=== PATIENT | female | born 1975 | race Caucasian/White ===

== ENCOUNTER 2020-11-16 10:45 | Emergency (ER) | payer OTHER ==
--- OUTSIDE RECORDS SUMMARY | 2020-11-16 10:47 | XMS REPORT | Summary of Care ---
:1975 Author Organization [facility] Address [address] [place] [address] Care Team Providers Name Role Phone Cale Rashad Primary Care Provider Reason for Visit Reason Comments LAB Encounter Details Date Type Department Care Team Description 11/12/2020 Director Credit Risk Visit [facility] Lou Eubanks MD [address] [place] [address] [address] [place] [address] Well woman exam with routine gynecologic al exam; Professional Office 2, [facility] Lab Screening examination for venereal disea se; [facility] Phlebotomy Screenin g for human immunodeficiency virus Lab Professional Office [address] , [address] [place] [address] Allergies No Known Allergiesdocumented as of this encounter (statuses as of 11/12/2020) Medications Medication Sig Dispensed Refills Start Date End Date Status hydroCHLOROthiazide 12.5 TK 1 T PO QD 0 09/11/2020 Active mg tablet IN THE MORNING meloxicam 7.5 mg tablet 0 10/18/2020 Active SERTraline 50 mg tablet TAKE 1 0 11/04/2020 Active TABLET(50 MG) BY MOUTH 1 TIME EACH DAY documented as of this encounter (statuses as of 11/12/2020) Active Problems Problem Noted Date Obesity (BMI 30-39.9) 11/12/2020 documented as of this encounter (statuses as of 11/12/2020) Social History Tobacco Use Types Packs/Day Years Used Date Never Smoker Smokeless Tobacco: Never Used Alcohol Use Drinks/Week oz/Week Comments Never Alcohol Habits Answer Date Recorded How often do you have a drink containing alcohol? Never 11/12/2020 How many drinks containing alcohol do you have on a typical Not asked 11/12/2020 day when you are drinking? How often do you have six or more drinks on one occasion? 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 documented as of this encounter Last Filed Vital Signs Not on filedocumented in this encounter Nursing Notes Teresa Mclaughlin - 11/12/2020 1:15 PM CST Venipuncture collection performed by clean technique on the right anticubitus. Total of 1 attempts were made. Slight pressure and a bandage/dressing were applied to the site(s). The patient experiencedno complications. The following specimens were processed according to instructions and sent to [facility] laboratories per lab order on 11/12/20: LT BLUE SST 3 RED 1 LAV PPT DK GREEN (LiHep) DK GREEN (SodH) MORENO DK BLUE (K2) DK BLUE (S) ACD Blood Culture NIPT/NTD documented in this encounter Plan of Treatment Date Type Specialty Care Team Description 11/19/2020 Appointment Radiology Lou Eubanks MD [address] [place] [address] Dr. Gaspar [address] [place] [address] 11/26/2020 Office Visit Obstetrics & Gynecology Priscila Eubanks MD [address] [place] [address] Dr. [place] [address] [phone] 11/13/2021 Office Visit Obstetrics & Gynecology Priscila Eubanks MD [address] [place] [address] Dr. [place] [phone] [phone] Health Maintenance Due Date Last Done Comments Depression Screening 1988 DTaP,Tdap,and Td Vaccines (1 - 1995 Tdap) PAP SMEAR 08/09/2015 08/09/2012 Breast Cancer Screening 2016 (MAMMOGRAM) INFLUENZA VACCINE (#1) 2021 Postponed from 07/22/2020 (Refused) PNEUMOCOCCAL 0-64 YEARS COMBINED Aged Out No longer eligible based on SERIES patient's age to complete this topic documented as of this encounter Results Not on filedocumented in this encounter Visit Diagnoses Diagnosis Well woman exam with routine gynecologic al exam Routine gynecological examination Screening examination for venereal disea se Screening for human immunodeficiency vir us Special screening examination for other specified viral diseases documented in this encounter Insurance Payer Benefit Plan / Subscriber ID Effective Phone Address T ype Group Dates CIGNA CIGNA GENERIC [id number] 2020-Pre HM O/PPO/POS sent [employer] [id number] 2020-Pre [address] [place] sent [id number] [place] [address] [address] ([address]) [phone] (Work) [place] [phone] documented as of this encounter
--- OUTSIDE RECORDS SUMMARY | 2020-11-16 10:47 | XMS REPORT | Summary of Care ---
:1975 Author Organization [facility] Address [address] [place] [address] Care Team Providers Name Role Phone Rashad Madsen Primary Care Provider Reason for Referral Radiology Services (Routine) Status Reason Specialty Diagnoses / Referred By Referred To Procedures Contact Contact New Request Diagnostic Diagnoses Menorrhagia with regular cycle Lou Eubanks, Radiology Procedures US PELVIS COMPLETE WITH TRANSVAGINAL [address] [place] [address] DrJg Hubert [address] [place] [address] (Routine) Status Reason Specialty Diagnoses / Referred By Referred To Procedures Contact Contact Closed Physical Therapy Diagnoses Stress incontinence Lou Eubanks, Procedures CONSULT/REFERRAL PHYSICAL THERAPY [address] [place] [address] DrJg Hubert [address] [place] [address] Reason for Visit Reason Comments Well Woman Exam Encounter Details Date Type Department Care Team Description 11/12/2020 Office Visit [facility] Women's Lou Eubanks, Well woman exam with routine gynecological exam (Primary Dx); Healthcare- MD Encounter for screening mammogram for ma lignant neoplasm of breast; [address] Screening examination for ve nereal disease; [address] [place] [address] Screening for human immunodeficiency vir us; [address], [address] Menorrhagia with regular cycle; [place], [place] Stress incontin ence; [id number] Cystocele with rectocele [phone] Allergies No Known Allergiesdocumented as of this [...] Problem Noted Date Obesity (BMI 30-39.9) 11/12/2020 Cystocele with rectocele 11/12/2020 Menorrhagia with regular cycle 11/12/2020 Stress incontinence 11/12/2020 documented as of this encounter (statuses [...] with No / Unsure 11/12/2020 9:25 AM DISTRICT CUSTOMS DIRECTOR someone who was confirmed or suspected to have Coronavirus / COVID-19? documented as of this encounter Last Filed Vital Signs Vital Sign Reading Time Taken Comments Blood Pressure 129/87 11/12/2020 10:13 AM DISTRICT CUSTOMS DIRECTOR Pulse 69 11/12/2020 10:13 AM DISTRICT CUSTOMS DIRECTOR Temperature 36.7 C (98.1 F) 11/12/2020 10:13 AM DISTRICT CUSTOMS DIRECTOR Respiratory Rate 18 11/12/2020 10:13 AM DISTRICT CUSTOMS DIRECTOR Oxygen Saturation - - Inhaled Oxygen Concentration - - Weight 81.2 kg (179 lb) 11/12/2020 10:13 AM DISTRICT CUSTOMS DIRECTOR Height 162.6 cm (5' 4") 11/12/2020 10:13 AM DISTRICT CUSTOMS DIRECTOR Body Mass Index 30.73 11/12/2020 10:13 AM DISTRICT CUSTOMS DIRECTOR documented in this encounter Patient Instructions Patient InstructionsDaly Morrow RN - 11/12/2020 9:00 AM CST Patient Education Prevention Guidelines,Women Ages 40 to 49 Screening tests and vaccines are an important part of managing your health. A screening test is doneto find diseases in people who don't have any symptoms. The goal is to find a disease early so lifestyle changes and checkups can reduce the risk of disease. Or the goal may be to detect it early to treat it most effectively. Screening tests are not used to diagnose a disease. But they are used to seeif more testing is needed.Health counseling is important, too. Below are guidelines for these, forwomen ages 40 to 49. Talk with your healthcare provider to make sure youre up-to-date on what youneed. Screening Who needs it How often Type 2 diabetes or prediabetes All women beginning at age 45 and women without symptoms at any age who are overweight or obese and have 1 or more additional risk factors for diabetes At least every 3 years1 Type 2 diabetes or prediabetes All women diagnosed with gestational diabetes Lifelong testing every 3 years Type 2 diabetes All women with prediabetes Every year Alcohol misuse All women in this age group At routine exams Blood pressure All women in this age group Yearly checkup if your blood pressure is normal Normal blood pressure is less than 120/80 mm Hg If your blood pressure reading is higher than normal, follow the advice of your healthcare provider Breast cancer All women at average risk in this age group Screening with a mammogram can start at age 40.2 Talk with your healthcare provider to help you decide when to start screening. At age 45 startyearly mammograms.3 Cervical cancer All women in this age group, except women who have had a complete hysterectomy Pap test every 3 yearsor Pap test plushuman papilloma virus (HPV)test every 5 years Colorectal cancer Women age 45 years and older at average risk Multiple tests are available and are used at different times. Possible tests include: Flexible sigmoidoscopy every 5 years, or Colonoscopy every 10 [address], [address] colonography (virtual colonoscopy) every 5 years, or Yearly fecal occult blood test, or Yearly fecal immunochemical test every year, or Stool DNA test, every 3 years If you choose a test other than a colonoscopy and have an abnormal test result, you will need to follow-up with a colonoscopy. Screening advice varies among expert groups. Talk with your healthcare provider about which tests are best for you. Some people should be screened using a different schedule because of their personal or family healthhistory. Talk with your healthcare provider about your health history. Chlamydia Women at increased risk for infection At routine exams if you're at risk or have symptoms Depression All women in this age group At routine exams Gonorrhea Sexually active women at increased risk for infection At routine exams Hepatitis C Anyone at increased risk; 1 time for those born between 1945 and 1964 At routine exams High cholesterol or triglycerides All women ages 45 and older who are at risk for coronary artery disease; younger women, talk with your healthcare provider At least every 5 years HIV All women At routine exams. Those with risk factors for HIV should be tested at least annually. Obesity All women in this age group At routine exams Syphilis Women at increased risk for infectiontalk with your healthcare provider At routine exams Tuberculosis Women at increased risk for infectiontalk with your healthcare provider Ask your healthcare provider Vision All women in this age group Complete exam at age 40 and eye exams every 2 to 4 years. If you have a chronic disease, ask your healthcare provider how often you should have your eyes examined.4 Vaccine Who needs it How often Chickenpox (varicella) All women in this age group who have no record of this infection or vaccine 2doses; the second dose should be given at least 4 weeks after the first dose Hepatitis A Women at increased risk for infectiontalk with your healthcare provider 2 doses given6 months apart Hepatitis B Women at increased risk for infectiontalk with your healthcare provider 3 doses over 6 months; second dose should be given 1 month after the first dose; the third dose should be given atleast 2 months after the second dose and at least 4 months after the first dose Haemophilus influenzaeType B (HIB) Women at increased risk 1 to 3 doses Influenza (flu) All women in this age group Once a year Measles, mumps, rubella (MMR) All women in this age group who have no record of these infections or vaccines 1 or 2 doses Meningococcal Women at increased risk for infectiontalk with your healthcare provider 1 or more doses Pneumococcal conjugate vaccine (PCV13)and pneumococcal polysaccharidevaccine(PPSV23) Women at increased risk for infectiontalk with your healthcare provider 1 or 2 doses Tetanus/diphtheria/pertussis (Td/Tdap) booster All women in this age group A 1- time dose of Tdap instead of a Td booster after age 18, then Td every 10 years Counseling Who needs it How often BRCA gene mutation testing for breast and ovarian cancer susceptibility Women with increased risk for having gene mutation When your risk is known Breast cancer and chemoprevention Women at high risk for breast cancer When your risk is known Diet and exercise Women who are overweight or obese When diagnosed, and then at routine exams Domestic violence Women at the age in which they are able to have children At routine exams Sexually transmitted infection prevention Women at increased risk for infectiontalk with your healthcare provider At routine exams Use of tobacco and the health effects it can cause All women in this age group Every exam 1 [place] [employer] 2 [place] [employer] 3 [place] [employer] 4 [place] [email or web address] last reviewed this educational content on 09/21/201719996808-1853 [employer]. All rights reserved. This information is not intended as a substitute for professional medical care. Always follow your healthcare professional's instructions. Patient Education Breast Health: Breast Self-Awareness What is breast self-awareness? Breast self-awareness is knowing how your breasts normally look and feel. Your breasts change as yougo through different stages of your life. So its important to learn what is normal for your breasts. Knowing about your breasts helps you spot any changes in them right away. Tell your healthcare provider about any changes. Why is breast self-awareness important? Many experts now say that women should focus on breast self-awareness instead of doing a breast self-examination (BSE). These experts include the [place] [employer] and the [place] [employer]. Some experts even advise not teaching women to do a BSE. Thats because research hasnt shown a clear benefit to doing BSEs. Breast self-awareness is different than a BSE. It isnt about following a certain method and schedule. Its about knowing what's normal for your breasts. That way you can spot even small changes right away. If you see any changes, tell your healthcare provider. Changes to look for Call your healthcare provider if you find any changes in your breasts that worry you. These changes may be: A lump Nipple discharge other than breast milk, especially if it's bloody Swelling A change in size or shape Skin changes, such as redness, thickening, or dimpling of the skin Swollen lymph nodes in the armpit Nipple problems, such as pain or redness If you find a lump Call your provider if you find lumpiness in one breast. Also call if you feel something different inthe tissue or feel a definite lump. Sometimes lumpiness may be due to menstrual changes. But there may be reason for concern. Your provider may want to see you right away if you have: Nipple discharge that is bloody Skin changes on your breast, such as dimpling or puckering Its okay to be upset if you find a lump. Be sure to call your provider right away. Remember that most breast lumps are benign. This means they are not cancer. [email or web address] last reviewed this educational content on 03/21/202019992770-2074 [employer]. All rights reserved. This information is not intended as a substitute for professional medical care. Always follow your healthcare professional's instructions. Patient Education The Range of Pap Test Results When your Pap test is sent to the lab, the lab studies your cell samples and reports any abnormal cell changes. Your healthcare provider can discuss these changes with you. In some cases, an abnormal Pap test is due to an infection. More serious cell changes range from dysplasia to cancer. Talk to your healthcare provider about your Pap test. Normal results Cervical cells, even normal ones, are always changing. As they mature, normal squamous cells move from deeper layers within the cervix. Over time, these cells flatten and cover the surface of the cervix. Within the cervical canal, the cells are different. These glandular cells are taller and not as flat as the cells on the surface of the cervix. When a Pap test sample shows healthy cells of both types, the results are negative. Keep having Pap tests as often as directed. Abnormal results A positive Pap test result means some cells in the sample showed abnormal changes. These results aregrouped by the type of cell change and the location, or extent, of the changes. Depending on the results, you may need further testing. Inflammation. Noncancerous changes are present. They may be due to normal cell repair. Or they may be caused by an infection, such as HPV or yeast. Further testing may be needed. (Also called reactive cellular changes.) Atypical squamous cells. Test results are unclear. Cells on the surface of the cervix show changes, but their significance is not yet known. Testing for HPV and other sexually transmitted infections(STIs) may be needed. Treatment may be required. (Reported as ASC-US or ASC-H.) Atypical glandular cells. Cells lining the cervical canal show abnormal changes. Further testing is likely. You may also have treatment to destroy or remove problem cells. (Reported as AGC.) Mild dysplasia. Cells show distinct changes. More testing or HPV typing may be done. You may alsohave treatment to destroy or remove problem cells. (Reported as low-grade CHRISTOPHER or CIRILO 1.) Moderate to severe dysplasia. Cells show precancerous changes. Or noninvasive cancer (carcinoma in situ) may be present. Treatment to destroy or remove problem cells is likely. (Reported as high-grade CHRISTOPHER or CIRILO 2 or CIRILO 3.) Cancer. Different types of cancer may be detected by your Pap test. More tests to assess the cancer's extent are likely. The type of treatment will depend on the test results and other factors, suchas age and health history. (Reported as squamous cell carcinoma, endocervical adenocarcinoma in situ, or adenocarcinoma.) [email or web address] last reviewed this educational content on 04/21/202019993576-5486 [employer]. All rights reserved. This information is not intended as a substitute for professional medical care. Always follow your healthcare professional's instructions. Patient Education Why Have a Pap Test? Early on, cervical changes don't cause symptoms. Often the only way to know you have cervical changes is to do a Pap test. A Pap test can find these problems early, when they are easier to treat. Pap tests can also find some infections of the cervix and vagina. What is a Pap test? A Pap test is a procedure that helps find changes in the cervix that may lead to cancer. The cervix is the part of the uterus that opens into the vagina. For this test, a small sample of cells is takenfrom the cervix. This is done in your healthcare providers office. The cells are then analyzed martha lab. A Pap test is a safe procedure. It takes just a few minutes and causes little or no discomfort. The HPV connection Human papillomavirus (HPV) is a family of viruses that spread through skin contact. Certain types are almost always spread through sexual contact. Some HPV types cause genital warts (condyloma). But not all types of HPV cause symptoms you can see. Certain types cause cell changes (dysplasia) in the cervix that can lead to cancer.In fact, HPV infection is the most important risk factor for cervical cancer. Healthcare providers can now test for HPV. Testing for HPV is often done with the Pap test.Thats why its important to have Pap tests as advised by your healthcare provider. This helps ensure that any abnormal cells will be found and treated before they become cancer. Who should have a Pap test and HPV test? Ask your healthcare provider when to start having Pap tests, if you should have an HPV test done at the same time, and how often to have them. Follow these guidelines from the [place] [employer] for cervical cancer screening: A first Pap testat age 21, and then every 3 years until age 29. HPV testing is not advised during this time. But it may be done to follow up on an abnormal Pap test. Starting at age 30, the preferred testing is a Pap test done with an HPV test every 5 years. Thisshould be done until age 65. Another option for women in this 30 to 65 age group is to have just thePap test done every 3 years. You may need a different screening schedule if you are at high risk for cervical cancer.Risk factors include having HIV, a weak immune system, or exposure to the medicine MAINOR while your mother was with you. Talk with your provider about the best schedule for you. If youre over65 and have had regular screenings for the last 10 years with no abnormal results in the last 20 years,you may stop cervical cancer screening. If you had a hysterectomy that included removing your cervix, you can stop screening unless the hysterectomy was done to treat cervical cancer or precancer. If you still have your cervix after the hysterectomy, you should keep screening according to the above guidelines. Routine testing doesn't need to be done each year. But if your test is abnormal, your provider will let you know how often to be tested. Women who have been vaccinated for HPV should still follow these guidelines. If you have had cervical cancer, talk with your provider about the screening plan that's best foryou. [email or web address] last reviewed this educational content on 04/21/202019993282-8005 [employer]. All rights reserved. This information is not intended as a substitute for professional medical care. Always follow your healthcare professional's instructions. Patient Education What Is Stress Urinary Incontinence? Stress urinary incontinence is a common type of bladder control problem in women. But it may also occur in men. It occurs when urine leaks out when there is sudden pressure on the belly (abdomen). Thismay happen from sneezing, coughing, physical exercise, lifting, bending, and even changing positions. This condition may occur when the structures that help hold urine in your bladder are weak. What are the symptoms of stress incontinence? If you have stress incontinence, you may leak urine when you: Cough, sneeze, or laugh Lift something heavy Exercise Strong pelvic floor muscles and connective tissue, and a strong urethral sphincter, help keep urine in the bladder. Weak or torn pelvic floor muscles and connective tissue, or a weak urethral sphincter, can let urineleak out of the bladder. Normal urine control The bladder holds urine until you are ready to let it flow out. These structures help: The pelvic floor muscles and connective tissue. These help hold the pelvic organs in place. When the muscles and connective tissue are strong, the urethra and bladder are well supported. This helps keep the urethra closed. Then urine doesnt leak. The urethral sphincter. This is a band of muscles around the urethra. When these muscles are strong, they keep urine in the bladder. These muscles relax when you want urine to flow out. If urine leaks out The pelvic floor muscles and connective tissue may stretch, weaken, or tear. Weak or torn structurescant support the urethra and bladder. The urethral sphincter may also weaken. These changes can cause urine to leak. The changes may be caused by: and vaginal or delivery Constant coughing (such as with bronchitis or smoking) Being overweight or obese Hysterectomy or other pelvic surgery Nerve damage Treatment Many treatments are available, including: Lifestyle changes (reducing weight, quitting smoking, reducing drinks with caffeine or alcohol, and doing bladder-strengthening exercises) Surgery Medical devices such as pessaries [email or web address] last reviewed this educational content on 11/21/201919999112-5246 [employer]. All rights reserved. This information is not intended as a substitute for professional medical care. Always follow your healthcare professional's instructions. Patient Education Kegel Exercises Kegel exercises are done to help strengthen the muscles in your pelvic floor. You dont need special clothing or equipment. Theyre easy to learn and simple to do. And if you do them right, no one can tell youre doing them, so they can be done almost anywhere. Your healthcare provider, nurse, or physical therapist can answer any questions you have and help you get started. A weak pelvic floor The pelvic floor muscles may weaken due to aging, and vaginal childbirth, injury, surgery,chronic cough, or lack of exercise. If the pelvic floor is weak, your bladder and other pelvic organs may sag out of place. The urethra may also open too easily and allow urine to leak out. Kegel exercises can help you strengthen your pelvic floor muscles. Then they can better support the pelvic organs and control urine flow. How Kegel exercises are done Try each of the Kegel exercises described below. When youre doing them, try not to move your leg,buttock, or stomach muscles: Contract as if you were stopping your urine stream. But do it when youre not urinating. Tighten your rectum as if trying not to pass gas. Contract your anus, but dont move your buttocks. You may place a finger or 2 in the vagina and squeeze your finger with your vagina to learn whichmuscles to tighten. Try to hold each Kegel for a slow count to 5. You probably wont be able to hold them for that long at first. But keep practicing. It will get easier as your pelvic floor gets stronger. Eventually, special weights that you place in your vagina may be recommended to help make your Kegels even more effective. Talk to your healthcare provider if you have trouble doing Kegel exercises. Helpful tips Here are some tips to follow: Do your Kegels as often as you can. The more you do them, the faster youll feel the results. Pick an activity you do often as a reminder. For instance, do your Kegels every time you sit down. Tighten your pelvic floor before you sneeze, get up from a chair, cough, laugh, or lift. This canhelp prevent urine, gas, or stool leakage. [email or web address] last reviewed this educational content on 06/21/202019998285-0868 [employer]. All rights reserved. This information is not intended as a substitute for professional medical care. Always follow your healthcare professional's instructions. [employer] C[employer]OM[employer] DIRECTOR documented in this encounter Progress Notes Lou Eubanks MD - 11/12/2020 9:00 AM CST Chief complaint: Chief Complaint Patient presents with Well Woman Exam Thuy Garcia is a 45 year-old lady, , who presents for a WWE today. She has some concerns today: - Urinary incontience which has been ongoing for 5 years now and getting worst. Leaks urine with activity, laughing or sneezing, worst with a full bladder and has to wear incontience pads. She denies dysuria, urgency or urge incontience.Reports that a few years ago, she was given a medication for it wh ich was not effective and only made her sit on the toilet "forever' before she could pee. She deniesany vaginal bulge or lump. - Over the last 1 year or so, her periods have gotten painful and heavier with blood clots, cycles are still regular. Denies postcoital or intermenstrual bleeding. She would like to start BC- possibly the pill.She has taken ortho tricyclen in the past and liked it - She has also noticed abdominal distension/bloating, admits that this has been on going for over 7 years and unrelated to her cycles and she also gets nausea with difficulty swallowing. She has been investigated for these symptoms but her PCP wanted to rule out gynecological etiology before referral to a GI specialist Her last pap smear is over 8 years ago, denies hx of abnormal pap smears Most recent MMG followed by a [facility]G was in 07/2020 at [facility], due follow up in 6 months She is currently undergoing divorce and would like STI screening. She denies domestic violence and her mood is stable on antidepressants Denies family hx of breast, ovarian or endometrial cancer. Paternal grandfather had colon Declined Flu shot Histories OB History Para Term AB Living 5 5 5 5 SAB TAB Ectopic Multiple Live Births 5 # Outcome Date GA Lbr Dashawn/2nd Weight Sex Delivery Anes PTL Lv 5 Term 2008 [facility] 4 Term 2004 [facility] 3 Term 1999 [facility] 2 Term 1996 [facility] 1 Term 1995 [facility] Past Medical History: Diagnosis Date Anxiety Depression Family History Problem Relation Age of Onset Heart Mother Psychiatry Mother Hypertension Mother Cataracts Mother Thyroid Mother Emphysema Father Hypertension Father Cancer Maternal Grandmother Heart Maternal Grandmother Colon Cancer Paternal Grandfather Family Status Relation Name Status Mo Alive Fa MGMo PGFa Past Surgical History: Procedure Laterality Date CHOLECYSTECTOMY Social History Socioeconomic History Marital status: Spouse name: Not on file Number of children: Not on file Years of education: Not on file Highest education level: Not on file Occupational History Not on file Social Needs Financial resource strain: Not on file Food insecurity Worry: Not on file Inability: Not on file Transportation needs Medical: Not on file Non-medical: Not on file Tobacco Use Smoking status: Never Smoker Smokeless tobacco: Never Used Substance and Sexual Activity Alcohol use: Never Frequency: Never Binge frequency: Never Drug use: Never Sexual activity: Yes Partners: Male Lifestyle Physical activity Days per week: Not on file Minutes per session: Not on file Stress: Not on file Relationships Social connections Talks on phone: Not on file Gets together: Not on file Attends lutheran service: Not on file Active member of club or organization: Not on file Attends meetings of clubs or organizations: Not on file Relationship status: Not on file Intimate partner violence Fear of current or ex partner: Not on file Emotionally abused: Not on file Physically abused: Not on file Forced sexual activity: Not on file Other Topics Concern Not on file Social History Narrative Denies physical and sexual abuse. Social History Substance and Sexual Activity Sexual Activity Yes Partners: Male Labs No new labs Radiology No new radiology. Allergies Thuy has No Known Allergies. Medications hTuy has a current medication list which includes the following prescription(s): hydrochlorothiazide, meloxicam, and sertraline. Review of Systems Constitutional: Negative. HENT: Negative. Eyes: Negative. Respiratory: Negative. Breasts: Negative. Cardiovascular: Negative. Gastrointestinal: Negative. Genitourinary: Positive for bladder incontinence (stress) and menstrual problem (menorrhagia). Negative for dysuria, urgency, frequency and flank pain. Musculoskeletal: Negative. Skin: Negative. Neurological: Negative. Psychiatric/Behavioral: Negative. Endocrine: Endocrine negative BP 129/87 (BP Location: Left arm, Patient Position: Sitting, BP CUFF SIZE: Adult Large) | Pulse 69| Temp 36.7 C (98.1 F) (Oral) | Resp 18 | Ht 5' 4" (1.626 m) | Wt 179 lb (81.2 kg) | LMP 11/08/2020 (Exact Date) | BMI 30.73 kg/m Pregravid BMI: Could not be calculated Physical Exam Vitals reviewed. Constitutional: She is oriented to person, place, and time. She appears well- developed and well-groomed. Neck: No tenderness and no mass. No thyroid nodules palpated. No neck adenopathy. Cardiovascular: Regular rate and rhythm. No friction rub and no murmur auscultated. Pulmonary/Chest: Breath sounds clear to auscultation. Normal inspiratory effort. Abdominal: Abdomen is soft. No mass palpated. No tenderness present. There is no rigidity and no guarding. No hernia palpated or inspected. Neuro/Psychiatric: She has a normal mood and affect. She is oriented to person, place, and time. Skin: Skin normal. Lymphadenopathy: No neck adenopathy present. No axillary adenopathy present. No inguinal adenopathy present. Breast: Right breast exhibits no mass, no nipple discharge and no tenderness. Left breast exhibits no mass, no nipple discharge and no tenderness. Breasts are symmetrical. External genitalia: Normal external genitalia appropriate for age. Vagina:No lesion inspected. Abnormal support (Ist degree cystocele and 2nd rectocele). No abnormal vaginal discharge found. No lesions in the vagina. Cervix: No lesion. No tenderness and no discharge present. Uterus: Uterus is normal size, normal contour, normal position and non-tender. Adnexa: Right adnexa without tenderness, ovary enlargement or mass. Left adnexa without tenderness, ovary enlargement or mass. Assessment/Plan Well woman exam with routine gynecological exam (primary encounter diagnosis) Comment: Reviewed and encouraged good nutrition, regular exercise, use of sunscreen, awareness of her breasts, routine annuals and mammograms. Also age appropriate vaccinations and screening labs were discussed. Colonoscopy after age of 51 and DEXA scan 66 years of age. Bone health-adequate Vit D and calcium with weight bearing exercise. Expectation and changes during perimenopausal stage were discussed and she was encouraged to call with any concerns. Plan: PAP Smear-Liquid Based, HIGH RISK HPV-THIN PREP, GC & CHLAMYDIA AMPLIFIED ASSAY, TRICHOMONAS AMPLIFIED ASSAY, ADC OR MINDI ONLY - RPR, HCV ANTIBODY, HEPATITIS B SURFACE ANTIGEN, HIV 1/2 AG-AB WITH REFLEX, HSV 1 AND 2 GLYCOPROTEIN G IGG, PAP Smear-Liquid Based, HIGH RISK HPV-THIN PREP, GC & CHLAMYDIA AMPLIFIED ASSAY, TRICHOMONAS AMPLIFIED ASSAY Encounter for screening mammogram for malignant neoplasm of breast Comment: Up to date mammogram Plan: Follow up as indicated/ recommended at study Screening examination for venereal disease Plan: HIGH RISK HPV-THIN PREP, GC & CHLAMYDIA AMPLIFIED ASSAY, TRICHOMONAS AMPLIFIED ASSAY, ADC OR MINDI ONLY - RPR, HCV ANTIBODY, HEPATITIS B SURFACE ANTIGEN, HIV 1/2 AG-AB WITH REFLEX, HSV 1 AND 2 GLYCOPROTEIN G IGG, HIGH RISK HPV-THIN PREP, GC & CHLAMYDIA AMPLIFIED ASSAY, TRICHOMONAS AMPLIFIED ASSAY Screening for human immunodeficiency virus Plan: HIV 1/2 AG-AB WITH REFLEX Menorrhagia with regular cycle Comment: Discussed the various etiologies of menorrhagia, including polyps, fibroids, hyperplasia oratypia, anovulation, adenomyosis etc. Reviewed that typical evaluation usually include pelvic US, sonohysterogram and endometrial biopsy. Biopsy procedure reviewed in detail. Recommended premedication with NSAIDs. Briefly discussed the options available for treatment (depending on the results of evaluation) such as hormonal treatment (OCPs, progestins), Mirena, endometrial ablation, and surgery (polypectomy/myomectomy or expectant management in case of negative results She would prefer the pill rather than surgery or an IUD if negative work up Patient agrees with plan. Plan: US PELVIS COMPLETE WITH TRANSVAGINAL Stress incontinence Comment: Symptoms consistent with stress incontinence. Reviewed the pathophysiology for stress incontience. Management options discussed included: Lifestyle modification (avoidance of bladder irritants); conservative management with PT for pelvic floor or pessary placement and surgical procedures which includes placement of sling. She opted for PT for now and would only consider surgery as a last resort. We also discussed using the OTC poise inserts- she will look into these option Referral to PT generated Plan: CONSULT/REFERRAL PHYSICAL THERAPY Cystocele and rectocele: Will need repair if she decides to proceed with surgery. RTC in 1-2 weeks for an EMBx and in 12 months for a WWE This visit did not involve counseling and coordination that comprised more than 50% of the visit time. Lou Eubanks MD documented in this encounter Plan of Treatment Date Type Specialty Care Team Description 11/19/2020 Appointment Radiology Lou Eubanks MD [address] [place] [address] Dr. [place] [address] 11/26/2020 Office Visit Obstetrics & Gynecology Priscila Eubanks MD [address] [place] [address] Dr. Wisdom [place], [place] [address] 11/13/2021 Office Visit Obstetrics & Gynecology Priscila Eubanks MD [address] [place] [address] Dr. 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 exam Screening examination for venereal disease HCV ANTIBODY LAB Routine Well woman exam with 020 11:52 AM routine gynecological DISTRICT CUSTOMS DIRECTOR exam Screening examination for venereal disease HEPATITIS B SURFACE LAB Routine Well woman exam with 11/12/2020 11:52 AM ANTIGEN routine gynecological DISTRICT CUSTOMS DIRECTOR exam Screening examination for venereal disease HSV 1 AND 2 GLYCOPROTEIN LAB Routine Well woman exam with 11/12/2020 11:52 AM G IGG routine gynecological DISTRICT CUSTOMS DIRECTOR exam Screening examination for venereal disease Name Type Priority Associated Diagnoses Order S chedule PAP Smear-Liquid Based LAB Routine Well woman exam wi th Expected: routine gynecological 2019, exam Expires: 2020 HIGH RISK HPV-THIN PREP LAB Routine Well woman exam w ith Expected: routine gynecological 2019, exam Expires: 11/12/2021 Screening examination for venereal disease GC & CHLAMYDIA AMPLIFIED LAB Routine Well woman exam with Expected: ASSAY routine gynecological 2019, exam Expires: 11/12/2021 Screening examination for venereal disease TRICHOMONAS AMPLIFIED LAB Routine Well woman exam wit h Expected: ASSAY routine gynecological 2019, exam Expires: 11/12/2021 Screening examination for venereal disease ADC OR MINDI ONLY - LAB Routine Well woman exam wit h Expected: RPR routine gynecological 2019, exam Expires: 02/10/2021 Screening examination for venereal disease HCV ANTIBODY LAB Routine Well woman exam with Expecte d: routine gynecological 2019, exam Expires: 02/10/2021 Screening examination for venereal disease HEPATITIS B SURFACE LAB Routine Well woman exam with Expected: ANTIGEN routine gynecological 2019, exam Expires: 02/10/2021 Screening examination for venereal disease HSV 1 AND 2 GLYCOPROTEIN LAB Routine Well woman exam with Expected: G IGG routine gynecological 2019, exam Expires: 11/12/2021 Screening examination for venereal disease US PELVIS COMPLETE WITH IMAGING Routine Menorrhagia with regular Expected: TRANSVAGINAL cycle 11/12/2020, Expires: 2020 Health Maintenance Due Date Last Done Comments Depression Screening 1988 DTaP,Tdap,and Td Vaccines (1 - 1995 Tdap) PAP SMEAR 08/09/2015 08/09/2012 Breast Cancer Screening 2016 (MAMMOGRAM) INFLUENZA VACCINE (#1) 2021 Postponed from 07/22/2020 (Refused) PNEUMOCOCCAL 0-64 YEARS COMBINED Aged Out No longer eligible based on SERIES patient's age to complete this topic documented as of this encounter Results HIV 1/2 AG-AB WITH REFLEX (11/12/2020 11:52 AM DISTRICT CUSTOMS DIRECTOR) Pathologist Sig nature HIV 1/2 Ag-Ab with Negative Negative [facility] HIV Semi-quantitative 0.08 [facility] Specimen Blood Narrative Performed At Non-reactive for HIV-1 antigen and HIV-1/HIV-2 [facility] antibodies. No laboratory evidence of HIV infection. Repeat in 2-4 weeks if acute HIV infection is suspected. Performing Organization Address City/State/Zipcode Phone Number [facility] CLIA: [id number] [place] [address] documented in this encounter Visit Diagnoses Diagnosis Well woman exam with routine gynecologic al exam - Primary Routine gynecological examination Encounter for screening mammogram for ma lignant neoplasm of breast Other screening mammogram Screening examination for venereal disea se Screening for human immunodeficiency vir us Special screening examination for other specified viral diseases Menorrhagia with regular cycle Excessive or frequent menstruation Stress incontinence Female stress incontinence Cystocele with rectocele Reserved for inherently not codable conc epts WITHOUT codable children documented in this encounter Insurance Payer Benefit Plan / Subscriber ID Effective Phone Address T ype Group Dates CIGNA CIGNA GENERIC [id number] 2020-Pre HM O/PPO/POS sent [employer] [id number] 2020-Pre [address] [place] [id number] [place] [phone] documented as of this encounter
--- OUTSIDE RECORDS SUMMARY | 2020-11-16 10:47 | XMS REPORT | Continuity of Care Document ---
:1975 Author Organization [facility] t Address [address] [place] [address] Dr. Pappas [address] [place] [address] Care Team Providers Name Role Phone Rashad Eubanks MD Attending Clinician Problems This patient has no known problems. Allergies, Adverse Reactions, Alerts This patient has no known allergies or adverse reactions. Medications This patient has no known medications. Procedures This patient has no known procedures. Encounters Start End Encounter Admission Attending Care Care Encounter Source Date/Time Date/Time Type Type Clinicians Facility Department ID 2020-11-12 2020-11-12 Office BUBBA Eubanks [id number] 29 09:33:12 11:25:11 Visit Lou Hinds [id number] [place] [id number] [place] [id number] [facility] [address] Results This patient has no known results.
--- OUTSIDE RECORDS SUMMARY | 2020-11-16 10:47 | XMS REPORT | Summary of Care ---
:1975 Author Organization [facility] Address [address] [place] [address] Care Team Providers Name Role Phone Rashad Madsen Primary Care Provider Reason for Referral Radiology Services (Routine) Status Reason Specialty Diagnoses / Referred By Referred To Procedures Contact Contact New Request Diagnostic Diagnoses Menorrhagia with regular cycle Lou Eubanks, Radiology Procedures US PELVIS COMPLETE WITH TRANSVAGINAL [address] [place] [address] DrJg Hubert [address] [place] [address] (Routine) Status Reason Specialty Diagnoses / Referred By Referred To Procedures Contact Contact Closed Physical Therapy Diagnoses Stress incontinence Lou Eubanks, Procedures CONSULT/REFERRAL PHYSICAL THERAPY [address] [place] [address] DrJg Hubert [address] [place] [address] Reason for Visit Reason Comments Well Woman Exam Encounter Details Date Type Department Care Team Description 11/12/2020 Office Visit [facility] Women's Lou Eubanks, Well woman exam with routine gynecological exam (Primary Dx); Healthcare- MD Encounter for screening mammogram for ma lignant neoplasm of breast; [address] Screening examination for ve nereal disease; [address] [place] [address] Screening for human immunodeficiency vir us; Drive, [address] Menorrhagia with regular cycle; [place], [place] Stress incontin ence; [phone] Cystocele with rectocele [phone] Allergies No Known Allergiesdocumented as of this [...] with No / Unsure 11/12/2020 9:25 AM 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 documented as of this encounter Last Filed Vital Signs Vital Sign Reading Time Taken Comments Blood Pressure 129/87 11/12/2020 10:13 AM HARD METALS HAND ENGRAVER Pulse 69 11/12/2020 10:13 AM HARD METALS HAND ENGRAVER Temperature 36.7 C (98.1 F) 11/12/2020 10:13 AM HARD METALS HAND ENGRAVER Respiratory Rate 18 11/12/2020 10:13 AM HARD METALS HAND ENGRAVER Oxygen Saturation - - Inhaled Oxygen Concentration - - Weight 81.2 kg (179 lb) 11/12/2020 10:13 AM HARD METALS HAND ENGRAVER Height 162.6 cm (5' 4") 11/12/2020 10:13 AM HARD METALS HAND ENGRAVER Body Mass Index 30.73 11/12/2020 10:13 AM HARD METALS HAND ENGRAVER documented in this encounter Patient Instructions Patient [...] in this age group Every exam 1 [place] [employer] 2 [place] [employer]nec[employer] 3 [place] [employer] 4 [place] [employer] last reviewed this educational content on 09/21/201719996106-9643 The [employer]. All rights reserved. This information is not [...] breast self-examination (BSE). These experts include the [place] [employer] and the [place] [employer] of Obstetricians [employer] Gynecologists. Some experts [...] benign. This means they are not cancer. [employer] last reviewed this educational content on 03/21/202019991158-4756 The [employer]. All rights reserved. This information is not [...] carcinoma, endocervical adenocarcinoma in situ, or adenocarcinoma.) [employer] last reviewed this educational content on 04/21/202019998173-8352 The [employer]. All rights reserved. This information is not [...] have them. Follow these guidelines from the [place] [employer] for cervical cancer screening: A [...] about the screening plan that's best foryou. [employer] last reviewed this educational content on 04/21/202019996496-0614 The [employer]. All rights reserved. This information is not [...] exercises) Surgery Medical devices such as pessaries [employer] last reviewed this educational content on 11/21/201919998911-6390 The [employer]. All rights reserved. This information is not [...] canhelp prevent urine, gas, or stool leakage. [employer] last reviewed this educational content on 06/21/202019993054-8360 The [employer]. All rights reserved. This information is not intended as a substitute for professional medical care. Always follow your healthcare professional's instructions. METALS HAND ENGRAVER documented in this encounter Progress Notes Lou [...] by a USG was in 07/2020 at [facility], due follow up in 6 months She [...] file Gets together: Not on file Attends protestant service: Not on file Active member of [...] Allergies Thuy has No Known Allergies. Medications Thuy has a current medication list which includes [...] Description 11/19/2020 Appointment Radiology Lou Eubanks MD [address] [place] [address] Dr. [place] [address] 11/26/2020 Office Visit Obstetrics & Gynecology Priscila Eubanks MD [address] [place] [address] Dr. Wisdom [place], [place] [address] 11/13/2021 Office Visit Obstetrics & Gynecology Priscila Eubanks MD [address] [place] [address] Dr. Gaspar [address] [place], [place] [address] Name Type Priority Associated Diagnoses Date/Ti me ADC OR MINDI ONLY - RPR LAB Routine Well woman exam with 11/12/2020 11:52 AM routine gynecological HARD METALS HAND ENGRAVER exam Screening examination for venereal disease HCV ANTIBODY LAB Routine Well woman exam with 020 11:52 AM routine gynecological HARD METALS HAND ENGRAVER exam Screening examination for venereal disease HEPATITIS B SURFACE LAB Routine Well woman exam with 11/12/2020 11:52 AM ANTIGEN routine gynecological HARD METALS HAND ENGRAVER exam Screening examination for venereal disease HSV 1 AND 2 GLYCOPROTEIN LAB Routine Well woman exam with 11/12/2020 11:52 AM G IGG routine gynecological HARD METALS HAND ENGRAVER exam Screening examination for venereal disease Name [...] 1/2 AG-AB WITH REFLEX (11/12/2020 11:52 AM HARD METALS HAND ENGRAVER) Pathologist Sig nature HIV 1/2 Ag-Ab with Negative Negative [facility] HIV Semi-quantitative 0.08 [facility] Specimen Blood Narrative Performed At Non-reactive for HIV-1 antigen and HIV-1/HIV-2 [facility] antibodies. No laboratory evidence of HIV infection. Repeat in 2-4 weeks if acute HIV infection is suspected. Performing Organization Address City/State/Zipcode Phone Number [facility] CLIA: [id number] [place] [address] documented in this [...] T ype Group Dates CIGNA CIGNA GENERIC [id number] 2020-Pre HM O/PPO/POS sent [employer] [id number] 2020-Pre [address] [place] [id number] [place] [phone] 80 documented as of this encounter
[2020-11-16] MEDS ORDERED: ONDANSETRON 4 MG (ODT) TAB ONE (14:21)
--- NOTE | 2020-11-16 15:17 | ER ---
Nurse's Notes [facility] Name: Thuy Garcia Age: 45 yrs Sex: Female : 1975 Arrival Date: 11/16/2020 Time: 10:48 Bed 25 Private MD: Diagnosis: Nausea and vomiting;Diarrhea, unspecified;Influenza due to other identified influenza virus-influenza B Presentation: 11/16 12:12 Chief complaint: Patient states: vomiting ten times since last night diarrhea X 3 iw cannot tolerate fluids, no fever, +chills, body aches, has been exposed to a family member that was positive. Coronavirus screen: Client presents with at least one sign or symptom that may indicate coronavirus-19. Standard/surgical mask placed on the client. Provider contacted for isolation considerations. Ebola Screen: Patient negative for fever greater than or equal to 101.5 degrees Fahrenheit, and additional compatible Ebola Virus Disease symptoms Patient denies exposure to infectious person. Patient denies travel to an Ebola-affected area in the 21 days before illness onset. No symptoms or risks identified at this time. Initial Sepsis Screen: Does the patient meet any 2 criteria? No. Patient's initial sepsis screen is negative. Does the patient have a suspected source of infection? No. Patient's initial sepsis screen is negative. Risk Assessment: Do you want to hurt yourself or someone else? Patient reports no desire to harm self or others. Onset of symptoms was November 16, 2020. 12:12 Method Of Arrival: Ambulatory iw 12:12 Acuity: RL 3 iw Triage Assessment: 13:09 GI: Reports vomiting. iw 15:27 General: Appears in no apparent distress. Behavior is calm. iw GARMENT FITTER: 12:12 LMP N/A - iw Historical: - Allergies: 12:14 No Known Allergies; iw - PMHx: 12:14 Hypertension; Depression; iw - PSHx: 12:14 Cholecystectomy; iw - Immunization history:: Adult Immunizations not up to date. - Social history:: Smoking status: Patient denies any tobacco usage or history of. Screenin:58 Abuse screen: Denies threats or abuse. Denies injuries from another. Nutritional iw screening: No deficits noted. Tuberculosis screening: No symptoms or risk factors identified. Fall Risk None identified. Assessment: 13:09 General: Appears in no apparent distress. Behavior is calm, cooperative. Pain: Denies iw pain. Neuro: Level of Consciousness is awake, alert, obeys commands, Oriented to person, place, time, situation. Cardiovascular: Patient's skin is warm and dry. Respiratory: Respiratory effort is even, unlabored, Respiratory pattern is regular, symmetrical. GI: Reports nausea, vomiting. Derm: Skin is intact, is healthy with good turgor. Musculoskeletal: Range of motion: intact in all extremities. 14:58 Reassessment: Patient appears in no apparent distress at this time. Patient and/or iw family updated on plan of care and expected duration. Pain level reassessed. Patient is alert, oriented x 3, equal unlabored respirations, skin warm/dry/pink. Vital Signs: 12:12 BP 135 / 97; Pulse 104; Resp 16 S; Temp 98.2; Pulse Ox 100% on R/A; Weight 81.65 kg; iw Height 5 ft. 4 in. (162.56 cm); 12:12 Body Mass Index 30.90 (81.65 kg, 162.56 cm) iw ED Course: 10:48 Patient arrived in ED. ag5 12:14 Triage completed. iw 12:15 Arm band placed on. iw 13:09 Patient has correct armband on for positive identification. iw 13:10 Ender Hartman PA is PHCP. cp 13:10 Enoc Sharma MD is Attending Physician. cp 13:11 Effie Mulligan, ELIGIO is Primary Nurse. iw 14:59 No provider procedures requiring assistance completed. Patient did not have IV access iw during this emergency room visit. Administered Medications: 14:12 Drug: Zofran (Ondansetron) 4 mg Route: PO; iw Outcome: 15:16 Discharge ordered by . cp 15:26 Discharged to home ambulatory. iw 15:26 Condition: good 15:26 Discharge instructions given to patient, Instructed on discharge instructions, follow up and referral plans. medication usage, Demonstrated understanding of instructions, follow-up care, medications, Prescriptions given X 1. 15:27 Patient left the ED. iw Addendum: 11/19/2020 08:54 Addendum: COVID-19 Result: Negative result given to RN to notify pt. Notified pt of d m5 negative COVID 19 swab results. Pt advised that even with a negative test result they should remain in isolation until symptom free for 3 days without medication. Pt also advised to return to the ED for worsening symptoms. 11/20/2020 10:46 Addendum: COVID-19 Result: Negative result given to RN to notify pt. Notified pt of i w negative COVID 19 swab results. Pt advised that even with a negative test result they should remain in isolation until symptom free for 3 days without medication. Pt also advised to return to the ED for worsening symptoms. Signatures: Luli Hodge RN RN dm5 Effie Mulligan RN RN iw Ender Hartman PA PA cp Gaskin, Ajare ag5 Corrections: (The following items were deleted from the chart) 11/16 12:15 12:12 Resp 16bpm; Spontaneous; Pulse Ox 100% RA; Temp 98.2F; iw iw
--- NOTE | 2020-11-16 15:17 | EDPHYS ---
Physician Documentation [facility] Name: Thuy Garcia Age: 45 yrs Sex: Female : 1975 Arrival Date: 11/16/2020 Time: 10:48 Bed 25 Private MD: ED Physician Enoc Sharma HPI: 11/16 13:30 This 45 yrs old Female presents to ER via Ambulatory with complaints of cp Vomiting/Diarrhea. 13:30 The patient presents to the emergency department with nausea, that is moderate, cp vomiting, that is intermittent, 10 times today, diarrhea, that is intermittent, 3 times today. Onset: The symptoms/episode began/occurred last night. Possible causes: sick contacts, by family, extended family member recently tested positive for COVID-19. Associated signs and symptoms: Pertinent positives: body aches, Pertinent negatives: abdominal pain, constipation, fever, chest pain. 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 - Social history:: Smoking status: Patient denies any tobacco usage or history of. ROS: 13:35 Constitutional: Positive for body aches, Negative for chills, fever. cp 13:35 Eyes: Negative for injury, pain, redness, and discharge. cp 13:35 ENT: Negative for ear pain, sore throat, difficulty swallowing, difficulty handling secretions. 13:35 Cardiovascular: Negative for chest pain, palpitations. 13:35 Respiratory: Negative for cough, wheezing. 13:35 Abdomen/GI: Positive for nausea, vomiting, and diarrhea, Negative for abdominal pain, hematemesis, black/tarry stool, rectal bleeding. 13:35 : Negative for urinary symptoms. 13:35 Neuro: Negative for altered mental status, headache, weakness. 13:35 All other systems are negative. Exam: 13:40 Constitutional: The patient appears in no acute distress, alert, awake, non-toxic, well cp developed, well nourished. 13:40 Head/Face: Normocephalic, atraumatic. cp 13:40 Eyes: Periorbital structures: appear normal, Conjunctiva: normal, no exudate, no cp injection, Sclera: no appreciated abnormality, Lids and lashes: appear normal, bilaterally. 13:40 ENT: External ear(s): are unremarkable, Nose: is normal, Posterior pharynx: Airway: no evidence of obstruction, patent. 13:40 Neck: Lymph nodes: no appreciated lymphadenopathy. 13:40 Chest/axilla: Inspection: normal. 13:40 Cardiovascular: Rate: tachycardic, Rhythm: regular. 13:40 Respiratory: the patient does not display signs of respiratory distress, Respirations: normal, no use of accessory muscles, no retractions, labored breathing, is not present, Breath sounds: are clear throughout, no decreased breath sounds. 13:40 Abdomen/GI: Inspection: abdomen appears normal, Bowel sounds: active, all quadrants, Palpation: abdomen is soft and non-tender, in all quadrants, rebound tenderness, is not appreciated, involuntary guarding, is not appreciated. 13:40 Back: pain, is absent, ROM is normal. 13:40 Neuro: Orientation: to person, place \T\ time. Mentation: is normal. Vital Signs: 12:12 BP 135 / 97; Pulse 104; Resp 16 S; Temp 98.2; Pulse Ox 100% on R/A; Weight 81.65 kg; iw Height 5 ft. 4 in. (162.56 cm); 12:12 Body Mass Index 30.90 (81.65 kg, 162.56 cm) iw MDM: 13:20 Patient medically screened. cp 15:00 Differential diagnosis: gastritis, viral gastroenteritis, gastroenteritis, dehydration, cp COVID-19. 15:15 Data reviewed: vital signs, nurses notes, lab test result(s), and as a result, I will cp discharge patient. 15:15 Counseling: I had a detailed discussion with the patient and/or guardian regarding: the cp historical points, exam findings, and any diagnostic results supporting the discharge/admit diagnosis, lab results, to return to the emergency department if symptoms worsen or persist or if there are any questions or concerns that arise at home. 15:15 Response to treatment: the patient's symptoms have markedly improved after treatment. ED course: VSS. Nausea improved. No vomiting observed by patient while in ED. Patient observed tolerating po fluids. Will discharge to home for continued monitoring. 11/16 13:20 Order name: Influenza Screen (a \T\ B); Complete Time: 15:13 cp 11/16 15:13 Interpretation: Normal except: FLUB FLU B ----- \T\nbsp; \T\nbsp; \T\nbsp; \T\nbsp; \T\nbsp; cp \T\nbsp; \T\nbsp; \T\nbsp; \T\nbsp; POSITIVE for FLU B protein antigen. 11/16 13:20 Order name: COVID-19 11/16 13:20 Order name: Urine Dipstick-Ancillary (obtain specimen) cp 11/16 13:20 Order name: Urine Test (obtain specimen) 11/16 13:20 Order name: PO challenge; Complete Time: 14:59 cp Administered Medications: 14:12 Drug: Zofran (Ondansetron) 4 mg Route: PO; iw Disposition: 15:57 Co-signature as Attending Physician, Enoc Sharma MD I agree with the assessment and rn plan of care. Disposition: 11/16/20 15:16 Discharged to Home. Impression: Nausea and vomiting, Diarrhea, unspecified, Influenza due to other identified influenza virus - influenza B. - Condition is Stable. - Discharge Instructions: Food Choices to Help Relieve Diarrhea, Adult, Dehydration, Adult, Diarrhea, Adult, Influenza, Adult, Nausea and Vomiting, Adult, COVID-19. - Prescriptions for Zofran 4 mg Oral Tablet - take 1 tablet by ORAL route every 12 hours As needed; 20 tablet. Tamiflu 75 mg Oral Capsule - take 1 tablet by ORAL route every 12 hours for 5 days; 10 tablet. - Work release form, Medication Reconciliation Form, Thank You Letter, Antibiotic Education, Prescription Opioid Use form. - Follow up: Private Physician; When: 2 - 3 days; Reason: Worsening of condition. - Problem is new. - Symptoms have improved. Signatures: Dispatcher [employer] Effie Conner RN RN iw Nieto, Roman, MD MD rn Page, Corey, PA PA cp Corrections: (The following items were deleted from the chart) 15:16 11/16/2020 15:16 Discharged to Home. Impression: Nausea and vomiting; Diarrhea, iw unspecified; Influenza due to other identified influenza virus - influenza B. Condition is Stable. Forms are Medication Reconciliation Form, Thank You Letter, Antibiotic Education, Prescription Opioid Use. Follow up: Private Physician; When: 2 - 3 days; Reason: Worsening of condition. Problem is new. Symptoms have improved. cp
[2020-11-16 15:32] VITALS: BP 135/97; TEMP 98.2; O2SAT 100
== END 2020-11-16 15:27 | disposition home or self-care (01) ==
LOC: ER 10:45
DX: J10.1 Influenza due to other identified influenza virus with other respiratory manifestations (principal); R19.7 Diarrhea, unspecified; Z20.828 Contact with and (suspected) exposure to other viral communicable diseases; I10 Essential (primary) hypertension
CPT/HCPCS: 87804 ×2; 99283; U0002

== ENCOUNTER 2021-09-16 11:38 | Emergency (ER) | payer OTHER ==
[2021-09-16 12:38] LABS: Absolute Lymphocytes (CBC) 1.2 K/uL (0.7-4.9); Basophils % 0.6 % (0-1.3); Hematocrit 41.9 % (36.0-45.0); Lymphocytes % 10.8 % (15.3-44.8); MPV 8.8 fL (7.6-11.3); RBC Red Blood Cell Count 4.66 M/uL (3.86-4.86)
[2021-09-16 12:41] LABS: Protime INR 1.07
[2021-09-16 12:59] LABS: ALT/SGPT 44 U/L (12-78); AST/SGOT 25 U/L (15-37); Albumin 3.9 g/dL (3.4-5.0); Alkaline Phosphatase 44 U/L (45-117); BUN Blood Urea Nitrogen 10 mg/dL (7-18); Bicarbonate 26 mmol/L (21-32); Bilirubin Direct 0.1 mg/dL (0-0.2); Bilirubin Total 0.5 mg/dL (0.2-1.0); Glucose Level 107 mg/dL (74-106); Magnesium 2.1 mg/dL (1.8-2.4); NT PRO-BNP 24 pg/mL (<125); Potassium 3.2 mmol/L (3.5-5.1); Protein, Total 8.4 g/dL (6.4-8.2); Sodium Level 139 mmol/L (136-145); Troponin (Emerg Dept Use Only) < 0.02 ng/mL (0.0-0.045)
[2021-09-16] MEDS ORDERED: POTASSIUM CL SA 10 MEQ TAB PO ONE (13:55)
[2021-09-16] MEDS ORDERED: NA CHLORIDE 0.9% 1,000 ML ONE (13:55)
--- NOTE | 2021-09-16 16:05 | EDPHYS ---
Physician Documentation [facility] Name: Thuy Garcia Age: 46 yrs Sex: Female : 1975 Arrival Date: 09/16/2021 Time: 11:43 Bed 5 Private MD: ED Physician Enoc Sharma HPI: 09/16 12:24 This 46 yrs old Female presents to ER via Ambulatory with complaints of High kb Blood Pressure, Shortness Of Breath. 12:24 The patient or guardian reports chest pain that is located primarily in the substernal kb area. Onset: 1 week(s) ago. The pain does not radiate. Associated signs and symptoms: Pertinent positives: shortness of breath. The chest pain is described as tightness/tingling. Duration: The patient or guardian reports multiple episodes, that are intermittent, with no pattern. Modifying factors: The symptoms are alleviated by nothing. the symptoms are aggravated by emotionally stressful situations. Severity of pain: At its worst the pain was moderate in the emergency department the pain has improved. The patient has experienced similar episodes in the past, multiple times, and the symptoms today are exactly the same. The patient has not recently seen a physician. Pt states she has noticed intermittent chest pain over the last week. States she had this about 10 years ago, had an EKG and stress test done, but didn't complete the workup after that. States her mother was diagnosed with angina when she was in her 40s. Reports shortness of breath when working out, but thought that was normal because she doesn't work out often. States the chest pain is aggravated when she is stressed. Yesterday was told she had to be in court today and noticed the CP start after that. Today she was in the courtroom and felt stressed then noticed the pain. Reports she has been under a lot of extra stress lately. Pt is going through a divorce.. Historical: - Allergies: 11:49 No Known Allergies; tw2 - Home Meds: 11:49 hydrochlorothiazide 12.5 mg Oral tab 1 tab once daily [Active]; tw2 - PMHx: 11:49 Depression; Hypertension; tw2 - PSHx: 11:49 Cholecystectomy; tw2 - Immunization history:: Client reports having NOT received the Covid vaccine. - Social history:: Smoking status: Patient denies any tobacco usage or history of. ROS: 12:18 Constitutional: Negative for fever, chills, and weight loss. kb 12:18 Cardiovascular: Positive for chest pain, Negative for edema, orthopnea, palpitations, paroxysmal nocturnal dyspnea. 12:18 Respiratory: Positive for shortness of breath, Negative for cough, dyspnea on exertion, hemoptysis, orthopnea, pleurisy, sputum production, wheezing. 12:18 All other systems are negative. Exam: 12:00 ECG was reviewed by the Attending Physician. rn 12:18 Constitutional: This is a well developed, well nourished patient who is awake, alert, kb and in no acute distress. Head/Face: Normocephalic, atraumatic. ENT: Moist Mucous membranes Cardiovascular: Regular rate and rhythm with a normal S1 and S2. No gallops, murmurs, or rubs. No pulse deficits. Respiratory: Respirations even and unlabored. No increased work of breathing, no retractions or nasal flaring. Skin: Warm, dry with normal turgor. Normal color. MS/ Extremity: Pulses equal, no cyanosis. Neurovascular intact. Full, normal range of motion. Neuro: Awake and alert, GCS 15, oriented to person, place, time, and situation. Moves all extremities. Normal gait. Psych: Awake, alert, with orientation to person, place and time. Behavior, mood, and affect are within normal limits. Vital Signs: 11:46 BP 132 / 102; Pulse 122; Resp 18; Temp 97.8(TE); Pulse Ox 98% on R/A; Weight 81.65 kg; tw2 Height 5 ft. 4 in. (162.56 cm); 16:26 BP 128 / 83; Pulse 74; Resp 16; Pulse Ox 100% on R/A; jt3 11:46 Body Mass Index 30.90 (81.65 kg, 162.56 cm) tw2 MDM: 11:58 Patient medically screened. kb 12:17 Data reviewed: vital signs, nurses notes. Data interpreted: Pulse oximetry: on room air kb is 98 %. Interpretation: normal. 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 16:05 Data reviewed: I have discussed the patient's presentation/case with the attending Emergency Department Physician; and as a result, I will admit patient. 09/16 11:59 Order name: PT-INR 09/16 12:38 Order name: CBC with Automated Diff; Complete Time: 12:44 EDMS 09/16 12:54 Order name: Protime (+INR); Complete Time: 12:54 EDMS 09/16 13:00 Order name: Basic Metabolic Panel; Complete Time: 13:03 EDMS 09/16 13:00 Order name: Liver (Hepatic) Function; Complete Time: 13:03 EDMS 09/16 13:00 Order name: Troponin (Emerg Dept Use Only); Complete Time: 13:03 EDMS 09/16 13:00 Order name: NT PRO-BNP; Complete Time: 13:03 EDMS 09/16 13:00 Order name: Magnesium; Complete Time: 13:03 EDMS 09/16 11:59 Order name: XRAY Chest (1 view) 09/16 11:59 Order name: EKG; Complete Time: 16:39 09/16 11:59 Order name: Cardiac monitoring; Complete Time: 12: 09/16 11:59 Order name: EKG - Nurse/Tech; Complete Time: 12:08 09/16 11:59 Order name: IV Saline Lock; Complete Time: 12:26 09/16 11:59 Order name: Labs collected and sent; Complete Time: 12: 09/16 11:59 Order name: O2 Per Protocol; Complete Time: 12:08 09/16 11:59 Order name: O2 Sat Monitoring; Complete Time: 12:08 09/16 13:14 Order name: EKG; Complete Time: 16:42 09/16 13:14 Order name: EKG - Nurse/Tech; Complete Time: 14:08 09/16 16:04 Order name: Troponin I; Complete Time: 16:05 EDMS EC:00 Rate is 111 beats/min. Rhythm is regular. QRS [place] is Normal. MA interval is normal. rn QRS interval is normal. QT interval is prolonged at 660 msec. No Q waves. T waves are Normal. No ST changes noted. Clinical impression: Sinus tachycardia and Prolonged QT. Interpreted by me. Reviewed by me. Administered Medications: 13:33 Drug: Potassium Chloride 40 mEq Route: PO; ch5 13:33 Drug: NS 0.9% 1000 ml Route: IV; Rate: 1000 ml; Site: left antecubital; ch5 Disposition: 09/17 08:28 Co-signature as Attending Physician, Enoc Sharma MD I agree with the assessment and rn plan of care. Attestation: The patient's history, exam findings, diagnostics, and a summary of any interventions or procedures was reviewed in detail with Wilma HERNANDEZ. Disposition Summary: 09/16/21 16:05 Discharge Ordered Location: Home kb Condition: Stable kb Diagnosis - Chest pain, unspecified kb Followup: kb - With: Emergency Department - When: As needed - Reason: Worsening of condition Followup: kb - With: Private Physician - When: 2 - 3 days - Reason: Recheck today's complaints, Continuance of care, Re-evaluation by your physician Discharge Instructions: - Discharge Summary Sheet kb - Nonspecific Chest Pain, Adult, [id number] kb - Panic Attack, [id number] kb Forms: - Medication Reconciliation Form kb - Thank You Letter kb - Antibiotic Education kb - Prescription Opioid Use kb Signatures: Dispatcher [employer] EDMS Wilma Kaba, DAVID MUSA-Enoc Martinez MD MD rn Wise, Tara RN RN 2 Chong Silva RN RN ch5 Corrections: (The following items were deleted from the chart) 09/16 12:48 12:24 Pt states she has noticed intermittent chest pain over the last week. States she kb had this about 10 years ago, had an EKG and stress test done, but didn't complete the workup after that.. kb
--- NOTE | 2021-09-16 16:05 | ER ---
Nurse's Notes [facility] Name: Thuy Garcia Age: 46 yrs Sex: Female : 1975 Arrival Date: 09/16/2021 Time: 11:43 Bed 5 Private MD: Diagnosis: Chest pain, unspecified Presentation: 09/16 11:46 Chief complaint: Patient states: i have been having high blood pressure readings on my tw2 machine. like the top numbers is in the 140's now its 150's. 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 i take blood pressure medicine. i do have a lot of stress. also i noticed chest pain last week. then yesterday having chest pain off and on. then this morning it started again like a prickly sharp pain from the middle of my chest and down to my right breast. and i also feel like i am trying to catch my breath. Coronavirus screen: At this time, the client does not indicate any symptoms associated with coronavirus-19. Ebola Screen: Patient denies travel to an Ebola-affected area in the 21 days before illness onset. Initial Sepsis Screen: Does the patient meet any 2 criteria? No. Patient's initial sepsis screen is negative. Does the patient have a suspected source of infection? No. Patient's initial sepsis screen is negative. Risk Assessment: Do you want to hurt yourself or someone else? Patient reports no desire to harm self or others. Onset of symptoms was September 16, 2021. 11:46 Method Of Arrival: Ambulatory tw2 11:46 Acuity: RL 3 tw2 Triage Assessment: 11:50 General: Appears in no apparent distress. Behavior is cooperative, anxious. Pain: tw2 Complains of pain in chest. Respiratory: Reports shortness of breath Onset: The symptoms/episode began/occurred about last week sometime and then Tuesday I really noticed the chest pain, the patient has mild shortness of breath. Historical: - Allergies: 11:49 No Known Allergies; tw2 - Home Meds: 11:49 hydrochlorothiazide 12.5 mg Oral tab 1 tab once daily [Active]; tw2 - PMHx: 11:49 Depression; Hypertension; tw2 - PSHx: 11:49 Cholecystectomy; tw2 - Immunization history:: Client reports having NOT received the Covid vaccine. - Social history:: Smoking status: Patient denies any tobacco usage or history of. Assessment: 16:26 Reassessment: Patient denies pain at this time. Cardiovascular:. jt3 Vital Signs: 11:46 BP 132 / 102; Pulse 122; Resp 18; Temp 97.8(TE); Pulse Ox 98% on R/A; Weight 81.65 kg; tw2 Height 5 ft. 4 in. (162.56 cm); 16:26 BP 128 / 83; Pulse 74; Resp 16; Pulse Ox 100% on R/A; jt3 11:46 Body Mass Index 30.90 (81.65 kg, 162.56 cm) tw2 ED Course: 11:43 Patient arrived in ED. mr 11:49 Triage completed. tw2 11:51 Arm band placed on. tw2 11:55 Chong Silva, RN is Primary Nurse. 5 11:58 Wilma Kaba FNP-C is [facility]. kb 11:58 Enoc Sharma MD is Attending Physician. kb 11:59 Inserted saline lock: 20 gauge in left antecubital area, using aseptic technique. jt3 15:00 Patient has correct armband on for positive identification. Placed in gown. Bed in low 5 position. Call light in reach. Side rails up X 1. Warm blanket given. child monitor on. Pulse ox on. NIBP on. 15:00 Initial lab(s) drawn, Repeat lab(s) drawn. by ED staff, sent to lab. EKG done, by ED [facility] staff, reviewed by Wilma HERNANDEZ. 16:26 IV discontinued, intact. jt3 Administered Medications: 13:33 Drug: Potassium Chloride 40 mEq Route: PO; ch5 13:33 Drug: NS 0.9% 1000 ml Route: IV; Rate: 1000 ml; Site: left antecubital; 5 Outcome: 16:05 Discharge ordered by . kb 16:26 Discharged to home ambulatory. jt3 16:26 Condition: improved 16:26 Discharge instructions given to patient. 16:28 Patient left the ED. jt3 Signatures: Wilma Kaba FNP-C FNP-Ckb Mindy Stewart Isamar Givens RN RN 2 Corine Cristina [facility] Chong Silva RN RN 5 Arron Fernandez RN RN jt3 Corrections: (The following items were deleted from the chart) 11:51 11:46 Chief complaint: Patient states: i have been having high blood pressure readings tw2 on my machine. like the top numbers is in the 140's now its 150's. 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 i take blood pressure medicine. i do have a lot of stress. also i noticed chest pain last week. then yesterday having chest pain off and on. then this morning it started again like a prickly sharp pain from the middle of my chest and down to my right breast tw2
[2021-09-16 16:34] VITALS: TEMP 97.8
[2021-09-16 16:35] VITALS: BP 128/83; O2SAT 100
== END 2021-09-16 16:28 | disposition home or self-care (01) ==
LOC: ER 11:38
DX: R07.9 Chest pain, unspecified (principal); I10 Essential (primary) hypertension; F32.A Depression, unspecified
CPT/HCPCS: 93005 ×2; 85025; 80048; 36415; 83735; 85610; 80076; 84484 ×2; 83880; 99284; J7030

== ENCOUNTER 2023-06-06 13:22 | Emergency (ER) | payer BC, OTHER ==
--- OUTSIDE RECORDS SUMMARY | 2023-06-06 13:32 | XMS REPORT | Continuity of Care Document ---
:1975 Author Organization [facility] t Address [address] [place] [address] Care Team Providers Name Role Phone Willow Ivey MD Primary Care Physician MIKE GOMEZ Attending Clinician Unavailable Willow Ivey MD Attending Clinician Casey Martin MD Attending Clinician Anisha Myers MD Attending Clinician Freda Bee Attending Clinician LAB90 Attending Clinician Unavailable ALDEN VANESSA Attending Clinician Unavailable Kiya Guardado MA Attending Clinician Unavailable PROVIDER, [employer] Attending Clinician Unavailable Madisyn Ch MA Attending Clinician Unavailable Laverne Yang MA Attending Clinician Unavailable ETHAN HANKS Attending Clinician Unavailable ETHAN HANKS Attending Clinician Unavailable Mike Gomez DO Attending Clinician La Brady Attending Clinician AMBREEN_FARCHRISTIANA Attending Clinician Unavailable Doctor Unassigned, [place] Attending Clinician Unavailable LOU EUBANKS Attending Clinician Unavailable Lou Eubanks MD Attending Clinician Yoli Maurer MA Attending Clinician Unavailable Cathy JONES, Fordgzhong Attending Clinician Leias Santos MA Attending Clinician Unavailable Brii Morgan MA Attending Clinician Unavailable MD WILLOW IVEY Attending Clinician Unavailable Asked, No Pcp Attending Clinician Unavailable Trevon Ascencio DO Attending Clinician Aracelis Macario MD Attending Clinician 2, [facility] Attending Clinician Unavailable CASEY MARTIN Admitting Clinician Unavailable AMBKIRAN_KIMANILandon Admitting Clinician Unavailable MD WILLOW IVEY Admitting Clinician Unavailable Payers Payer Name Policy Type Policy Number Effective Date [facility] Date [id number] 2023 00:00:00 Problems Condition Condition Condition Status Onset Resolution Last Treating Co mments Source Name Details Category Date Date Treatment Clinician Date Mass of Mass of Disease Active Methodi left left 4-[address] submandibu submandibu 00:00: Ho spita lar region lar region 00 l Lipoma of Lipoma of Disease Active Met hodi neck neck 4-24 st 00:00: Hospita 00 l Seasonal Seasonal Disease Active 2021-11 Kelse y allergic allergic 2-05 Seybol d rhinitis rhinitis 00:00: - due to due to 00 Externa pollen pollen l Stress and Stress and Disease Active K gricel adjustment adjustment 9-12 Se ybold reaction reaction 00:00: - 00 Externa l Primary Primary Disease Active Melania hypertensi hypertensi 8-18 Se ybold on on 00:00: - 00 Externa l Syncope Syncope Disease Active Melania and and 8-18 Seybold collapse collapse 00:00: - 00 Externa l Dizziness Dizziness Disease Active Farzad sey 8-18 Seybold 00:00: - 00 Externa l Lipoma of Lipoma of Disease Active Farzad sey neck neck 8-18 Seybold 00:00: - 00 Externa l Gastroesop Gastroesop Disease Active Fabricio monsalve hageal hageal 8-18 Seybold reflux reflux 00:00: - disease disease 00 Externa without without l esophagiti esophagiti s s Elevated Elevated Disease Active Kelse y liver liver 8-18 Seybold function function 00:00: - tests tests 00 Externa l Genital Genital Disease Active Univers herpes herpes 6-08 ity of 00:00: [place] [facility] Obesity Obesity Disease Active 2019-11 Univers (BMI (BMI 2-23 ity of 30-39.9) 30-39.9) 00:00: [place] [facility] Cystocele Cystocele Disease Active 2019-11 Uni vers with with 2-23 it[facility] of rectocele rect[place] Stress Stress Disease Active 2019-11 Univers incontinen incontinen 2-23 it y of ce ce 00:00: [place] [facility] Abnormal Abnormal Disease Active 2019- Unive rs mammogram, mammogram, 9-24 it y of unspecifie unspecifie [place] [facility] Elevated Elevated Disease Active Unive rs erythrocyt erythrocyt 9-18 it y of e e 00:00: [place] sedimentat sedimentat 00 Me dical ion rate ion rate Branch Mixed Mixed Disease Active Univers anxiety anxiety 9-18 ity of and and 00:00: [place] depressive depressive 00 Me dical disorder disorder Branch Skin tag Skin tag Disease Active 2019- Unive rs 9-18 ity of 00:00: [place] [facility] Vitamin D Vitamin D Disease Active 2019- Uni vers deficiency deficiency 9-18 it y of 00:00: [place] 00 [facility] Menorrhagi Menorrhagi Disease Active 2020-0 U nivers a a 9-11 ity of 00:00: [place] [facility] Allergic Allergic Disease Active 2020- Unive rs rhinitis rhinitis 9-11 ity of 00:00: [place] [facility] Difficulty Difficulty Disease Active 2020-0 U nivers swallowing swallowing 9-11 it y of 00:00: [place] 00 [facility] Encounter Encounter Disease Active 2020- Uni vers for other for other 9-11 ity of screening screening 00:[place] 00 Medical malignant malignant Bran ch neoplasm neoplasm of breast of breast Fatigue Fatigue Disease Active 2020- Univers 9-11 ity of 00:00: [place] [facility] Gastroesop Gastroesop Disease Active 2020-0 U nivers hageal hageal 9-11 ity of reflux reflux 00:00: [place] disease disease 00 Medical Branch Shortness Shortness Disease Active Uni vers of breath of breath - ity of 00:00: [place] [facility] Pain in Pain in Disease Active Univers joints of joints of 08-01 ity of unspecifie unspecifie 00:[place] hand [facility] Swelling Swelling Disease Active Unive rs of left of left 08-01 ity of parotid parotid 00:00: [place] gland gland Medical Branch Thyroid Thyroid Disease Active Univers lump lump 08-01 ity of 00:00: [place] 00 [facility] Branch Ultrasound Ultrasound Disease Active U nivers scan scan 5-21 ity of abnormal abnormal 00:00: [place] [facility] Hyperchole Hyperchole Disease Active 2018-11 U nivers sterolemia sterolemia 0-18 it y of 00:00: [place] [facility] Obstructiv Obstructiv Disease Active 2018- U nivers e sleep e sleep 6-12 ity of apnea of apnea of 00:00: [place] adult adult Medical Branch Electrocar Electrocar Disease Active U nivers diogram diogram 7-19 ity of abnormal abnormal 00:00: [place] 00 [facility] Hypertensi Problem Active 2022-07-10 M emoria ve Hypertensi 22:14:03 l disorder, ve [place] systemic disorder, arterial systemic (disorder) arterial (disorder) Active Problem 07/10/2022 [facility] No known No known Disease Metho di active active st problems problems Hospit a l History of Past Illness Condition Condition Condition Status Onset Resolution Last Treating Co mments Source Name Details Category Date Date Treatment Clinician Date Essential Essential Problem 2022-07-09 2022-07-09 Memoria (primary) (primary) 07-06 03:23:27 03:23:27 l hypertensi hypertensi 21:40: He rmann on on 07/06/2022 07/09/2022 Medical Group Dizziness Dizziness Problem 2022-07-09 2022-07-09 Memoria and and 07-06 03:23:27 03:23:27 l giddiness giddiness 19:34: Herm rachel 07/06/2022 00 07/09/2022 Medical Group Allergies, Adverse Reactions, Alerts Allergy Allergy Status Severity Reaction(s) Onset Inactive Treating Comm ents Source Name Type Date Date Clinician Molds & Propensi Active Runny Nose Farzad sey Smuts ty to 06-21 Seybold adverse 00:00: - reaction 00 Externa s l MOLD DRUG Active ITCHING 2019- Univers INGREDI 06-21 ity of 00:00: [place] 00 [facility] Branch Mold Propensi Active Itching Methodi ty to 06-21 st adverse 00:00: Hospita reaction 00 l s to drug Cat Hair Propensi Active Swelling 1994-11 Abbie ey Extract ty to 01-09 Seybold adverse 00:00: - reaction 00 Externa s l Cat Hair Propensi Active Swelling 1994-11 Univ ers Standard ty to 01-09 ity of ized adverse 00:00: [place] Allergen reaction 00 Medica l ic s Branch Extract CAT HAIR DRUG Active ITCHING 1994-11 Univers STANDARD INGREDI 01-09 ity of IZED 00:00: [place] ALLERGEN 00 Medical IC Branch EXTRACT Cat Hair Propensi Active Swelling 1994-11 Meth mae Standard ty to 01-09 st ized adverse 00:00: Hospita Allergen reaction 00 l ic s to Extract drug Bee Propensi Active Swelling Melania Venom ty to 05-14 Seybold adverse 00:00: - reaction 00 Externa s l Venom-Ho Propensi Active Swelling Univ ers harper Bee ty to 05-14 ity of adverse 00:00: [place] reaction 00 Medical s Branch VENOM-HO DRUG Active Swelling Univer s HARPER BEE INGREDI 05-14 ity of 00:00: [place] 00 Medical Branch Bee Propensi Active Swelling Method i Venom ty to 05-14 st Protein adverse 00:00: Hospita (Honey reaction 00 l Bee) s to drug Family History Family Member Diagnosis Comments Start Date Stop Date Source Natural father Asthma [facility] Natural father Drug abuse [facility] Natural father Early [facility] Natural mother Alcohol abuse Methodi [facility] Natural mother Depression [facility] Natural mother Heart disease Methodi [facility] Natural mother Hypertension [facility] Social History Social Habit Start Date Stop Date Quantity Comments Source Gender identity 2023-04-04 Identifies as Melania Cabrera - 06:40:39 female gender External (finding) Sexual orientation 2023-04-04 Heterosexual Abbie ey Seybold - 06:40:39 (finding) External History [facility] o f Alcohol Comment [place] [facility] Alcohol intake 2023-05-18 2023-05-18 Ex-drinker [facility] 00:[facility]:00 (finding) Hospital History of Social 2023-05-18 2023-05-[address] function 00:00:00 00:00:00 Hospital Tobacco use and 2023-05-02 2023-05-02 Smokeless tobacco [facility] exposure 00:00:00 00:00:00 non-user Hospital Social History 2022-01-31 2022-01-31 [facility] ermann 04:58:28 04:58:28 History [facility] 2020-11-12 2020-11-12 1 University o f Alcohol Frequency 00:00:00 00:00:00 [place] [facility] History [facility] 2020-11-12 2020-11-12 99 [place] o f Alcohol Std Drinks 00:00:00 00:00:00 [place] [facility] History [facility] 2020-11-12 2020-11-12 1 [place] o f Alcohol Binge 00:00:00 00:00:00 [place] [facility] Sex [birth year] F Melania Se ybold - 00:00:00 00:00:00 External Smoking Status Start Date Stop Date Source Never smoked tobacco [facility] Medications Ordered Filled Start Stop Current Ordering Indication Dosage Frequency Signature Comments Components Source Medication Medication Date Date Medication? Clinician (SIG) Name Name cefadroxil 2022- No 500mg Q.5D Take 1 Met hodi (DURICEF) 05-[address] 500 MG 00:00: 04:59 (500 mg Hospita capsule 00 :00 total) by l mouth 2 (two) times a day for 7 days. acetaminoph 2022- [place] [id number] 1{tbl} Q4H Take 1 Methodi en-codeine 05-[address] (TYLENOL 00:00: 04:59 mouth Hospita WITH 00 :00 every 4 l CODEINE #3) (four) 300-30 mg hours as per tablet needed for moderate pain for up to 7 days .acute pain. fluticasone Yes [id number] SPRAY 1 Methodi propionate 6-[address] (FLONASE) 00:00: EACH Hospita 50 00 NOSTRIL l mcg/actuati EVERY DAY on nasal spray scopolamine 0 Yes 1{patch 1 patch. Methodi (TRANSDERM- 5-25 } st SCOP) 1 mg 00:00: Hospita over 3 days 00 l omeprazole 2022-0 Yes 40mg QD Take 1 Metho di (PriLOSEC) 5-[address] 40 MG 00:00: (40 mg Hospita capsule 00 total) by l mouth daily. Loratadine 0 Yes 10mg Take 1 Kelse y (CLARITIN) 5-17 tablet (10 Sey bold 10 MG oral 13:57: mg total) - tablet 40 by mouth Externa daily l Scopolamine 0 Yes 1{patch Place 1 Melania (TRANSDERM- 5-17 } patch onto Se ybold SCOP) 1 13:43: the skin - MG/3DAYS 47 every 72 Externa transdermal hours as l PATCH 72 HR needed hydroCHLORO 0 Yes 25mg QD Take 1 Meth mae thiazide 5-07 tablet (25 st (HYDRODIURI 00:00: mg total) H ospita L) 25 MG 00 by mouth l tablet daily. Ondansetron 0 Yes [id number] TAKE 1 Melania (ZOFRAN) 4 4-13 TABLET BY Seyb old MG oral 00:00: MOUTH - TABLET 00 EVERY 8 Externa DISPERSIBLE HOURS l NEEDED Omeprazole 2022-0 Yes [id number] 40mg Take 1 Melania 40 MG oral 1-25 capsule Seybol d Delayed 00:00: (40 mg - Release 00 total) by Externa Capsule mouth l daily hydroCHLORO 2022-0 Yes [id number] 25mg Take 1 Melania thiazide 25 1-19 tablet (25 Se ybold MG oral 00:00: mg total) - Tablet 00 by mouth Externa daily l Scopolamine 0 Yes 1{patch Place 1 Melania (TRANSDERM- 1-05 } patch onto Se ybold SCOP) 1 14:00: the skin - MG/3DAYS 29 every 72 Externa transdermal hours as l PATCH 72 HR needed Fexofenadin 2021-11- No Take by Jarrett carter e HCl 2-05 12-05 mouth Seybold (WOOD 14:12: 00:00 - ALLERGY OR) 48 :00 Externa l Multiple 2021-11- No Take by Jina prince Vitamins-Mi 2-05 12-05 mouth Seybol d nerals 14:11: 00:00 - (MULTIVITAL 46 :00 Externa OR) l FLUTICASONE 2021-11 Yes [id number] 50ug Use 1 K elsey PROPIONATE, 2-05 spray (50 Sey bold NASAL, 50 00:00: mcg total) - MCG/ACT 00 in each Externa nasal nostril l Suspension daily FLUTICASONE 2021-11 Yes [id number] 50ug Use 1 K elsey PROPIONATE, 2-05 spray (50 Sey bold NASAL, 50 00:00: mcg total) - MCG/ACT 00 in each Externa nasal nostril l Suspension daily FLUTICASONE 2021-11 Yes 50ug Use 1 K elsey PROPIONATE, 2-05 spray (50 Sey bold NASAL, 50 00:00: mcg total) - MCG/ACT 00 in each Externa nasal nostril l Suspension daily fluticasone 2021-11- No [id number] SPRAY 1 Methodi propionate -04-[address] (FLONASE) 00:00: 00:00 EACH Hospita 50 00 :00 NOSTRIL l mcg/actuati EVERY DAY on nasal spray Losartan 2021-11 Yes 50mg Take 50 mg Farzad sey Potassium 1-04 by mouth Seybol d 50 MG oral 11:18: daily - Tablet 14 Externa l Multiple 2021-11 Yes Take by Melania Majano-Mi 1-04 mouth Seybold nerals 11:18: - (MULTIVITAL 14 Externa OR) l Fexofenadin 2021-11 Yes Take by Farzad dobbsy e HCl 1-04 mouth Seybold (WOOD 11:18: - ALLERGY OR) 14 Externa l Losartan 2021-11 Yes 50mg Take 50 mg Farzad sey Potassium 1-04 by mouth Seybol d 50 MG oral 11:18: daily - Tablet 14 Externa l Losartan 2021-11 Yes 50mg Take 50 mg Farzad sey Potassium 1-04 by mouth Seybol d 50 MG oral 11:18: daily - Tablet 14 Externa l TRIMETHOPRI 2021-11- No [id number] 1{tbl} Take 1 Melania M-SULFAMETH 1-04 11-10 tablet by Se ybold OXAZOLE 00:00: 05:59 mouth 2 - (Bactrim 00 :00 times Externa DS) 800-160 daily for l MG oral 5 days Tablet fluticasone 2021-11- No [id number] SPRAY 1 Methodi propionate 0-20 11-[address] (FLONASE) 00:00: 00:00 EACH Hospita 50 00 :00 NOSTRIL l mcg/actuati EVERY DAY on nasal spray magnesium 2021-11- No 1{capsu QD Take 1-2 Methodi oxide 400 0-04 01-03 le} capsules st mg 00:00: 05:59 by mouth Hospita magnesium 00 :00 nightly l capsule for 90 days. If no effect after two weeks of 1 PO QHS, increase to 2 PO QHS magnesium 2021-11- No 1{capsu QD Take 1-2 Methodi oxide 400 0-03 10-04 le} capsules st mg 00:00: 00:00 by mouth Hospita magnesium 00 :00 nightly l capsule for 30 days. If no effect after two weeks of 1 PO QHS, increase to 2 PO QHS Alprazolam Yes [id number] .25mg Q.5D Take 1 Melania 0.25 MG 9-23 tablet Seybold oral Tablet 00:00: (0.25 mg - 00 total) by Externa mouth 2 l times daily as needed (dizzines) Alprazolam 2021- No [id number] .25mg Q.5D Take 1 Melania 0.25 MG 9-23 12-05 tablet Seybold oral Tablet 00:00: 00:00 (0.25 mg - 00 :00 total) by Externa mouth 2 l times daily as needed (dizzines) Meclizine Yes [id number] 25mg Q.[id number] Take 1 Melania HCl 25 MG 9-21 [id number] tablet (25 Seybold oral Tablet 00:00: 3D mg total) - 00 by mouth 3 Externa times l daily as needed Meclizine Yes [id number] 25mg Q.[id number] Take 1 Melania HCl 25 MG 08-11 [id number] tablet (25 Seybold oral Tablet 00:00: 3D mg total) - 00 by mouth 3 Externa times l daily as needed Meclizine 2022- No [id number] 25mg Q.[id number] Take 1 Melania HCl 25 MG 9-11 12- [id number] tablet (25 Seybold oral Tablet 00:00: 00:00 3D mg total) - 00 :00 by mouth 3 Externa times l daily as needed Ondansetron Yes 4mg Q.[id number] Take 4 mg Melania (ZOFRAN) 4 -17 [id number] by mouth Seybold MG oral 00:00: 3D every 8 - TABLET 00 hours as Externa DISPERSIBLE needed l FLUTICASONE Yes Melania PROPIONATE, 07-07 Seybold NASAL, 50 00:00: - MCG/ACT 00 Externa nasal l Suspension Ondansetron Yes 4mg Q.[id number] Take 4 mg Melania (ZOFRAN) 4 - [id number] by mouth Seybold MG oral 00:00: 3D every 8 - TABLET 00 hours as Externa DISPERSIBLE needed l Ondansetron 0 Yes 4mg Q.[id number] Take 4 mg Melania (ZOFRAN) 4 -17 [id number] by mouth Seybold MG oral 00:00: 3D every 8 - TABLET 00 hours as Externa DISPERSIBLE needed l ondansetron Yes [id number] 4mg Q8H Take 1 Methodi ODT -17 tablet (4 st (ZOFRAN-ODT 00:00: mg total) H ospita ) 4 MG 00 by mouth l disintegrat every 8 ing tablet (eight) hours as needed for nausea or vomiting. FLUTICASONE 2021- No Kelse y PROPIONATE, 07-07 12 Seybold NASAL, 50 00:00: 00:00 - MCG/ACT 00 :00 Externa nasal l Suspension fluticasone 2021- No [id number] 50ug QD 1 spray Methodi propionate 07-07 10-20 ([address] (FLONASE) 00:00: 00:00 total) by alvaro 50 00 :00 Each Nare l mcg/actuati route on nasal daily. spray meclizine 2022-0 Yes 25 mg = 1 Mem oria 25 mg oral 8-16 tab, PO, l tablet 19:56: TID, PRN Somel 00 dizziness, X 10 day, # 30 tab, 0 Refill(s), Pharmacy: [facility] #[id number], 162.56, cm, 07/06/22 14:23:00 CDT, Height, 77.33, kg, 07/06/22 14:23:00 CDT, Weight meclizine 2022-0 Yes 25 mg = 1 Mem oria 25 mg oral 8-16 tab, PO, l tablet 19:56: TID, PRN Osmel 00 dizziness, X 10 day, # 30 tab, 0 Refill(s), Pharmacy: [facility] #[id number], 162.56, cm, 07/06/22 14:23:00 CDT, Height, 77.33, kg, 07/06/22 14:23:00 CDT, Weight meclizine 2022-0 Yes 25 mg = 1 Mem oria 25 mg oral 8-16 tab, PO, l tablet 19:56: TID, PRN [place] 00 dizziness, X 10 day, # 30 tab, 0 Refill(s), Pharmacy: [facility] #[id number], 162.56, cm, 07/06/22 14:23:00 CDT, Height, 77.33, kg, 07/06/22 14:23:00 CDT, Weight meclizine 2022-0 Yes 25 mg = 1 Mem oria 25 mg oral 8-16 tab, PO, l tablet 19:56: TID, PRN Osmel 00 dizziness, X 10 day, # 30 tab, 0 Refill(s), Pharmacy: [facility] #[id number], 162.56, cm, 07/06/22 14:23:00 CDT, Height, 77.33, kg, 07/06/22 14:23:00 CDT, Weight meclizine 2022-0 Yes 25 mg = 1 Mem oria 25 mg oral 8-16 tab, PO, l tablet 19:56: TID, PRN [place] 00 dizziness, X 10 day, # 30 tab, 0 Refill(s), Pharmacy: [facility] #[id number], 162.56, cm, 07/06/22 14:23:00 CDT, Height, 77.33, kg, 07/06/22 14:23:00 CDT, Weight meclizine 2021-0 Yes 25 mg = 1 Mem oria 25 mg oral 8-16 tab, PO, l tablet 19:56: TID, PRN Osmel 00 dizziness, X 10 day, # 30 tab, 0 Refill(s), Pharmacy: [facility] #[id number], 162.56, cm, 07/06/22 14:23:00 CDT, Height, 77.33, kg, 07/06/22 14:23:00 CDT, Weight meclizine 2-0 Yes 25 mg = 1 Mem oria 25 mg oral 8-16 tab, PO, l tablet 19:56: TID, PRN [place] 00 dizziness, X 10 day, # 30 tab, 0 Refill(s), Pharmacy: [facility] #[id number], 162.56, cm, 07/06/22 14:23:00 CDT, Height, 77.33, kg, 07/06/22 14:23:00 CDT, Weight meclizine 2-0 No 25 mg = 1 Mem oria 25 mg oral 8-16 tab, PO, l tablet 19:48: TID, PRN [place] 00 dizziness, X 10 day, # 30 tab, 0 Refill(s) meclizine 2-0 No 25 mg = 1 Mem oria 25 mg oral 8-16 tab, PO, l tablet 19:48: TID, PRN Osmel 00 dizziness, X 10 day, # 30 tab, 0 Refill(s) meclizine 2-0 No 25 mg = 1 Mem oria 25 mg oral 8-16 tab, PO, l tablet 19:48: TID, PRN [place] 00 dizziness, X 10 day, # 30 tab, 0 Refill(s) meclizine 2022-0 No 25 mg = 1 Mem oria 25 mg oral 8-16 tab, PO, l tablet 19:48: TID, PRN Osmel 00 dizziness, X 10 day, # 30 tab, 0 Refill(s) meclizine 0 No 25 mg = 1 Mem oria 25 mg oral 8-16 tab, PO, l tablet 19:48: TID, PRN [place] 00 dizziness, X 10 day, # 30 tab, 0 Refill(s) meclizine 0 No 25 mg = 1 Mem oria 25 mg oral 8-16 tab, PO, l tablet 19:48: TID, PRN [place] 00 dizziness, X 10 day, # 30 tab, 0 Refill(s) meclizine 0 No 25 mg = 1 Mem oria 25 mg oral 8-16 tab, PO, l tablet 19:48: TID, PRN Osmel 00 dizziness, X 10 day, # 30 tab, 0 Refill(s) losartan 50 0 Yes 50 mg = 1 M emoria mg oral 8-16 tab, PO, l tablet 19:26: Daily, # Osmel 00 90 tab, 0 Refill(s) losartan 50 0 Yes 50 mg = 1 M emoria mg oral 8-16 tab, PO, l tablet 19:26: Daily, # [place] 00 90 tab, 0 Refill(s) losartan 50 0 Yes 50 mg = 1 M emoria mg oral 8-16 tab, PO, l tablet 19:26: Daily, # Osmel 00 90 tab, 0 Refill(s) losartan 50 2021-0 Yes 50 mg = 1 M emoria mg oral 8-16 tab, PO, l tablet 19:26: Daily, # [place] 00 90 tab, 0 Refill(s) losartan 50 2021-0 Yes 50 mg = 1 M emoria mg oral 8-16 tab, PO, l tablet 19:26: Daily, # [place] 00 90 tab, 0 Refill(s) losartan 50 2021-0 Yes 50 mg = 1 M emoria mg oral 8-16 tab, PO, l tablet 19:26: Daily, # Osmel 00 90 tab, 0 Refill(s) losartan 50 2021-0 Yes 50 mg = 1 M emoria mg oral 8-16 tab, PO, l tablet 19:26: Daily, # [place] 00 90 tab, 0 Refill(s) Monie 0.35 2022-0 Yes 0.35 mg = Me moria mg oral 8-16 1 tab, PO, l tablet 19:25: Daily, # Osmel 00 30 tab, 0 Refill(s) Monie 0.35 2021-0 Yes 0.35 mg = Me moria mg oral 8-16 1 tab, PO, l tablet 19:25: Daily, # Osmel 00 30 tab, 0 Refill(s) Monie 0.35 2021-0 Yes 0.35 mg = Me moria mg oral 8-16 1 tab, PO, l tablet 19:25: Daily, # Osmel 00 30 tab, 0 Refill(s) Monie 0.35 2021-0 Yes 0.35 mg = Me moria mg oral 8-16 1 tab, PO, l tablet 19:25: Daily, # Osmel 00 30 tab, 0 Refill(s) Monie 0.35 0 Yes 0.35 mg = Me moria mg oral 8-16 1 tab, PO, l tablet 19:25: Daily, # [place] 00 30 tab, 0 Refill(s) Monie 0.35 0 Yes 0.35 mg = Me moria mg oral 8-16 1 tab, PO, l tablet 19:25: Daily, # [place] 00 30 tab, 0 Refill(s) Monie 0.35 0 Yes 0.35 mg = Me moria mg oral 8-16 1 tab, PO, l tablet 19:25: Daily, # [place] 00 30 tab, 0 Refill(s) Meclizine 2021- No 25 mg = 1 Ke lsey HCl 25 MG - 12-05 tab, PO, Seybo ld oral Tablet 00:00: 00:00 TID, PRN - 00 :00 dizziness, Externa X 10 day, l # 30 tab, 0 Refill(s), Pharmacy: [facility] #[id number], 162.56, cm, 07/06/22 14:23:00 CDT, Height, 77.33, kg, 07/06/22 14:23:00 CDT, Weight Omeprazole Yes 40mg Take 40 mg K elsey 40 MG oral 06-27 by mouth Seybo ld Delayed 00:00: daily - Release 00 Externa Capsule l Omeprazole Yes 40mg Take 40 mg K elsey 40 MG oral 07 by mouth Seybo ld Delayed 00:00: daily - Release 00 Externa Capsule l Omeprazole Yes 40mg Take 40 mg K elsey 40 MG oral 807 by mouth Seybo ld Delayed 00:00: daily - Release 00 Externa Capsule l amLODIPine Yes amlodipine U nivers 5 mg tablet 7-11 5 mg ity of 14:12: tablet Deng 30 TAKE 1 Medical TABLET BY Branch MOUTH EVERY DAY IN THE MORNING amLODIPine Yes amlodipine U nivers 5 mg tablet 7-11 5 mg ity of 14:12: tablet Deng 30 TAKE 1 Medical TABLET BY Branch MOUTH EVERY DAY IN THE MORNING amLODIPine Yes amlodipine U nivers 5 mg tablet 7-11 5 mg ity of 14:12: tablet Deng 30 TAKE 1 Medical TABLET BY Branch MOUTH EVERY DAY IN THE MORNING amLODIPine Yes amlodipine U nivers 5 mg tablet 7-11 5 mg ity of 14:12: tablet Deng 30 TAKE 1 Medical TABLET BY Branch MOUTH EVERY DAY IN THE MORNING amLODIPine Yes amlodipine U nivers 5 mg tablet 7-11 5 mg ity of 14:12: tablet Deng 30 TAKE 1 Medical TABLET BY Branch MOUTH EVERY DAY IN THE MORNING oxybutynin Yes oxybutynin U nivers XL 5 mg 24 7-11 chloride ity o f hr tablet 13:58: ER 5 mg 11 tablet,ext Medical ended Branch release 24 hr olopatadine Yes [place] 0.7 U nivers (PAZEO) 0.7 7-11 % eye ity of % Drop 13:58: drops [place] 11 Medical Branch hyoscyamine Yes hyoscyamin Univers sulfate 11 e 0.125 mg ity of 0.125 mg 13:58: sublingual Jermaine as sublingual 11 tablet Medical tablet Branch amoxicillin Yes amoxicilli Univers -clavulanat 11 n 875 ity of e 875-125 13:58: [place] mg per 11 um Medical tablet clavulanat Branch e 125 mg tablet ferrous Yes iron Univers sulfate 11 ity of (IRON ORAL) 13:58: [place] 11 Medical Branch mecobalamin Yes B12 Univer s (B12 ACTIVE 7-11 ity of ORAL) 13:58: [address] oxybutynin Yes oxybutynin U nivers XL 5 mg 24 7-11 chloride ity o f hr tablet 13:58: ER 5 mg [place] [id number] tablet,ext Medical ended Branch release 24 hr olopatadine Yes [place] 0.7 U nivers (PAZEO) 0.7 7-11 % eye ity of % Drop 13:58: drops [address] hyoscyamine Yes hyoscyamin Univers sulfate 7-11 e 0.125 mg ity of 0.125 mg 13:58: sublingual Jermaine as sublingual 11 tablet Medical tablet Branch amoxicillin Yes amoxicilli Univers -clavulanat 7-11 n 875 ity of e 875-125 13:58: mg-[place]assi [place] mg per 11 um Medical tablet clavulanat Branch e 125 mg tablet ferrous Yes iron Univers sulfate 711 ity of (IRON ORAL) 13:58: [address] mecobalamin Yes B12 Univer s (B12 ACTIVE 11 ity of ORAL) 13:58: [address] oxybutynin Yes oxybutynin U nivers XL 5 mg 24 7-11 chloride ity o f hr tablet 13:58: ER 5 mg [place] [id number] tablet,ext Medical ended Branch release 24 hr olopatadine Yes [place] 0.7 U nivers (PAZEO) 0.7 7-11 % eye ity of % Drop 13:58: drops [address] hyoscyamine Yes hyoscyamin Univers sulfate 7-11 e 0.125 mg ity of 0.125 mg 13:58: sublingual Jermaine as sublingual 11 tablet Medical tablet Branch amoxicillin Yes amoxicilli Univers -clavulanat 7-11 n 875 ity of e 875-125 13:58: [place] mg per 11 um Medical tablet clavulanat Branch e 125 mg tablet ferrous Yes iron Univers sulfate 7-11 ity of (IRON ORAL) 13:58: [address] mecobalamin Yes B12 Univer s (B12 ACTIVE -11 ity of ORAL) 13:58: [address] oxybutynin Yes oxybutynin U nivers XL 5 mg 24 7-11 chloride ity o f hr tablet 13:58: ER 5 mg [place] [id number] tablet,ext Medical ended Branch release 24 hr olopatadine Yes [place] 0.7 U nivers (PAZEO) 0.7 7-11 % eye ity of % Drop 13:58: drops [address] hyoscyamine Yes hyoscyamin Univers sulfate 7-11 e 0.125 mg ity of 0.125 mg 13:58: sublingual [place] as sublingual 11 tablet Medical tablet Branch amoxicillin Yes amoxicilli Univers -clavulanat -11 n 875 ity of e 875-125 13:58: [place] mg per 11 um Medical tablet clavulanat Branch e 125 mg tablet ferrous Yes iron Univers sulfate 11 ity of (IRON ORAL) 13:58: [address] mecobalamin Yes B12 Univer s (B12 ACTIVE 11 ity of ORAL) 13:58: [address] oxybutynin Yes oxybutynin U nivers XL 5 mg 24 7-11 chloride ity o f hr tablet 13:58: ER 5 mg [place] [id number] tablet,ext Medical ended Branch release 24 hr olopatadine Yes [place] 0.7 U nivers (PAZEO) 0.7 7-11 % eye ity of % Drop 13:58: drops [address] hyoscyamine Yes hyoscyamin Univers sulfate 7-11 e 0.125 mg ity of 0.125 mg 13:58: sublingual [place] as sublingual 11 tablet Medical tablet Branch amoxicillin Yes amoxicilli Univers -clavulanat 7-11 n 875 ity of e 875-125 13:58: [place] mg per 11 um Medical tablet clavulanat Branch e 125 mg tablet ferrous Yes iron Univers sulfate 7-11 ity of (IRON ORAL) 13:58: [address] mecobalamin Yes B12 Univer s (B12 ACTIVE -11 ity of ORAL) 13:58: [address] [place] 0.35 0 Yes 1{tbl} Take 1 Farzad sey MG oral 7-11 tablet by Seybold Tablet 00:00: mouth - 00 every Externa morning l [place] 0.35 0 Yes 1{tbl} Take 1 Farzad sey MG oral 7-11 tablet by Seybold Tablet 00:00: mouth - 00 every Externa morning l [place] 0.35 2021-0 Yes 1{tbl} Take 1 Farzad sey MG oral 7-11 tablet by Seybold Tablet 00:00: mouth - 00 every Externa morning l norethindro 0 Yes [id number] .35mg Take 1 Univers ne (ORTHO 7-11 tablet by ity o f MICRONOR) 00:00[place] 0[place] mg 00 the Medical tablet morning. Branch norethindro 0 Yes [id number] .35mg Take 1 Univers ne (ORTHO 7-11 tablet by ity o f MICRONOR) 00:00: [place] 0.[place] mg 00 the Medical tablet morning. Branch norethindro 0 Yes [id number] .35mg Take 1 Univers ne (ORTHO 7-11 tablet by ity o f MICRONOR) 00:00: [place] 0.[place] mg 00 the Medical tablet morning. Branch norethindro 0 Yes [id number] .35mg Take 1 Univers ne (ORTHO 7-11 tablet by ity o f MICRONOR) 00:00: [place] 0.[place] mg 00 the Medical tablet morning. Branch norethindro 0 Yes [id number] .35mg Take 1 Univers ne (ORTHO 7-11 tablet by ity o f MICRONOR) 00:00: [place] 0.[place] mg 00 the Medical tablet morning. Branch [place] 0.35 0 3- No 1{tbl} Take 1 [place] MG oral 7-11 05-17 tablet by Seybol d Tablet 00:00: 00:00 mouth - 00 :00 every Externa morning l ondansetron 2021- No [id number] TAKE 1 Methodi ODT 7-11 08-[address] (ZOFRAN-ODT 00:00: 00:00 MOUTH Hosp taran ) 4 MG 00 :00 EVERY 8 l disintegrat HOURS ing tablet NEEDED FOR NAUSEA OR VOMITING FOR UP TO 10 DAYS. ESTARYLLA No TAKE 1 Univer s 0.25-35 6-15 TABLET BY ity of mg-mcg per 00:00: MOUTH [place] tablet 00 EVERY DAY Medical Branch ESTARYLLA No TAKE 1 Univer s 0.25-35 6-15 TABLET BY ity of mg-mcg per 00:00: MOUTH [place] tablet 00 EVERY DAY Medical Branch ondansetron Yes TAKE 1 Univ ers 4 mg 4-28 TABLET BY ity of disintegrat 00:00: MOUTH [place] ing tablet 00 EVERY 8 Medica l HOURS Branch NEEDED FOR NAUSEA OR VOMITING FOR UP TO 10 DAYS. ondansetron Yes TAKE 1 Univ ers 4 mg 4-28 TABLET BY ity of disintegrat 00:00: MOUTH [place] ing tablet 00 EVERY 8 Medica l HOURS Branch NEEDED FOR NAUSEA OR VOMITING FOR UP TO 10 DAYS. ondansetron Yes TAKE 1 Univ ers 4 mg 4-28 TABLET BY ity of disintegrat 00:00: MOUTH [place] ing tablet 00 EVERY 8 Medica l HOURS Branch NEEDED FOR NAUSEA OR VOMITING FOR UP TO 10 DAYS. ondansetron Yes TAKE 1 Univ ers 4 mg 4-28 TABLET BY ity of disintegrat 00:00: MOUTH [place] ing tablet 00 EVERY 8 Medica l HOURS Branch NEEDED FOR NAUSEA OR VOMITING FOR UP TO 10 DAYS. ondansetron Yes TAKE 1 Univ ers 4 mg 4-28 TABLET BY ity of disintegrat 00:00: MOUTH [place] ing tablet 00 EVERY 8 Medica l HOURS Branch NEEDED FOR NAUSEA OR VOMITING FOR UP TO 10 DAYS. ondansetron 2021- No [id number] 4mg Q8H Take 1 Methodi ODT 4-28 05-09 tablet (4 st (ZOFRAN-ODT 00:00: 04:59 mg total) Hospita ) 4 MG 00 :00 by mouth l disintegrat every 8 ing tablet (eight) hours as needed for nausea or vomiting for up to 10 days. losartan Yes 50mg QD Take 50 mg Met hodi (COZAAR) 50 4-[address] MG tablet 00:00: daily. Hospit a 00 l losartan 50 0 Yes 50mg Take 50 mg Univers mg tablet 4-13 by mouth. ity o f 00:00: [facility] losartan 50 0 Yes 50mg Take 50 mg Univers mg tablet 4-13 by mouth. ity o f 00:00: [facility] losartan 50 2021-0 Yes 50mg Take 50 mg Univers mg tablet 4-13 by mouth. ity o f 00:00: [facility] losartan 50 Yes 50mg Take 50 mg Univers mg tablet 4-13 by mouth. ity o f 00:00: [facility] losartan 50 Yes 50mg Take 50 mg Univers mg tablet 4-13 by mouth. ity o f 00:00: [facility] losartan 2021- No 50mg QD Take 50 mg Me thodi (COZAAR) 50 4-13 10-[address] MG tablet 00:00: 00:00 daily. Hospi ta 00 :00 l losartan-hy 2021- No [id number] TAKE 1 Methodi drochloroth 4-11 04-[address] iazide 00:00: 00:00 MOUTH Hospita (HYZAAR) 00 :00 EVERY DAY l 50-12.5 mg per tablet losartan-hy 2021- No [id number] 1{tbl} QD Take 1 [facility]i drochloroth 3-14 04-[address] iazide 00:00: 00:00 mouth Hospita (HYZAAR) 00 :00 daily for l 50-12.5 mg 60 days. per tablet omeprazole 2021- No 40mg QD Take 1 Meth ame (PriLOSEC) 01-18-[address] 40 MG 00:00: 04:59 (40 mg Hospita capsule 00 :00 total) by l mouth daily before breakfast for 90 days. esomeprazol 2021- No 40mg QD Take 1 Met hodi e (NexIUM) 01-12-[address] 40 MG 00:00: 00:00 (40 mg Hospita capsule 00 :00 total) by l mouth daily before breakfast. 30 min to 1 hr prior to AM meal losartan-hy 2021-0 Yes 1{tbl} Take 1 Un brit drochloroth 2-08 tablet by ity of iazide 00:00: mouth [place] 50-12.5 mg 00 daily. Medical per tablet Branch losartan-hy 2021-0 Yes 1{tbl} Take 1 Un brit drochloroth 2-08 tablet by ity of iazide 00:00: mouth [place] 50-12.5 mg 00 daily. Medical per tablet Branch losartan-hy 2021-0 Yes 1{tbl} Take 1 Un brit drochloroth 2-08 tablet by ity of iazide 00:00: mouth [place] 50-12.5 mg 00 daily. Medical per tablet Branch losartan-hy 2021-0 Yes 1{tbl} Take 1 Un brit drochloroth 2-08 tablet by ity of iazide 00:00: mouth [place] 50-12.5 mg 00 daily. Medical per tablet Branch losartan-hy 2021-0 Yes 1{tbl} Take 1 Un brit drochloroth 2-08 tablet by ity of iazide 00:00: mouth [place] 50-12.5 mg 00 daily. Medical per tablet Branch losartan-hy 2021-0 Yes 1{tbl} Take 1 Un brit drochloroth 2-08 tablet by ity of iazide 00:00: mouth [place] 50-12.5 mg 00 daily. Medical per tablet Branch fluticasone 2021-0 Yes INSTILL Uni vers propionate 1-08 ONE (1) ity of 50 00:00: SPRAY(S) [place] mcg/actuati 00 INTO EACH Med ical on nasal NOSTRIL Branch spray DAILY. fluticasone 2021-0 Yes INSTILL Uni vers propionate 1-08 ONE (1) ity of 50 00:00: SPRAY(S) [place] mcg/actuati 00 INTO EACH Med ical on nasal NOSTRIL Branch spray DAILY. fluticasone 2021-0 Yes INSTILL Uni vers propionate 1-08 ONE (1) ity of 50 00:00: SPRAY(S) [place] mcg/actuati 00 INTO EACH Med ical on nasal NOSTRIL Branch spray DAILY. fluticasone 0 Yes INSTILL Uni vers propionate 1-08 ONE (1) ity of 50 00:00: SPRAY(S) [place] mcg/actuati 00 INTO EACH Med ical on nasal NOSTRIL Branch spray DAILY. fluticasone 2021-0 Yes INSTILL Uni vers propionate -08 ONE (1) ity of 50 00:00: SPRAY(S) [place] mcg/actuati 00 INTO EACH Med ical on nasal NOSTRIL Branch spray DAILY. fluticasone 2021-0 Yes INSTILL Uni vers propionate -08 ONE (1) ity of 50 00:00: SPRAY(S) [place] mcg/actuati 00 INTO EACH Med ical on nasal NOSTRIL Branch spray DAILY. fluticasone Yes [id number] SPRAY 1 [facility]i propionate -[address] (FLONASE) 00:00: EACH Hospita 50 00 NOSTRIL l mcg/actuati EVERY DAY on nasal spray fluticasone 2021- No [id number] SPRAY 1 [facility]i propionate -01 26-[address] (FLONASE) 00:00: 00:00 EACH Hospita 50 00 :00 NOSTRIL l mcg/actuati EVERY DAY on nasal spray losartan-hy 2021- No [id number] TAKE 1 [facility]i drochloroth 11-[address] iazide 00:00: 00:00 MOUTH Hospita (HYZAAR) 00 :00 EVERY DAY l 50-12.5 mg per tablet cyclobenzap 2020-11- No [id number] 5mg Q.[id number] Take 1 Methodi rine 12-31 [id number] tablet (5 st (FLEXERIL) 00:00: 05:59 3D mg total) H ospita 5 mg tablet 00 :00 by mouth 3 l (three) times a day as needed for muscle spasms for up to 14 days. methylPREDN 2020-11- No Take 6 Met hodi ISolone -09 01-[address] (MEDROL 00:00: 05:59 (24 mg Hospita DOSEPAK) 4 00 :00 total) by l mg tablet mouth daily for 1 day, THEN 5 tablets (20 mg total) daily for 1 day, THEN 4 tablets (16 mg total) daily for 1 day, THEN 3 tablets (12 mg total) daily for 1 day, THEN 2 tablets (8 mg total) daily for 1 day, THEN 1 tablet (4 mg total) daily for 1 day. follow package directions . azithromyci 2020-11- No Take 2 Met hodi n 2-10 12-[address] (ZITHROMAX) 00:00: 05:59 (500 mg Ho spita 250 MG 00 :00 total) by l tablet mouth daily for 1 day, THEN 1 tablet (250 mg total) daily for 4 days. fluticasone 2020-11- No [id number] SPRAY 1 [facility] propionate 12-[address] (FLONASE) 00:00: 00:00 EACH Hospita 50 00 :00 NOSTRIL l mcg/actuati EVERY DAY on nasal spray losartan-hy 2020-11- No [id number] TAKE 1 [facility]i drochloroth 12-[address] iazide 00:00: 00:00 MOUTH Hospita (HYZAAR) 00 :00 EVERY DAY l 50-12.5 mg per tablet Estarylla 2020-11 Yes Methodi 0.25-35 1-30 st mg-mcg per 00:00: Hospita tablet 00 l Estarylla 2020-11- No Methodi 0.25-35 1-30 10-03 st mg-mcg per 00:00: 00:00 Hospit a tablet 00 :00 l dextrometho 2020-11 Yes 1{tbl} Take 1 Un brit rphan-guaif 1-12 tablet by ity of enesin 00:00: mouth 2 [place] 30-600 mg 00 (two) Medical per tablet times Branch daily. dextrometho 2020-11 Yes 1{tbl} Take 1 Un brit rphan-guaif 1-12 tablet by ity of enesin 00:00: mouth 2 [place] 30-600 mg 00 (two) Medical per tablet times Branch daily. dextrometho 2020-11 Yes 1{tbl} Take 1 Un brit rphan-guaif 1-12 tablet by ity of enesin 00:00: mouth 2 [place] 30-600 mg 00 (two) Medical per tablet times Branch daily. dextrometho 2020-11 Yes 1{tbl} Take 1 Un brit rphan-guaif 1-12 tablet by ity of enesin 00:00: mouth 2 [place] 30-600 mg 00 (two) Medical per tablet times Branch daily. dextrometho 2020-11 Yes 1{tbl} Take 1 Un brit rphan-guaif 1-12 tablet by ity of enesin 00:00: mouth 2 [place] 30-600 mg 00 (two) Medical per tablet times Branch daily. dextrometho 2020-11 Yes 1{tbl} Take 1 Un brit rphan-guaif 1-12 tablet by ity of enesin 00:00: mouth 2 [place] 30-600 mg 00 (two) Medical per tablet times Branch daily. dextrometho 2020-11- No [id number] 1{tbl} Q.5D Take 1 Methodi rphan-guaif 12-[address] enesin 00:00: 00:00 mouth 2 Hospita (Mucinex 00 :00 (two) l DM) 30-600 times a mg tablet day. extended release 12 hr benzonatate 2020-11- No [id number] 200mg Q.[id number] Take 1 Methodi (TESSALON) 12-[id number] 200 MG 00:00: 05:59 3D (200 mg Hospita capsule 00 :00 total) by l mouth 3 (three) times a day as needed for cough for up to 30 days. losartan-hy 2020-11- No [id number] 1{tbl} QD Take 1 Methodi drochloroth 12-[address] iazide 00:00: 00:00 mouth Hospita (Hyzaar) 00 :00 daily. l 50-12.5 mg per tablet fluticasone 2020-11- No [id number] 50ug QD 1 spray Methodi propionate 12-02 ([address] (FLONASE) 00:00: 00:00 total) by Ho spita 50 00 :00 Each Nare l mcg/actuati route on nasal daily. spray sulfamethox Yes [id number] 1{tbl} Take 1 Univers azole-trime 6-04 tablet by ity of thoprim 00:00: mouth 2 [place] (BACTRIM) 00 (two) Medical 400-80 mg times Branch per tablet daily. valACYclovi Yes [id number] 1g Take 1 Univers r (VALTREX) 6-04 tablet by ity of 1 gram 00:00: mouth [place] tablet 00 daily. Medical Branch sulfamethox Yes [id number] 1{tbl} Take 1 Univers azole-trime 6-04 tablet by ity of thoprim 00:00: mouth 2 [place] (BACTRIM) 00 (two) Medical 400-80 mg times Branch per tablet daily. valACYclovi Yes [id number] 1g Take 1 Univers r (VALTREX) 6-04 tablet by ity of 1 gram 00:00: mouth [place] tablet 00 daily. Medical Branch sulfamethox Yes [id number] 1{tbl} Take 1 Univers azole-trime 6-04 tablet by ity of thoprim 00:00: mouth 2 [place] (BACTRIM) 00 (two) Medical 400-80 mg times Branch per tablet daily. valACYclovi Yes [id number] 1g Take 1 Univers r (VALTREX) 6-04 tablet by ity of 1 gram 00:00: mouth [place] tablet 00 daily. Medical Branch sulfamethox Yes [id number] 1{tbl} Take 1 Univers azole-trime 6-04 tablet by ity of thoprim 00:00: mouth 2 [place] (BACTRIM) 00 (two) Medical 400-80 mg times Branch per tablet daily. valACYclovi Yes [id number] 1g Take 1 Univers r (VALTREX) 6-04 tablet by ity of 1 gram 00:00: mouth [place] tablet 00 daily. Medical Branch sulfamethox Yes [id number] 1{tbl} Take 1 Univers azole-trime 6-04 tablet by ity of thoprim 00:00: mouth 2 [place] (BACTRIM) 00 (two) Medical 400-80 mg times Branch per tablet daily. valACYclovi Yes [id number] 1g Take 1 Univers r (VALTREX) 6-04 tablet by ity of 1 gram 00:00: mouth [place] tablet 00 daily. Medical Branch sulfamethox Yes [id number] 1{tbl} Take 1 Univers azole-trime 6-04 tablet by ity of thoprim 00:00: mouth 2 [place] (BACTRIM) 00 (two) Medical 400-80 mg times Branch per tablet daily. valACYclovi Yes [id number] 1g Take 1 Univers r (VALTREX) 6-04 tablet by ity of 1 gram 00:00: mouth [place] tablet 00 daily. Medical Branch SERTraline 2019-11 Yes TAKE 1 Unive rs 50 mg 2-15 TABLET(50 ity of tablet 00:00: MG) BY [place] MOUTH 1 Medical TIME EACH Branch DAY SERTraline 2019-11 Yes TAKE 1 Unive rs 50 mg 2-15 TABLET(50 ity of tablet 00:00: MG) BY [place] MOUTH 1 Medical TIME EACH Branch DAY SERTraline 2019-11 Yes TAKE 1 Unive rs 50 mg 2-15 TABLET(50 ity of tablet 00:00: MG) BY [place] MOUTH 1 Medical TIME EACH Branch DAY SERTraline 2019-11 Yes TAKE 1 Unive rs 50 mg 2-15 TABLET(50 ity of tablet 00:00: MG) BY [place] MOUTH 1 Medical TIME EACH Branch DAY SERTraline 2019-11 Yes TAKE 1 Unive rs 50 mg 2-15 TABLET(50 ity of tablet 00:00: MG) BY [place] MOUTH 1 Medical TIME EACH Branch DAY SERTraline 2019-11 Yes TAKE 1 Unive rs 50 mg 2-15 TABLET(50 ity of tablet 00:00: MG) BY [place] MOUTH 1 Medical TIME EACH Branch DAY meloxicam 2019-11 Yes Univers 7.5 mg 1-28 ity of tablet 00:00: [place] Medical Branch meloxicam 2019-11 Yes Univers 7.5 mg 1-28 ity of tablet 00:00: [place] Medical Branch meloxicam 2019-11 Yes Univers 7.5 mg 1-28 ity of tablet 00:00: [place] Medical Branch meloxicam 2019-11 Yes Univers 7.5 mg 1-28 ity of tablet 00:00: [facility] Branch meloxicam 2019-11 Yes Univers 7.5 mg 1-28 ity of tablet 00:00: Medical Branch meloxicam 2019-11 Yes Univers 7.5 mg 1-28 ity of tablet 00:00: [place] Medical Branch hydroCHLORO 2019-11 Yes TK 1 T PO U nivers thiazide 0-22 QD IN THE ity of 12.5 mg 00:00: MORNING [place] tablet 00 [facility] hydroCHLORO 2020 Yes TK 1 T PO U nivers thiazide 0-22 QD IN THE ity of 12.5 mg 00:00: MORNING [place] tablet 00 [facility] hydroCHLORO 2019-11 Yes TK 1 T PO U nivers thiazide 0-22 QD IN THE ity of 12.5 mg 00:00: MORNING [place] tablet 00 [facility] hydroCHLORO 2019-11 Yes TK 1 T PO U nivers thiazide 0-22 QD IN THE ity of 12.5 mg 00:00: MORNING [place] tablet 00 [facility] hydroCHLORO 2019-11 Yes TK 1 T PO U nivers thiazide 0-22 QD IN THE ity of 12.5 mg 00:00: MORNING [place] tablet 00 [facility] hydroCHLORO 2019-11 Yes TK 1 T PO U nivers thiazide 0-22 QD IN THE ity of 12.5 mg 00:00: MORNING [place] tablet [facility] hydroCHLORO 2019-11- No 12.5mg QD Take 12.5 Methodi thiazide 0-22 11-[address] (HYDRODIURI 00:00: 00:00 mouth Hosp taran L) 12.5 MG 00 :00 daily. l tablet Vital Signs Vital Name Observation Time Observation Value Comments Source Systolic blood 2023-04-06 18:42:00 115 mm[Hg] Melania Cabrera - pressure External Diastolic blood 2023-04-06 18:42:00 85 mm[Hg] Jina Cabrera - pressure External Heart rate 2023-04-06 18:42:00 88 /min Melania jensen - External Body temperature 2023-04-06 18:42:00 36.56 Clarice Abbie Cabrera - External Respiratory rate 2023-04-06 18:42:00 12 /min Abbie Cabrera - External Body height 2023-04-06 18:42:00 162.6 cm Melania jensen - External Body weight 2023-04-06 18:42:00 81.466 kg Melania jensen - External BMI 2023-04-06 18:42:00 30.83 kg/m2 Melania S eybold - External Oxygen saturation in 2023-04-06 18:42:00 97 /min Melania Seybold - Arterial blood by External Pulse oximetry Systolic blood 2022-10-25 19:57:00 123 mm[Hg] Melania Seybold - pressure External Diastolic blood 2022-10-25 19:57:00 76 mm[Hg] Kelse y Seybold - pressure External Heart rate 2022-10-25 19:57:00 78 /min Melania S eybold - External Body temperature 2022-10-25 19:57:00 37.28 Clarice Abbie ey Seybold - External Respiratory rate 2022-10-25 19:57:00 14 /min Abbie ey Seybold - External Body height 2022-10-25 19:57:00 162.6 cm Melania S eybold - External Body weight 2022-10-25 19:57:00 85.73 kg Melania S eybold - External BMI 2022-10-25 19:57:00 32.44 kg/m2 Melania Nelson eybold - External Oxygen saturation in 2022-10-25 19:57:00 99 /min Melania Seybold - Arterial blood by External Pulse oximetry Systolic blood 2022-09-24 16:17:00 119 mm[Hg] Melania Seybold - pressure External Diastolic blood 2022-09-24 16:17:00 78 mm[Hg] Farzadse y Seybold - pressure External Heart rate 2022-09-24 16:17:00 99 /min Melania S eybold - External Body temperature 2022-09-24 16:17:00 36.89 Clarice Abbie ey Seybold - External Respiratory rate 2022-09-24 16:17:00 13 /min Abbie ey Seybold - External Body height 2022-09-24 16:17:00 162.6 cm Melania S eybold - External Body weight 2022-09-24 16:17:00 83.008 kg Melania S eybold - External BMI 2022-09-24 16:17:00 31.41 kg/m2 Melania S eybold - External Oxygen saturation in 2022-09-24 16:17:00 99 /min Melania Seybold - Arterial blood by External Pulse oximetry Systolic blood 2022-05-31 19:11:00 146 mm[Hg] Univer sity of pressure [facility] Diastolic blood 2022-05-31 19:11:00 99 mm[Hg] Unive rsity of pressure [facility] Heart rate 2022-05-31 19:11:00 111 /min Universi ty [facility] Body temperature 2022-05-31 19:11:00 36.89 [facility] 2022-05-31 19:11:00 18 /min [facility] Body height 2022-05-31 19:11:00 162[facility] Body weight 2022-05-31 19:11:00 76.975 kg [facility] BMI 2022-05-31 19:11:00 29.13 kg/m2 [facility] Systolic blood 2023-05-09 15:15:00 116 mm[Hg] [facility] pressure Diastolic blood 2023-05-09 15:15:00 68 mm[Hg] [facility] pressure Heart rate 2023-05-09 15:15:00 85 /min [facility] Respiratory rate 2023-05-09 15:15:00 18 /min [facility] Oxygen saturation in 2023-05-09 15:15:00 98 /min [facility] Arterial blood by Pulse oximetry Body temperature 2023-05-09 14:52:00 36.67 Clarice [facility] Body height 2023-05-02 15:38:00 162.6 cm [facility] Body weight 2023-05-02 15:38:00 79.833 kg [facility] BMI 2023-05-02 15:38:00 30.21 kg/m2 [facility] Heart Rate 2022-07-06 19:23:00 Dolly Osmel Systolic (mm Hg) 2022-07-06 19:23:00 Clif Bolivar Diastolic (mm Hg) 2022-07-06 19:23:00 Mem orial [place] Height 2022-07-06 19:23:00 162.56 cm [facility] Weight 2022-07-06 19:23:00 [facility] BMI Calculated 2022-07-06 19:23:00 Memori al [place] Systolic blood 2022-04-02 16:17:00 120 mm[Hg] [facility] pressure Diastolic blood 2022-04-02 16:17:00 84 mm[Hg] [facility] pressure Heart rate 2022-04-02 16:17:00 100 /min [facility] Body temperature 2022-04-02 16:17:00 36.89 Clarice [facility] Body height 2022-04-02 16:17:00 162.6 cm [facility] Body weight 2022-04-02 16:17:00 77.565 kg [facility] BMI 2022-04-02 16:17:00 29.35 kg/m2 [facility] Oxygen saturation in 2022-04-02 16:17:00 98 /min [facility] Arterial blood by Pulse oximetry Procedures Procedure Date / Time Performing Clinician Source Performed SURGICAL PATHOLOGY 2023-05-09 15:34:00 [facility] REQUEST [place] AN ELECTIVE 2023-05-09 12:58:00 Kori Grey [facility] ENDOTRACHEAL AIRWAY Agatha EXCISION, MASS, NECK 2023-05-09 12:45:00 [facility] 2023-05-09 11:41[facility] 2023-05-09 11:40:43 Freda Pete [facility] REFERRAL- 2022-03-16 05:01:00 Doctor Unassigned, No [facility] REQUEST/RESPONSE Name Medical Branch CBC WITH PLATELET AND 2022-02-18 19:47:00 [facility] DIFFERENTIAL COMPREHENSIVE METABOLIC 2022-02-18 19:47:00 [facility] PANEL TSH REFLEX TO T4F 2022-02-18 19:47:00 [facility] HEMOGLOBIN A1C 2022-02-18 19:47:00 [facility] spital CT SOFT TISSUE NECK W 2022-01-20 [facility] CONTRAST US BREAST COMPLETE 2022-01-07 20:05:00 [facility] BILATERAL MAMMO BREAST DIAGNOSTIC 2022-01-07 19:46:30 Medi, [facility] TOMOSYNTHESIS BILATERAL COVID-19 QUALITATIVE 2021-11-03 00:00:00 [facility] RT-PCR GROUP A STREP, RAPID 2021-11-03 00:00:00 [facility] ANTIGEN XR CHEST 2 VW 2021-10-30 20:42:54 [facility], [facility] spital COVID-19 QUALITATIVE 2021-10-30 19:28:00 [facility] RT-PCR CBC WITH PLATELET AND 2021-10-30 16:50:00 [facility], [facility] [place] DIFFERENTIAL TSH REFLEX TO T4F 2021-10-30 16:50:00 [facility], [facility] BASIC METABOLIC PANEL 2021-10-30 16:49:00 [facility] [place] GROUP A STREP, RAPID 2021-10-30 15:00:00 [facility] ANTIGEN STREP SCREEN CULTURE 2021-10-30 15:00:00 [facility] COMPREHENSIVE METABOLIC 2021-10-12 21:32:00 [facility], [facility] PANEL Plan of Care Planned Activity Planned Date Details Comments Source Future Scheduled 2023-05-[address] [facility] Test 17:50:50 malignant neoplasm of colon (procedure) [code = 465345572] Future Scheduled 2023-05-[address] [facility] Test 17:50:50 malignant neoplasm of colon (procedure) [code = [id number]] Future Scheduled 2023-05-[address] [facility] Test 17:50:50 SCREENING [code = BREAST CANCER SCREENING] Future Scheduled 2023-05-30 INFLUENZA VACCINE Method [facility] Test 17:50:50 [code = INFLUENZA VACCINE] Future Scheduled 2023-05-[address] [facility] Test 17:50:50 malignant neoplasm of cervix (procedure) [code = 946315367] Future Scheduled 2023-05-[address] [facility] [facility] Test 17:50:50 malignant neoplasm of colon (procedure) [code = 968854991] Future Scheduled 2023-05-[address] [facility] Test 17:50:50 malignant neoplasm of colon (procedure) [code = 739885333] Future Scheduled 2023-05-30 Screening for [facility] Test 17:50:50 malignant neoplasm of colon (procedure) [code = 887804826] Future Scheduled 2023-05-30 COVID-[address] [facility] Test 17:50:50 (#1) [code = COVID-19 VACCINE (#1)] Future Scheduled 2023-05-30 [facility] 17:50:50 screening (procedure) [code = 205410288] Future Scheduled 2022-04-22 COVID-[address] [facility] [facility] Test 10:50:51 (1) [code = COVID-19 VACCINE (1)] Future Scheduled 2022-04-22 [facility] Test 10:50:51 screening (procedure) [code = 159319090] Future Scheduled 2022-04-22 [facility]ZA [facility]ACCINE [facility] 10:50:51 [code = INFLUENZA VACCINE] Future Scheduled 2022-04-22 Screening for [facility] Test 10:50:51 malignant neoplasm of cervix (procedure) [code = 533595396] Encounters Start End Encounter Admission Attending Care Care Encounter Source Date/Time Date/Time Type Type Clinicians Facility Department ID 2023-10-05 2023-10-05 Outpatient MELANIA GOMEZ [id number] [place] 13:30:00 13:30:00 MIKE garcia 2023-06-06 2023-06-06 Outpatient MELANIA GOMEZ [id number] [place] 00:00:00 00:00:00 MIKE garcia 2023-05-27 2023-05-27 Refill Magdi 1.2.840.1 [id number] Methodjohn 00:00:00 00:00:[address] 3.430.2.7 Hospit a .3.683108 l .8 2023-05-25 2023-05-25 Outpatient MELANIA GOMEZ [id number] [place] 00:00:00 00:00:00 MIKE garcia 2023-05-18 2023-05-18 Office Casey Martin 1.2.840.1 [id number] Methodi 13:00:00 13:20:[address] 3.430.2.7 Hospit a .3.591787 l .8 2023-05-18 2023-05-18 Outpatient HEIDY CASEY [facility] [id number] [place] 00:00:00 00:00:[address] 2023-05-16 2023-05-16 Outpatient MELANIA GOMEZ [id number] [place] 00:00:00 00:00:00 MIKE Seybol d 2023-05-09 2023-05-09 [facility] Casey Martin 1.2.840.1 [id number] 2 [id number] Methodi 05:51:00 10:34:[address] 3.430.2.7 Hospit a .3.670564 l .8 2023-05-09 2023-05-09 Surgery Casey Martin 1.2.840.1 [id number] 21 [id number] Methodi 07:45:00 09:45:[address] 3.430.2.7 Hospit a .3.131052 l .8 2023-05-09 2023-05-09 Anesthesia LuciaAnisha A. 12.840.1 10 [id number] Methodi 07:45:00 09:17:00 Event Juan R Freda 00793.1.[address] 3.430.2.7 Hospit a .3.179203 l .8 2023-05-09 2023-05-09 Outpatient CASEY [place] [id number] [place] 00:00:00 00:00:[address] 2023-05-05 2023-05-05 Outpatient MELANIA GOMEZ [id number] [place] 00:00:00 00:00:00 MIKE Seybol d 2023-05-04 2023-05-04 Outpatient LAB90 MELANIA PENA [id number] [place] 10:05:00 10:05:00 Seybol d 2023-05-04 2023-05-04 Outpatient ALDEN VANESSA [id number] Mel[place] 09:00:00 09:00:00 Seybol d 2023-05-04 2023-05-04 Outpatient PREZAS MELANIA PENA [id number] [place] 00:00:00 00:00:00 MIKE Seybol d 2023-05-03 2023-05-03 Outpatient PREZAS MELANIA PENA [id number] [place] 00:00:00 00:00:00 MIKE Seybol d 2023-05-02 2023-05-02 Telemedici Casey Martin 1.2.840.1 [id number] Methodi 13:00:00 13:26:[address] 3.430.2.7 Hospit a .3.017362 l .8 2023-05-02 2023-05-02 Outpatient PREZAS MELANIA PENA [id number] [place] 00:00:00 00:00:00 MIKE Seybol d 2023-05-02 2023-05-02 Outpatient PREZAS MELANIA PENA [id number] [place] 00:00:00 00:00:00 MIKE Seybol d 2023-05-02 2023-05-02 Outpatient CASEY MARTIN [facility] [id number] [place] 00:00:00 00:00:[address] 2023-05-02 2023-05-02 Telephone Debby, 1.2.840.1 [id number] 2100 084102 Methodi 00:00:00 00:00:[address] 3.430.2.7 Hospit a .3.708691 l .8 2023-05-01 2023-05-01 Outpatient PREZAS MELANIA PENA [id number] [place] 00:00:00 00:00:00 MIKE Seybol d 2023-04-29 2023-04-29 Travel 1.2.840.1 1.2.100.075 [id number] [id number] Methodi 00:00:00 00:00:[address] 3.430.2.7 0.2.7.3.698 spita .3.549105 084.8 l .8 2023-04-21 2023-04-21 Outpatient PREZASMELANIA [id number] Melania 00:00:00 00:00:00 MIKE Seybol d 2023-04-20 2023-04-20 Outpatient PROVIDER, MELANIA PENA [id number] Melania 08:15:00 08:15:00 VIDEOVISITN Se diogenes SADLER 2023-04-20 2023-04-20 Refrobert Ivey, 1.2.840.1 [id number] Methodi 00:00:00 00:00:[address] 3.430.2.7 Hospit a .3.402911 l .8 2023-04-06 2023-04-06 Outpatient PREZAS, MELANIA PENA [id number] [place] 13:45:00 13:45:00 MIKE Seybol d 2023-04-06 2023-04-06 Outpatient PREZAS, MELANIA PENA [id number] [place] 00:00:00 00:00:00 MIKE Seybol d 2023-04-05 2023-04-05 Outpatient PREZAS, MELANIA PENA [id number] [place] 00:00:00 00:00:00 MIKE Seybol d 2023-03-28 2023-03-28 Outpatient PREZAS, MELANIA PENA [id number] [place] 00:00:00 00:00:00 MIKE Seybol d 2023-03-22 2023-03-22 Outpatient PREZAS, MELANIA PENA [id number] [place] 00:00:00 00:00:00 MIKE Seybol d 2023-03-14 2023-03-14 Outpatient PREZAS, MELANIA PENA [id number] [place] 00:00:00 00:00:00 MIKE Seybol d 2023-03-14 2023-03-14 Telephone Dima, 1.2.840.1 [id number] 2100 [id number] Methodi 00:00:00 00:00:[address] 3.430.2.7 Hospit a .3.174015 l .8 2023-03-14 2023-03-14 Prep for Debby, 1.2.840.1 [id number] 05623 73349 Methodi 00:00:00 00:00:00 Surgery Kiya 55229.1.[address] 3.430.2.7 Hospit a .3.524017 l .8 2023-03-03 2023-03-03 Outpatient MELANIA GOMEZ [id number] [place] 00:00:00 00:00:00 MIKE Seybol d 2023-03-02 2023-03-02 Outpatient MELANIA GOMEZ [id number] eMlania 00:00:00 00:00:00 MIKE Seybol d 2023-01-05 2023-01-05 Telephone LYNSEY Yang 1.2.944.893 [id number] [id number] Univers 00:00:00 00:00:00 Laverne FRYE 350.1.13.10 it y [facility] 4.[place].2.[id number] [address] 2022-12-22 2022-12-22 Outpatient LAB90 MELANIA PENA [id number] [place] 10:30:00 10:30:00 Seybol d 2022-12-14 2022-12-14 Outpatient MELANIA GOMEZ [id number] [place] 00:00:00 00:00:00 MIKE Seybol d 2022-12-07 2022-12-07 Outpatient ETHAN HERNANDEZ [facility] [id number] [facility] 09:00:00 09:00:00 ETHAN HANKS [facility] 2022-12-07 2022-12-07 Outpatient PREZAMELANIA Nelson [id number] [place] 00:00:00 00:00:00 MIKE Seybol d 2022-12-07 2022-12-07 Outpatient MELANIA GOMEZ [id number] [place] 00:00:00 00:00:00 MIKE Seybol d 2022-11-29 2022-11-29 Outpatient ETHAN HERNANDEZ [facility] B [id number] Univers 14:00:00 14:00:00 BRIANETHAN RENO [facility] 2022-11-29 2022-11-29 Outpatient R ETHAN HANKS [facility] B [id number] Univers 14:00:00 14:00:00 KARMAETHAN HUANGsuresh [facility] 2022-11-26 2022-11-26 Outpatient PREZASMELANIA [id number] [place] 00:00:00 00:00:00 MIKE Seybol d 2022-11-25 2022-11-25 Outpatient PREZASMELANIA [id number] [place] 14:00:00 14:00:00 MIKE Seybol d 2022-11-25 2022-11-25 Outpatient PREZAMELANIA Nelson [id number] [place] 00:00:00 00:00:00 MIKE Seybol d 2022-11-19 2022-11-19 Telephone [facility] 1.2.840.11 4 [id number] [facility] 00:00:00 00:00:00 Ethan KABA 350.1.13.10 it y of PEDIATRIC 4.2.7.2.686 [facility] [id number] [address] 2022-11-13 2022-11-13 Refill [facility] 1.2.840.114 [id number] Univers 00:00:00 00:00:00 Bernicevinh TK 350.1.13.10 it y of WOMEN'S 4.2.7.2.686 [facility] [id number] [address] 2022-11-10 2022-11-10 Outpatient PREZASMELANIA [id number] [place] 00:00:00 00:00:00 MIKE Seybol d 2022-11-05 2022-11-05 Outpatient PREZAMELANIA Nelson [id number] [place] 00:00:00 00:00:00 MIKE Seybol d 2022-11-05 2022-11-05 Outpatient MELANIA GOMEZ [id number] [place] 00:00:00 00:00:00 MIKE Seybol d 2022-11-04 2022-11-04 Outpatient PREZAS MELANIA PENA [id number] [place] 00:00:00 00:00:00 MIKE Seybol d 2022-11-03 2022-11-03 Outpatient PREZALeslie MELANIA PENA [id number] [place] 00:00:00 00:00:00 MIKE Seybol d 2022-10-28 2022-10-28 Outpatient PREZAS MELANIA PENA [id number] [place] 00:00:00 00:00:00 MIKE Seybol d 2022-10-25 2022-10-25 Outpatient LAB90 MELANIA PENA [id number] [place] 14:45:00 14:45:00 Seybol d 2022-10-25 2022-10-25 Outpatient HERLINDA MELANIA PENA [id number] [place] 14:00:00 14:00:00 MIKE Seybol d 2022-10-21 2022-10-21 Outpatient PREZAS MELANIA PENA [id number] [place] 00:00:00 00:00:00 MIKE Seybol d 2022-10-09 2022-10-09 Refill [facility], 1.2.840.1 [id number] 6756 Methodi 00:00:00 00:00:[address] 3.430.2.7 Hospit a .3.122690 l .8 2022-10-08 2022-10-08 Outpatient HERLINDA MELANIA PENA [id number] [place] 00:00:00 00:00:00 MIKE Seybol d 2022-09-24 2022-09-24 Outpatient LAB90 MELANIA PENA [id number] [place] 12:20:00 12:20:00 Seybol d 2022-09-24 2022-09-24 Outpatient MELANIA GOMEZ [id number] [place] 11:15:00 11:15:00 MIKE Seybol d 2022-09-24 2022-09-24 Outpatient MELANIA GOMEZ [id number] [place] 00:00:00 00:00:00 MIKE Seybol d 2022-09-16 2022-09-16 Outpatient PREZAS MELANIA PENA [id number] [place] 00:00:00 00:00:00 MIKE Seybol d 2022-09-13 2022-09-13 Outpatient PREZALeslie MELANIA PENA [id number] [place] 00:00:00 00:00:00 MIKE Seybol d 2022-09-09 2022-09-09 Refill [facility], 1.2.840.1 [id number] Methodi 00:00:00 00:00:[address] 3.430.2.7 Hospit a .3.289001 l .8 2022-09-06 2022-09-06 Outpatient PREZAMELANIA Nelson [id number] [place] 00:00:00 00:00:00 MIKE Seybol d 2022-08-30 2022-08-30 Outpatient PREZAMELANIA Nelson [id number] [place] 13:45:00 13:45:00 MIKE Seybol d 2022-08-26 2022-08-26 Outpatient PREZALeslie MELANIA PENA [id number] [place] 00:00:00 00:00:00 MIKE Seybol d 2022-08-23 2022-08-23 Telemedici Casey Martin 1.2.840.1 [id number] Methodi 15:15:00 15:39:[address] 3.430.2.7 Hospit a .3.916319 l .8 2022-08-23 2022-08-23 Outpatient CASEY MARTIN [facility] [id number] [place] 00:00:00 00:00:[address] 2022-08-13 2022-08-13 Outpatient MELANIA GOMEZ [id number] [place] 00:00:00 00:00:00 MIKE Seybol d 2022-08-11 2022-08-11 Outpatient PREMELANIA BOUDREAUX [id number] [place] 00:00:00 00:00:00 MIKE Seybol d 2022-08-11 2022-08-11 Outpatient PREZAS, MELANIA PENA [id number] [place] 00:00:00 00:00:00 MIKE Seybol d 2022-08-02 2022-08-02 Office PrezasAlden 1.2.840.114 [id number] Mel[place] 13:45:00 14:00:00 Visit Mike Kaba 350.1.13.13 Se diogenes 1.2.7.2.686 [id number] 0 2022-08-02 2022-08-02 Outpatient PREZAS, MELANIA PENA [id number] [place] 08:15:00 08:15:00 MIKE Seybol d 2022-07-20 2022-07-20 Outpatient PREZAS, MELANIA PENA [id number] [place] 00:00:00 00:00:00 MIKE Seybol d 2022-07-20 2022-07-20 Outpatient PREZAS, MELANIA PENA [id number] [place] 00:00:00 00:00:00 MIKE Seybol d 2022-07-19 2022-07-19 Outpatient PREZAS, MELANIA PENA [id number] [place] 00:00:00 00:00:00 MIKE Seybol d 2022-07-14 2022-07-14 Outpatient PREZAS, MELANIA PENA [id number] [place] 00:00:00 00:00:00 MIKE Seybol d 2022-07-14 2022-07-14 Outpatient PREZAS, MELANIA PENA [id number] [place] 00:00:00 00:00:00 MIKE Seybol d 2022-07-14 2022-07-14 Outpatient PREZAS, MELANIA PENA [id number] [place] 00:00:00 00:00:00 MIKE Seybol d 2022-07-13 2022-07-13 Outpatient PREZAS, MELANIA PENA [id number] [place] 00:00:00 00:00:00 MIKE Seybol d 2022-07-13 2022-07-13 Outpatient PREZAS, MELANIA PENA [id number] [place] 00:00:00 00:00:00 MIKE Seybol d 2022-07-07 2022-07-08 Between nullFlavo [facility] [id number] Memoria 17:13:09 17:13:09 Visit r Primary 00 l [facility] 2022-07-07 2022-07-08 Between nullFlavo MG [id number] Memoria 17:13:09 17:13:09 Visit r Primary 00 l [facility] 2022-07-07 2022-07-08 Outpatient [facility] [id number] 12:13:09 12:13:09 00 2022-07-08 2022-07-08 Outpatient LAB90 MELANIA PENA [id number] [place] 10:55:00 10:55:00 Seybol d 2022-07-08 2022-07-08 Office Alden Gomez 1.2.840.114 [id number] Melania 09:30:00 10:15:00 Visit Mike Kaba 350.1.13.13 Se diogenes 1.2.7.2.686 [id number] 0 2022-07-06 2022-07-07 [place] [id number] Memoria 19:00:00 04:59:59 r Primary 00 l [facility] 2022-07-06 2022-07-07 [place] [id number] Memoria 19:00:00 04:59:59 r Primary 00 [facility] 2022-07-07 2022-07-07 Outpatient MELANIA GOMEZ [id number] [place] 00:00:00 00:00:00 MIKE Mantillaol jose 2022-07-07 2022-07-07 Refill Magdi 1.2.840.1 [id number] Methodi 00:00:00 00:00:[address] 3.430.2.7 Hospit a .3.241066 l .8 2022-07-06 2022-07-06 Outpatient Caitlyn MG MG [id number] 14:00:00 23:59:59 La G 00 2022-07-06 2022-07-06 [facility] [id number] Memoria 14:00:00 14:00:00 00 [facility] 2022-06-17 2022-06-17 Outpatient AMBREEN_FAR [facility] 894 [place] 00:00:00 00:00:00 MALIKA 0728 [facility] 2022-05-31 2022-05-31 Outpatient R BRIANETHAN RENO [facility] B [id number] Univers 13:45:00 14:36:10 LATONYAETHAN [facility] 2022-05-31 2022-05-31 [facility] 1.2.840.114 [id number] Univers 13:45:00 14:36:10 Visit Ethan KABA 350.1.13.10 it y of WOMEN'S 4.2.7.2.686 [place] [facility] [id number] [facility] [address] 2022-05-31 2022-05-31 Outpatient R [facility]ICE [facility] [id number] Univers 13:45:00 14:36:10 LATONYA BERNICEVINH pichardo [facility] 2022-05-31 2022-05-31 Outpatient R BRIANHSADIA [facility] B [id number] Univers 13:45:00 13:45:00 [facility] 2022-05-31 2022-05-31 Orders Doctor GONZÁLEZ 1.2.840.114 [id number] Univers 00:00:00 00:00:00 Only Unassigned, MARCUS 350.1.13.10 ity of [place] [facility] 4.2.7.2.[id number] [facility] [address] 2022-05-26 2022-05-26 Outpatient R RAIMUNDO [facility] [id number] Univers 09:00:00 09:00:00 LOU pichardo [facility] 2022-05-04 2022-05-04 Ref[facility] 1.2.840.114 [id number] Univers 00:00:00 00:00:00 Lou HERRMANN 350.1.13.10 ity of [place].2.[place] [id number] Me dical NAL [address] BUILDING 2022-04-30 2022-04-30 Outpatient R ADUM, [facility] [id number] Univers 13:30:00 13:30:[address] [facility] 2022-04-30 2022-04-30 Refill Adum, [facility] 1.2.840.114 [id number] Univers 00:00:00 00:00:00 Lou GONZALEZ 350.1.13.10 i ty of [place] 4.2.7.2.686 Jermaine as ISABELLA?BLEA [id number] Me dical KNEY [address] [place] MEDICAL [facility]ILDING 2022-04-07 2022-04-07 Telephone Erasto, 1.2.840.1 [id number] 2 [id number] Methodi 00:00:00 00:00:00 Yoli Tan 08590.1.[address] 3.430.2.7 Hospit a .3.641494 l .8 2022-04-02 2022-04-02 Office Medi, 1.2.840.1 [id number] [id number] 4590 Methodi 11:00:00 11:38:27 Visit Willow 01592.1.[address] 3.430.2.7 Hospit a .3.616213 l .8 2022-04-02 2022-04-02 Travel 1.2.840.1 1.2.199.265 5827 824185 Methodi 00:00:00 00:00:[address] 3.430.2.7 0.2.7.3.698 Ho spita .3.102720 084.8 l .8 2022-03-18 2022-03-18 Telemedici Medi, 1.2.840.1 [id number] 703 [id number] Methodi 09:15:00 09:27:36 ne [place] 86953.1.[address] 3.430.2.7 Hospit a .3.393602 l .8 2022-03-16 2022-03-16 Consult Cathy 1.2.840.1 [id number] 669644 0631 Methodi 12:30:00 13:14:[address] 3.430.2.7 Hospit a .3.911894 l .8 2022-03-16 2022-03-16 Travel 1.2.840.1 1.2.198.207 0348 690342 Methodi 00:00:00 00:00:[address] 3.430.2.7 0.2.7.3.698 Ho spita .3.138421 084.8 l .8 2022-03-16 2022-03-16 Orders Doctor GONZÁLEZ 1.2.840.114 [id number] Univers 00:00:00 00:00:00 Only Unassigned, MARCUS 350.1.13.10 ity of [place] [facility] 4.2.7.2.686 Jermaine as [id number] Medi [facility] [address] 2022-03-10 2022-03-10 Travel 1.2.840.1 1.2.983.783 7086 274988 Methodi 00:00:00 00:00:[address] 3.430.2.7 0.2.7.3.698 Ho spita .3.303947 084.8 l .8 2022-03-10 2022-03-10 Telephone Medi, 1.2.840.1 [id number] Methodi 00:00:00 00:00:[address] 3.430.2.7 Hospit a .3.467096 l .8 2022-02-25 2022-02-25 Refill Medi, 1.2.840.1 [id number] 920688 0362 Methodi 00:00:00 00:00:[address] 3.430.2.7 Hospit a .3.807025 l .8 2022-02-16 2022-02-16 Office Medi, 1.2.840.1 [id number] Methodi 15:00:00 15:46:30 Visit Willow 44644.1.[address] 3.430.2.7 Hospit a .3.291468 l .8 2022-02-15 2022-02-15 Travel 1.2.840.1 1.2.380.511 4122 099726 Methodi 00:00:00 00:00:[address] 3.430.2.7 0.2.7.3.698 Ho spita .3.359314 084.8 l .8 2022-02-09 2022-02-09 Outpatient R AD, [facility] [id number] Univers 08:00:00 08:00:00 [facility] 2022-02-09 2022-02-09 Outpatient R [facility] [id number] Univers 08:00:00 08:00:00 [facility] 2022-02-06 2022-02-06 Refill Magdi, 1.2.840.1 [id number] 8520 Methodi 00:00:00 00:00:[address] 3.430.2.7 Hospit a .3.352162 l .8 2022-02-05 2022-02-05 Patient Doctor [facility] 1.2.840.114 [id number] 87 Univers 00:00:00 00:00:00 Secure Msg Unassigned, [place] 350.1.13.10 ity of [place].2.[place] [id number] [facility] 2022-02-02 2022-02-02 Pre Visit LYNSEY Santos 1.2.263.504 8744 2450 Univers 00:00:00 00:00:00 Outreach Leisa FRYE 350.1.13.10 ity of [place].7.2.[place] 356.7316087 Medi [facility]6 [place] 2022-02-01 2022-02-01 Refill Eddie, 1.2.840.1 [id number] 1933 Methodi 00:00:00 00:00:[address] 3.430.2.7 Hospit a .3.603783 l .8 2022-01-31 2022-01-31 Refill Magdi 1.2.840.1 [id number] [id number] 1242 Methodi 00:00:00 00:00:[address] 3.430.2.7 Hospit a .3.011676 l .8 2022-01-20 2022-01-20 Outpatient CASEY MARTIN [facility] [id number] [place] 00:00:00 00:00:[address] 2022-01-15 2022-01-15 Transcribe Casey Martin 1.2.840.1 [id number] Methodi 00:00:00 00:00:[address] 72900.1.[address] 3.430.2.7 Hospit a .3.238011 l .8 2022-01-14 2022-01-14 Patient [facility] 1.2.840.114 [id number] Univers 00:00:00 00:00:00 Secure Msg Lou Solorzano [place] [facility] [place] 057.3712012 [place] dic[address] 2022-01-12 2022-01-12 Office Willow Ivey 1.2.840.1 [id number] 2 [id number] Methodi 10:45:00 11:45:03 Visit Casey Martin [place]Jg 39231.1.[address] 3.430.2.7 Hospit a .3.208112 l .8 2022-01-12 2022-01-12 Refill Casey Martin 1.2.840.1 [id number] 21 [id number] Methodi 00:00:00 00:00:[address] 3.430.2.7 Hospit a .3.506953 l .8 2022-01-12 2022-01-12 Travel 1.2.840.1 1.2.922.918 5973 243518 Methodi 00:00:00 00:00:[address] 3.430.2.7 0.2.7.3.698 Ho spita .3.846568 084.8 l .8 2022-01-12 2022-01-12 Refill [facility] 1.2.840.114 [id number] 43 Univers 00:00:00 00:00:00 Lou HERRMANN 350.1.13.10 [facility] 4.2.7.2.686 Courtney [phone] [facility] [address] [facility] 2022-01-07 2022-01-07 [facility], 1.2.840.1 [id number] Methodi 12:51:54 23:59:00 Encounter [place] 07814.1.[address] 3.430.2.7 Hospit a .3.120855 l .8 2022-01-07 2022-01-07 [facility], 1.2.840.1 [id number] Methodi 12:51:36 23:59:00 Encounter [place] 45890.1.[address] 3.430.2.7 Hospit a .3.051453 l .8 2022-01-01 2022-01-01 Travel 1.2.840.1 1.2.975.574 9041 446521 Methodi 00:00:00 00:00:[address] 3.430.2.7 0.2.7.3.698 Ho spita .3.105790 084.8 l .8 2021-12-24 2021-12-24 Travel 1.2.840.1 1.2.783.586 8508 294254 Methodi 00:00:00 00:00:[address] 3.430.2.7 0.2.7.3.698 Ho spita .3.897654 084.8 l .8 2021-11-23 2021-11-23 Refill [facility], 1.2.840.1 [id number] 3919 Methodi 00:00:00 00:00:[address] 3.430.2.7 Hospit a .3.381220 l .8 2021-11-17 2021-11-17 Orders Medi, 1.2.840.1 [id number] 478701 6927 Methodi 00:00:00 00:00:00 Only [place] 99030.1.[address] 3.430.2.7 Hospit a .3.387007 l .8 2021-11-03 2021-11-03 Orders Medi, 1.2.840.1 [id number] 697662 4526 Methodi 00:00:00 00:00:00 Only [place] 85859.1.[address] 3.430.2.7 Hospit a .3.608411 l .8 2021-10-30 2021-10-30 [facility] Medi, 1.2.840.1 [id number] 41649 80517 Methodi 14:35:32 23:59:00 Encounter [place] 14315.1.[address] 3.430.2.7 Hospit a .3.849603 l .8 2021-10-30 2021-10-30 [facility], 1.2.840.1 [id number] 668 [id number] Methodi 08:30:00 08:34:51 ne [place] 57089.1.[address] 3.430.2.7 Hospit a .3.573614 l .8 2021-10-30 2021-10-30 Outpatient [facility], [facility] [id number] 00:00:00 00:00:[address] [place] [address] 2021-10-30 2021-10-30 Travel 1.2.840.1 1.2.271.449 4413 850388 Methodi 00:00:00 00:00:[address] 3.430.2.7 0.2.7.3.698 Ho spita .3.430338 084.8 l .8 2021-10-27 2021-10-27 Travel 1.2.840.1 1.2.578.778 4671 880440 Methodi 00:00:00 00:00:[address] 3.430.2.7 0.2.7.3.698 Ho spita .3.384894 084.8 l .8 2021-10-26 2021-10-26 Orders Medi, 1.2.840.1 [id number] 455857 1138 Methodi 00:00:00 00:00:00 Only [place] 64355.1.[address] 3.430.2.7 Hospit a .3.824760 l .8 2021-10-25 2021-10-25 Refill Medi, 1.2.840.1 [id number] [id number] 5699 Methodi 00:00:00 00:00:[address] 3.430.2.7 Hospit a .3.363755 l .8 2021-10-07 2021-10-07 [facility], 1.2.840.1 [id number] 41031 Methodi 13:11:48 23:59:00 Encounter [place] 30258.1.[address] 3.430.2.7 Hospit a .3.414426 l .8 2021-10-07 2021-10-07 [facility], 1.2.840.1 [id number] 60958 Methodi 13:07:48 13:10:00 Encounter [place] [address]246.1.[address] 3.430.2.7 Hospit a .3.959245 l .8 2021-10-07 2021-10-07 [facility], 1.2.840.1 [id number] 77677 90230 Methodi 13:04:17 13:06:00 Encounter [place] 70833.1.[address] 3.430.2.7 Hospit a .3.307204 l .8 2021-10-07 2021-10-07 [facility], 1.2.840.1 [id number] 23930 Methodi 13:03:19 13:03:19 Encounter [place] 29865.1.[address] 3.430.2.7 Hospit a .3.759075 l .8 2021-10-07 2021-10-07 Hospital Medi, 1.2.840.1 [id number] 08746 18974 Methodi 13:03:18 13:03:18 Encounter [place] 15741.1.[address] 3.430.2.7 Hospit a .3.166053 l .8 2021-10-07 2021-10-07 Orders Asked, No 1.2.840.1 [id number] 2099 [id number] Methodi 00:00:00 00:00:00 Only Pcp 60967.1.[address] 3.430.2.7 Hospit a .3.116006 l .8 2021-10-07 2021-10-07 Orders Medi, 1.2.840.1 [id number] 657622 1910 Methodi 00:00:00 00:00:00 Only [place] 79584.1.[address] 3.430.2.7 Hospit a .3.655246 l .8 2021-10-02 2021-10-02 [facility]i, 1.2.840.1 [id number] 982 3340256 Methodi 09:00:00 09:53:05 ne [place] 67460.1.[address] 3.430.2.7 Hospit a .3.040256 l .8 2021-10-02 2021-10-02 Travel 1.2.840.1 1.2.768.230 5525 591835 Methodi 00:00:00 00:00:[address] 3.430.2.7 0.2.7.3.698 spita .3.099175 084.8 l .8 2021-09-30 2021-09-30 Telephone Medi, 1.2.840.1 [id number] 2099 462247 Methodi 00:00:00 00:00:[address] 3.430.2.7 Hospit a .3.269001 l .8 2021-08-24 2021-08-24 Telephone [facility], [facility] 1.2.716.266 4431 1198 [facility] 00:00:00 00:00:00 Lou Herrmann 350.1.13.10 [place] [id number] [place]ical nal [address] [facility] 2021-04-24 2021-04-24 [facility] 1.2.840.114 [id number] 14 Univers 10:15:11 11:28:25 Visit Lou Herrmann 350.1.13.10 [place] 157.3711803 Va dical nal 134 [facility] 2021-04-24 2021-04-24 Outpatient R [facility], [facility] [id number] Univers 10:00:00 10:00:00 LOU pichardo [facility] 2021-04-24 2021-04-24 Telephone [facility] [id number] Univers 00:00:00 00:00:00 Lou Herrmann [id number] [id number] [phone] [facility] 2021-04-24 2021-04-24 Orders Doctor GONZÁLEZ [id number] Univers 00:00:00 00:00:00 Only Unassigned, MARCUS [id number] ity of [place] [facility] [id number] Jermaine as [phone] [address] 2021-02-05 2021-02-05 [facility] [id number] Univers 00:00:00 00:00:00 Outreach Trevon PRIMARY [id number] i ty of [facility] [place] [phone] [address] 2020-12-24 2020-12-24 [facility] [id number] Univers 13:00:00 13:00:00 LOU pcihardo [facility] 2020-12-18 2020-12-18 Case [facility] [id number] Univers 00:00:00 00:00:00 Management Lou Herrmann [id number] [id number] [phone] [facility] 134 [facility] 2020-12-17 2020-12-17 Hospital [facility] 1.2.840.114 [id number] Univers 15:16:09 23:59:00 Encounter Lou Solorzano Lizet [id number] [place] [phone] [facility] [address] [place] 2020-12-17 2020-12-17 Outpatient R [facility] [id number] Univers 00:00:00 00:00:[address] of [facility] 2020-12-17 2020-12-17 Orders Doctor GONZÁLEZ 1.2.840.114 [id number] Univers 00:00:00 00:00:00 Only Unassigned, MARCUS [id number] ity of [place] [facility] 4.2.7.2.[phone] [facility] [address] [place] 2020-12-02 2020-12-02 Telephone [facility] [id number] Univers 00:00:00 00:00:00 Lou Herrmann [id number] [place] [phone] [place] [address] 2020-11-27 2020-11-27 Telephone Aracelis Macario [facility] 1.2.840.114 [id number] Univers 00:00:00 00:00:00 Justin Herrmann [id number] i [id number] [phone] [facility] 2020-11-26 2020-11-26 Office [facility] 1.2.840.114 [id number] Univers 15:45:56 16:48:02 Visit Lou Herramnn [id number] [id number] [phone] [place] dical [facility] 134 [facility] 2020-11-26 2020-11-26 Outpatient R ADUM, [facility] [id number] Univers 16:00:00 16:00:00 LOU pichardo [facility] 2020-11-19 2020-11-19 Hospital Adum, [facility] 1.2.840.114 [id number] Univers 17:14:08 23:59:00 Encounter Lou Solorzano [place] [id number] [id number] [phone] Medi [facility] [address] [place] [address] 2020-11-19 2020-11-19 Outpatient R ADUM, [facility] [id number] Univers 00:00:00 23:59:00 LOU pichardo [facility] 2020-11-19 2020-11-19 Outpatient R ADUM, [facility] [id number] Univers 00:00:00 00:00:00 LOU pichardo [facility] 2020-11-12 2020-11-12 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, 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 [facility] 1.2.840.114 [id number] Univers 11:46:27 12:01:27 Visit Adum, Lou Solorzano [place] [id number] [id number] [phone] [facility] 2020-11-12 2020-11-12 Office [facility] 1.2.840.114 [id number] 09:33:12 11:25:11 Visit Lou Solorzano [place] [id number] [place] [id number] Professio [phone] [address] 2020-11-12 2020-11-12 Office Ad, [facility] 1.2.840.114 [id number] Univers 09:33:12 11:25:11 Visit Lou Solorzano [place] [id number] [place] [phone] [facility] 2020-11-12 2020-11-12 Outpatient R ADUM, [facility] [id number] Univers 09:00:00 09:00:[address] [facility] Results Test Description Test Time Test Comments Results Result Comments Source Surgical pathology request 2023-05-11 14:07:47 Test Item Value Reference Range Interpretation Comme nts Case number (test code = [id number]) [id number] Surgical pathology report (test code = See link below for PDF Lab R eport 8732) Result status (test code = 7687025) This is Final Report for [id number] 8846-3 [facility] [id number] 11:42:00 Test Item Value Reference Range Interpretation Comments POC glucose (test 95 mg/dL 65-99 [employer] N ace: Carlos Dai code = 08230-8) Kylah tomlinson ID: [id number] [facility] , [id number] 11:40:43 Test Item Value Reference Range Interpretation Comments test urine, POC (test Negative code = 4764944) Internal QC (test code = 257) QC acceptable [facility] [id number] 20:09:00 Test Item Value Reference Range Interpretation Comments B/C Ratio (test code = B/C NOT APPLICABLE 6-22 Ratio) [facility] [id number] 20:09:00 Test Item Value Reference Range Interpretation Comments CO2 (test code = CO2) 27 20-32 [facility] CampusRexmvtyRYKBPFKJWL9713-84-84 20:09:00 Test Item Value Reference Range Interpretation Comments Eosinophils # (test code = Eosinophils 80 15-500 #) [facility] CampusDdjqozwPKNFIHKASQ0755-16-05 20:09:00 Test Item Value Reference Range Interpretation Comments Basophils # (test code 64 See_Comment [Aut omated message] The = Basophils #) system which generated this result tra nsmitted reference range : <=200. The reference r salvador was not used to int erpret this result as normal/abnormal . [facility] CampusMjigmtrSHXJTDZUUX3827-28-34 20:09:00 Test Item Value Reference Range Interpretation Comments Segs (test code = Segs) 68.2 [facility] CampusPyvfbihMWYGURCNJI1491-04-68 20:09:00 Test Item Value Reference Range Interpretation Comments Lymphocytes (test code = Lymphocytes) 23.[address] [facility]WhwiyqyWZDUTLQSII3939-97-19 20:09:00 Test Item Value Reference Range Interpretation Comments Monocytes (test code = Monocytes) 6.9 [facility] CampusMmkhxrwVIWOUTFXEH6562-01-07 20:09:00 Test Item Value Reference Range Interpretation Comments Eosinophils (test code = Eosinophils) 1.0 [facility] CampusBemzmmdKOFDAKIPOZ8974-81-14 20:09:00 Test Item Value Reference Range Interpretation Comments Basophils (test code = Basophils) 0.8 [facility] XSTFWTBCX6703-54-70 20:09:00 Test Item Value Reference Range Interpretation Comments Hgb A1C (test code = Hgb A1C) 5.0 [facility] [id number] 20:09:00 Test Item Value Reference Range Interpretation Comments Calcium Lvl (test code = Calcium Lvl) 9.6 8.6-10.2 [facility] [id number] 20:09:00 Test Item Value Reference Range Interpretation Comments CO2 (test code = CO2) 27 20-32 [facility]2022-08-16 20:09:00 Test Item Value Reference Range Interpretation Comments Total Protein (test code = Total 7.4 6.1-8.1 Protein) [facility] [id number] 20:09:00 Test Item Value Reference Range Interpretation Comments Albumin Lvl (test code = Albumin Lvl) 4.6 3.6-5.1 [facility] [id number] 20:09:00 Test Item Value Reference Range Interpretation Comments Globulin (test code = Globulin) 2.8 1.9-3.7 [facility] [id number] 20:09:00 Test Item Value Reference Range Interpretation Comments A/G Ratio (test code = A/G Ratio) 1.6 1.0-2.5 [facility] [id number] 20:09:00 Test Item Value Reference Range Interpretation Comments Bili Total (test code = Bili Total) 0.6 0.2-1.2 [facility] [id number] 20:09:00 Test Item Value Reference Range Interpretation Comments Alk Phos (test code = Alk Phos) 53 31-125 [facility] WIUGI5498-35-29 20:09:00 Test Item Value Reference Range Interpretation Comments ASPARTATE TRANSAMINASE (test code = 21 10-35 ASPARTATE TRANSAMINASE) [facility] [id number] 20:09:00 Test Item Value Reference Range Interpretation Comments Sodium Lvl (test code = Sodium Lvl) 139 135-146 [facility]2022-08-16 20:09:00 Test Item Value Reference Range Interpretation Comments ALANINE AMINOTRANSFERASE (test code = 34 6-29 ALANINE AMINOTRANSFERASE) [facility] CenterEhxqtidCBPXYBKYII4164-39-45 20:09:00 Test Item Value Reference Range Interpretation Comments WBC X 10x3 (test code = WBC X 10x3) 8.0 3.8-10.8 [facility] CenterDiebjomRZNHCOAVMS8558-97-41 20:09:00 Test Item Value Reference Range Interpretation Comments RBC X 10x6 (test code = RBC X 10x6) 4.66 3.80-5.10 [facility]2022-08-16 20:09:00 Test Item Value Reference Range Interpretation Comments Calcium Lvl (test code = Calcium Lvl) 9.6 8.6-10.2 [place] 180442-08-16 20:09:00 Test Item Value Reference Range Interpretation Comments Hgb (test code = Hgb) 14.2 11.7-15.5 [facility] CenterXlzwsttVQZSPPVAFH2898-08-33 20:09:00 Test Item Value Reference Range Interpretation Comments Hct (test code = Hct) 42.6 35.0-45.0 [facility] CenterTebbnxiFPWKTQMWVN8107-77-75 20:09:00 Test Item Value Reference Range Interpretation Comments MCV (test code = MCV) 91.4 80.0-100.0 [place] 180442-08-16 20:09:00 Test Item Value Reference Range Interpretation Comments MCH (test code = MCH) 30.5 pg 27.0-33.0 [facility]2022-08-16 20:09:00 Test Item Value Reference Range Interpretation Comments Potassium Lvl (test code = Potassium 4.3 3.5-5.3 Lvl) [facility] CenterKsqmegqLODUDQKAPH6188-95-97 20:09:00 Test Item Value Reference Range Interpretation Comments MCHC (test code = MCHC) 33.3 32.0-36.0 [place] 180442-08-16 20:09:00 Test Item Value Reference Range Interpretation Comments RDW (test code = RDW) 13.3 11.0-15.0 [facility] CenterCmcksrrMBEMGHOGJH0383-64-25 20:09:00 Test Item Value Reference Range Interpretation Comments Platelet (test code = Platelet) 345 140-400 [facility] CenterCpfjurvOBPBHWBIOG0386-21-67 20:09:00 Test Item Value Reference Range Interpretation Comments MPV (test code = MPV) 10.3 7.5-12.5 [facility] CenterIyxgjsvMVBNFJGLCD0590-70-33 20:09:00 Test Item Value Reference Range Interpretation Comments Neutrophils # (test code = Neutrophils 5456 3500-8324 #) [facility] CenterDqzcofuIXHOFPOLOW9787-19-31 20:09:00 Test Item Value Reference Range Interpretation Comments Lymphocytes # (test code = Lymphocytes 1995 009-1448 #) [facility] [id number] 20:09:00 Test Item Value Reference Range Interpretation Comments Total Protein (test code = Total 7.4 6.1-8.1 Protein) [facility] CenterQzvavjwUHHVKGUTEJ2550-32-17 20:09:00 Test Item Value Reference Range Interpretation Comments Monocytes # (test code = Monocytes #) 552 200-950 [facility] CenterPqxqlwxBYCTKCJOUN0468-34-99 20:09:00 Test Item Value Reference Range Interpretation Comments Eosinophils # (test code = Eosinophils 80 15-500 #) [facility] CenterBinvyxyZAINJFXXAE8948-96-13 20:09:00 Test Item Value Reference Range Interpretation Comments Basophils # (test code 64 See_Comment [Aut omated message] The = Basophils #) system which generated this result tra nsmitted reference range : <=200. The reference r salvador was not used to int erpret this result as normal/abnormal . [facility] [id number] 20:09:00 Test Item Value Reference Range Interpretation Comments Chloride Lvl (test code = Chloride Lvl) 104 98-110 [facility] CenterNpmpshkFISMSMUTSY8924-02-15 20:09:00 Test Item Value Reference Range Interpretation Comments Segs (test code = Segs) 68.2 [facility] CenterOzlshblDRKBUHCCIM9437-84-83 20:09:00 Test Item Value Reference Range Interpretation Comments Lymphocytes (test code = Lymphocytes) 23.1 [facility] CenterYqstlpfMCIMFKIYVY2425-34-44 20:09:00 Test Item Value Reference Range Interpretation Comments Monocytes (test code = Monocytes) 6.9 [facility] CenterYjaokrlQTBSPKSDGR7403-57-46 20:09:00 Test Item Value Reference Range Interpretation Comments Eosinophils (test code = Eosinophils) 1.0 [place] 180442-08-16 20:09:00 Test Item Value Reference Range Interpretation Comments Basophils (test code = Basophils) 0.8 [facility] ALYGOJSAI9599-04-25 20:09:00 Test Item Value Reference Range Interpretation Comments Hgb A1C (test code = Hgb A1C) 5.0 [facility] [id number] 20:09:00 Test Item Value Reference Range Interpretation Comments Albumin Lvl (test code = Albumin Lvl) 4.6 3.6-5.1 [facility]2022-08-16 20:09:00 Test Item Value Reference Range Interpretation Comments Glucose Lvl (test code = Glucose Lvl) 82 65-99 [facility]2022-08-16 20:09:00 Test Item Value Reference Range Interpretation Comments BUN (test code = BUN) 9 7-25 [facility]2022-08-16 20:09:00 Test Item Value Reference Range Interpretation Comments Creatinine Lvl (test code = Creatinine 0.62 0.50-0.99 Lvl) [facility]2022-08-16 20:09:00 Test Item Value Reference Range Interpretation Comments CO2 (test code = CO2) 27 20-32 [facility]2022-08-16 20:09:00 Test Item Value Reference Range Interpretation Comments eGFR (test code = eGFR) 111 [facility]2022-08-16 20:09:00 Test Item Value Reference Range Interpretation Comments B/C Ratio (test code = B/C NOT APPLICABLE 6-22 Ratio) [facility]2022-08-16 20:09:00 Test Item Value Reference Range Interpretation Comments Sodium Lvl (test code = Sodium Lvl) 139 135-146 [facility]2022-08-16 20:09:00 Test Item Value Reference Range Interpretation Comments Potassium Lvl (test code = Potassium 4.3 3.5-5.3 Lvl) [facility]2022-08-16 20:09:00 Test Item Value Reference Range Interpretation Comments Globulin (test code = Globulin) 2.8 1.9-3.7 [facility]2022-08-16 20:09:00 Test Item Value Reference Range Interpretation Comments Chloride Lvl (test code = Chloride Lvl) 104 98-110 [facility]2022-08-16 20:09:00 Test Item Value Reference Range Interpretation Comments CO2 (test code = CO2) 27 20-32 [place] 690842-08-16 20:09:00 Test Item Value Reference Range Interpretation Comments Calcium Lvl (test code = Calcium Lvl) 9.6 8.6-10.2 [facility]2022-08-16 20:09:00 Test Item Value Reference Range Interpretation Comments Total Protein (test code = Total 7.4 6.1-8.1 Protein) [facility]2022-08-16 20:09:00 Test Item Value Reference Range Interpretation Comments Albumin Lvl (test code = Albumin Lvl) 4.6 3.6-5.1 [place] 690842-08-16 20:09:00 Test Item Value Reference Range Interpretation Comments Calcium Lvl (test code = Calcium Lvl) 9.6 8.6-10.2 [facility]2022-08-16 20:09:00 Test Item Value Reference Range Interpretation Comments Globulin (test code = Globulin) 2.8 1.9-3.7 [place] 690842-08-16 20:09:00 Test Item Value Reference Range Interpretation Comments A/G Ratio (test code = A/G Ratio) 1.6 1.0-2.5 [facility]2022-08-16 20:09:00 Test Item Value Reference Range Interpretation Comments Bili Total (test code = Bili Total) 0.6 0.2-1.2 [facility]2022-08-16 20:09:00 Test Item Value Reference Range Interpretation Comments Alk Phos (test code = Alk Phos) 53 31-125 [facility]2022-08-16 20:09:00 Test Item Value Reference Range Interpretation Comments ASPARTATE TRANSAMINASE (test code = 21 10-35 ASPARTATE TRANSAMINASE) [place] 690842-08-16 20:09:00 Test Item Value Reference Range Interpretation Comments A/G Ratio (test code = A/G Ratio) 1.6 1.0-2.5 [place] 690842-08-16 20:09:00 Test Item Value Reference Range Interpretation Comments ALANINE AMINOTRANSFERASE (test code = 34 6-29 ALANINE AMINOTRANSFERASE) [facility] CenterXkaknpyIPYXIZRRWQ2866-83-21 20:09:00 Test Item Value Reference Range Interpretation Comments WBC X 10x3 (test code = WBC X 10x3) 8.0 3.8-10.8 [facility] CenterYarwvcgEUXSVGIZYL8202-80-92 20:09:00 Test Item Value Reference Range Interpretation Comments RBC X 10x6 (test code = RBC X 10x6) 4.66 3.80-5.10 [facility] CenterAtrinxbGBEPOGXONO3110-11-77 20:09:00 Test Item Value Reference Range Interpretation Comments Hgb (test code = Hgb) 14.2 11.7-15.5 [facility]2022-08-16 20:09:00 Test Item Value Reference Range Interpretation Comments Total Protein (test code = Total 7.4 6.1-8.1 Protein) [facility] CenterMxnixwrICCJYPNAKH3910-87-98 20:09:00 Test Item Value Reference Range Interpretation Comments Hct (test code = Hct) 42.6 35.0-45.0 [facility] CenterMqjpuxiEQDTHQLTLI2000-98-20 20:09:00 Test Item Value Reference Range Interpretation Comments MCV (test code = MCV) 91.4 80.0-100.0 [facility] CenterSljlvmbJRKBEMHIKZ8318-13-70 20:09:00 Test Item Value Reference Range Interpretation Comments MCH (test code = MCH) 30.5 pg 27.0-33.0 [facility] CenterLuopqsiAWSDCBREBZ3780-55-57 20:09:00 Test Item Value Reference Range Interpretation Comments MCHC (test code = MCHC) 33.3 32.0-36.0 [facility] CenterQccodkuKTXUYPJTNP0275-57-56 20:09:00 Test Item Value Reference Range Interpretation Comments RDW (test code = RDW) 13.3 11.0-15.0 [facility] CenterXylwyqcOUKJBLUMON9826-34-15 20:09:00 Test Item Value Reference Range Interpretation Comments Platelet (test code = Platelet) 345 140-400 [facility]2022-08-16 20:09:00 Test Item Value Reference Range Interpretation Comments Bili Total (test code = Bili Total) 0.6 0.2-1.2 [facility]2022-08-16 20:09:00 Test Item Value Reference Range Interpretation Comments Albumin Lvl (test code = Albumin Lvl) 4.6 3.6-5.1 [facility] CenterZfbtemhJVSGVHWSPE1536-64-61 20:09:00 Test Item Value Reference Range Interpretation Comments MPV (test code = MPV) 10.3 7.5-12.[address] [facility] HospitalMspywcoDSUOIBRQIF4030-90-97 20:09:00 Test Item Value Reference Range Interpretation Comments Neutrophils # (test code = Neutrophils 5456 2540-1972 #) [facility] HospitalYqpzvzhPSGQIMIKXL2279-14-22 20:09:00 Test Item Value Reference Range Interpretation Comments Lymphocytes # (test code = Lymphocytes 4999 738-5138 #) [facility] HospitalLhmhlaiGKMPTTRMOM3485-73-19 20:09:00 Test Item Value Reference Range Interpretation Comments Monocytes # (test code = Monocytes #) 552 200-[address] [facility] HospitalRdqikqsSUCANAJAFO8097-80-06 20:09:00 Test Item Value Reference Range Interpretation Comments Eosinophils # (test code = Eosinophils 80 15-500 #) [facility] UBJQR0827-38-27 20:09:00 Test Item Value Reference Range Interpretation Comments Globulin (test code = Globulin) 2.8 1.9-3.7 [facility] CenterTjhojtsCYIBJKGBMO3005-13-53 20:09:00 Test Item Value Reference Range Interpretation Comments Basophils # (test code 64 See_Comment [Aut omated message] The = Basophils #) system which generated this result tra nsmitted reference range : <=200. The reference r salvador was not used to int erpret this result as normal/abnormal . [facility] CenterYdnoeduLKDKRTWIIZ5158-43-19 20:09:00 Test Item Value Reference Range Interpretation Comments Segs (test code = Segs) 68.2 [facility] CenterHxfsdrzHFLZIKHNME3694-12-55 20:09:00 Test Item Value Reference Range Interpretation Comments Lymphocytes (test code = Lymphocytes) 23.1 [facility] CenterGztzmhzNFKCAHEBFW3872-77-81 20:09:00 Test Item Value Reference Range Interpretation Comments Monocytes (test code = Monocytes) 6.9 [facility] HJYCX8711-95-47 20:09:00 Test Item Value Reference Range Interpretation Comments A/G Ratio (test code = A/G Ratio) 1.6 1.0-2.5 [facility] CenterIsfhsjjUWZMDXTLOO2243-30-81 20:09:00 Test Item Value Reference Range Interpretation Comments Eosinophils (test code = Eosinophils) 1.0 [facility] UPVAK3412-36-60 20:09:00 Test Item Value Reference Range Interpretation Comments Alk Phos (test code = Alk Phos) 53 31-125 [facility] HospitalFlwvyasDPXTOHIUNU8692-19-21 20:09:00 Test Item Value Reference Range Interpretation Comments Basophils (test code = Basophils) 0.8 [facility] ICGTLRPRZ3037-21-91 20:09:00 Test Item Value Reference Range Interpretation Comments Hgb A1C (test code = Hgb A1C) 5.0 [facility] JITZW6262-18-97 20:09:00 Test Item Value Reference Range Interpretation Comments ASPARTATE TRANSAMINASE (test code = 21 10-35 ASPARTATE TRANSAMINASE) [facility] TEZTO4892-16-11 20:09:00 Test Item Value Reference Range Interpretation Comments Bili Total (test code = Bili Total) 0.6 0.2-1.2 [facility] FSYXG5166-47-56 20:09:00 Test Item Value Reference Range Interpretation Comments ALANINE AMINOTRANSFERASE (test code = 34 6-29 ALANINE AMINOTRANSFERASE) [facility] CampusPdfjhqsDFBGGVLUCV1349-42-98 20:09:00 Test Item Value Reference Range Interpretation Comments WBC X 10x3 (test code = WBC X 10x3) 8.0 3.8-10.8 [facility] HospitalNepzbfkIDOCGHIWJR0606-96-42 20:09:00 Test Item Value Reference Range Interpretation Comments RBC X 10x6 (test code = RBC X 10x6) 4.66 3.80-5.10 [facility] HospitalAvpfbqfSEKRZNPDNT6794-79-96 20:09:00 Test Item Value Reference Range Interpretation Comments Hgb (test code = Hgb) 14.2 11.7-15.5 [facility] HospitalNrfrcjvSGPCHQNPIR7205-92-81 20:09:00 Test Item Value Reference Range Interpretation Comments Hct (test code = Hct) 42.6 35.0-45.0 [facility] CYSXJ9109-40-26 20:09:00 Test Item Value Reference Range Interpretation Comments Alk Phos (test code = Alk Phos) 53 31-125 [facility] CampusTrgwlrqNRKZNUTZHD1909-74-83 20:09:00 Test Item Value Reference Range Interpretation Comments MCV (test code = MCV) 91.4 80.0-100.0 [facility] HospitalDxofucjFHPXWSVWCB2550-62-68 20:09:00 Test Item Value Reference Range Interpretation Comments MCH (test code = MCH) 30.5 pg 27.0-33.0 [facility] CenterVgsmvxdPERAKHWTNM0839-69-33 20:09:00 Test Item Value Reference Range Interpretation Comments MCHC (test code = MCHC) 33.3 32.0-36.0 [facility] CenterFviturrRITXOUDXBW5608-49-97 20:09:00 Test Item Value Reference Range Interpretation Comments RDW (test code = RDW) 13.3 11.0-15.0 [facility]YzgxxkjEJCJTLQKOT9385-45-37 20:09:00 Test Item Value Reference Range Interpretation Comments Platelet (test code = Platelet) 345 140-400 [facility] [id number] 20:09:00 Test Item Value Reference Range Interpretation Comments Glucose Lvl (test code = Glucose Lvl) 82 65-99 [facility] CenterRymqezlVUGTLJCHYC8660-81-17 20:09:00 Test Item Value Reference Range Interpretation Comments MPV (test code = MPV) 10.3 7.5-12.5 [facility] CenterLqbncbfAZNCDLRNVY1625-05-75 20:09:00 Test Item Value Reference Range Interpretation Comments Neutrophils # (test code = Neutrophils 5456 2540-6803 #) [facility] CenterEvdkowiEQHDZISHBG5118-72-22 20:09:00 Test Item Value Reference Range Interpretation Comments Lymphocytes # (test code = Lymphocytes 9367 145-5757 #) [facility] CenterFwkrjhxOPAHEVPSCA5939-55-38 20:09:00 Test Item Value Reference Range Interpretation Comments Monocytes # (test code = Monocytes #) 552 200-950 [facility] CenterIwjfqbtMDZIQHAFKB3090-52-20 20:09:00 Test Item Value Reference Range Interpretation Comments Eosinophils # (test code = Eosinophils 80 15-500 #) [facility] [id number] 20:09:00 Test Item Value Reference Range Interpretation Comments ASPARTATE TRANSAMINASE (test code = 21 10-35 ASPARTATE TRANSAMINASE) [place] 180442-08-16 20:09:00 Test Item Value Reference Range Interpretation Comments Basophils # (test code 64 See_Comment [Aut omated message] The = Basophils #) system which generated this result tra nsmitted reference range : <=200. The reference r salvador was not used to int erpret this result as normal/abnormal . [facility] CenterVrwywmjXQTZGRPSYA0465-28-97 20:09:00 Test Item Value Reference Range Interpretation Comments Segs (test code = Segs) 68.2 [place] 180442-08-16 20:09:00 Test Item Value Reference Range Interpretation Comments Lymphocytes (test code = Lymphocytes) 23.[address] [facility]QenefypUHXVPOQIRO2936-35-80 20:09:00 Test Item Value Reference Range Interpretation Comments Monocytes (test code = Monocytes) 6.9 [facility] CenterFjwlhybMPLFEXZTFM5750-76-24 20:09:00 Test Item Value Reference Range Interpretation Comments Eosinophils (test code = Eosinophils) 1.0 [facility] JQSSC1408-96-45 20:09:00 Test Item Value Reference Range Interpretation Comments ALANINE AMINOTRANSFERASE (test code = 34 6-29 ALANINE AMINOTRANSFERASE) [facility] CenterGbqjxbuDIGIRJSKRQ5203-51-25 20:09:00 Test Item Value Reference Range Interpretation Comments Basophils (test code = Basophils) 0.8 [facility] EKEUCCZKB3366-54-08 20:09:00 Test Item Value Reference Range Interpretation Comments Hgb A1C (test code = Hgb A1C) 5.0 [facility]2022-08-16 20:09:00 Test Item Value Reference Range Interpretation Comments Glucose Lvl (test code = Glucose Lvl) 82 65-99 [facility]2022-08-16 20:09:00 Test Item Value Reference Range Interpretation Comments BUN (test code = BUN) 9 7-25 [facility] CenterOdsxqqqMKJKYLHZAC2948-79-11 20:09:00 Test Item Value Reference Range Interpretation Comments WBC X 10x3 (test code = WBC X 10x3) 8.0 3.8-10.8 [facility]2022-08-16 20:09:00 Test Item Value Reference Range Interpretation Comments Creatinine Lvl (test code = Creatinine 0.62 0.50-0.99 Lvl) [facility]2022-08-16 20:09:00 Test Item Value Reference Range Interpretation Comments eGFR (test code = eGFR) 111 [facility]2022-08-16 20:09:00 Test Item Value Reference Range Interpretation Comments B/C Ratio (test code = B/C NOT APPLICABLE 05-12 Ratio) [facility]2022-08-16 20:09:00 Test Item Value Reference Range Interpretation Comments Sodium Lvl (test code = Sodium Lvl) 139 135-146 [facility]2022-08-16 20:09:00 Test Item Value Reference Range Interpretation Comments Potassium Lvl (test code = Potassium 4.3 3.5-5.3 Lvl) [facility] CenterWuuyuhiGLHWNCKGUN4088-89-73 20:09:00 Test Item Value Reference Range Interpretation Comments RBC X 10x6 (test code = RBC X 10x6) 4.66 3.80-5.10 [place] 690842-08-16 20:09:00 Test Item Value Reference Range Interpretation Comments Chloride Lvl (test code = Chloride Lvl) 104 98-110 [place] 690842-08-16 20:09:00 Test Item Value Reference Range Interpretation Comments CO2 (test code = CO2) 27 20-32 [place] 690842-08-16 20:09:00 Test Item Value Reference Range Interpretation Comments Calcium Lvl (test code = Calcium Lvl) 9.6 8.6-10.2 [facility]2022-08-16 20:09:00 Test Item Value Reference Range Interpretation Comments Total Protein (test code = Total 7.4 6.1-8.1 Protein) [place] 690842-08-16 20:09:00 Test Item Value Reference Range Interpretation Comments Albumin Lvl (test code = Albumin Lvl) 4.6 3.6-5.1 [place] 180442-08-16 20:09:00 Test Item Value Reference Range Interpretation Comments Hgb (test code = Hgb) 14.2 11.7-15.5 [place] 180442-08-16 20:09:00 Test Item Value Reference Range Interpretation Comments Hct (test code = Hct) 42.6 35.0-45.0 [place] 690842-08-16 20:09:00 Test Item Value Reference Range Interpretation Comments Globulin (test code = Globulin) 2.8 1.9-3.7 [place] 180442-08-16 20:09:00 Test Item Value Reference Range Interpretation Comments MCV (test code = MCV) 91.4 80.0-100.0 [place] 690842-08-16 20:09:00 Test Item Value Reference Range Interpretation Comments A/G Ratio (test code = A/G Ratio) 1.6 1.0-2.5 [place] 690842-08-16 20:09:00 Test Item Value Reference Range Interpretation Comments Bili Total (test code = Bili Total) 0.6 0.2-1.2 [facility]2022-08-16 20:09:00 Test Item Value Reference Range Interpretation Comments Alk Phos (test code = Alk Phos) 53 31-125 [facility]2022-08-16 20:09:00 Test Item Value Reference Range Interpretation Comments ASPARTATE TRANSAMINASE (test code = 21 10-35 ASPARTATE TRANSAMINASE) [facility]2022-08-16 20:09:00 Test Item Value Reference Range Interpretation Comments ALANINE AMINOTRANSFERASE (test code = 34 6-29 ALANINE AMINOTRANSFERASE) [facility] CenterUdglsgkLPISVEJASL2505-44-04 20:09:00 Test Item Value Reference Range Interpretation Comments WBC X 10x3 (test code = WBC X 10x3) 8.0 3.8-10.8 [facility] CenterMzirddoALSNZBLYRK8505-26-27 20:09:00 Test Item Value Reference Range Interpretation Comments MCH (test code = MCH) 30.5 pg 27.0-33.0 [facility] CenterBjrdhnbUEJDXDLIML6669-91-27 20:09:00 Test Item Value Reference Range Interpretation Comments RBC X 10x6 (test code = RBC X 10x6) 4.66 3.80-5.10 [facility] CenterGkpfznxPABZSMPAIO3588-65-14 20:09:00 Test Item Value Reference Range Interpretation Comments Hgb (test code = Hgb) 14.2 11.7-15.5 [facility] CenterOzxtenoQMKLTMJOPA0745-47-52 20:09:00 Test Item Value Reference Range Interpretation Comments Hct (test code = Hct) 42.6 35.0-45.0 [facility] CenterNzyuouoMGIQQULRXT1305-38-73 20:09:00 Test Item Value Reference Range Interpretation Comments MCV (test code = MCV) 91.4 80.0-100.0 [facility] CenterGadbcbqKNWVJDXYZY2551-50-02 20:09:00 Test Item Value Reference Range Interpretation Comments MCHC (test code = MCHC) 33.3 32.0-36.0 [facility] CenterMedcyxvGBSWTASBLY8402-24-92 20:09:00 Test Item Value Reference Range Interpretation Comments MCH (test code = MCH) 30.5 pg 27.0-33.0 [place] 180442-08-16 20:09:00 Test Item Value Reference Range Interpretation Comments MCHC (test code = MCHC) 33.3 32.0-36.0 [facility] CenterDsmrseoKWMUPXKMVM1949-45-61 20:09:00 Test Item Value Reference Range Interpretation Comments RDW (test code = RDW) 13.3 11.0-15.0 [facility] CenterVyezcovVVXTULNAYD3612-18-01 20:09:00 Test Item Value Reference Range Interpretation Comments RDW (test code = RDW) 13.3 11.0-15.0 [facility] CenterAyorjkwABQWKQUYDI2288-39-92 20:09:00 Test Item Value Reference Range Interpretation Comments Platelet (test code = Platelet) 345 140-400 [facility] CenterBjyvnwuLVFYNTZEWY0665-66-62 20:09:00 Test Item Value Reference Range Interpretation Comments MPV (test code = MPV) 10.3 7.5-12.5 [facility] CenterIzinhccNNBYZICYXU0822-98-06 20:09:00 Test Item Value Reference Range Interpretation Comments Neutrophils # (test code = Neutrophils 5456 1170-6558 #) [facility] CenterCmrozhzLMFRACSDFY9663-22-95 20:09:00 Test Item Value Reference Range Interpretation Comments Lymphocytes # (test code = Lymphocytes 4996 471-9165 #) [facility] CenterWegzyfjUHMWGLBBKD9317-76-82 20:09:00 Test Item Value Reference Range Interpretation Comments Monocytes # (test code = Monocytes #) 552 200-950 [facility] CenterPwjgjmeZSVOOCYOMJ8247-15-37 20:09:00 Test Item Value Reference Range Interpretation Comments Eosinophils # (test code = Eosinophils 80 15-500 #) [facility]2022-08-16 20:09:00 Test Item Value Reference Range Interpretation Comments BUN (test code = BUN) 9 7-25 [facility] CenterBmnuoywFHMLYCRRLQ3030-11-04 20:09:00 Test Item Value Reference Range Interpretation Comments Basophils # (test code 64 See_Comment [Aut omated message] The = Basophils #) system which generated this result tra nsmitted reference range : <=200. The reference r salvador was not used to int erpret this result as normal/abnormal . [facility] CenterUwcawilNATQHKTSZX7711-93-02 20:09:00 Test Item Value Reference Range Interpretation Comments Platelet (test code = Platelet) 345 140-400 [facility] CenterIhktmqdFGLYZWSDFZ6967-63-31 20:09:00 Test Item Value Reference Range Interpretation Comments Segs (test code = Segs) 68.2 [facility] CenterHhgfaflDRHQSIJFAB9263-33-78 20:09:00 Test Item Value Reference Range Interpretation Comments Lymphocytes (test code = Lymphocytes) 23.1 [facility]NcfjyvxVLGCIPQNIS1416-35-15 20:09:00 Test Item Value Reference Range Interpretation Comments Monocytes (test code = Monocytes) 6.[address] [facility] HospitalChnqmknXXGBPLMXMX2543-52-37 20:09:00 Test Item Value Reference Range Interpretation Comments Eosinophils (test code = Eosinophils) 1.[address] [facility] HospitalNlwokcoCHEUQEAQTV7947-71-39 20:09:00 Test Item Value Reference Range Interpretation Comments Basophils (test code = Basophils) 0.8 [facility] YQWLDEYAV1720-17-50 20:09:00 Test Item Value Reference Range Interpretation Comments Hgb A1C (test code = Hgb A1C) 5.0 [facility] CenterFmzsbubSRCVAPDREM1932-30-05 20:09:00 Test Item Value Reference Range Interpretation Comments MPV (test code = MPV) 10.3 7.5-12.5 [facility] CenterHdwfjcgGHKIZWTEYQ6058-73-76 20:09:00 Test Item Value Reference Range Interpretation Comments Neutrophils # (test code = Neutrophils 5456 3480-6495 #) [facility] HospitalAequlykYPSLQXHACK0629-86-80 20:09:00 Test Item Value Reference Range Interpretation Comments Lymphocytes # (test code = Lymphocytes 0536 854-5352 #) [facility] HospitalFtmhdpfINSULMIYDV1519-12-58 20:09:00 Test Item Value Reference Range Interpretation Comments Monocytes # (test code = Monocytes #) 552 200-[address] [facility] HospitalXdajrukVARBDXTMHL8186-89-23 20:09:00 Test Item Value Reference Range Interpretation Comments Eosinophils # (test code = Eosinophils 80 15-500 #) [facility] CenterVjvnnvuCRJUPHBNAL2104-88-84 20:09:00 Test Item Value Reference Range Interpretation Comments Basophils # (test code 64 See_Comment [Aut omated message] The = Basophils #) system which generated this result tra nsmitted reference range : <=200. The reference r salvador was not used to int erpret this result as normal/abnormal . [facility] CenterXjtvtxoKUJVFYEDQG6819-31-31 20:09:00 Test Item Value Reference Range Interpretation Comments Segs (test code = Segs) 68.[address] [facility] HospitalMxvomvbALHRBGQPEO6842-88-07 20:09:00 Test Item Value Reference Range Interpretation Comments Lymphocytes (test code = Lymphocytes) 23.1 [place] 180442-08-16 20:09:00 Test Item Value Reference Range Interpretation Comments Monocytes (test code = Monocytes) 6.9 [facility] KYQXY5452-81-27 20:09:00 Test Item Value Reference Range Interpretation Comments Creatinine Lvl (test code = Creatinine 0.62 0.50-0.99 Lvl) [facility] HospitalOpbuoffJCJMTERMUW2335-45-90 20:09:00 Test Item Value Reference Range Interpretation Comments Eosinophils (test code = Eosinophils) 1.[address] [facility] HospitalUbjebrjHQUGMGDWGJ4979-11-38 20:09:00 Test Item Value Reference Range Interpretation Comments Basophils (test code = Basophils) 0.8 [facility] YIWMXJTHD8802-20-38 20:09:00 Test Item Value Reference Range Interpretation Comments Hgb A1C (test code = Hgb A1C) 5.0 [facility]2022-08-16 20:09:00 Test Item Value Reference Range Interpretation Comments Glucose Lvl (test code = Glucose Lvl) 82 65-99 [facility]2022-08-16 20:09:00 Test Item Value Reference Range Interpretation Comments BUN (test code = BUN) 9 7-25 [facility]2022-08-16 20:09:00 Test Item Value Reference Range Interpretation Comments Creatinine Lvl (test code = Creatinine 0.62 0.50-0.99 Lvl) [facility]2022-08-16 20:09:00 Test Item Value Reference Range Interpretation Comments eGFR (test code = eGFR) 111 [facility]2022-08-16 20:09:00 Test Item Value Reference Range Interpretation Comments eGFR (test code = eGFR) 111 [facility]2022-08-16 20:09:00 Test Item Value Reference Range Interpretation Comments B/C Ratio (test code = B/C NOT APPLICABLE 622 Ratio) [facility]2022-08-16 20:09:00 Test Item Value Reference Range Interpretation Comments Sodium Lvl (test code = Sodium Lvl) 139 135-146 [facility]2022-08-16 20:09:00 Test Item Value Reference Range Interpretation Comments Potassium Lvl (test code = Potassium 4.3 3.5-5.3 Lvl) [facility]2022-08-16 20:09:00 Test Item Value Reference Range Interpretation Comments Chloride Lvl (test code = Chloride Lvl) 104 98-110 [facility]2022-08-16 20:09:00 Test Item Value Reference Range Interpretation Comments CO2 (test code = CO2) 27 20-32 [place] 690842-08-16 20:09:00 Test Item Value Reference Range Interpretation Comments Calcium Lvl (test code = Calcium Lvl) 9.6 8.6-10.2 [place] 690842-08-16 20:09:00 Test Item Value Reference Range Interpretation Comments Total Protein (test code = Total 7.4 6.1-8.1 Protein) [facility]2022-08-16 20:09:00 Test Item Value Reference Range Interpretation Comments Glucose Lvl (test code = Glucose Lvl) 82 65-99 [place] 690842-08-16 20:09:00 Test Item Value Reference Range Interpretation Comments Albumin Lvl (test code = Albumin Lvl) 4.6 3.6-5.1 [place] 690842-08-16 20:09:00 Test Item Value Reference Range Interpretation Comments Globulin (test code = Globulin) 2.8 1.9-3.7 [place] 690842-08-16 20:09:00 Test Item Value Reference Range Interpretation Comments B/C Ratio (test code = B/C NOT APPLICABLE 6-22 Ratio) [place] 690842-08-16 20:09:00 Test Item Value Reference Range Interpretation Comments A/G Ratio (test code = A/G Ratio) 1.6 1.0-2.5 [place] 690842-08-16 20:09:00 Test Item Value Reference Range Interpretation Comments Bili Total (test code = Bili Total) 0.6 0.2-1.2 [place] 690842-08-16 20:09:00 Test Item Value Reference Range Interpretation Comments Alk Phos (test code = Alk Phos) 53 31-125 [place] 690842-08-16 20:09:00 Test Item Value Reference Range Interpretation Comments ASPARTATE TRANSAMINASE (test code = 21 10-35 ASPARTATE TRANSAMINASE) [place] 690842-08-16 20:09:00 Test Item Value Reference Range Interpretation Comments ALANINE AMINOTRANSFERASE (test code = 34 6-29 ALANINE AMINOTRANSFERASE) [facility] CenterNgbkyjvYCKISPOYXR3986-83-72 20:09:00 Test Item Value Reference Range Interpretation Comments WBC X 10x3 (test code = WBC X 10x3) 8.0 3.8-10.8 [place] 180442-08-16 20:09:00 Test Item Value Reference Range Interpretation Comments RBC X 10x6 (test code = RBC X 10x6) 4.66 3.80-5.10 [facility]2022-08-16 20:09:00 Test Item Value Reference Range Interpretation Comments BUN (test code = BUN) 9 7-25 [facility] CenterKyjivlzJPGVVPSERY9859-97-17 20:09:00 Test Item Value Reference Range Interpretation Comments Hgb (test code = Hgb) 14.2 11.7-15.5 [facility] CenterYhhhbviFYUXLGIPWH5061-45-46 20:09:00 Test Item Value Reference Range Interpretation Comments Hct (test code = Hct) 42.6 35.0-45.0 [place] 180442-08-16 20:09:00 Test Item Value Reference Range Interpretation Comments MCV (test code = MCV) 91.4 80.0-100.0 [facility]2022-08-16 20:09:00 Test Item Value Reference Range Interpretation Comments Sodium Lvl (test code = Sodium Lvl) 139 135-146 [facility] CenterSmnxltuBOAYVWPQJE4864-90-87 20:09:00 Test Item Value Reference Range Interpretation Comments MCH (test code = MCH) 30.5 pg 27.0-33.0 [facility] CenterNnewstcVPCWADGYVH4631-33-28 20:09:00 Test Item Value Reference Range Interpretation Comments MCHC (test code = MCHC) 33.3 32.0-36.0 [facility] CenterQjxwjxtALTERXSDHL2567-70-28 20:09:00 Test Item Value Reference Range Interpretation Comments RDW (test code = RDW) 13.3 11.0-15.0 [place] 180442-08-16 20:09:00 Test Item Value Reference Range Interpretation Comments Platelet (test code = Platelet) 345 140-400 [facility] CenterPuxhfhgUFCJOHEGHX4617-80-63 20:09:00 Test Item Value Reference Range Interpretation Comments MPV (test code = MPV) 10.3 7.5-12.5 [facility] CenterVtvicstCUHRNGDDEN2159-88-94 20:09:00 Test Item Value Reference Range Interpretation Comments Neutrophils # (test code = Neutrophils 5456 4109-5825 #) [facility]2022-08-16 20:09:00 Test Item Value Reference Range Interpretation Comments Creatinine Lvl (test code = Creatinine 0.62 0.50-0.99 Lvl) [facility] CenterQilsyvpXQQCVJHLKH9821-62-22 20:09:00 Test Item Value Reference Range Interpretation Comments Lymphocytes # (test code = Lymphocytes 3883 027-3554 #) [facility] CenterZfzqtekCQZKPGWGMW1307-77-40 20:09:00 Test Item Value Reference Range Interpretation Comments Monocytes # (test code = Monocytes #) 552 200-950 [facility] CenterZushgnuUBMBLSGATF6104-56-82 20:09:00 Test Item Value Reference Range Interpretation Comments Eosinophils # (test code = Eosinophils 80 15-500 #) [facility] CenterIixicvbZXWNHEQKUK9320-65-58 20:09:00 Test Item Value Reference Range Interpretation Comments Basophils # (test code 64 See_Comment [Aut omated message] The = Basophils #) system which generated this result tra nsmitted reference range : <=200. The reference r salvador was not used to int erpret this result as normal/abnormal . [facility]2022-08-16 20:09:00 Test Item Value Reference Range Interpretation Comments Potassium Lvl (test code = Potassium 4.3 3.5-5.3 Lvl) [facility] CenterJhtjjodEIZJVFMFMH1098-54-94 20:09:00 Test Item Value Reference Range Interpretation Comments Segs (test code = Segs) 68.2 [facility] CenterMepmihuBIOCQONVGN1122-78-84 20:09:00 Test Item Value Reference Range Interpretation Comments Lymphocytes (test code = Lymphocytes) 23.1 [facility] CenterWqmkiemPNZFRIESXZ3446-08-70 20:09:00 Test Item Value Reference Range Interpretation Comments Monocytes (test code = Monocytes) 6.9 [facility] CenterZgvbobaWVMALCEEHE2697-12-77 20:09:00 Test Item Value Reference Range Interpretation Comments Eosinophils (test code = Eosinophils) 1.0 [facility] CenterXcaumyuLUHPQIICOB9494-43-86 20:09:00 Test Item Value Reference Range Interpretation Comments Basophils (test code = Basophils) 0.8 [facility]2022-08-16 20:09:00 Test Item Value Reference Range Interpretation Comments eGFR (test code = eGFR) 111 [facility] URHDUGXSI8822-93-33 20:09:00 Test Item Value Reference Range Interpretation Comments Hgb A1C (test code = Hgb A1C) 5.0 [facility]2022-08-16 20:09:00 Test Item Value Reference Range Interpretation Comments Chloride Lvl (test code = Chloride Lvl) 104 98-110 [facility]2022-08-16 20:09:00 Test Item Value Reference Range Interpretation Comments Glucose Lvl (test code = Glucose Lvl) 82 65-99 [facility]2022-08-16 20:09:00 Test Item Value Reference Range Interpretation Comments BUN (test code = BUN) 9 - [facility]2022-08-16 20:09:00 Test Item Value Reference Range Interpretation Comments Creatinine Lvl (test code = Creatinine 0.62 0.50-0.99 Lvl) [facility]2022-08-16 20:09:00 Test Item Value Reference Range Interpretation Comments eGFR (test code = eGFR) 111 [facility]2022-08-16 20:09:00 Test Item Value Reference Range Interpretation Comments B/C Ratio (test code = B/C NOT APPLICABLE -22 Ratio) [facility]2022-08-16 20:09:00 Test Item Value Reference Range Interpretation Comments Glucose Lvl (test code = Glucose Lvl) 82 65-99 [facility]2022-08-16 20:09:00 Test Item Value Reference Range Interpretation Comments Sodium Lvl (test code = Sodium Lvl) 139 135-146 [facility]2022-08-16 20:09:00 Test Item Value Reference Range Interpretation Comments BUN (test code = BUN) 9 7- [facility]2022-08-16 20:09:00 Test Item Value Reference Range Interpretation Comments Creatinine Lvl (test code = Creatinine 0.62 0.50-0.99 Lvl) [facility]2022-08-16 20:09:00 Test Item Value Reference Range Interpretation Comments eGFR (test code = eGFR) 111 [facility]2022-08-16 20:09:00 Test Item Value Reference Range Interpretation Comments B/C Ratio (test code = B/C NOT APPLICABLE 6-22 Ratio) [facility]2022-08-16 20:09:00 Test Item Value Reference Range Interpretation Comments Sodium Lvl (test code = Sodium Lvl) 139 135-146 [place] 690842-08-16 20:09:00 Test Item Value Reference Range Interpretation Comments Potassium Lvl (test code = Potassium 4.3 3.5-5.3 Lvl) [facility]2022-08-16 20:09:00 Test Item Value Reference Range Interpretation Comments Chloride Lvl (test code = Chloride Lvl) 104 98-110 [facility]2022-08-16 20:09:00 Test Item Value Reference Range Interpretation Comments CO2 (test code = CO2) 27 20-32 [facility]2022-08-16 20:09:00 Test Item Value Reference Range Interpretation Comments Calcium Lvl (test code = Calcium Lvl) 9.6 8.6-10.2 [place] [id number] 20:09:00 Test Item Value Reference Range Interpretation Comments Total Protein (test code = Total 7.4 6.1-8.1 Protein) [facility]2022-08-16 20:09:00 Test Item Value Reference Range Interpretation Comments Potassium Lvl (test code = Potassium 4.3 3.5-5.3 Lvl) [facility] solutionsMISS[facility] [id number] 20:09:00 Test Item Value Reference Range Interpretation Comments Albumin Lvl (test code = Albumin Lvl) 4.6 3.6-5.1 [facility]2022-08-16 20:09:00 Test Item Value Reference Range Interpretation Comments Globulin (test code = Globulin) 2.8 1.9-3.7 [place] [id number] 20:09:00 Test Item Value Reference Range Interpretation Comments A/G Ratio (test code = A/G Ratio) 1.6 1.0-2.5 [place] [id number] 20:09:00 Test Item Value Reference Range Interpretation Comments Bili Total (test code = Bili Total) 0.6 0.2-1.2 [place] [id number] 20:09:00 Test Item Value Reference Range Interpretation Comments Alk Phos (test code = Alk Phos) 53 31-125 [place] [id number] 20:09:00 Test Item Value Reference Range Interpretation Comments ASPARTATE TRANSAMINASE (test code = 21 10-35 ASPARTATE TRANSAMINASE) [facility]2022-08-16 20:09:00 Test Item Value Reference Range Interpretation Comments ALANINE AMINOTRANSFERASE (test code = 34 6-29 ALANINE AMINOTRANSFERASE) [id number] 20:09:00 Test Item Value Reference Range Interpretation Comments WBC X 10x3 (test code = WBC X 10x3) 8.0 3.8-10.8 [facility] CenterRzduwzhRAXBXNNTIO2354-52-42 20:09:00 Test Item Value Reference Range Interpretation Comments RBC X 10x6 (test code = RBC X 10x6) 4.66 3.80-5.10 [facility] CenterFcxcgepYDBXBASIDX4899-24-90 20:09:00 Test Item Value Reference Range Interpretation Comments Hgb (test code = Hgb) 14.2 11.7-15.5 [facility]2022-08-16 20:09:00 Test Item Value Reference Range Interpretation Comments Chloride Lvl (test code = Chloride Lvl) 104 98-110 [facility] CenterEwwngivAOCKEEWHUM2274-15-24 20:09:00 Test Item Value Reference Range Interpretation Comments Hct (test code = Hct) 42.6 35.0-45.0 [facility] CenterAipkjqzACXNUWRANS9597-17-09 20:09:00 Test Item Value Reference Range Interpretation Comments MCV (test code = MCV) 91.4 80.0-100.0 [facility] CenterEbaieocYVYHHHDQST0249-78-82 20:09:00 Test Item Value Reference Range Interpretation Comments MCH (test code = MCH) 30.5 pg 27.0-33.0 [facility] CenterPdbweqcWXTQZGSGZY2720-35-18 20:09:00 Test Item Value Reference Range Interpretation Comments MCHC (test code = MCHC) 33.3 32.0-36.0 [facility] CenterEvyenjpBDPXLZTGJK6639-71-21 20:09:00 Test Item Value Reference Range Interpretation Comments RDW (test code = RDW) 13.3 11.0-15.0 [facility] CenterQbgtdmfRDUOYSDFNQ0998-12-54 20:09:00 Test Item Value Reference Range Interpretation Comments Platelet (test code = Platelet) 345 140-400 [facility] CenterJuvzijuKUBRTDGFVB1416-79-26 20:09:00 Test Item Value Reference Range Interpretation Comments MPV (test code = MPV) 10.3 7.5-12.5 [facility] CenterKrvsjxpLFORKNVCTK9840-68-70 20:09:00 Test Item Value Reference Range Interpretation Comments Neutrophils # (test code = Neutrophils 5456 6869-0010 #) [facility] CenterUwxyhjmOQMZMOBTDG2476-91-33 20:09:00 Test Item Value Reference Range Interpretation Comments Lymphocytes # (test code = Lymphocytes 2205 214-0335 #) [facility] CenterEcrvkpjAZWHXHXXLF0075-74-73 20:09:00 Test Item Value Reference Range Interpretation Comments Monocytes # (test code = Monocytes #) 552 200-950 [facility] [id number] 10:09:00 Test Item Value Reference Range Interpretation Comments Glucose (test code 86 mg/dL 65-99 = 2345-7) BUN (test code = 8 mg/dL 6-24 3094-0) Creatinine (test 0.77 mg/dL 0.57-1.00 code = 2160-0) eGFR (test code = 97 mL/min/1.73 >59 8257) BUN/creatinine 9-23 ratio (test code = 3097-3) Sodium (test code = 139 mmol/L 761-475 8194-2) Potassium (test 4.2 mmol/L 3.5-5.2 code = 2823-3) Chloride (test code 101 mmol/L 96-106 = 2075-0) CO2 (test code = 22 mmol/L -2027-9) Calcium (test code 9.9 mg/dL 8.7-10.2 = 73964-6) Protein (test code 7.7 g/dL 6.0-8.5 = 2885-2) Albumin, S (test 4.6 g/dL 3.8-4.8 code = 1751-7) Globulin, total 3.1 g/dL 1.5-4.5 (test code = 24566-0) Albumin/globulin 1.2-2.2 ratio (test code = 1759-0) Total bilirubin 0.3 mg/dL 0.0-1.2 (test code = 1975-2) Alkaline See_Comment [Automated phosphatase (test message] T he code = 6768-6) system which generated this result transmit mike reference range : 44 - 121 IU/L. The reference range was not used to interpret this result as normal/abnormal . AST (test code = See_Comment [Automated 1920-8) message] The system which generated this result transmit mike reference range : 0 - 40 IU/L. The reference range was not used to interpret this result as normal/abnormal . ALT (test code = See_Comment [Automated 1742-6) message] The system which generated this result transmit mike reference range : 0 - 32 IU/L. The reference range was not used to interpret this result as normal/abnormal . LEXUS (test code = Performed at: LEXUS) - [facility] [address] [id number] Director: Rusty Reed MD, Phone: [phone] [facility] CenterHemoglobin [id number] 10:09:00 Test Item Value Reference Range Interpretation Comments Hemoglobin A1C 5.2 % 4.8-5.6 Prediabetes: (test code = 5.7 - 6.4 4548-4) Diabetes: >6.4 Glycemic contro l for adults with diabetes: <7.0 LEXUS (test code = Performed at: LEXUS) [facility] [address] [id number] Director: Rusty Reed MD, Phone: [phone] [facility] with platelet and apfvwqrohseb1870-65-30 10:09:00 Test Item Value Reference Range Interpretation Comments WBC (test code = See_Comment [Automated 2490-2) message] The system which generated this result transmit mike reference range : 3.4 - 10.8 x10E3/uL. The reference range was not used to interpret this result as normal/abnormal . RBC (test code = See_Comment [Automated 789-8) message] The system which generated this result transmit mike reference range : 3.77 - 5.28 x10E6/uL. The reference range was not used to interpret this result as normal/abnormal . HGB (test code = 14.1 g/dL 11.1-15.9 718-7) HCT (test code = 42.3 % 34.0-46.6 4544-3) MCV (test code = 90 fL 79-97 787-2) MCH (test code = 30.1 pg 26.6-33.0 785-6) MCHC (test code = 33.3 g/dL 31.5-35.7 786-4) RDW (test code = 12.4 % 11.7-15.4 788-0) Platelet count See_Comment [Automated (test code = 777-3) message] The system which generated this result transmit mike reference range : 150 - 450 x10E3/uL. The reference range was not used to interpret this result as normal/abnormal . Neutrophils (test 64 % Not Estab. code = 770-8) Lymphocytes (test 25 % Not Estab. code = 736-9) Monocytes (test 8 % Not Estab. code = 5905-5) Eosinophils (test 2 % Not Estab. code = 713-8) Basophils (test 1 % Not Estab. code = 706-2) Neutrophils, See_Comment [Automated absolute (test code message] The = 751-8) system which generated this result transmit mike reference range : 1.4 - 7.0 x10E3/uL. The reference range was not used to interpret this result as normal/abnormal . Lymphocytes, See_Comment [Automated absolute (test code message] The = 731-0) system which generated this result transmit mike reference range : 0.7 - 3.1 x10E3/uL. The reference range was not used to interpret this result as normal/abnormal . Monocytes, absolute See_Comment [Automa mike (test code = 742-7) message] The system which generated this result transmit mike reference range : 0.1 - 0.9 x10E3/uL. The reference range was not used to interpret this result as normal/abnormal . Eosinophils, See_Comment [Automated absolute (test code message] The = 211-2) system which generated this result transmit mike reference range : 0.0 - 0.4 x10E3/uL. The reference range was not used to interpret this result as normal/abnormal . Basophils, absolute See_Comment [Automa mike (test code = 704-7) message] The system which generated this result transmit mike reference range : 0.0 - 0.2 x10E3/uL. The reference range was not used to interpret this result as normal/abnormal . Immature 0 % Not Estab. granulocytes (test code = 48222-1) Immature grans See_Comment [Automated (abs) (test code = message] The 84556-5) system which generated this result transmit mike reference range : 0.0 - 0.1 x10E3/uL. The reference range was not used to interpret this result as normal/abnormal . LEXUS (test code = Performed at: LEXUS) - [facility] [id number] Director: Rusty Reed MD, Phone: [phone] [facility] reflex to [id number] 10:09:00 Test Item Value Reference Range Interpretation Comments TSH (test code See_Comment [Automated m essage] = 06192-1) The system whic h generated this result transmit mike reference range : 0.450 - 4.500 uIU/mL. The reference range was not used to interpret this result as normal/abnormal . LEXUS (test code Performed at: - = LEXUS) [facility] [id number] Director: Rusty Reed MD, Phone: [phone] [facility] metabolic [id number] 10:08:00 Test Item Value Reference Range Interpretation Comments Glucose (test 81 mg/dL 65-99 code = 2345-7) BUN (test code = 10 mg/dL 6-24 4-0) Creatinine (test 0.70 mg/dL 0.57-1.00 code = 2160-0) EGFR Non-Afr. 105 mL/min/1.73 >59 Kenyan (test code = 2775) EGFR 121 mL/min/1.73 >59 In accorda nce with Kenyan (test recommendatio ns from code = 2774) the NKF-ASN Tas k force, [facility] is in the process of updating its eG FR calculation to the 2020 CKD-EPI creatinine equa tion that estimates kidney function withou t a race variable. BUN/creatinine 9-23 ratio (test code = 3097-3) Sodium (test code 141 mmol/L 134-144 = 2951-2) Potassium (test 4.1 mmol/L 3.5-5.2 code = 2823-3) Chloride (test 103 mmol/L 96-106 code = 2075-0) CO2 (test code = 25 mmol/L 20-29 2028-07) Calcium (test 9.3 mg/dL 8.7-10.2 code = 58618-0) LEXUS (test code = Performed at: 01 LEXUS) - [facility] [place], [place] [id number] Director: Rusty Reed MD, Phone: [phone] [facility] RNA [Presence] in Respiratory specimen by MONICA with probe [id number] 21:07:33 Test Item Value Reference Range Interpretation Comments SARS-CoV-2 (COVID-19) RNA Not detected Not-Detected [Presence] in Respiratory specimen by MONICA with probe detection (test code = 13898-9) 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
[2023-06-06 14:13] LABS: Absolute Lymphocytes (CBC) 1.7 K/uL (0.7-4.9); Hematocrit 41.7 % (36.0-45.0); Lymphocytes % 22.8 % (15.3-44.8); MCV 87.4 fL (80-100); MPV 8.5 fL (7.6-11.3); RBC Red Blood Cell Count 4.77 M/uL (3.86-4.86)
[2023-06-06 14:30] LABS: BUN Blood Urea Nitrogen 4 mg/dL (7-18); Bicarbonate 22 mEq/L (21-32); Glomerular Filtration Rate 111 ml/min (=/>90); Glucose Level 108 mg/dL (74-106); Magnesium 2.1 mg/dL (1.6-2.4); NT PRO-BNP 87 pg/mL (<125); Potassium 3.9 mEq/L (3.5-5.1); Sodium Level 138 mEq/L (136-145)
[2023-06-06 14:48] LABS: Protime INR 1.13
[2023-06-06 14:52] LABS: Troponin High Sensitivity < 3.0 pg/mL (<58.9)
--- NOTE | 2023-06-06 15:26 | RAD REPORT ---
EXAM DESCRIPTION: CT - Angio Aorta For Dissection - 06/06/2023 3:09 pm CLINICAL HISTORY: . Chest and abd pain COMPARISON: None TECHNIQUE: Computed tomography angiography of the chest, abdomen pelvis were obtained. 100 cc Isovue 370 was administered intravenously. Coronal and sagittal reconstruction were performed. MIP 3D reconstruction was performed All CT scans are performed using dose optimization technique as appropriate and may include automated exposure control or mA/KV adjustment according to patient size. FINDINGS: An aortic dissection is not seen. An aortic aneurysm is not displayed. The celiac, SMA and MATT are patent . A lung consolidation is not present. A pericardial effusion is not seen. A pleural effusion is not no mike. The liver,spleen, pancreas,adrenals and kidneys demonstrate no significant abnormality. There no evidence diverticulitis. Cholecystectomy. 2 centimeter right ovarian cyst without significant free fluid. No further workup recommended. Diastases rectus abdominis muscles 6 centimeters IMPRESSION: Negative for an aortic dissection.
--- NOTE | 2023-06-06 17:02 | ER ---
Nurse's Notes [facility] Name: Thuy Garcia Age: 48 yrs Sex: Female : 1975 Arrival Date: 06/06/2023 Time: 13:22 Bed 11 Private MD: Diagnosis: Essential (primary) hypertension Presentation: 06/06 13:29 Chief complaint: Patient states: "I've had chest pain for 3 weeks now that is off and mb9 on. It radiates to my back. I stopped taking my BP medication, Hydrochlorothiazide, 1 week ago due to wanting to fix things myself and wondering if it was medication causing it. I've been dizzy and nauseous now so decided to take my medication this morning.". Coronavirus screen: Vaccine status: Patient reports being unvaccinated. Ebola Screen: No symptoms or risks identified at this time. Initial Sepsis Screen: Does the patient meet any 2 criteria? No. Patient's initial sepsis screen is negative. Does the patient have a suspected source of infection? No. Patient's initial sepsis screen is negative. Risk Assessment: Do you want to hurt yourself or someone else? Patient reports no desire to harm self or others. Onset of symptoms was April 2023. 13:29 Method Of Arrival: Ambulatory mb9 13:29 Acuity: RL 3 mb9 Triage Assessment: 13:33 General: Appears in no apparent distress. Behavior is anxious. Pain: Complains of pain mb9 in chest Pain radiates to back Pain began 3 weeks agp Is intermittent. Neuro: Duval Agitation-Sedation Scale (RASS): 0 - Alert and Calm Level of Consciousness is awake, alert, obeys commands, Oriented to person, place, time, situation, Appropriate for age Reports dizziness. Cardiovascular: Reports chest pain, lightheadedness, Patient's skin is warm and dry. Respiratory: Airway is patent Respiratory effort is even, unlabored, Respiratory pattern is regular, symmetrical. Derm: Skin is pink, warm \\T\\ dry. Musculoskeletal: Range of motion: intact in all extremities. 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 - Social history:: Smoking status: Patient denies any tobacco usage or history of. - Family history:: not pertinent. - Hospitalizations: : No recent hospitalization is reported. Screenin:51 [facility] ED Fall Risk Assessment (Adult) History of falling in the last 3 months, mb9 including since admission No falls in past 3 months (0 pts) Confusion or Disorientation No (0 pts) Intoxicated or Sedated No (0 pts) Impaired Gait No (0 pts) Mobility Assist Device Used No (0 pt) Altered Elimination No (0 pt) Score/Fall Risk Level 0 - 2 = Low Risk Oriented to surroundings, Maintained a safe environment, Educated pt \\T\\ family on fall prevention, incl call for assistance when getting out of bed. Abuse screen: Denies threats or abuse. Nutritional screening: No deficits noted. Tuberculosis screening: No symptoms or risk factors identified. Assessment: 13:51 Reassessment: see triage assessment. mb9 14:00 Pain: Complains of pain in anterior aspect of left upper chest Pain radiates to back eh3 Pain began 3 weeks ago. 15:00 Reassessment: Patient appears in no apparent distress at this time. Patient and/or eh3 family updated on plan of care and expected duration. Pain level reassessed. Patient is alert, oriented x 3, equal unlabored respirations, skin warm/dry/pink. 16:00 Reassessment: Patient appears in no apparent distress at this time. Patient and/or eh3 family updated on plan of care and expected duration. Pain level reassessed. Patient is alert, oriented x 3, equal unlabored respirations, skin warm/dry/pink. 17:00 Reassessment: Patient appears in no apparent distress at this time. Patient and/or eh3 family updated on plan of care and expected duration. Pain level reassessed. Patient is alert, oriented x 3, equal unlabored respirations, skin warm/dry/pink. Vital Signs: 13:29 BP 130 / 98; Pulse 85; Resp 18; Temp 97.9; Pulse Ox 99% on R/A; Weight 79.83 kg; Height mb9 5 ft. 4 in. ; 14:00 BP 119 / 84; Pulse 89; Resp 18; Pulse Ox 99% on R/A; eh3 15:00 BP 126 / 91; Pulse 85; Resp 18; Pulse Ox 98% on R/A; eh3 16:00 BP 128 / 85; Pulse 84; Resp 18; Pulse Ox 98% on R/A; eh3 17:00 BP 126 / 93; Pulse 86; Resp 18; Pulse Ox 99% on R/A; eh3 13:29 Body Mass Index 30.21 (79.83 kg, 162.56 cm) mb9 ED Course: 13:27 Patient arrived in ED. im 13:28 Enoc Sharma MD is Attending Physician. rn 13:33 Triage completed. mb9 13:33 Arm band placed on. mb9 13:44 EKG done, by ED staff, reviewed by Enoc Sharma MD. mb9 13:51 Placed in gown. Bed in low position. Call light in reach. Side rails up X 1. Client mb9 placed on continuous cardiac and pulse oximetry monitoring. NIBP monitoring applied. traffic monitor specialist on. 13:51 No provider procedures requiring assistance completed. mb9 14:00 Provided Education on: N/A. eh3 14:00 Patient maintains SpO2 saturation greater than 95% on room air. eh3 16:58 Della Quiroz, RN is Primary Nurse. eh3 17:01 Chest Single View In Process Unspecified. EDMS 17:15 IV discontinued, intact, bleeding controlled, No redness/swelling at site. Pressure eh3 dressing applied. Administered Medications: No medications were administered Medication: 13:51 VIS not applicable for this client. mb9 Outcome: 17:01 Discharge ordered by . rn 17:14 Discharged to home ambulatory. eh3 17:14 Condition: stable 17:14 Discharge instructions given to patient, Instructed on discharge instructions, follow up and referral plans. Demonstrated understanding of instructions, follow-up care. 17:15 Patient left the ED. eh3 Signatures: Dispatcher [employer] EDMS Enoc Sharma MD MD rn Hall, Erin, RN RN 3 Mindy Naqvi RN RN mb9 Brenda Patterson Corrections: (The following items were deleted from the chart) 16:58 14:00 Pain: Complains of pain in anterior aspect of left upper chest Pain radiates to eh3 back eh3 16:59 14:00 Pain: Complains of pain in anterior aspect of left upper chest Pain radiates to eh3 back Pain began 1 day ago. eh3
--- NOTE | 2023-06-06 17:02 | EDPHYS ---
Physician Documentation [facility] Name: Thuy Garcia Age: 48 yrs Sex: Female : 1975 Arrival Date: 06/06/2023 Time: 13:22 Bed 11 Private MD: ED Physician Enoc Sharma HPI: 06/06 13:43 This 48 yrs old Female presents to ER via Ambulatory with complaints of Chest rn Pain, high blood pressure. 13:43 The patient or guardian reports chest pain that is located primarily in the anterior rn aspect of left upper chest. Onset: 3 week(s) ago. The pain radiates to back. Associated signs and symptoms: Pertinent positives: None. Pertinent negatives: abdominal pain, cough, diaphoresis, headache, lower extremity pain, lower extremity swelling, lightheadedness, nausea, near syncope, palpitations, recent travel, shortness of breath, syncope, vomiting. The chest pain is described as aching. Duration: The patient or guardian reports multiple episodes, that are intermittent. Modifying factors: The symptoms are alleviated by nothing. the symptoms are aggravated by nothing. Severity of pain: At its worst the pain was mild in the emergency department the pain has improved. The patient has experienced similar episodes in the past. The patient has been recently seen by a physician:. Pt reports over a year of problems with chest and back pain, has been worked up and no diagnosis. Put on BP meds, recently stopped her BP meds herself to try and get off medication, now having 1/1.5 weeks of intermittent left chest pain with radiation to back. No sob. no abd pain. no vomiting. No focal neuro complaint. Currently no chest pain, + mid back pain.. 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 - Social history:: Smoking status: Patient denies any tobacco usage or history of. - Family history:: not pertinent. - Hospitalizations: : No recent hospitalization is reported. ROS: 13:43 Constitutional: Negative for fever, chills, and weight loss, Eyes: Negative for injury, rn pain, redness, and discharge, Neck: Negative for injury, pain, and swelling, Cardiovascular: Negative for palpitations, and edema, Respiratory: Negative for shortness of breath, cough, wheezing, and pleuritic chest pain, Abdomen/GI: Negative for abdominal pain, nausea, vomiting, diarrhea, and constipation, Back: Negative for injury MS/Extremity: Negative for injury and deformity, Skin: Negative for injury, rash, and discoloration, Neuro: Negative for headache, weakness, numbness, tingling, and seizure. Exam: 13:43 Constitutional: This is a well developed, well nourished patient who is awake, alert, rn and in no acute distress. Head/Face: Normocephalic, atraumatic. Cardiovascular: Regular rate and rhythm. No pulse deficits. Respiratory: No increased work of breathing, no retractions or nasal flaring. Abdomen/GI: Soft, non-tender Skin: Warm, dry MS/ Extremity: Pulses equal, no cyanosis. Neuro: Awake and alert, GCS 15 Vital Signs: 13:29 BP 130 / 98; Pulse 85; Resp 18; Temp 97.9; Pulse Ox 99% on R/A; Weight 79.83 kg; Height mb9 5 ft. 4 in. ; 14:00 BP 119 / 84; Pulse 89; Resp 18; Pulse Ox 99% on R/A; eh3 15:00 BP 126 / 91; Pulse 85; Resp 18; Pulse Ox 98% on R/A; eh3 16:00 BP 128 / 85; Pulse 84; Resp 18; Pulse Ox 98% on R/A; eh3 17:00 BP 126 / 93; Pulse 86; Resp 18; Pulse Ox 99% on R/A; eh3 13:29 Body Mass Index 30.21 (79.83 kg, 162.56 cm) mb9 MDM: 13:28 Patient medically screened. rn 16:59 Differential diagnosis: anxiety, coronary artery disease chest wall pain, congestive sourcing intern failure costochondritis, esophagitis, pleurisy, pneumothorax, thoracic aortic disection. Data reviewed: vital signs, nurses notes, lab test result(s), EKG, radiologic studies, CT scan, plain films, and as a result, I will discharge patient. Care significantly affected by the following chronic conditions: Hypertension. Counseling: I had a detailed discussion with the patient and/or guardian regarding: the historical points, exam findings, and any diagnostic results supporting the discharge/admit diagnosis, the presence of at least one elevated blood pressure reading (>120/80) during this emergency department visit, lab results, radiology results, the need for outpatient follow up, to return to the emergency department if symptoms worsen or persist or if there are any questions or concerns that arise at home. Response to treatment: the patient's symptoms have markedly improved after treatment, and as a result, I will discharge patient. ED course: Pt ambulatory around ER without pain or difficulty. CT aorta neg. BNP and trop neg. No ischemia on ECG. Will dc home with pcp f/u for BP control and further workup. This has been going on for > 1 year per patient, and has had multiple cardiac workups that were negative. . 06/06 17:01 Order name: Chest Single View [facility] 06/06 13:40 Order name: EKG; Complete Time: 17:07 rn 06/06 13:40 Order name: Cardiac monitoring; Complete Time: 13:44 rn 06/06 13:40 Order name: EKG - Nurse/Tech; Complete Time: 13:44 rn 06/06 13:40 Order name: IV Saline Lock; Complete Time: 13:50 rn 06/06 13:40 Order name: Labs collected and sent; Complete Time: 13:50 rn 06/06 13:40 Order name: O2 Per Protocol; Complete Time: 13:44 rn 06/06 13:40 Order name: O2 Sat Monitoring; Complete Time: 13:44 rn Administered Medications: No medications were administered Disposition Summary: 06/06/23 17:01 Discharge Ordered Location: Home rn Problem: an ongoing problem rn Symptoms: have improved rn Condition: Stable rn Diagnosis - Essential (primary) hypertension rn Followup: rn - With: Private Physician - When: As needed - Reason: Recheck today's complaints, Re-evaluation by your physician Discharge Instructions: - Discharge Summary Sheet rn - Hypertension, Adult rn - Heart Disease furniture cleaner - Managing Your Hypertension rn Forms: - Medication Reconciliation Form rn - Thank You Letter rn - Antibiotic 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 EDMS EDMS
--- NOTE | 2023-06-06 17:21 | RAD REPORT ---
EXAM DESCRIPTION: [place] Single View06/06/2023 5:01 pm CLINICAL HISTORY: Hypertension COMPARISON: none FINDINGS: The lungs appear clear of acute infiltrate. The heart is normal size IMPRESSION: No acute abnormalities displayed
[2023-06-06 20:35] VITALS: TEMP 97.9
[2023-06-06 20:42] VITALS: BP 126/93; O2SAT 99
--- NOTE | 2023-06-07 20:41 | EKG ---
Test Date: 2023-06-06 Test Time: 13:42:26 Flight Hostess: MB MEASUREMENT RESULTS: Intervals: Rate: 74 [place]: 148 QRSD: 72 QT: 378 QTc: 419 [place]: P: 69 [place]: 148 QRS: 11 T: 69 INTERPRETIVE STATEMENTS: Normal sinus rhythm Low voltage QRS Borderline ECG Compared to ECG 09/16/2021 14:49:34 Myocardial infarct finding no longer present Electronically Signed On 06-07-23 20:38:01 CDT by Rocky Crews
== END 2023-06-06 17:15 | disposition home or self-care (01) ==
LOC: ER 13:22
DX: R07.9 Chest pain, unspecified (principal); I10 Essential (primary) hypertension; F32.A Depression, unspecified
CPT/HCPCS: 93005; 85025; 80048; 36415; 83735; 85610; 84484; 83880; 71275; 74175; 71045; 99285; Q9967

== ENCOUNTER 2023-08-06 07:50 | Emergency (ER) | payer BC, OTHER ==
--- OUTSIDE RECORDS SUMMARY | 2023-08-06 07:59 | XMS REPORT | Continuity of Care Document ---
:1975 Author Organization [facility] t Address [address] [place] [address] [address] [place] [address] Care Team Providers Name Role Phone Mike Gomez DO Primary Care Physician MIKE GOMEZ Attending Clinician Unavailable [id number] Attending Clinician Unavailable Willow Ivey MD Attending Clinician Casey Martin MD Attending Clinician Anisha Myers MD Attending Clinician Freda Bee Attending Clinician ALDEN VANESSA Attending Clinician Unavailable Kiya Guardado MA Attending Clinician Unavailable PROVIDER, VIDEOVISITNOKieran Attending Clinician Unavailable Madisyn Ch MA Attending Clinician Unavailable Laverne Yang MA Attending Clinician Unavailable ETHAN HANKS Attending Clinician Unavailable ETHAN HANKS Attending Clinician Unavailable Mike Gomez DO Attending Clinician La Brady Attending Clinician AMBREEN_FARCHRISTIANA Attending Clinician Unavailable Doctor Unassigned, [place] Attending Clinician Unavailable LOU EUBANKS Attending Clinician Unavailable Lou Eubanks MD Attending Clinician Yoli Maurer MA Attending Clinician Unavailable Cathy JONES, Abdullahi Attending Clinician Leisa Santos MA Attending Clinician Unavailable Brii Morgan MA Attending Clinician Unavailable MD WILLOW IVEY Attending Clinician Unavailable Asked, No Pcp Attending Clinician Unavailable Trevon Ascencio DO Attending Clinician Aracelis Macario MD Attending Clinician 2, [facility] Attending Clinician Unavailable CASEY MARTIN Admitting Clinician Unavailable AMBKIRAN_ASHISH Admitting Clinician Unavailable MD WILLOW IVEY Admitting Clinician Unavailable Payers Payer Name Policy Type Policy Number Effective Date Expiration Date S patti [facility] 2 [id number] 2023 00:00:00 Problems Condition Condition Condition Status [...] 00 Externa l Gastroesop Gastroesop Disease Active K gricel hageal hageal 8-18 Sey[facility] reflux reflux 00:00: - disease disease 00 Externa without without l esophagiti esophagiti s s Elevated Elevated Disease Active Kelse y liver liver 8-18 [place] function function 00:00: - tests tests 00 Externa l Genital Genital Disease Active Univers herpes herpes 6-08 ity of 00:00: [place] [facility] Obesity Obesity Disease Active 2019-11 Univers (BMI (BMI 2-23 ity of 30-39.9) 30-39.9) 00:00: [place] [facility] Cystocele Cystocele Disease Active 2019-11 Uni vers with with 2-23 it[facility] of rectocele rectocele [place] Stress Stress Disease Active 2019-11 Univers incontinen incontinen 2-23 it y of ce ce 00:00: [place] [facility] Abnormal Abnormal Disease Active 2019- Unive rs mammogram, mammogram, 9-24 it y of unspecifie unspecifie [place] [facility] Elevated Elevated Disease Active Unive rs erythrocyt erythrocyt 9-18 it y of e e 00:00: [place] sedimentat sedimentat 00 Me dical ion rate ion rate Branch Mixed Mixed Disease Active Univers anxiety anxiety 9-18 ity of and and 00:00: [place] depressive depressive 00 Me dical disorder disorder Branch Skin tag Skin tag Disease Active 2019- Unive rs 9-18 ity of 00:00: [place] 00 [facility] Vitamin D Vitamin D Disease Active Uni vers deficiency deficiency 9-18 it y of 00:00: [place] 00 [facility] Menorrhagi Menorrhagi Disease Active 2020-0 U nivers a a 9-11 ity of 00:00: [place] [facility] Allergic Allergic Disease Active 2020- Unive rs rhinitis rhinitis 9-11 ity of 00:00: [place] [id number] Medical Branch Difficulty Difficulty Disease Active 2020-0 U nivers swallowing swallowing 9-11 it y of 00:00: [place] 00 [facility] Encounter Encounter Disease Active 2020- Uni vers for other for other 9-11 ity of screening screening 00:00: [place] for for 00 Medical malignant malignant Bran ch neoplasm neoplasm of breast of breast Fatigue Fatigue Disease Active 2020- Univers 9-11 ity of 00:00: [place] 00 [facility] Gastroesop Gastroesop Disease Active 2020-0 U nivers hageal hageal 9-11 ity of reflux reflux 00:00: [place] disease disease 00 Medical Branch Shortness Shortness Disease Active Uni vers of breath of breath - ity of 00:00: [place] [facility] Pain in Pain in Disease [...] scan 5-21 ity of abnormal abnormal 00:00: [place] [facility] Hyperchole Hyperchole Disease Active 2018-11 U nivers sterolemia sterolemia 0-18 it y of 00:00: [place] [facility] Obstructiv Obstructiv Disease Active 2018- U nivers e sleep e sleep 6-12 ity of apnea of apnea of 00:00: [place] adult adult Medical Branch Electrocar Electrocar Disease Active U nivers diogram diogram 7-19 ity of abnormal abnormal 00:00: [place] [facility] Hypertensi Problem Active 2022-07-10 M emoria ve Hypertensi 22:14:03 l disorder, ve Osmel systemic disorder, arterial systemic (disorder) arterial (disorder) [...] ents Source Name Type Date Date Clinician Mold Propensi Active Itching Methodi ty to 06-21 st adverse 00:00: Hospita reaction 00 l s to drug Molds & Propensi Active Runny Nose Farzad sey Smuts ty to 06-21 Seybold adverse 00:00: - reaction 00 Externa s l MOLD DRUG Active ITCHING Univers INGREDI 06-21 ity of 00:00: [place] 00 [facility] Cat Hair Propensi Active Swelling 1994-11 Meth mae Standard ty to 01-09 st ized adverse 00:00: Hospita Allergen reaction 00 l ic s to Extract drug Cat Hair Propensi Active Swelling 1994-11 Abbie ey Extract ty to 01-09 Seybold adverse 00:00: - reaction 00 Externa s l Cat Hair Propensi Active Swelling 1994-11 Univ ers Standard ty to 2-19 ity of ized adverse 00:00: [place] Allergen reaction 00 Medica l ic s Branch Extract CAT HAIR DRUG Active ITCHING 1994-11 Univers STANDARD INGREDI -19 ity of IZED 00:00: [place] ALLERGEN 00 Medical IC Branch EXTRACT Bee Propensi Active Swelling Method i Venom ty to 05-14 st Protein adverse 00:00: Hospita (Honey reaction 00 l Bee) s to drug Bee Propensi Active Swelling Melania Venom ty to 05-14 Seybold adverse 00:00: - reaction 00 Externa s l Venom-Ho Propensi Active Swelling Univ ers harper Bee ty to 6-24 ity of adverse 00:00: [place] reaction 00 Medical s Branch VENOM-HO DRUG Active Swelling Univer s HARPER BEE INGREDI 6-24 ity of 00:00: [place] 00 Medical Branch Family History Family Member Diagnosis Comments Start Date Stop Date Source Natural father Asthma [facility] Natural father Drug abuse [facility] Natural father Early [facility] Natural mother Alcohol abuse [facility] Natural mother Depression [facility] Natural mother Heart disease [facility] Natural mother Hypertension [facility] Social History Social Habit Start Date Stop Date Quantity Comments Source Gender identity 2023-04-04 Identifies as Melania Cabrera - 06:40:39 female gender External (finding) Sexual orientation 2023-04-04 Heterosexual Abbie ey Seybold - 06:40:39 (finding) External History [facility] University o f Alcohol Comment [place] [facility] Alcohol intake 2023-05-18 2023-05-18 Ex-drinker [facility] 00:00:00 00:00:00 (finding) Hospital History of Social 2023-05-18 2023-05-[address] function 00:00:00 00:00:00 Hospital Tobacco use and 2023-05-02 2023-05-02 Smokeless tobacco Me [facility]od[facility] exposure 00:00:00 00:00:00 non-user Hospital Social History 2022-01-31 2022-01-31 [facility] ermann 04:58:28 04:58:28 History [facility] 2020-11-12 2020-11-12 1 University o f Alcohol Frequency 00:00:00 00:00:00 [place] [facility] History [facility] 2020-11-12 2020-11-12 99 University o f Alcohol Std Drinks 00:00:00 00:00:00 [place] [facility] History [facility] 2020-11-12 2020-11-12 1 [place] o f Alcohol Binge 00:00:00 00:00:00 [place] [facility] Sex [birth year] At [birth year] F Melania Se ybold - 00:00:00 00:00:00 External Smoking Status Start Date Stop Date Source Never smoked tobacco [facility] Medications Ordered Filled Start Stop Current Ordering Indication Dosage Frequency Signature Comments Components Source Medication Medication Date Date Medication? Clinician (SIG) Name Name cefadroxil 2022- No 500mg Q.5D Take 1 Met hodi (DURICEF) 05-[address] 500 MG 00:00: 04:59 (500 mg Hospita capsule 00 :00 total) by l mouth 2 (two) times a day for 7 days. acetaminoph 2022- [place] [id number] 1{tbl} Q4H Take 1 Methodi en-codeine 05-[address] (TYLENOL 00:00: 04:59 mouth Hospita WITH 00 :00 every 4 l CODEINE #3) (four) 300-30 mg hours as per tablet needed for moderate pain for up to 7 days .acute pain. cefadroxil 2022- No 500mg Q.5D Take 1 Met hodi (DURICEF) 05-09- capsule st 500 MG 00:00: 04:59 (500 mg Hospita capsule 00 :00 total) by l mouth 2 (two) times a day for 7 days. acetaminoph 2022- [place] [id number] 1{tbl} Q4H Take 1 Methodi en-codeine 05-[address] (TYLENOL 00:00: 04:59 mouth Hospita WITH 00 :00 every 4 l CODEINE #3) (four) 300-30 mg hours as per tablet needed for moderate pain for up to 7 days .acute pain. fluticasone Yes [id number] SPRAY 1 Methodi propionate 6-[address] (FLONASE) 00:00: EACH Hospita 50 00 NOSTRIL l mcg/actuati EVERY DAY on nasal spray fluticasone 2022-0 Yes [id number] SPRAY 1 [facility] propionate 6-[address] (FLONASE) 00:00: EACH Hospita 50 00 NOSTRIL l mcg/actuati EVERY DAY on nasal spray scopolamine 0 Yes 1{patch 1 patch. Methodi (TRANSDERM- 5-25 } st SCOP) 1 mg 00:00: Hospita over 3 days 00 l scopolamine 2022-0 Yes 1{patch 1 patch. Methodi (TRANSDERM- 5-25 } st SCOP) 1 mg 00:00: Hospita over 3 days 00 l omeprazole 0 Yes 40mg QD Take 1 Metho di (PriLOSEC) 5-[address] 40 MG 00:00: (40 mg Hospita capsule 00 total) by l mouth daily. omeprazole 0 Yes 40mg QD Take 1 Metho di [...] as l PATCH 72 HR needed hydroCHLORO 2022-0 Yes 25mg QD Take 1 Meth mae thiazide 5-07 tablet (25 st (HYDRODIURI 00:00: mg total) H ospita L) 25 MG 00 by mouth l tablet daily. hydroCHLORO 2022-0 Yes 25mg QD Take 1 Meth mae thiazide 5-07 tablet (25 st (HYDRODIURI 00:00: mg total) H ospita L) 25 MG 00 by mouth l tablet daily. Ondansetron Yes [id number] TAKE 1 Melania (ZOFRAN) 4 4-13 TABLET BY Seyb old MG oral 00:00: MOUTH - TABLET 00 EVERY 8 Externa DISPERSIBLE HOURS l NEEDED Omeprazole 0 Yes [id number] 40mg Take 1 Melania 40 MG oral 1-25 capsule Seybol d Delayed 00:00: (40 mg - Release 00 total) by Externa Capsule mouth l daily hydroCHLORO 2022-0 Yes [id number] 25mg Take 1 Melania thiazide 25 1-19 tablet (25 Se ybold MG oral 00:00: mg total) - Tablet 00 by mouth Externa daily l Scopolamine Yes 1{patch Place 1 Melania (TRANSDERM- 1-05 [...] :00 Externa OR) l FLUTICASONE 2021-11 Yes [id number] 50ug Use 1 K elsey PROPIONATE, 2-05 spray (50 Sey bold NASAL, 50 00:00: mcg total) - MCG/ACT 00 in each Externa nasal nostril l Suspension daily FLUTICASONE 2021-11 Yes [id number] 50ug Use 1 K elsey PROPIONATE, 2-05 spray (50 Sey bold NASAL, 50 00:00: mcg total) - MCG/ACT 00 in each Externa nasal nostril l Suspension daily FLUTICASONE 2021-11 Yes [id number] 50ug Use 1 K elsey PROPIONATE, 2-05 spray (50 Sey bold NASAL, 50 00:00: mcg total) - MCG/ACT 00 in each Externa nasal nostril l Suspension daily fluticasone 2021-11- No [id number] SPRAY 1 [facility]i propionate 1-21 - SPRAY INTO st (FLONASE) 00:00: 00:00 EACH Hospita 50 00 :00 NOSTRIL l mcg/actuati EVERY DAY on nasal spray fluticasone 2021-11- No [id number] SPRAY 1 [facility]i propionate -04-[address] (FLONASE) 00:00: 00:00 EACH Hospita 50 00 :00 NOSTRIL l mcg/actuati EVERY DAY on nasal spray Losartan 2021-11 Yes 50mg Take 50 mg Farzad sey Potassium 1-04 by mouth Seybol d 50 MG oral 11:18: daily - Tablet 14 Externa l Multiple 2021-11 Yes Take by Melania Vitamins-Mi 1-04 mouth Seybold nerals 11:18: - (MULTIVITAL 14 Externa OR) l Fexofenadin 2021-11 Yes Take by Farzad sey e HCl 1-04 mouth Seybold (WOOD 11:18: [...] Tablet 14 Externa l TRIMETHOPRI 2021-11- No [id number] 1{tbl} Take 1 Melania M-SULFAMETH 1-04 11-10 tablet by Se ybold OXAZOLE 00:00: 05:59 mouth 2 - (Bactrim 00 :00 times Externa DS) 800-160 daily for l MG oral 5 days Tablet fluticasone 2021-11- No [id number] SPRAY 1 Methodi propionate 0-20 11-[address] (FLONASE) 00:00: 00:00 EACH Hospita 50 00 :00 NOSTRIL l mcg/actuati EVERY DAY on nasal spray fluticasone 2021-11- No [id number] SPRAY 1 [facility] propionate 0-20 11-21 SPRAY [...] increase to 2 PO QHS Alprazolam Yes [id number] .25mg Q.5D Take 1 Melania 0.25 MG 9-23 tablet Seybold oral Tablet 00:00: (0.25 mg - 00 total) by Externa mouth 2 l times daily as needed (dizzines) Alprazolam 2021- No [id number] .25mg Q.5D Take 1 Melania 0.25 MG 9-23 12-05 tablet Seybold oral Tablet 00:00: 00:00 (0.25 mg - 00 :00 total) by Externa mouth 2 l times daily as needed (dizzines) Meclizine 2021-0 Yes [id number] 25mg Q.[id number] Take 1 Melania HCl 25 MG 9- [id number] tablet (25 Seybold oral Tablet 00:00: 3D mg total) - 00 by mouth 3 Externa times l daily as needed Meclizine 2021-0 Yes [id number] 25mg Q.[id number] Take 1 Melania HCl 25 MG 9- [id number] tablet (25 Seybold oral Tablet 00:00: 3D mg total) - 00 by mouth 3 Externa times l daily as needed Meclizine 2021-0 3- No [id number] 25mg Q.[id number] Take 1 Melania HCl 25 MG 9-11 12- [id number] tablet (25 Seybold oral Tablet 00:00: 00:00 3D mg total) - 00 :00 by mouth 3 Externa times l daily as needed ondansetron 2021-0 Yes [id number] 4mg Q8H Take 1 Methodi ODT 8-17 tablet (4 st (ZOFRAN-ODT 00:00: mg total) H ospita ) 4 MG 00 by mouth l disintegrat every 8 ing tablet (eight) hours as needed for nausea or vomiting. Ondansetron 2021-0 Yes 4mg Q.[id number] Take 4 mg Melania (ZOFRAN) 4 8-17 [id number] by mouth Seybold MG oral 00:00: 3D every 8 - TABLET 00 hours as Externa DISPERSIBLE needed l FLUTICASONE 2021-0 Yes Melania PROPIONATE, 8-17 Seybold NASAL, 50 00:00: - MCG/ACT 00 Externa nasal l Suspension Ondansetron 2021-0 Yes 4mg Q.[id number] Take 4 mg Melania (ZOFRAN) 4 8-17 [id number] by mouth Seybold MG oral 00:00: 3D every 8 - TABLET 00 hours as Externa DISPERSIBLE needed l Ondansetron 2-0 Yes 4mg Q.[id number] Take 4 mg Melania (ZOFRAN) 4 8-17 [id number] by mouth Seybold MG oral 00:00: 3D every 8 - TABLET 00 hours as Externa DISPERSIBLE needed l ondansetron Yes [id number] 4mg Q8H Take 1 Methodi ODT 8-17 tablet (4 st (ZOFRAN-ODT 00:00: mg total) H ospita ) 4 MG 00 by mouth l disintegrat every 8 ing tablet (eight) hours as needed for nausea or vomiting. FLUTICASONE 2021- No Kelse y PROPIONATE, 07-07 12-05 Seybold NASAL, 50 00:00: 00:00 - MCG/ACT 00 :00 Externa nasal l Suspension fluticasone 2021- No [id number] 50ug QD 1 spray Methodi propionate 07-07 10-20 ([address] (FLONASE) 00:00: 00:00 total) by Ho spita 50 00 :00 Each Nare l mcg/actuati route on nasal daily. spray fluticasone 2021- No [id number] 50ug QD 1 spray Methodi propionate 17 10-20 ([address] (FLONASE) 00:00: 00:00 total) by Ho spita 50 00 :00 Each Nare l mcg/actuati route on nasal daily. spray meclizine Yes 25 mg = 1 Mem oria 25 mg oral 8-16 tab, PO, l tablet 19:56: TID, PRN Osm[place] 00 dizziness, X 10 day, # 30 tab, 0 Refill(s), Pharmacy: [id number], 162.56, cm, 07/06/22 14:23:00 CDT, Height, 77.33, kg, 07/06/22 14:23:00 CDT, Weight meclizine Yes 25 mg = 1 Mem oria 25 mg oral 8-16 tab, PO, l tablet 19:56: TID, PRN [place]sm[place] 00 dizziness, X 10 day, # 30 tab, 0 Refill(s), Pharmacy: [facility] #[id number], 162.56, cm, 07/06/22 14:23:00 CDT, Height, 77.33, kg, 07/06/22 14:23:00 CDT, Weight meclizine 2-0 Yes 25 mg = 1 Mem oria 25 mg oral 8-16 tab, PO, l tablet 19:56: TID, PRN Osm[place] 00 dizziness, X 10 day, # 30 tab, 0 Refill(s), Pharmacy: [id number], 162.56, cm, 07/06/22 14:23:00 CDT, Height, 77.33, kg, 07/06/22 14:23:00 CDT, Weight meclizine 2-0 Yes 25 mg = 1 Mem oria 25 mg oral 8-16 tab, PO, l tablet 19:56: TID, PRN [place]sm[place] 00 dizziness, X 10 day, # 30 tab, 0 Refill(s), Pharmacy: [id number], 162.56, cm, 07/06/22 14:23:00 CDT, Height, 77.33, kg, 07/06/22 14:23:00 CDT, Weight meclizine 2-0 Yes 25 mg = 1 Mem oria 25 mg oral 8-16 tab, PO, l tablet 19:56: TID, PRN [place] 00 dizziness, X 10 day, # 30 tab, 0 Refill(s), Pharmacy: [id number], 162.56, cm, 07/06/22 14:23:00 CDT, Height, 77.33, kg, 07/06/22 14:23:00 CDT, Weight meclizine 2-0 Yes 25 mg = 1 Mem oria 25 mg oral 8-16 tab, PO, l tablet 19:56: TID, PRN [place] 00 dizziness, X 10 day, # 30 tab, 0 Refill(s), Pharmacy: [id number], 162.56, cm, 07/06/22 14:23:00 CDT, Height, 77.33, kg, 07/06/22 14:23:00 CDT, Weight meclizine 2-0 Yes 25 mg = 1 Mem oria 25 mg oral 8-16 tab, PO, l tablet 19:56: TID, PRN Osm[place] 00 dizziness, X 10 day, # 30 tab, 0 Refill(s), Pharmacy: [id number], 162.56, cm, 07/06/22 14:23:00 CDT, Height, 77.33, kg, 07/06/22 14:23:00 CDT, Weight meclizine 2022-0 Yes 25 mg = 1 Mem oria 25 mg oral 8-16 tab, PO, l tablet 19:56: TID, PRN Osm[place] 00 dizziness, X 10 day, # 30 tab, 0 Refill(s), Pharmacy: [facility] #[id number], 162.56, cm, 07/06/22 14:23:00 CDT, Height, 77.33, kg, 07/06/22 14:23:00 CDT, Weight meclizine 2-0 Yes 25 mg = 1 Mem oria 25 mg oral 8-16 tab, PO, l tablet 19:56: TID, PRN [place] 00 dizziness, X 10 day, # 30 tab, 0 Refill(s), Pharmacy: [facility] #[id number], 162.56, cm, 07/06/22 14:23:00 CDT, Height, 77.33, kg, 07/06/22 14:23:00 CDT, Weight meclizine 2-0 No 25 mg = 1 Mem oria 25 mg oral 8-16 tab, PO, l tablet 19:48: TID, PRN [place] 00 dizziness, X 10 day, # 30 tab, 0 Refill(s) meclizine 2022-0 No 25 mg = 1 Mem oria 25 mg oral 8-16 tab, PO, l tablet 19:48: TID, PRN [place] 00 dizziness, X 10 day, # 30 tab, 0 Refill(s) meclizine 2022-0 No 25 mg = 1 Mem oria 25 mg oral 8-16 tab, PO, l tablet 19:48: TID, PRN Osm[place] 00 dizziness, X 10 day, # 30 tab, 0 Refill(s) meclizine 2022-0 No 25 mg = 1 Mem oria 25 mg oral 8-16 tab, PO, l tablet 19:48: TID, PRN [place] 00 dizziness, X 10 day, # 30 tab, 0 Refill(s) meclizine 2022-0 No 25 mg = 1 Mem oria 25 mg oral 8-16 tab, PO, l tablet 19:48: TID, PRN [place] 00 dizziness, X 10 day, # 30 tab, 0 Refill(s) meclizine 2021-0 No 25 mg = 1 Mem oria 25 mg oral 8-16 tab, PO, l tablet 19:48: TID, PRN [place] 00 dizziness, X 10 day, # 30 tab, 0 Refill(s) meclizine 2021-0 No 25 mg = 1 Mem oria 25 mg oral 8-16 tab, PO, l tablet 19:48: TID, PRN [place] 00 dizziness, X 10 day, # 30 tab, 0 Refill(s) meclizine 2021-0 No 25 mg = 1 Mem oria 25 mg oral 8-16 tab, PO, l tablet 19:48: TID, PRN [place]sm[place] 00 dizziness, X 10 day, # 30 tab, 0 Refill(s) meclizine 2021-0 No 25 mg = 1 Mem oria 25 mg oral 8-16 tab, PO, l tablet 19:48: TID, PRN [place] 00 dizziness, X 10 day, # 30 tab, 0 Refill(s) losartan 50 2021-0 Yes 50 mg = 1 M emoria mg oral 8-16 tab, PO, l tablet 19:26: Daily, # [place] 00 90 tab, 0 Refill(s) losartan 50 2021-0 Yes 50 mg = 1 M emoria mg oral 8-16 tab, PO, l tablet 19:26: Daily, # [place] 00 90 tab, 0 Refill(s) losartan 50 2021-0 Yes 50 mg = 1 M emoria mg oral 8-16 tab, PO, l tablet 19:26: Daily, # [place] 00 90 tab, 0 Refill(s) losartan 50 2021-0 Yes 50 mg = 1 M emoria mg oral 8-16 tab, PO, l tablet 19:26: Daily, # [place] 00 90 tab, 0 Refill(s) losartan 50 2021-0 Yes 50 mg = 1 M emoria mg oral 8-16 tab, PO, l tablet 19:26: Daily, # Osmel 00 90 tab, 0 Refill(s) losartan 50 2021-0 Yes 50 mg = 1 M emoria mg oral 8-16 tab, PO, l tablet 19:26: Daily, # [place] 00 90 tab, 0 Refill(s) losartan 50 2021-0 Yes 50 mg = 1 M emoria mg oral 8-16 tab, PO, l tablet 19:26: Daily, # Osmel 00 90 tab, 0 Refill(s) losartan 50 2021-0 Yes 50 mg = 1 M emoria mg oral 8-16 tab, PO, l tablet 19:26: Daily, # [place] 00 90 tab, 0 Refill(s) losartan 50 2021-0 Yes 50 mg = 1 M emoria mg oral 8-16 tab, PO, l tablet 19:26: Daily, # Osm[place] 00 90 tab, 0 Refill(s) Monie 0.35 2021-0 Yes 0.35 mg = Me moria mg oral 8-16 1 tab, PO, l tablet 19:25: Daily, # [place] 00 30 tab, 0 Refill(s) Monie 0.35 2021-0 Yes 0.35 mg = Me moria mg oral 8-16 1 tab, PO, l tablet 19:25: Daily, # [place] 00 30 tab, 0 Refill(s) Monie 0.35 [...] tab, PO, l tablet 19:25: Daily, # [place] 00 30 tab, 0 Refill(s) Monie 0.35 2021-0 Yes 0.35 mg = Me moria mg oral 8-16 1 tab, PO, l tablet 19:25: Daily, # [place] 00 30 tab, 0 Refill(s) Monie 0.35 [...] # Osmel 00 30 tab, 0 Refill(s) Meclizine 0 2021- No 25 mg = 1 Ke lsey HCl 25 MG 8-16 12-05 tab, PO, Seybo ld oral Tablet 00:00: 00:00 TID, PRN - 00 :00 dizziness, Externa X 10 day, l # 30 tab, 0 Refill(s), Pharmacy: [id number], 162.56, cm, 07/06/22 14:23:00 CDT, Height, 77.33, kg, 07/06/22 14:23:00 CDT, Weight Omeprazole 2021-0 Yes 40mg Take 40 mg K elsey 40 MG oral 8-07 by mouth Seybo ld Delayed 00:00: daily - Release 00 Externa Capsule l Omeprazole 0 Yes 40mg Take 40 mg K elsey 40 MG oral 8-07 by mouth Seybo ld Delayed 00:00: daily - Release 00 Externa Capsule l Omeprazole 0 Yes 40mg Take 40 mg K elsey 40 MG oral 8-07 by mouth Seybo ld Delayed 00:00: daily - Release 00 Externa Capsule l amLODIPine Yes amlodipine U nivers 5 mg tablet 7-11 5 mg ity of 14:12: tablet 30 TAKE 1 Medical TABLET BY Branch MOUTH EVERY DAY IN THE MORNING amLODIPine 0 Yes amlodipine U nivers 5 mg tablet 7-11 5 mg ity of 14:12: tablet [place] 30 TAKE 1 Medical TABLET BY Branch MOUTH EVERY DAY IN THE MORNING amLODIPine 0 Yes amlodipine U nivers 5 mg tablet 7-11 5 mg ity of 14:12: tablet [place] 30 TAKE 1 Medical TABLET BY Branch MOUTH EVERY DAY IN THE MORNING amLODIPine Yes amlodipine U nivers 5 mg tablet 7-11 5 mg ity of 14:12: tablet 30 TAKE 1 Medical TABLET BY Branch MOUTH EVERY DAY IN THE MORNING amLODIPine Yes amlodipine U nivers 5 mg tablet 7-11 5 mg ity of 14:12: tablet 30 TAKE 1 Medical TABLET BY Branch MOUTH EVERY DAY IN THE MORNING oxybutynin Yes oxybutynin U nivers XL 5 mg 24 7-11 chloride ity o f hr tablet 13:58: ER 5 mg [place] 11 tablet,ext Medical ended Branch release 24 hr olopatadine Yes [place] 0.7 U nivers (PAZEO) 0.7 7-11 % eye ity of % Drop 13:58: drops [address] hyoscyamine Yes hyoscyamin Univers sulfate 7-11 e 0.125 mg ity of 0.125 mg 13:58: sublingual Jermaine as sublingual 11 tablet Medical tablet Branch amoxicillin Yes amoxicilli Univers -clavulanat 7-11 n 875 ity of e 875-125 13:58: [place] mg per 11 um Medical tablet clavulanat [place] e 125 mg tablet ferrous Yes iron Univers sulfate 11 ity of (IRON ORAL) 13:58: [address] mecobalamin Yes B12 Univer s (B12 ACTIVE 11 ity of ORAL) 13:58: [address] oxybutynin Yes oxybutynin U nivers XL 5 mg 24 7-11 chloride ity o f hr tablet 13:58: ER 5 mg [place] 11 tablet,ext Medical ended Branch release 24 hr olopatadine Yes [place] 0.7 U nivers (PAZEO) 0.7 7-11 % eye ity of % Drop 13:58: drops [address] hyoscyamine Yes hyoscyamin Univers sulfate 7-11 e 0.125 mg ity of 0.125 mg 13:58: sublingual [place]erm[place] as sublingual 11 tablet Medical tablet Branch amoxicillin Yes amoxicilli Univers -clavulanat 7-11 n 875 ity of e 875-125 13:58: [place] mg per 11 um Medical tablet clavulanat Branch e 125 mg tablet ferrous Yes iron Univers sulfate 7-11 ity of (IRON ORAL) 13:58: [address] mecobalamin Yes B12 Univer s (B12 ACTIVE 7-11 ity of ORAL) 13:58: [address] oxybutynin Yes oxybutynin U nivers XL 5 mg 24 7-11 chloride ity o f hr tablet 13:58: ER 5 mg [place] [id number] tablet,ext Medical ended Branch release 24 hr olopatadine Yes [place] 0.7 U nivers (PAZEO) 0.7 7-11 % eye ity of % Drop 13:58: drops [address] hyoscyamine Yes hyoscyamin Univers sulfate 7-11 e 0.125 mg ity of 0.125 mg 13:58: sublingual [place]erm[place] as sublingual 11 tablet Medical tablet Branch amoxicillin Yes amoxicilli Univers -clavulanat 7-11 n 875 ity of e 875-125 13:58: [place] mg per 11 um Medical tablet clavulanat [place] e 125 mg tablet ferrous Yes iron Univers sulfate 7-11 ity of (IRON ORAL) 13:58: [address] mecobalamin Yes B12 Univer s (B12 ACTIVE 7-11 ity of ORAL) 13:58: [address] oxybutynin Yes oxybutynin U nivers XL 5 mg 24 7-11 chloride ity o f hr tablet 13:58: ER 5 mg [place] [id number] tablet,ext Medical ended Branch release 24 hr olopatadine Yes [place] 0.7 U nivers (PAZEO) 0.7 7-11 % eye ity of % Drop 13:58: drops [address] hyoscyamine Yes hyoscyamin Univers sulfate 7-11 e 0.125 mg ity of 0.125 mg 13:58: sublingual [place]erm[place] as sublingual 11 tablet Medical tablet Branch amoxicillin 0 Yes amoxicilli Univers -clavulanat 7-11 n 875 ity of e 875-125 13:58: [place] mg per 11 um Medical tablet clavulanat [place] e 125 mg tablet ferrous Yes iron Univers sulfate 05-31 ity of (IRON ORAL) 13:58: [address] mecobalamin Yes B12 Univer s (B12 ACTIVE 05-31 ity of ORAL) 13:58: [address] oxybutynin Yes oxybutynin U nivers XL 5 mg 24 7 chloride ity o f hr tablet 13:58: ER 5 mg [place] [id number] tablet,ext Medical ended Branch release 24 hr olopatadine Yes [place] 0.7 U nivers (PAZEO) 0.7 05-31 % eye ity of % Drop 13:58: drops [address] hyoscyamine Yes hyoscyamin Univers sulfate 05-31 e 0.125 mg ity of 0.125 mg 13:58: sublingual Jermaine as sublingual 11 tablet Medical tablet [place] amoxicillin Yes amoxicilli Univers -clavulanat 05-31 n 875 ity of e 875-125 13:58: [place] mg per 11 um Medical tablet clavulanat [place] e 125 mg tablet ferrous Yes iron Univers sulfate 05-31 ity of (IRON ORAL) 13:58: [address] mecobalamin Yes B12 Univer s (B12 ACTIVE 05-31 ity of ORAL) 13:58: [address] Monie 0.35 Yes 1{tbl} Take 1 Farzad sey MG oral 7-11 tablet by Seybold Tablet 00:00: mouth - 00 every Externa morning l [place] 0.35 Yes 1{tbl} Take 1 Farzad sey MG oral 7-11 tablet by Seybold Tablet 00:00: mouth - 00 every Externa morning l [place] 0.35 0 Yes 1{tbl} Take 1 Farzad sey MG oral 7-11 tablet by Seybold Tablet 00:00: mouth - 00 every Externa morning l norethindro Yes [id number] .35mg Take 1 Univers ne (ORTHO 7-11 tablet by ity o f MICRONOR) 00:00[place] 0[place] mg 00 the Medical tablet morning. Branch norethindro Yes [id number] .35mg Take 1 Univers ne (ORTHO 7-11 tablet by ity o f MICRONOR) 00:00[place] 0.[place] mg 00 the Medical tablet morning. Branch norethindro Yes [id number] .35mg Take 1 Univers ne (ORTHO 7-11 tablet by ity o f MICRONOR) 00:00: [place] 0[place] mg 00 the Medical tablet morning. Branch norethindro Yes [id number] .35mg Take 1 Univers ne (ORTHO 7-11 tablet by ity o f MICRONOR) 00:00: [place] 0[place] mg 00 the Medical tablet morning. Branch norethindro Yes [id number] .35mg Take 1 Univers ne (ORTHO 7-11 tablet by ity o f MICRONOR) 00:00: [place] 0[place] mg 00 the Medical tablet morning. Branch [place] 0.35 2022- No 1{tbl} Take 1 [place] MG oral 7-11 05-17 tablet by Seybol d Tablet 00:00: 00:00 mouth - 00 :00 every Externa morning l ondansetron 2021- No [id number] TAKE 1 Methodi ODT 7-11 08-17 TABLET [...] VOMITING FOR UP TO 10 DAYS. ondansetron 2022-0 Yes TAKE 1 Univ ers 4 mg [...] VOMITING FOR UP TO 10 DAYS. ondansetron 0 Yes TAKE 1 Univ ers 4 mg 4-28 TABLET BY ity of disintegrat 00:00: MOUTH [place] ing tablet 00 EVERY 8 Medica l HOURS Branch NEEDED FOR NAUSEA OR VOMITING FOR UP TO 10 DAYS. ondansetron 2021- No [id number] 4mg Q8H Take 1 Methodi ODT 4-28 [...] 4-13 by mouth. ity o f 00:00: [facility] losartan 50 2021-0 Yes 50mg Take 50 mg Univers mg tablet 4-13 by mouth. ity o f 00:00: [facility] losartan 50 2021-0 Yes 50mg Take 50 mg Univers mg tablet 4-13 by mouth. ity o f 00:00: [facility] losartan 50 2021-0 Yes 50mg Take 50 mg Univers mg tablet 4-13 by mouth. ity o f 00:00: [facility] losartan 50 2021-0 Yes 50mg Take 50 mg Univers mg tablet 4-13 by mouth. ity o f 00:00: [facility] losartan 2022-0 2022- No 50mg QD Take 50 mg [facility] (COZAAR) 50 4-13 10-[address] MG tablet 00:00: 00:00 daily. Hospi ta 00 :00 l losartan 2021-2021- No 50mg QD Take 50 mg [facility] (COZAAR) 50 4-13 10-[address] MG tablet 00:00: 00:00 daily. Hospi ta 00 :00 l losartan-hy 2021-0 2021- No [id number] TAKE 1 Methodi drochloroth 4-11 04-[address] iazide 00:00: 00:00 MOUTH Hospita (HYZAAR) 00 :00 EVERY DAY l 50-12.5 mg per tablet losartan-hy 2021-0 2021- No [id number] 1{tbl} QD Take 1 Methodi drochloroth 3-14 04-[address] iazide 00:00: 00:00 mouth Hospita (HYZAAR) 00 :00 daily for l 50-12.5 mg 60 days. per tablet omeprazole No 40mg QD Take 1 Meth mae (PriLOSEC) 01-18 05-[address] 40 MG 00:00: 04:59 (40 mg Hospita capsule 00 :00 total) by l mouth daily before breakfast for 90 days. esomeprazol No 40mg QD Take 1 Met hodi [...] NOSTRIL Branch spray DAILY. fluticasone 2021-0 Yes [id number] SPRAY 1 Methodi propionate 1-[address] (FLONASE) 00:00: EACH Hospita 50 00 NOSTRIL l mcg/actuati EVERY DAY on nasal spray fluticasone 2021- No [id number] SPRAY 1 [facility]i propionate 11-23 08-[address] (FLONASE) 00:00: 00:00 EACH Hospita 50 00 :00 NOSTRIL l mcg/actuati EVERY DAY on nasal spray losartan-hy 2021- No [id number] TAKE 1 Methodi drochloroth 11-23 03-[address] iazide 00:00: 00:00 MOUTH Hospita (HYZAAR) 00 :00 EVERY DAY l 50-12.5 mg per tablet cyclobenzap 2020-11- No [id number] 5mg Q.[id number] Take 1 Methodi rine 2 12-25 [id number] tablet (5 st (FLEXERIL) 00:00: 05:59 3D mg total) H ospita 5 mg tablet 00 :00 by mouth 3 l (three) times a day as needed for muscle spasms for up to 14 days. methylPREDN 2020-11- No Take 6 Met hodi ISolone 2-10 12-[address] (MEDROL 00:00: 05:59 (24 mg [...] daily for 4 days. fluticasone 2020-11- No [id number] SPRAY 1 Methodi propionate 12-27-[address] (FLONASE) 00:00: 00:00 EACH Hospita 50 00 :00 NOSTRIL l mcg/actuati EVERY DAY on nasal spray losartan-hy 2020-11- No [id number] TAKE 1 Methodi drochloroth 211-[address] iazide 00:00: 00:00 MOUTH Hospita (HYZAAR) 00 :00 EVERY DAY l 50-12.5 mg per tablet Estarylla 2020-11 Yes Methodi 0.25-35 1-30 st mg-mcg per 00:00: Hospita tablet 00 l Estarylla 2020-11- No Methodi 0.25-35 1-30 10-03 st mg-mcg per 00:00: 00:00 Hospit a tablet 00 :00 l Estarylla 2020-11- No Methodi 0.25-35 1-30 [...] Yes 1{tbl} Take 1 Un brit rphan-guaif 12 tablet by ity of enesin 00:00: mouth 2 [place] 30-600 mg 00 (two) Medical per tablet times Branch daily. dextrometho 2020-11- No [id number] 1{tbl} Q.5D Take 1 Methodi rphan-guaif 12-[address] enesin 00:00: 00:00 mouth 2 Hospita (Mucinex 00 :00 (two) l DM) 30-600 times a mg tablet day. extended release 12 hr benzonatate 2020-11- No [id number] 200mg Q.[id number] Take 1 Methodi (TESSALON) 12-[id number] 200 MG 00:00: 05:59 3D (200 mg Hospita capsule 00 :00 total) by l mouth 3 (three) times a day as needed for cough for up to 30 days. losartan-hy 2020-11- No [id number] 1{tbl} QD Take 1 Methodi drochloroth 12-[address] iazide 00:00: 00:00 mouth Hospita (Hyzaar) 00 :00 daily. l 50-12.5 mg per tablet fluticasone 2020-11- No [id number] 50ug QD 1 spray Methodi propionate 12-02 ([address] (FLONASE) 00:00: 00:00 total) by Ho spita 50 00 :00 Each Nare l mcg/actuati route on nasal daily. spray sulfamethox Yes [id number] 1{tbl} Take 1 Univers azole-trime 6-04 tablet by ity of thoprim 00:00: mouth 2 [place] (BACTRIM) 00 (two) Medical 400-80 mg times Branch per tablet daily. valACYclovi Yes [id number] 1g Take 1 Univers r (VALTREX) 6-04 tablet by ity of 1 gram 00:00: mouth [place] tablet 00 daily. Medical Branch sulfamethox Yes [id number] 1{tbl} Take 1 Univers azole-trime 6-04 tablet by ity of thoprim 00:00: mouth 2 [place] (BACTRIM) 00 (two) Medical 400-80 mg times Branch per tablet daily. valACYclovi Yes [id number] 1g Take 1 Univers r (VALTREX) 6-04 tablet by ity of 1 gram 00:00: mouth [place] tablet 00 daily. Medical Branch sulfamethox Yes [id number] 1{tbl} Take 1 Univers azole-trime 6-04 tablet by ity of thoprim 00:00: mouth 2 [place] (BACTRIM) 00 (two) Medical 400-80 mg times Branch per tablet daily. valACYclovi Yes [id number] 1g Take 1 Univers r (VALTREX) 6-04 tablet by ity of 1 gram 00:00: mouth [place] tablet 00 daily. Medical Branch sulfamethox Yes [id number] 1{tbl} Take 1 Univers azole-trime 6-04 tablet by ity of thoprim 00:00: mouth 2 [place] (BACTRIM) 00 (two) Medical 400-80 mg times Branch per tablet daily. valACYclovi Yes [id number] 1g Take 1 Univers r (VALTREX) 6-04 tablet by ity of 1 gram 00:00: mouth [place] tablet 00 daily. Medical Branch sulfamethox Yes [id number] 1{tbl} Take 1 Univers azole-trime 6-04 tablet by ity of thoprim 00:00: mouth 2 [place] (BACTRIM) 00 (two) Medical 400-80 mg times Branch per tablet daily. valACYclovi Yes [id number] 1g Take 1 Univers r (VALTREX) 6-04 tablet by ity of 1 gram 00:00: mouth [place] tablet 00 daily. Medical Branch sulfamethox Yes [id number] 1{tbl} Take 1 Univers azole-trime 6-04 tablet by ity of thoprim 00:00: mouth 2 [place] (BACTRIM) 00 (two) Medical 400-80 mg times Branch per tablet daily. valACYclovi Yes [id number] 1g Take 1 Univers r (VALTREX) 6-04 tablet by ity of 1 gram 00:00: mouth [place] tablet 00 daily. Medical Branch SERTraline 2019-11 Yes TAKE 1 Unive rs 50 mg 2-15 TABLET(50 ity of tablet 00:00: MG) BY [place] 00 MOUTH 1 Medical TIME EACH Branch DAY SERTraline 2019-11 Yes TAKE 1 Unive rs 50 mg 2-15 TABLET(50 ity of tablet 00:00: MG) BY [place] [id number] MOUTH 1 Medical TIME EACH Branch DAY SERTraline 2019-11 Yes TAKE 1 Unive rs 50 mg 2-15 TABLET(50 ity of tablet 00:00: MG) BY [place] [address] MOUTH 1 Medical TIME EACH Branch DAY SERTraline 2019-11 Yes TAKE 1 Unive rs 50 mg 2-15 TABLET(50 ity of tablet 00:00: MG) BY [place] [address] MOUTH 1 Medical TIME EACH Branch DAY SERTraline 2019-11 Yes TAKE 1 Unive rs 50 mg 2-15 TABLET(50 ity of tablet 00:00: MG) BY [place] [address] MOUTH 1 Medical TIME EACH Branch DAY SERTraline 2019-11 Yes TAKE 1 Unive rs 50 mg 2-15 TABLET(50 ity of tablet 00:00: MG) BY [place] [address] MOUTH 1 Medical TIME EACH Branch DAY meloxicam 2019-11 Yes Univers 7.5 mg 1-28 ity of tablet 00:00: [place] [facility] meloxicam 2019-11 Yes Univers 7.5 mg 1-28 ity of tablet 00:00: [place] [facility] meloxicam 2019-11 Yes Univers 7.5 mg 1-28 ity of tablet 00:00: [place] [facility] meloxicam 2019-11 Yes Univers 7.5 mg 1-28 ity of tablet 00:00: [place] [facility] meloxicam 2019-11 Yes Univers 7.5 mg 1-28 ity of tablet 00:00: [place] [facility] meloxicam 2019-11 Yes Univers 7.5 mg 1-28 ity of tablet 00:00: [place] [facility] hydroCHLORO 2019-11 Yes TK 1 T PO U nivers thiazide 0-22 QD IN THE ity of 12.5 mg 00:00: MORNING [place] tablet [facility] hydroCHLORO 2019-11 Yes TK 1 T PO U nivers thiazide 0-22 QD IN THE ity of 12.5 mg 00:00: MORNING [place] tablet [facility] hydroCHLORO 2019-11 Yes TK 1 T PO U nivers thiazide 0-22 QD IN THE ity of 12.5 mg 00:00: MORNING [place] tablet [facility] hydroCHLORO 2019-11 Yes TK 1 T PO U nivers thiazide 0-22 QD IN THE ity of 12.5 mg 00:00: MORNING [place] tablet 00 [facility] hydroCHLORO 2019-11 Yes TK 1 T PO U nivers thiazide 0-22 QD IN THE ity of 12.5 mg 00:00: MORNING [place] tablet 00 [facility] hydroCHLORO 2019-11 Yes TK 1 T PO U nivers thiazide 0-22 QD IN THE ity of 12.5 mg 00:00: MORNING [place] tablet 00 [facility] hydroCHLORO 2019-11 202- No 12.5mg QD Take 12.5 Methodi thiazide 0-22 11-[address] (HYDRODIURI 00:00: 00:00 mouth Hosp taran L) 12.5 MG 00 :00 daily. l tablet Vital Signs Vital Name Observation Time Observation Value Comments Source Systolic blood 2023-04-06 18:42:00 115 mm[Hg] Melania Wittybold - pressure External Diastolic blood 2023-04-06 18:42:00 85 mm[Hg] Jina prince Seybold - pressure External Heart rate 2023-04-06 18:42:00 88 /min Melania leggettbold - External Body temperature 2023-04-06 18:42:00 36.56 Clarice Abbie oleksandr Seybold - External Respiratory rate 2023-04-06 18:42:00 12 /min Abbie Cabrera - External Body height 2023-04-06 18:42:00 162.6 cm Melania Leslie oleksandrboeduardo - External Body weight 2023-04-06 18:42:00 81.466 kg Melania leggettboeduardo - External BMI 2023-04-06 18:42:00 30.83 kg/m2 Melania S oleksandrbold - External Oxygen saturation in 2023-04-06 18:42:00 97 /min Melania Cabrera - Arterial blood by External Pulse oximetry Systolic blood 2022-10-25 19:57:00 123 mm[Hg] Melania Wittybold - pressure External Diastolic blood 2022-10-25 19:57:00 76 mm[Hg] Kelse y Seybold - pressure External Heart rate 2022-10-25 19:57:00 78 /min Melania S oleksandrbold - External Body temperature 2022-10-25 19:57:00 37.28 Clarice Abbie ey Seybold - External Respiratory rate 2022-10-25 19:57:00 14 /min Abbie ey Seybold - External Body height 2022-10-25 19:57:00 162.6 cm Melania Jeffers eybold - External Body weight 2022-10-25 19:57:00 85.73 kg Melania S eybold - External BMI 2022-10-25 19:57:00 32.44 kg/m2 Melania Jeffers eybold - External Oxygen saturation in 2022-10-25 19:57:00 99 /min Melania Seybold - Arterial blood by External Pulse oximetry Systolic blood 2022-09-24 16:17:00 119 mm[Hg] Melania Seybold - pressure External Diastolic blood 2022-09-24 16:17:00 78 mm[Hg] Jina y Seybold - pressure External Heart rate 2022-09-24 16:17:00 99 /min Melania Jeffers eybold - External Body temperature 2022-09-24 16:17:00 36.89 Clarice Abbie leggett Seybold - External Respiratory rate 2022-09-24 16:17:00 13 /min Abbie leggett Seybold - External Body height 2022-09-24 16:17:00 162.6 cm Melania Jeffers eybold - External Body weight 2022-09-24 16:17:00 83.008 kg Melania Jeffers eybold - External BMI 2022-09-24 16:17:00 31.41 kg/m2 Melania Jeffers eybold - External Oxygen saturation in 2022-09-24 16:17:00 99 /min Melania Seybold - Arterial blood by External Pulse oximetry Systolic blood 2022-05-31 19:11:00 146 mm[Hg] Univer sity of pressure [facility] Diastolic blood 2022-05-31 19:11:00 99 mm[Hg] Unive rsity of pressure [facility] Heart rate 2022-05-31 19:11:00 111 /min Universi ty of [facility] Body temperature 2022-05-31 19:11:00 36.89 Clarice Univ ersity of [facility] Respiratory rate 2022-05-31 19:11:00 18 /min Univ ersity of [facility] Body height 2022-05-31 19:11:[address] [facility] Body weight 2022-05-31 19:11:[address] [facility] BMI 2022-05-31 19:11:00 29.13 kg/m2 [facility] Systolic blood 2023-05-09 15:15:00 116 mm[Hg] [facility] pressure Diastolic blood 2023-05-09 15:15:00 68 mm[facility]Hg] [facility] pressure Heart rate 2023-05-09 15:15:00 85 /min [facility] [place] [facility] Respiratory rate 2023-05-09 15:15:00 18 /min [facility] Oxygen saturation in 2023-05-09 15:15:00 98 /min [facility] Arterial blood by Pulse oximetry Body temperature 2023-05-09 14:52:00 36.67 Clarice [facility] Body height 2023-05-02 15:38:00 162.6 cm [facility] [place] [facility] Body weight 2023-05-02 15:38:00 79.833 kg [facility] [place] [facility] BMI 2023-05-02 15:38:00 30.21 kg/m2 [facility] [place] [facility] Heart Rate 2022-07-06 19:23:00 [facility] Systolic (mm Hg) 2022-07-06 19:23:00 Clif Acostaann Diastolic (mm Hg) 2022-07-06 19:23:00 [facility] eric Osmel Height 2022-07-06 19:23:00 162.56 cm [facility] Osmel Weight 2022-07-06 19:23:00 [facility] BMI Calculated 2022-07-06 19:23:00 Radhaori al Osmel Systolic blood 2022-04-02 16:17:00 120 mm[Hg] [facility] pressure Diastolic blood 2022-04-02 16:17:00 84 mm[Hg] [facility] pressure Heart rate 2022-04-02 16:17:00 100 /min [facility] [place] [facility] Body temperature 2022-04-02 16:17:00 36.89 Clarice [facility] Body height 2022-04-02 16:17:00 162.6 cm [facility] [place] [facility] Body weight 2022-04-02 16:17:00 77.565 kg [facility] [place] [facility] BMI 2022-04-02 16:17:00 29.35 kg/m2 [facility] Oxygen saturation in 2022-04-02 16:17:00 98 /min [facility] Arterial blood by Pulse oximetry Procedures Procedure Date / Time Performing Clinician Source Performed SURGICAL PATHOLOGY 2023-05-09 15:34:00 Casey Martin [facility] REQUEST LA AN ELECTIVE 2023-05-09 12:58:00 Kori Grey [facility] ENDOTRACHEAL AIRWAY Agatha EXCISION, MASS, NECK 2023-05-09 12:45:00 [facility] 2023-05-09 11:41:00 Casey Martin [facility]ital POC , URINE 2023-05-09 11:40:43 Freda Pete [facility] REFERRAL- 2022-03-16 05:01:00 Doctor Unassigned, No [facility] REQUEST/RESPONSE Name Medical Branch CBC WITH PLATELET AND 2022-02-18 19:47:00 [facility] DIFFERENTIAL COMPREHENSIVE METABOLIC 2022-02-18 19:47:00 [facility] PANEL TSH REFLEX TO T4F 2022-02-18 19:47:00 [facility] HEMOGLOBIN A1C 2022-02-18 [facility] 2022-01-20 20:45[facility]00 [facility] US BREAST COMPLETE 2022-01-07 20:05:00 [facility] BILATERAL MAMMO BREAST DIAGNOSTIC 2022-01-07 19:46:30 [facility] TOMOSYNTHESIS BILATERAL COVID-19 QUALITATIVE 2021-11-03 00:00:00 [facility] RT-PCR GROUP A STREP, RAPID 2021-11-03 00:00:00 [facility] ANTIGEN XR CHEST 2 VW 2021-10-30 20:42:54 [facility] spital COVID-19 QUALITATIVE 2021-10-30 19:28:00 [facility], [facility] RT-PCR CBC WITH PLATELET AND 2021-10-30 16:50:00 [facility], [facility] DIFFERENTIAL TSH REFLEX TO T4F 2021-10-30 16:50:00 [facility], [facility] BASIC METABOLIC PANEL 2021-10-30 16:49:00 [facility], [facility] GROUP A STREP, RAPID 2021-10-30 15:00:00 [facility], [facility] ANTIGEN STREP SCREEN CULTURE 2021-10-30 15:00:00 [facility], [facility] COMPREHENSIVE METABOLIC 2021-10-12 21:32:00 [facility], [facility] PANEL Plan of Care Planned Activity Planned Date Details Comments Source Future Scheduled 2023-07-29 Screening for [facility] Test 02:20:40 malignant neoplasm of colon (procedure) [code = 096681934] Future Scheduled 2023-07-29 Screening for [facility] Test 02:20:40 malignant neoplasm of colon (procedure) [code = 532715085] Future Scheduled 2023-07-29 Screening for [facility] Test 02:20:40 malignant neoplasm of colon (procedure) [code = 205700174] Future Scheduled 2023-07-29 COVID-19 VACCINE [facility] Test 02:20:40 (#1) [code = COVID-19 VACCINE (#1)] Future Scheduled 2023-07-29 Hepatitis C [facility]ital Test 02:20:40 screening (procedure) [code = 216423748] Future Scheduled 2023-07-29 Screening for [facility] Test 02:20:40 malignant neoplasm of colon (procedure) [code = 449563900] Future Scheduled 2023-07-29 Screening for [facility] Test 02:20:40 malignant neoplasm of colon (procedure) [code = 746990464] Future Scheduled 2023-07-29 BREAST CANCER [facility] Test 02:20:40 SCREENING [code = BREAST CANCER SCREENING] Future Scheduled 2023-07-29 INFLUENZA VACCINE [facility] Test 02:20:40 (#1) [code = INFLUENZA VACCINE (#1)] Future Scheduled 2023-07-29 Screening for [facility] Test 02:20:40 malignant neoplasm of cervix (procedure) [code = 868467105] Future Scheduled 2023-05-30 Screening for [facility] Test 17:50:50 malignant neoplasm of colon (procedure) [code = 000552682] Future Scheduled 2023-05-30 Screening for [facility] Test 17:50:50 malignant neoplasm of colon (procedure) [code = 982813992] Future Scheduled 2023-05-30 Screening for [facility] Test 17:50:50 malignant neoplasm of colon (procedure) [code = 243148920] Future Scheduled 2023-05-30 COVID-[address] [facility] Test 17:50:50 (#1) [code = COVID-19 VACCINE (#1)] Future Scheduled 2023-05-30 [facility] 17:50:50 screening (procedure) [code = 917423628] Future Scheduled 2023-05-30 Screening for [facility] Test 17:50:50 malignant neoplasm of colon (procedure) [code = 413031233] Future Scheduled 2023-05-30 Screening for [facility] Test 17:50:50 malignant neoplasm of colon (procedure) [code = 151147609] Future Scheduled 2023-05-30 BREAST CANCER [facility] Test 17:50:50 SCREENING [code = BREAST CANCER SCREENING] Future Scheduled 2023-05-30 [facility]UENZA [facility]ACCINE [facility] Test 17:50:50 [code = INFLUENZA VACCINE] Future Scheduled 2023-05-30 Screening for [facility] Test 17:50:50 malignant neoplasm of cervix (procedure) [code = 506941739] Future Scheduled 2022-04-22 COVID-[address] [facility] Test 10:50:51 (1) [code = COVID-19 VACCINE (1)] Future Scheduled 2022-04-22 [facility] 10:50:51 screening (procedure) [code = 414846002] Future Scheduled 2022-04-22 INFLUENZA [facility]ACCINE [facility] Test 10:50:51 [code = INFLUENZA VACCINE] Future Scheduled 2022-04-22 Screening for [facility] Test 10:50:51 malignant neoplasm of cervix (procedure) [code = 263168937] Encounters Start End Encounter Admission Attending Care Care Encounter Source Date/Time Date/Time Type Type Clinicians Facility Department ID 2023-10-05 2023-10-05 Outpatient MELANIA GOMEZ [id number] Melania 13:30:00 13:30:00 MIKE garcia 2023-07-13 2023-07-13 Outpatient PREZAS, MELANIA PENA [id number] Melania 10:45:00 10:45:00 MIKE Seybol d 2023-06-25 2023-06-25 Outpatient PREZAS, MELANIA PENA [id number] Melania 00:00:00 00:00:00 MIKE Seybol d 2023-06-21 2023-06-21 Outpatient PREZAS, MELANIA PENA [id number] Melania 00:00:00 00:00:00 MIKE Seybol d 2023-06-21 2023-06-21 Outpatient PREZAS, MELANIA PENA [id number] Melania 00:00:00 00:00:00 MIKE Seybol d 2023-06-21 2023-06-21 Outpatient PREZAS, MELANIA PENA [id number] Melania 00:00:00 00:00:00 MIKE Seybol d 2023-06-20 2023-06-20 Outpatient LAB90 MELANIA PENA [id number] Melania 13:35:00 13:35:00 Seybol d 2023-06-20 2023-06-20 Outpatient PREZAS, MELANIA PENA [id number] Melania 00:00:00 00:00:00 MIKE Seybol d 2023-06-20 2023-06-20 Outpatient PREZAS, MELANIA PENA [id number] Melania 00:00:00 00:00:00 MIKE Seybol d 2023-06-20 2023-06-20 Outpatient PREZAS, MELANIA PENA [id number] Melania 00:00:00 00:00:00 MIKE Seybol d 2023-06-20 2023-06-20 Outpatient PREZAS, MELANIA PENA [id number] Melania 00:00:00 00:00:00 MIKE Seybol d 2023-06-16 2023-06-16 Outpatient PREZAS, MELANIA PENA [id number] Melania 00:00:00 00:00:00 MIKE Seybol d 2023-06-09 2023-06-09 Outpatient PREZAS, MELANIA PENA [id number] Melania 09:30:00 09:30:00 MIKE Seybol d 2023-06-07 2023-06-07 Outpatient PREZAS, MELANIA MELANIA [id number] Melania 00:00:00 00:00:00 MIKE Seybol d 2023-06-06 2023-06-06 Outpatient PREZAS, MELANIA MELANIA [id number] Melania 00:00:00 00:00:00 MIKE Seybol d 2023-05-27 2023-05-27 Refill Medi, 1.2.840.1 [id number] Methodi 00:00:00 00:00:[id number] 3.430.2.7 Hospit a .[id number] l .8 2023-05-27 2023-05-27 Refill Medi, 1.2.840.1 [id number] Methodi 00:00:00 00:00:[id number] 3.430.2.7 Hospit a .3.980969 l .8 2023-05-25 2023-05-25 Outpatient PREZAS, MELANIA PENA [id number] Melania 00:00:00 00:00:00 MIKE Seybol d 2023-05-18 2023-05-18 Office Casey Martin 1.2.840.1 [id number] Methodi 13:00:00 13:20:04 Visit S. [address]47.1.[address] 3.430.2.7 Hospit a .3.115465 l .8 2023-05-18 2023-05-18 Office Casey Martin 1.2.840.1 [id number] 21 [id number] Methodi 13:00:00 13:20:[address] 3.430.2.7 Hospit a .3.593038 l .8 2023-05-16 2023-05-16 Outpatient PREZAMELANIA Jeffers MELANIA [id number] 60 Melania 00:00:00 00:00:00 MIKE Seybol d 2023-05-09 2023-05-09 [facility] Casey Martin 1.2.840.1 [id number] 2 [id number] Methodi 05:51:00 10:34:00 Encounter S[address] 00101.1.[address] 3.430.2.7 Hospit a .3.308630 l .8 2023-05-09 2023-05-09 Surgery Casey Martin 1.2.840.1 [id number] 21 [id number] Methodi 07:45:00 09:45:[address] 3.430.2.7 Hospit a .3.186143 l .8 2023-05-09 2023-05-09 Surgery Casey Martin 1.2.840.1 [id number] 21 [id number] Methodi 07:45:00 09:45:[address] 3.430.2.7 Hospit a .3.451508 l .8 2023-05-09 2023-05-09 Anesthesia Anisha Myers A. 1.2.840.1 10 [id number] Methodi 07:45:00 09:17:00 Event Juan R, Freda 54044.1.[address] 3.430.2.7 Hospit a .3.330677 l .8 2023-05-09 2023-05-09 Anesthesia Anisha Myers A. 1.2.840.1 10 [id number] Methodi 07:45:00 09:17:00 Event Juan R, Freda 99713.1.[address] 3.430.2.7 Hospit a .3.701522 l .8 2023-05-09 2023-05-09 [facility] CASEY MARTIN [facility] [id number] [place] 00:00:00 00:00:00 Encounter [address] 2023-05-05 2023-05-05 Outpatient MELANIA GOMEZ [id number] Mel[place] 00:00:00 00:00:00 MIKE Wittybol d 2023-05-04 2023-05-04 Outpatient LAB90 MELANIA PENA [id number] 29 Melania 10:05:00 10:05:00 Seybol d 2023-05-04 2023-05-04 Outpatient ALDEN VANESSA MELANIA [id number] [place] 09:00:00 09:00:00 Seybol d 2023-05-04 2023-05-04 Outpatient MELANIA GOMEZ MELANIA [id number] Melania 00:00:00 00:00:00 MIKE Seybol d 2023-05-03 2023-05-03 Outpatient HERLINDA MELANIA PENA [id number] 14 [place]ania 00:00:00 00:00:00 MIKE Seybol d 2023-05-02 2023-05-02 Telemedici Casey Martin 1.2.840.1 [id number] Methodi 13:00:00 13:26:[address] 3.430.2.7 Hospit a .3.640307 l .8 2023-05-02 2023-05-02 Telemedici Casey Martin 1.2.840.1 [id number] Methodi 13:00:00 13:26:[address] 3.430.2.7 Hospit a .3.345411 l .8 2023-05-02 2023-05-02 Outpatient MELANIA GOMEZ MELANIA [id number] 02 Melania 00:00:00 00:00:00 MIKE Seybol d 2023-05-02 2023-05-02 Outpatient HERLINDA MELANIA PENA [id number] 69 [place] 00:00:00 00:00:00 MIKE Seybol d 2023-05-02 2023-05-02 Telephone Mezta, 1.2.840.1 [id number] 2100 [id number] Methodi 00:00:00 00:00:[address] 3.430.2.7 Hospit a .3.237389 l .8 2023-05-02 2023-05-02 Telephone Mezta, 1.2.840.1 [id number] 2100 658029 Methodi 00:00:00 00:00:[address] 3.430.2.7 Hospit a .3.013022 l .8 2023-05-01 2023-05-01 Outpatient PREZAS, MELANIA PENA [id number] 80 [place] 00:00:00 00:00:00 MIKE garcia 2023-04-29 2023-04-29 Travel 1.2.840.1 1.2.234.136 9294 [id number] Methodi 00:00:00 00:00:[address] 3.430.2.7 0.2.7.3.698 Ho spita .3.577364 084.8 l .8 2023-04-29 2023-04-29 Travel 1.2.840.1 1.2.547.101 0861 411089 Methodi 00:00:00 00:00:[address] 3.430.2.7 0.2.7.3.698 Ho spita .3.867841 084.8 l .8 2023-04-21 2023-04-21 Outpatient PREMELANIA MORAN [id number] [place] 00:00:00 00:00:00 MIKE garcia 2023-04-20 2023-04-20 Outpatient PROVIDERMELANIA [id number] Mel[place] 08:15:00 08:15:00 VIDEOVISITN Se diogenes SADLER 2023-04-20 2023-04-20 Refill Medi, 1.2.840.1 [id number] 3821 Methodi 00:00:00 00:00:[address] 3.430.2.7 Hospit a .3.285943 l .8 2023-04-20 2023-04-20 Refill Medi, 1.2.840.1 [id number] 836018 4812 Methodi 00:00:00 00:00:[address] 3.430.2.7 Hospit a .3.326165 l .8 2023-04-06 2023-04-06 Outpatient PREZAMELANIA Jeffers [id number] Mel[place] 13:45:00 13:45:00 MIKE Seybol d 2023-04-06 2023-04-06 Outpatient PREZAS, MELANIA PENA [id number] [place] 00:00:00 00:00:00 MIKE Seybol d 2023-04-05 2023-04-05 Outpatient PREZAS, MELANIA PENA [id number] [place] 00:00:00 00:00:00 MIKE Seybol d 2023-03-28 2023-03-28 Outpatient PREZAS, MELANIA PENA [id number] [place] 00:00:00 00:00:00 MIKE Seybol d 2023-03-22 2023-03-22 Outpatient PREZAS, MELANIA PENA [id number] [place] 00:00:00 00:00:00 MIKE Seybol d 2023-03-14 2023-03-14 Outpatient PREZAS, MELANIA PENA [id number] 21 [place] 00:00:00 00:00:00 MIKE Seybol d 2023-03-14 2023-03-14 Telephone Dima, 1.2.840.1 [id number] 2099 [id number] Methodi 00:00:00 00:00:[address] 3.430.2.7 Hospit a .3.040422 l .8 2023-03-14 2023-03-14 Prep for Mezta, 1.2.840.1 [id number] 21001 68508 Methodi 00:00:00 00:00:00 Surgery Kiya 37435.1.[address] 3.430.2.7 Hospit a .3.280324 l .8 2023-03-14 2023-03-14 Telephone Dima, 1.2.840.1 [id number] 2099 173524 Methodi 00:00:00 00:00:[address] 3.430.2.7 Hospit a .3.865301 l .8 2023-03-14 2023-03-14 Prep for Mezta, 1.2.840.1 [id number] 21001 14444 Methodi 00:00:00 00:00:00 Surgery Kiya 02582.1.[address] 3.430.2.7 Hospit a .3.889089 l .8 2023-03-03 2023-03-03 Outpatient MELANIA GOMEZ [id number] [place] 00:00:00 00:00:00 MIKE Seybol d 2023-03-02 2023-03-02 Outpatient MELANIA GOMEZ [id number] 23 [place] 00:00:00 00:00:00 MIKE Seybol d 2023-01-05 2023-01-05 Telephone LYNSEY Yang 1.2.558.929 8998 73876 Univers 00:00:00 00:00:00 Laverne FRYE 350.1.13.10 y he[id number] [address] 2022-12-22 2022-12-22 Outpatient LAB90 MELANIA PENA [id number] [place] 10:30:00 10:30:00 Seybol d 2022-12-14 2022-12-14 Outpatient PREZAMELANIA Jeffers [id number] [place] 00:00:00 00:00:00 MIKE Seybol d 2022-12-07 2022-12-07 Outpatient ETHAN HERNANDEZ [facility] B [id number] [facility] 09:00:00 09:00:00 ETHAN HANKS suresh [facility] 2022-12-07 2022-12-07 Outpatient PREZASMELANIA [id number] [place] 00:00:00 00:00:00 MIKE Seybol d 2022-12-07 2022-12-07 Outpatient PREZAMELANIA Jeffers [id number] [place] 00:00:00 00:00:00 MIKE Seybol d 2022-11-29 2022-11-29 Outpatient ETHAN HERNANDEZ [facility] B [id number] Univers 14:00:00 14:00:00 ETHAN HANKS [facility] 2022-11-29 2022-11-29 Outpatient ETHAN HERNANDEZ [facility] B [id number] Univers 14:00:00 14:00:00 KARMAETHAN HUANG marino [facility] 2022-11-26 2022-11-26 Outpatient MELANIA GOMEZ [id number] [place] 00:00:00 00:00:00 MIKE Seybol d 2022-11-25 2022-11-25 Outpatient PREMELANIA MORAN [id number] [place] 14:00:00 14:00:00 MIKE Seybol d 2022-11-25 2022-11-25 Outpatient PREMELANIA MORAN [id number] [place] 00:00:00 00:00:00 MIKE Seybol d 2022-11-19 2022-11-19 Telephone Ness [facility] 1.2.840.11 4 [id number] [facility] 00:00:00 00:00:00 Ethan KABA 350.1.13.10 it y of PEDIATRIC 4.2.7.2.686 [facility] [id number] [address] 2022-11-13 2022-11-13 [facility] 1.2.840.114 [id number] [facility] 00:00:00 00:00:00 Ethan KABA 350.1.13.10 it y of WOMEN'S 4.2.7.2.686 [facility] [id number] [address] 2022-11-10 2022-11-10 Outpatient MELANIA GOMEZ [id number] [place] 00:00:00 00:00:00 MIKE Seybol d 2022-11-05 2022-11-05 Outpatient PREMELANIA MORAN [id number] [place] 00:00:00 00:00:00 MIKE Seybol d 2022-11-05 2022-11-05 Outpatient MELANIA GOMEZ [id number] [place] 00:00:00 00:00:00 MIKE Seybol d 2022-11-04 2022-11-04 Outpatient MELANIA GOMEZ [id number] [place] 00:00:00 00:00:00 MIKE Seybol d 2022-11-03 2022-11-03 Outpatient PREZAS, MELANIA MELANIA [id number] [place] 00:00:00 00:00:00 MIKE Seybol d 2022-10-28 2022-10-28 Outpatient PREZAS, MELANIA MELANIA [id number] [place] 00:00:00 00:00:00 MIKE Seybol d 2022-10-25 2022-10-25 Outpatient LAB90 MELANIA MELANIA [id number] [place] 14:45:00 14:45:00 Seybol d 2022-10-25 2022-10-25 Outpatient PREZAS, MELANIA MELANIA [id number] [place] 14:00:00 14:00:00 MIKE Seybol d 2022-10-21 2022-10-21 Outpatient PREZAS, MELANIA MELANIA [id number] [place] 00:00:00 00:00:00 MIKE Seybol d 2022-10-09 2022-10-09 Refill Medi, 1.2.840.1 [id number] 3083 Methodi 00:00:00 00:00:[address] 3.430.2.7 Hospit a .3.188322 l .8 2022-10-09 2022-10-09 Refill Medi, 1.2.840.1 [id number] 445963 9497 Methodi 00:00:00 00:00:[address] 3.430.2.7 Hospit a .3.195645 l .8 2022-10-08 2022-10-08 Outpatient PREZAS, MELANIA PENA [id number] [place] 00:00:00 00:00:00 MIKE Seybol d 2022-09-24 2022-09-24 Outpatient LAB90 MELANIA PENA [id number] [place] 12:20:00 12:20:00 Seybol d 2022-09-24 2022-09-24 Outpatient PREZAS, MELANIA PENA [id number] [place] 11:15:00 11:15:00 MIKE Seybol d 2022-09-24 2022-09-24 Outpatient PREZAS, MELANIA PENA [id number] 69 [place] 00:00:00 00:00:00 MIKE Seybol d 2022-09-16 2022-09-16 Outpatient PREZALeslie MELANIA MELANIA [id number] [place] 00:00:00 00:00:00 MIKE Seybol d 2022-09-13 2022-09-13 Outpatient PREZAS, MELANIA PENA [id number] [place] 00:00:00 00:00:00 MIKE Seybol d 2022-09-09 2022-09-09 Refill Medi, 1.2.840.1 [id number] 0759 Methodi 00:00:00 00:00:[address] 3.430.2.7 Hospit a .3.425969 l .8 2022-09-09 2022-09-09 Refill Medi, 1.2.840.1 [id number] 428708 1015 Methodi 00:00:00 00:00:[address] 3.430.2.7 Hospit a .3.717548 l .8 2022-09-06 2022-09-06 Outpatient PREZAS, MELANIA PENA [id number] [place] 00:00:00 00:00:00 MIKE Seybol d 2022-08-30 2022-08-30 Outpatient PREZAS MELANIA PENA [id number] 84 [place] 13:45:00 13:45:00 MIKE Seybol d 2022-08-26 2022-08-26 Outpatient PREZAS MELANIA PENA [id number] [place] 00:00:00 00:00:00 MIKE Seybol d 2022-08-23 2022-08-23 TelemedicCasey Kelley 1.2.840.1 [id number] Methodi 15:15:00 15:39:[address] 3.430.2.7 Hospit a .3.195547 l .8 2022-08-23 2022-08-23 TelemedicCasey Kelley 1.2.840.1 [id number] Methodi 15:15:00 15:39:52 ne S. 34856.1.1 827 3.430.2.7 Hospit a .3.783956 l .8 2022-08-13 2022-08-13 Outpatient MELANIA GOMEZ [id number] [place] 00:00:00 00:00:00 MIKE Seybol d 2022-08-11 2022-08-11 Outpatient PREMELANIA MORAN [id number] [place] 00:00:00 00:00:00 MIKE Seybol d 2022-08-11 2022-08-11 Outpatient PREZAMELANIA Jeffers [id number] [place] 00:00:00 00:00:00 MIKE Seybol d 2022-08-02 2022-08-02 Office PreAlden moran 1.2.840.114 [id number] [place] 13:45:00 14:00:00 Visit [facility].13.13 [facility] [id number] 0 2022-08-02 2022-08-02 Outpatient PREMELANIA MORAN [id number] [place] 08:15:00 08:15:00 MIKE Seybol d 2022-07-20 2022-07-20 Outpatient PREMELANIA MORAN [id number] [place] 00:00:00 00:00:00 MIKE Seybol d 2022-07-20 2022-07-20 Outpatient MELANIA GMOEZ [id number] [place] 00:00:00 00:00:00 MIKE Seybol d 2022-07-19 2022-07-19 Outpatient PREZAMELANIA Jeffers [id number] [place] 00:00:00 00:00:00 MIKE Seybol d 2022-07-14 2022-07-14 Outpatient MELANIA GOMEZ [id number] [place] 00:00:00 00:00:00 MIKE Seybol d 2022-07-14 2022-07-14 Outpatient MELANIA GOMEZ [id number] [place] 00:00:00 00:00:00 MIKE Seybol d 2022-07-14 2022-07-14 Outpatient PREKANIKA MELANIA PENA [id number] [place] 00:00:00 00:00:00 MIKE Seybol d 2022-07-13 2022-07-13 Outpatient TORREYEDUARDLeslie MELANIA PENA [id number] 56 [place] 00:00:00 00:00:00 MIKE Seybol d 2022-07-13 2022-07-13 Outpatient MELANIA GOMEZ [id number] [place] 00:00:00 00:00:00 MIKE Seybol d 2022-07-07 2022-07-08 Between nullFlavo [facility] [id number] Memoria 17:13:09 17:13:09 Visit r Primary 00 l [facility] 2022-07-07 2022-07-08 Between nullFlavo [facility] [id number] Memoria 17:13:09 17:13:09 Visit r Primary 00 l [facility] 2022-07-07 2022-07-08 Outpatient MHMG [facility] [id number] 12:13:09 12:13:09 00 2022-07-08 2022-07-08 Outpatient LAB90 MELANIA PENA [id number] 30 [place] 10:55:00 10:55:00 Seybol d 2022-07-08 2022-07-08 Office Alden Gomez 1.2.840.114 [id number] [place] 09:30:00 10:15:00 Visit Mike Sesar 350.1.13.13 Se shetty 1.2.7.2.686 [id number] 0 2022-07-06 2022-07-07 Outpatient nullFlavo [facility] [id number] Memoria 19:00:00 04:59:59 r Primary 00 l [facility] 2022-07-06 2022-07-07 Outpatient nullFlavo [facility] [id number] Memoria 19:00:00 04:59:59 r Primary 00 l [facility] 2022-07-07 2022-07-07 Outpatient PREMELANIA MORAN [id number] [place] 00:00:00 00:00:00 MIKE Seybol d 2022-07-07 2022-07-07 Refill Medi, 1.2.840.1 [id number] Methodi 00:00:00 00:00:[address] 3.430.2.7 Hospit a .3.987549 l .8 2022-07-06 2022-07-06 Outpatient Brady, CAROLAMG MG [id number] 14:00:00 23:59:59 La G 00 2022-07-06 2022-07-06 Outpatient TOBY SRIVASTAVAIE [id number] Memoria 14:00:00 14:00:00 00 l Osmel 2022-06-17 2022-06-17 Outpatient AMBREEN_FAR [facility] 894 [facility] 00:00:00 00:00:00 MALIKA 0728 da [facility] 2022-05-31 2022-05-31 Outpatient R ETHAN HANKS [facility] B [id number] Univers 13:45:00 14:36:10 ETHAN HANKS [facility] 2022-05-31 2022-05-31 Office BUBBA Hanks [place] 1.2.840.114 [id number] Univers 13:45:00 14:36:10 Visit Ethan KABA 350.1.13.10 it y of WOMEN'S 4.2.7.2.686 [facility] [id number] [address] 2022-05-31 2022-05-31 Outpatient R ETHAN HANKS [facility] B [id number] Univers 13:45:00 14:36:10 ETHAN HANKS [facility] 2022-05-31 2022-05-31 Outpatient R ETHAN HANKS [facility] B [id number] Univers 13:45:00 13:45:00 ETHAN HANKS [facility] 2022-05-31 2022-05-31 Orders Doctor CLAUDIO 1.2.840.114 [id number] Univers 00:00:00 00:00:00 Only Unassigned, MARCUS 350.1.13.10 ity of [place] [facility] 4.2.7.2.686 Jermaine as [id number] Medi radha [address] [place] 2022-05-26 2022-05-26 Outpatient R ADUM, [facility] [id number] Univers 09:00:00 09:00:00 LOU ity [facility] 2022-05-04 2022-05-04 Refill Ad, [facility] 1.2.840.114 [id number] Univers 00:00:00 00:00:00 Lou Solorzano [place] 350.1.13.10 ity [facility] [place] [id number] Nm dical [facility] [address] 2022-04-30 2022-04-30 Outpatient R ADUM, [facility] [id number] Univers 13:30:00 13:30:00 [facility] 2022-04-30 [facility] 1.2.840.114 [id number] Univers 00:00:00 00:00:00 Lou Solorzano [facility] 350.1.13.10 i ty of [place] 4.2.7.2.686 Jermaine as ISABELLA?BLEA [id number] Nm diccaroline EY [address] [place] MEDICAL OFF[facility]ILDING 2022-04-07 2022-04-07 Telephone Erasto, 1.2.840.1 [id number] 2 [id number] Methodi 00:00:00 00:00:[address]342.1.[address] 3.430.2.7 Hospit a .3.007802 l .8 2022-04-02 2022-04-02 Office [facility], 1.2.840.1 [id number] 603241 4240 Methodi 11:00:00 11:38:27 Visit Willow 19690.1.[address] 3.430.2.7 Hospit a .3.300214 l .8 2022-04-02 2022-04-02 Travel 1.2.840.1 1.2.341.041 6134 693158 Methodi 00:00:00 00:00:[address] 3.430.2.7 0.2.7.3.698 Ho spita .3.539609 084.8 l .8 2022-03-18 2022-03-18 Telemedici Magdi, 1.2.840.1 [id number] 306 7626324 Methodi 09:15:00 09:27:36 ne [address] 91727.1.[address] 3.430.2.7 Hospit a .3.704259 l .8 2022-03-16 2022-03-16 Consult Cathy, 1.2.840.1 [id number] 7046 Methodi 12:30:00 13:14:[address] 3.430.2.7 Hospit a .3.352598 l .8 2022-03-16 2022-03-16 Travel 1.2.840.1 1.2.275.218 9231 093370 Methodi 00:00:00 00:00:[address] 3.430.2.7 0.2.7.3.698 Ho spita .3.089456 084.8 l .8 2022-03-16 2022-03-16 Orders Doctor GONZÁLEZ 1.2.840.114 [id number] Univers 00:00:00 00:00:00 Only Unassigned, MARCUS 350.1.13.10 ity [place] [facility] 4.2.7.2.686 Jermaine as [phone] [facility] [address] 2022-03-10 2022-03-10 Travel 1.2.840.1 1.2.406.339 9346 132537 Methodi 00:00:00 00:00:[address] 3.430.2.7 0.2.7.3.698 Ho spita .3.371376 084.8 l .8 2022-03-10 2022-03-10 Telephone Magdi, 1.2.840.1 [id number] 2100 375722 Methodi 00:00:00 00:00:[address] 3.430.2.7 Hospit a .3.973148 l .8 2022-02-25 2022-02-25 Refill Medi, 1.2.840.1 [id number] 840567 5201 Methodi 00:00:00 00:00:[address] 3.430.2.7 Hospit a .3.953778 l .8 2022-02-16 2022-02-16 Office Medi, 1.2.840.1 [id number] 666578 4405 Methodi 15:00:00 15:46:30 Visit Willow 82848.1.[address] 3.430.2.7 Hospit a .3.579826 l .8 2022-02-15 2022-02-15 Travel 1.2.840.1 1.2.252.825 1057 764909 Methodi 00:00:00 00:00:[address] 3.430.2.7 0.2.7.3.698 spita .3.334129 084.8 l .8 2022-02-09 2022-02-09 Outpatient R AD, [facility] [id number] Univers 08:00:00 08:00:00 [facility] 2022-02-09 2022-02-09 Outpatient R ADUM, [facility] [id number] Univers 08:00:00 08:00:00 [facility] 2022-02-06 2022-02-06 Refill Medi, 1.2.840.1 [id number] [id number] 0044 Methodi 00:00:00 00:00:[address] 3.430.2.7 Hospit a .3.180864 l .8 2022-02-05 2022-02-05 Patient Doctor [facility] 1.2.840.114 [id number] Univers 00:00:00 00:00:00 Secure Msg Unassigned, [place] 350.1.13.10 ity [place] [id number] Nm dical NAL [address] 2022-02-02 2022-02-02 Pre Visit LYNSEY Santos 1.2.027.305 [id number] 2450 Univers 00:00:00 00:00:00 Outreach Leisa FRYE 350.1.13.10 ity of [place] [id number] [facility] [address] [place] 2022-02-01 2022-02-01 Refill Eddie, 1.2.840.1 [id number] 645559 7347 Methodi 00:00:00 00:00:[address] 3.430.2.7 Hospit a .3.819243 l .8 2022-01-31 2022-01-31 Refill Magdi 1.2.840.1 [id number] 7634 Methodi 00:00:00 00:00:[address] 3.430.2.7 Hospit a .3.114750 l .8 2022-01-20 2022-01-20 Outpatient CASEY MARTIN [facility] [id number] [id number] [place] 00:00:00 00:00:[address] 2022-01-15 2022-01-15 Transcribe Casey Martin 1.2.840.1 [id number] Methodi 00:00:00 00:00:00 [place]J 38865.1.[address] 3.430.2.7 Hospit a .3.586585 l .8 2022-01-14 2022-01-14 Patient [facility], [facility] 1.2.840.114 [id number] Univers 00:00:00 00:00:00 Secure Msg Lou Solorzano [place] 350.1.13.10 [place] 054.1362137 Nm dical NAL 134 [facility] 2022-01-12 2022-01-12 Office Willow Ivey 1.2.840.1 [id number] 2 [id number] Methodi 10:45:00 11:45:03 Visit Casey Martin S. 71005.1.[address] 3.430.2.7 Hospit a .3.584916 l .8 2022-01-12 2022-01-12 Refill Casey Martin 1.2.840.1 [id number] 21 [id number] Methodi 00:00:00 00:00:[address] 3.430.2.7 Hospit a .3.899590 l .8 2022-01-12 2022-01-12 Travel 1.2.840.1 1.2.552.373 5878 [id number] Methodi 00:00:00 00:00:[address] 3.430.2.7 0.2.7.3.698 Ho spita .3.673087 084.8 l .8 2022-01-12 2022-01-12 Refrobert Eubanks [facility] 1.2.840.114 [id number] Univers 00:00:00 00:00:00 Lou HERRMANN 350.1.13.10 [facility] [phone] [place] [address] [address] [facility] 2022-01-07 2022-01-07 [facility], 1.2.840.1 [id number] Methodi 12:51:54 23:59:00 Encounter Willow 63363.1.[address] 3.430.2.7 Hospit a .3.548092 l .8 2022-01-07 2022-01-07 [facility] 1.2.840.1 [id number] Methodi 12:51:36 23:59:00 Encounter Willow [address]2795.1.[address] 3.430.2.7 Hospit a .3.834733 l .8 2022-01-01 2022-01-01 Travel 1.2.840.1 1.2.233.047 9003 283107 Methodi 00:00:00 00:00:[address] 3.430.2.7 0.2.7.3.698 Ho spita .3.603961 084.8 l .8 2021-12-24 2021-12-24 Travel 1.2.840.1 1.2.707.652 8074 606338 Methodi 00:00:00 00:00:[address] 3.430.2.7 0.2.7.3.698 Ho spita .3.319004 084.8 l .8 2021-11-23 2021-11-23 Refill Medi, 1.2.840.1 [id number] 195129 1614 Methodi 00:00:00 00:00:[address] 3.430.2.7 Hospit a .3.560620 l .8 2021-11-17 2021-11-17 Orders Medi, 1.2.840.1 [id number] 598196 4542 Methodi 00:00:00 00:00:00 Only Willow 85914.1.[address] 3.430.2.7 Hospit a .3.097062 l .8 2021-11-03 2021-11-03 Orders Medi, 1.2.840.1 [id number] 240918 9948 Methodi 00:00:00 00:00:00 Only Willow 64419.1.[address] 3.430.2.7 Hospit a .3.709094 l .8 2021-10-30 2021-10-30 Hospital Medi, 1.2.840.1 [id number] 27491 07394 Methodi 14:35:32 23:59:00 Encounter Willow 82388.1.[address] 3.430.2.7 Hospit a .3.407324 l .8 2021-10-30 2021-10-30 Tele[facility] Medi, 1.2.840.1 [id number] 987 [id number] Methodi 08:30:00 08:34:51 ne [place]ow 39091.1.[address] 3.430.2.7 Hospit a .3.171205 l .8 2021-10-30 2021-10-30 Outpatient [facility], [facility] [id number] [address] [place] [address] 00:00:00 00:00:[address] [place] 2021-10-30 2021-10-30 Travel 1.2.840.1 1.2.399.507 3225 209238 Methodi 00:00:00 00:00:[address] 3.430.2.7 0.2.7.3.698 Ho spita .3.803882 084.8 l .8 2021-10-27 2021-10-27 Travel 1.2.840.1 1.2.811.106 8855 763807 Methodi 00:00:00 00:00:[address] 3.430.2.7 0.2.7.3.698 Ho spita .3.435123 084.8 l .8 2021-10-26 2021-10-26 [facility], 1.2.840.1 [id number] 248515 8542 Methodi 00:00:00 00:00:00 Only Willow 29281.1.[address] 3.430.2.7 Hospit a .3.929716 l .8 2021-10-25 2021-10-25 Refill [facility], 1.2.840.1 [id number] 232800 6776 Methodi 00:00:00 00:00:[address] 3.430.2.7 Hospit a .3.881596 l .8 2021-10-07 2021-10-07 [facility], 1.2.840.1 [id number] 18230 64369 Methodi 13:11:48 23:59:00 Encounter Willow [address]173.1.[address] 3.430.2.7 Hospit a .3.184157 l .8 2021-10-07 2021-10-07 [facility], 1.2.840.1 [id number] 22114 Methodi 13:07:48 13:10:00 Encounter Willow 42391.1.[address] 3.430.2.7 Hospit a .3.438621 l .8 2021-10-07 2021-10-07 [facility] Medi, 1.2.840.1 [id number] 81008 61414 Methodi 13:04:17 13:06:00 Encounter Willow 72029.1.[address] 3.430.2.7 Hospit a .3.265380 l .8 2021-10-07 2021-10-07 [facility] Medi, 1.2.840.1 [id number] 33725 Methodi 13:03:19 13:03:19 Encounter Willow 55047.1.[address] 3.430.2.7 Hospit a .3.632239 l .8 2021-10-07 2021-10-07 [facility] Medi, 1.2.840.1 [id number] 68426 Methodi 13:03:18 13:03:18 Encounter Willow 79342.1.[address] 3.430.2.7 Hospit a .3.315996 l .8 2021-10-07 2021-10-07 Orders Asked, No 1.2.840.1 [id number] 2100 423614 Methodi 00:00:00 00:00:00 Only Pcp 63436.1.[address] 3.430.2.7 Hospit a .3.203584 l .8 2021-10-07 2021-10-07 Orders Medi, 1.2.840.1 [id number] 547541 2140 Methodi 00:00:00 00:00:00 Only Willow 40184.1.[address] 3.430.2.7 Hospit a .3.044712 l .8 2021-10-02 2021-10-02 [facility] Medi, 1.2.840.1 [id number] 972 [id number] Methodi 09:00:00 09:53:05 ne [place] 46259.1.[address] 3.430.2.7 Hospit a .3.418085 l .8 2021-10-02 2021-10-02 Travel 1.2.840.1 1.2.149.332 7659 320487 Methodi 00:00:00 00:00:[address] 3.430.2.7 0.2.7.3.698 Ho spita .3.338931 084.8 l .8 2021-09-30 2021-09-30 Telephone [facility] 12.840.1 [id number] 2100 335409 Method 00:00:00 00:00:[address] 3.430.2.7 Hospit a .3.241285 l .8 2021-08-24 2021-08-24 [facility] 1.2.879.896 6156 1198 Univers 00:00:00 00:00:00 Lou Herrmann 350.1.13.10 [facility] [place] [id number] Nm dical nal [address] [place] [address] 2021-04-24 2021-04-24 [facility] 1.2.840.114 [id number] 14 Univers 10:15:11 11:28:25 Visit Lou Herrmann 350.1.13.10 [facility] [place]2.[place] 074.1713496 Nm dical nal [address] [place] [address] 2021-04-24 2021-04-24 Outpatient [facility] [id number] Univers 10:00:00 10:00:00 LOU ity of [facility] 2021-04-24 2021-04-24 Telephone [facility] 1.2.078.862 7341 6206 Univers 00:00:00 00:00:00 Lou Herrmann 350.1.13.10 [place] [phone] Nm dical nal [address] [place] [address] 2021-04-24 2021-04-24 Orders Doctor GONZÁLEZ 1.2.840.114 [id number] Univers 00:00:00 00:00:00 Only Unassigned, MARCUS 350.1.13.10 [place]y [place] [facility] 4.2.7.2.686 Jermaine as [phone] [address] 2021-02-05 2021-02-05 Patient [facility] 1.2.840.114 [id number] Univers 00:00:00 00:00:00 Outreach Trevon PRIMARY 350.1.13.10 i ty of [facility] [place] [phone] Nm dical [address] [place] 2020-12-24 2020-12-24 Outpatient R [facility] [id number] Univers 13:00:00 13:00:00 LOU ity [facility] 2020-12-18 2020-12-18 Case [facility] 1.2.840.114 [id number] Univers 00:00:00 00:00:00 Management Lou Solorzano Montez 350.1.13.10 [place] [phone] [facility] [address] [facility] 2020-12-17 2020-12-17 Hospital [facility] 1.2.840.114 [id number] Univers 15:16:09 23:59:00 Encounter Lou Solorzano Montez 350.1.13.10 [place] [phone] [facility] [address] [place] 2020-12-17 2020-12-17 Outpatient R [facility] [id number] Univers 00:00:00 00:00:00 LOU itsuresh [facility] 2020-12-17 2020-12-17 Orders Doctor GONZÁLEZ 1.2.840.114 [id number] Univers 00:00:00 00:00:00 Only Unassigned, MARCUS 350.1.13.[address] [place] [facility] 4.2.7.2.686 Jermaine as [phone] [facility] [address] [place] 2020-12-02 2020-12-02 Telephone [facility] [id number] Univers 00:00:00 00:00:00 Lou [place] 350.1.13.10 [place] [phone] [facility] nal [address] [facility] 2020-11-27 2020-11-27 Telephone Aracelis Macario [facility] 1.2.840.114 [id number] Univers 00:00:00 00:00:00 Justin Herrmann 350.1.13.10 i [place] [phone] Nm dical community health 134 [facility] 2020-11-26 2020-11-26 Office Ad, [facility] 1.2.840.114 [id number] Univers 15:45:56 16:48:02 Visit Lou Herrmann 350.1.13.10 [place] [phone] [facility] [address] [facility] 2020-11-26 2020-11-26 Outpatient [facility] [id number] Univers 16:00:00 16:00:00 LOU pichardo [facility] 2020-11-19 2020-11-19 [facility] 1.2.840.114 [id number] Univers 17:14:08 23:59:00 Encounter Lou Herrmann 350.1.13.10 [place] [phone] [facility] [address] [place] [address] 2020-11-19 2020-11-19 Outpatient R AD, [facility] [id number] Univers 00:00:00 23:59:00 LOU pichardo [facility] 2020-11-19 2020-11-19 Outpatient R AD, [facility] [id number] Univers 00:00:00 00:00:00 LOUKALI pichardo [facility] 2020-11-12 2020-11-12 Logging [employer] [place] 2, Adc Lab [facility] 1.2.840.114 [id number] Univers 11:46:27 12:01:27 Visit Lou Eubanks 350.1.13.10 [place] [phone] [facility] [address] [facility] 2020-11-12 2020-11-12 [facility] 1.2.840.114 [id number] 09:33:12 11:25:11 Visit Lou Herrmann 350.1.13.10 [place] 4.2.7.2.686 Professio [phone] [address] 2020-11-12 2020-11-12 Office Adum, [facility] 1.2.840.114 [id number] Univers 09:33:12 11:25:11 Visit Lou Herrmann 350.1.13.10 ity [place] 4.2.7.2.686 Courtney jeffers Jenna [phone] Nm dical [address] 2020-11-12 2020-11-12 Outpatient R AD, [facility] [id number] Univers 09:00:00 09:00:00 LOU itsuresh [facility] Results Test Description Test Time Test Comments Results Result Comments Source Surgical pathology request 2023-05-11 14:07:47 Test Item Value Reference Range Interpretation Comme nts Case number (test code = [id number]) [id number] Surgical pathology report (test code = See link below for PDF Lab R eport 2255) Result status (test code = 6195635) This is Final Report for [id number] 8846-3 [facility] [id number] 14:07:47 Test Item Value Reference Range Interpretation Comments Case number (test code = [id number]) Surgical pathology See link below for report (test code = PDF Lab Report 2255) Result status (test code This is Final Report = [id number]) for [id number] [facility] fvkqqcu0406-69-10 11:42:00 Test Item Value Reference Range Interpretation Comments POC glucose (test 95 mg/dL 65-99 Tube Blower N ace: Carlos Dai code = 76902-6) FroilanDevic e ID: [id number] [facility] [id number] 11:42:00 Test Item Value Reference Range Interpretation Comments POC glucose (test 95 mg/dL 65-99 Tube Blower N ace: Carlos Dai code = 15998-7) FroilanDevic e ID: [id number] [facility] , [id number] 11:40:43 Test Item Value Reference Range Interpretation Comments test urine, POC (test Negative code = 2106-3) Internal QC (test code = 257) QC acceptable [facility] , [id number] 11:40:43 Test Item Value Reference Range Interpretation Comments test urine, POC (test Negative code = 8521094) Internal QC (test code = 257) QC acceptable [facility]2022-08-16 20:09:00 Test Item Value Reference Range Interpretation Comments Creatinine Lvl (test code = Creatinine 0.62 0.50-0.99 Lvl) [facility]GvpbbyaBCKOYKNTDX1929-85-81 20:09:00 Test Item Value Reference Range Interpretation Comments Neutrophils # (test code = Neutrophils 5456 5813-8013 #) [facility]anoZxjdppdSLPZKWEQMJ1432-83-34 20:09:00 Test Item Value Reference Range Interpretation Comments Lymphocytes # (test code = Lymphocytes 5630 986-1128 #) [facility]anoPdqilnfOQCIWSLKPK0454-61-01 20:09:00 Test Item Value Reference Range Interpretation Comments Monocytes # (test code = Monocytes #) 552 200-950 [facility]anoIbcvzxqWONAEYHHBA3501-13-02 20:09:00 Test Item Value Reference Range Interpretation Comments Eosinophils # (test code = Eosinophils 80 15-500 #) [facility]anoEwvonqdUKUFYTMGQM3004-27-14 20:09:00 Test Item Value Reference Range Interpretation Comments Basophils # (test code 64 See_Comment [Aut omated message] The = Basophils #) system which generated this result tra nsmitted reference range : <=200. The reference r salvador was not used to int erpret this result as normal/abnormal . [facility]2022-08-16 20:09:00 Test Item Value Reference Range Interpretation Comments Potassium Lvl (test code = Potassium 4.3 3.5-5.3 Lvl) [facility]2022-08-16 20:09:00 Test Item Value Reference Range Interpretation Comments eGFR (test code = eGFR) 111 [facility]anoQomqrlnBADAWHPOSA9337-05-74 20:09:00 Test Item Value Reference Range Interpretation Comments Segs (test code = Segs) 68.2 [facility] PlanoEcczyjiSMHQVEEIVN3244-71-93 20:09:00 Test Item Value Reference Range Interpretation Comments Lymphocytes (test code = Lymphocytes) 23.1 [facility]2022-08-16 20:09:00 Test Item Value Reference Range Interpretation Comments Glucose Lvl (test code = Glucose Lvl) 82 65-99 [place] 396282-08-16 20:09:00 Test Item Value Reference Range Interpretation Comments BUN (test code = BUN) 9 7-25 [place] 396282-08-16 20:09:00 Test Item Value Reference Range Interpretation Comments Creatinine Lvl (test code = Creatinine 0.62 0.50-0.99 Lvl) [place] 396282-08-16 20:09:00 Test Item Value Reference Range Interpretation Comments eGFR (test code = eGFR) 111 [facility]2022-08-16 20:09:00 Test Item Value Reference Range Interpretation Comments B/C Ratio (test code = B/C NOT APPLICABLE 05-12 Ratio) [place] 396282-08-16 20:09:00 Test Item Value Reference Range Interpretation Comments Sodium Lvl (test code = Sodium Lvl) 139 135-146 [place] 396282-08-16 20:09:00 Test Item Value Reference Range Interpretation Comments Potassium Lvl (test code = Potassium 4.3 3.5-5.3 Lvl) [facility]2022-08-16 20:09:00 Test Item Value Reference Range Interpretation Comments Chloride Lvl (test code = Chloride Lvl) 104 98-110 [facility] PlanoZvzoacdOFZWOXKBGQ2831-39-52 20:09:00 Test Item Value Reference Range Interpretation Comments Monocytes (test code = Monocytes) 6.9 [place] 396282-08-16 20:09:00 Test Item Value Reference Range Interpretation Comments CO2 (test code = CO2) 27 20-32 [place] 396282-08-16 20:09:00 Test Item Value Reference Range Interpretation Comments Calcium Lvl (test code = Calcium Lvl) 9.6 8.6-10.2 [place] 396282-08-16 20:09:00 Test Item Value Reference Range Interpretation Comments Total Protein (test code = Total 7.4 6.1-8.1 Protein) [place] 396282-08-16 20:09:00 Test Item Value Reference Range Interpretation Comments Albumin Lvl (test code = Albumin Lvl) 4.6 3.6-5.1 [place] 396282-08-16 20:09:00 Test Item Value Reference Range Interpretation Comments Globulin (test code = Globulin) 2.8 1.9-3.7 [facility]2022-08-16 20:09:00 Test Item Value Reference Range Interpretation Comments A/G Ratio (test code = A/G Ratio) 1.6 1.0-2.5 [facility]2022-08-16 20:09:00 Test Item Value Reference Range Interpretation Comments Bili Total (test code = Bili Total) 0.6 0.2-1.2 [place] 396282-08-16 20:09:00 Test Item Value Reference Range Interpretation Comments Alk Phos (test code = Alk Phos) 53 31-125 [facility]2022-08-16 20:09:00 Test Item Value Reference Range Interpretation Comments ASPARTATE TRANSAMINASE (test code = 21 10-35 ASPARTATE TRANSAMINASE) [place] 396282-08-16 20:09:00 Test Item Value Reference Range Interpretation Comments ALANINE AMINOTRANSFERASE (test code = 34 6-29 ALANINE AMINOTRANSFERASE) [place] 761402-08-16 20:09:00 Test Item Value Reference Range Interpretation Comments WBC X 10x3 (test code = WBC X 10x3) 8.0 3.8-10.8 [facility]anoNtqhtrlUNVCLDYAXD4003-78-59 20:09:00 Test Item Value Reference Range Interpretation Comments RBC X 10x6 (test code = RBC X 10x6) 4.66 3.80-5.10 [place] 761402-08-16 20:09:00 Test Item Value Reference Range Interpretation Comments Hgb (test code = Hgb) 14.2 11.7-15.5 [place] 761402-08-16 20:09:00 Test Item Value Reference Range Interpretation Comments Hct (test code = Hct) 42.6 35.0-45.0 [place] 761402-08-16 20:09:00 Test Item Value Reference Range Interpretation Comments MCV (test code = MCV) 91.4 80.0-100.0 [place] 761402-08-16 20:09:00 Test Item Value Reference Range Interpretation Comments MCH (test code = MCH) 30.5 pg 27.0-33.0 [place] 761402-08-16 20:09:00 Test Item Value Reference Range Interpretation Comments MCHC (test code = MCHC) 33.3 32.0-36.0 [facility]anoJdwdunqUKIKAFKCIP5169-63-31 20:09:00 Test Item Value Reference Range Interpretation Comments RDW (test code = RDW) 13.3 11.0-15.0 [facility] PlanoUmyqhrnDKEUSOBROM0728-18-41 20:09:00 Test Item Value Reference Range Interpretation Comments Platelet (test code = Platelet) 345 140-400 [facility] PlanoIyaekjtUFSNFCDDJA8929-17-24 20:09:00 Test Item Value Reference Range Interpretation Comments MPV (test code = MPV) 10.3 7.5-12.5 [facility] PlanoCftntpmSZXXKCWRSM2425-68-01 20:09:00 Test Item Value Reference Range Interpretation Comments Neutrophils # (test code = Neutrophils 5456 5961-4281 #) [facility] PlanoKmyegaiQIPLDOJSPI7319-97-86 20:09:00 Test Item Value Reference Range Interpretation Comments Lymphocytes # (test code = Lymphocytes 0949 978-3281 #) [facility] PlanoIaaumzpVUUPQNTKOE2991-20-16 20:09:00 Test Item Value Reference Range Interpretation Comments Monocytes # (test code = Monocytes #) 552 200-950 [facility] PlanoFuyxosyGSIOGVXQTP9136-41-53 20:09:00 Test Item Value Reference Range Interpretation Comments Eosinophils # (test code = Eosinophils 80 15-500 #) [facility] PlanoVrbiwimBFUJAGOZOW0500-12-85 20:09:00 Test Item Value Reference Range Interpretation Comments Basophils # (test code 64 See_Comment [Aut omated message] The = Basophils #) system which generated this result tra nsmitted reference range : <=200. The reference r salvador was not used to int erpret this result as normal/abnormal . [facility] PlanoAiafwjdOMVXDNNXXY7219-27-04 20:09:00 Test Item Value Reference Range Interpretation Comments Segs (test code = Segs) 68.2 [facility] PlanoIosykyiZGTIBBPFAI7178-31-50 20:09:00 Test Item Value Reference Range Interpretation Comments Lymphocytes (test code = Lymphocytes) 23.1 [place] 761402-08-16 20:09:00 Test Item Value Reference Range Interpretation Comments Monocytes (test code = Monocytes) 6.9 [facility] PlanoWggwxitXGSIOEJGHE8726-41-87 20:09:00 Test Item Value Reference Range Interpretation Comments Eosinophils (test code = Eosinophils) 1.0 [facility] PlanoXibsrrhVMVWXVKZNZ5279-40-37 20:09:00 Test Item Value Reference Range Interpretation Comments Basophils (test code = Basophils) 0.8 [facility]lekiarSWXDZFQHIT3024-41-49 20:09:00 Test Item Value Reference Range Interpretation Comments Eosinophils (test code = Eosinophils) 1.0 [facility]2022-08-16 20:09:00 Test Item Value Reference Range Interpretation Comments Hgb A1C (test code = Hgb A1C) 5.0 [facility] [id number] 20:09:00 Test Item Value Reference Range Interpretation Comments B/C Ratio (test code = B/C NOT APPLICABLE 22 Ratio) [facility] PlanoTueuztzJSNXUNOCAR5862-83-21 20:09:00 Test Item Value Reference Range Interpretation Comments Basophils (test code = Basophils) 0.8 [facility]2022-08-16 20:09:00 Test Item Value Reference Range Interpretation Comments Hgb A1C (test code = Hgb A1C) 5.0 [facility]2022-08-16 20:09:00 Test Item Value Reference Range Interpretation Comments Chloride Lvl (test code = Chloride Lvl) 104 98-110 [facility]2022-08-16 20:09:00 Test Item Value Reference Range Interpretation Comments Glucose Lvl (test code = Glucose Lvl) 82 65-99 [facility] [id number] 20:09:00 Test Item Value Reference Range Interpretation Comments Sodium Lvl (test code = Sodium Lvl) 139 135-146 [facility]2022-08-16 20:09:00 Test Item Value Reference Range Interpretation Comments BUN (test code = BUN) 9 7-25 [facility]2022-08-16 20:09:00 Test Item Value Reference Range Interpretation Comments Creatinine Lvl (test code = Creatinine 0.62 0.50-0.99 Lvl) [facility]2022-08-16 20:09:00 Test Item Value Reference Range Interpretation Comments eGFR (test code = eGFR) 111 [facility]2022-08-16 20:09:00 Test Item Value Reference Range Interpretation Comments B/C Ratio (test code = B/C NOT APPLICABLE 22 Ratio) [facility]2022-08-16 20:09:00 Test Item Value Reference Range Interpretation Comments Sodium Lvl (test code = Sodium Lvl) 139 135-146 [place] 396282-08-16 20:09:00 Test Item Value Reference Range Interpretation Comments Potassium Lvl (test code = Potassium 4.3 3.5-5.3 Lvl) [facility]2022-08-16 20:09:00 Test Item Value Reference Range Interpretation Comments Potassium Lvl (test code = Potassium 4.3 3.5-5.3 Lvl) [facility]2022-08-16 20:09:00 Test Item Value Reference Range Interpretation Comments Chloride Lvl (test code = Chloride Lvl) 104 98-110 [facility]2022-08-16 20:09:00 Test Item Value Reference Range Interpretation Comments CO2 (test code = CO2) [facility]2022-08-16 20:09:00 Test Item Value Reference Range Interpretation Comments Calcium Lvl (test code = Calcium Lvl) 9.6 8.6-10.2 [facility]2022-08-16 20:09:00 Test Item Value Reference Range Interpretation Comments CO2 (test code = CO2) 27 - [facility]2022-08-16 20:09:00 Test Item Value Reference Range Interpretation Comments Chloride Lvl (test code = Chloride Lvl) 104 98-110 [facility]2022-08-16 20:09:00 Test Item Value Reference Range Interpretation Comments Total Protein (test code = Total 7.4 6.1-8.1 Protein) [facility]2022-08-16 20:09:00 Test Item Value Reference Range Interpretation Comments Albumin Lvl (test code = Albumin Lvl) 4.6 3.6-5.1 [facility]2022-08-16 20:09:00 Test Item Value Reference Range Interpretation Comments Globulin (test code = Globulin) 2.8 1.9-3.7 [place] 396282-08-16 20:09:00 Test Item Value Reference Range Interpretation Comments A/G Ratio (test code = A/G Ratio) 1.6 1.0-2.5 [place] 396282-08-16 20:09:00 Test Item Value Reference Range Interpretation Comments Bili Total (test code = Bili Total) 0.6 0.2-1.2 [place] 396282-08-16 20:09:00 Test Item Value Reference Range Interpretation Comments CO2 (test code = CO2) 27 20-32 [place] 396282-08-16 20:09:00 Test Item Value Reference Range Interpretation Comments Alk Phos (test code = Alk Phos) 53 31-125 [place] 396282-08-16 20:09:00 Test Item Value Reference Range Interpretation Comments ASPARTATE TRANSAMINASE (test code = 21 10-35 ASPARTATE TRANSAMINASE) [place] 396282-08-16 20:09:00 Test Item Value Reference Range Interpretation Comments ALANINE AMINOTRANSFERASE (test code = 34 6-29 ALANINE AMINOTRANSFERASE) [facility] PlanoZwvdwazRORUJKLUHJ4087-12-12 20:09:00 Test Item Value Reference Range Interpretation Comments WBC X 10x3 (test code = WBC X 10x3) 8.0 3.8-10.8 [place] 761402-08-16 20:09:00 Test Item Value Reference Range Interpretation Comments RBC X 10x6 (test code = RBC X 10x6) 4.66 3.80-5.10 [facility]2022-08-16 20:09:00 Test Item Value Reference Range Interpretation Comments Calcium Lvl (test code = Calcium Lvl) 9.6 8.6-10.2 [facility]2022-08-16 20:09:00 Test Item Value Reference Range Interpretation Comments Calcium Lvl (test code = Calcium Lvl) 9.6 8.6-10.2 [facility] PlanoXatbnioLYHUMQNEIT1029-62-08 20:09:00 Test Item Value Reference Range Interpretation Comments Hgb (test code = Hgb) 14.2 11.7-15.5 [place] 761402-08-16 20:09:00 Test Item Value Reference Range Interpretation Comments Hct (test code = Hct) 42.6 35.0-45.0 [place] [address]-08-16 20:09:00 Test Item Value Reference Range Interpretation Comments MCV (test code = MCV) 91.4 80.0-100.0 [place] 761402-08-16 20:09:00 Test Item Value Reference Range Interpretation Comments MCH (test code = MCH) 30.5 pg 27.0-33.0 [facility]2022-08-16 20:09:00 Test Item Value Reference Range Interpretation Comments Total Protein (test code = Total 7.4 6.1-8.1 Protein) [facility] PlanoRmwnutkLJDKTGUZMZ8024-98-83 20:09:00 Test Item Value Reference Range Interpretation Comments MCHC (test code = MCHC) 33.3 32.0-36.0 [facility] PlanoYkaknztKYYJFZMTFU9261-51-09 20:09:00 Test Item Value Reference Range Interpretation Comments RDW (test code = RDW) 13.3 11.0-15.0 [facility] PlanoZvcjhzgEIDITVORUN7000-48-31 20:09:00 Test Item Value Reference Range Interpretation Comments Platelet (test code = Platelet) 345 140-400 [facility] PlanoBjyvxtwLQVGWGRYZC0106-27-67 20:09:00 Test Item Value Reference Range Interpretation Comments MPV (test code = MPV) 10.3 7.5-12.5 [facility] PlanoFpqyryhFKCKCNCNMZ2826-78-56 20:09:00 Test Item Value Reference Range Interpretation Comments Neutrophils # (test code = Neutrophils 5456 0217-3026 #) [facility] PlanoIpltryiLSASFNJUIB7897-70-02 20:09:00 Test Item Value Reference Range Interpretation Comments Lymphocytes # (test code = Lymphocytes 5820 988-7656 #) [facility] KAQOH6164-40-44 20:09:00 Test Item Value Reference Range Interpretation Comments Albumin Lvl (test code = Albumin Lvl) 4.6 3.6-5.1 [facility] WZLWH2857-11-98 20:09:00 Test Item Value Reference Range Interpretation Comments Total Protein (test code = Total 7.4 6.1-8.1 Protein) [facility] PlanoCsuhsytKVGLSSYVLW3045-45-95 20:09:00 Test Item Value Reference Range Interpretation Comments Monocytes # (test code = Monocytes #) 552 200-950 [facility] PlanoSepwkbkMEOZFHDCJU2906-81-75 20:09:00 Test Item Value Reference Range Interpretation Comments Eosinophils # (test code = Eosinophils 80 15-500 #) [facility] PlanoPswyzrgVLSKDQJOGG5522-69-13 20:09:00 Test Item Value Reference Range Interpretation Comments Basophils # (test code 64 See_Comment [Aut omated message] The = Basophils #) system which generated this result tra nsmitted reference range : <=200. The reference r salvador was not used to int erpret this result as normal/abnormal . [facility] [id number] 20:09:00 Test Item Value Reference Range Interpretation Comments Globulin (test code = Globulin) 2.8 1.9-3.7 [facility]MbgoqfpBVPPJPDOIR1537-89-86 20:09:00 Test Item Value Reference Range Interpretation Comments Segs (test code = Segs) 68.2 [facility] PlanoEzsvglsAJJGNVEJXM0093-07-03 20:09:00 Test Item Value Reference Range Interpretation Comments Lymphocytes (test code = Lymphocytes) 23.1 [facility] PlanoBuuuzbeIAIJAOBGRH8653-45-41 20:09:00 Test Item Value Reference Range Interpretation Comments Monocytes (test code = Monocytes) 6.9 [facility] PlanoSffaeumFXVLUWTXKG4305-53-98 20:09:00 Test Item Value Reference Range Interpretation Comments Eosinophils (test code = Eosinophils) 1.0 [facility] PlanoTlajtqwVWDLOGERDV5718-38-49 20:09:00 Test Item Value Reference Range Interpretation Comments Basophils (test code = Basophils) 0.8 [facility] YEXAIGTCB0825-01-94 20:09:00 Test Item Value Reference Range Interpretation Comments Hgb A1C (test code = Hgb A1C) 5.0 [facility]2022-08-16 20:09:00 Test Item Value Reference Range Interpretation Comments A/G Ratio (test code = A/G Ratio) 1.6 1.0-2.5 [facility]2022-08-16 20:09:00 Test Item Value Reference Range Interpretation Comments Albumin Lvl (test code = Albumin Lvl) 4.6 3.6-5.1 [facility]2022-08-16 20:09:00 Test Item Value Reference Range Interpretation Comments Glucose Lvl (test code = Glucose Lvl) 82 65-99 [facility]2022-08-16 20:09:00 Test Item Value Reference Range Interpretation Comments BUN (test code = BUN) 9 7-25 [facility]2022-08-16 20:09:00 Test Item Value Reference Range Interpretation Comments Creatinine Lvl (test code = Creatinine 0.62 0.50-0.99 Lvl) [facility]2022-08-16 20:09:00 Test Item Value Reference Range Interpretation Comments eGFR (test code = eGFR) 111 [facility]2022-08-16 20:09:00 Test Item Value Reference Range Interpretation Comments Bili Total (test code = Bili Total) 0.6 0.2-1.2 [facility] [id number] 20:09:00 Test Item Value Reference Range Interpretation Comments B/C Ratio (test code = B/C NOT APPLICABLE 622 Ratio) [place] 396282-08-16 20:09:00 Test Item Value Reference Range Interpretation Comments Sodium Lvl (test code = Sodium Lvl) 139 135-146 [facility] [id number] 20:09:00 Test Item Value Reference Range Interpretation Comments Potassium Lvl (test code = Potassium 4.3 3.5-5.3 Lvl) [facility] [id number] 20:09:00 Test Item Value Reference Range Interpretation Comments Globulin (test code = Globulin) 2.8 1.9-3.7 [facility] [id number] 20:09:00 Test Item Value Reference Range Interpretation Comments Alk Phos (test code = Alk Phos) 53 31-125 [facility] [id number] 20:09:00 Test Item Value Reference Range Interpretation Comments Chloride Lvl (test code = Chloride Lvl) 104 98-110 [facility] [id number] 20:09:00 Test Item Value Reference Range Interpretation Comments CO2 (test code = CO2) 27 20-32 [facility] [id number] 20:09:00 Test Item Value Reference Range Interpretation Comments Calcium Lvl (test code = Calcium Lvl) 9.6 8.6-10.2 [facility] [id number] 20:09:00 Test Item Value Reference Range Interpretation Comments Total Protein (test code = Total 7.4 6.1-8.1 Protein) [facility] [id number] 20:09:00 Test Item Value Reference Range Interpretation Comments Glucose Lvl (test code = Glucose Lvl) 82 65-99 [facility] [id number] 20:09:00 Test Item Value Reference Range Interpretation Comments Albumin Lvl (test code = Albumin Lvl) 4.6 3.6-5.1 [facility] [id number] 20:09:00 Test Item Value Reference Range Interpretation Comments Globulin (test code = Globulin) 2.8 1.9-3.7 [place] 396282-08-16 20:09:00 Test Item Value Reference Range Interpretation Comments A/G Ratio (test code = A/G Ratio) 1.6 1.0-2.5 [place] 396282-08-16 20:09:00 Test Item Value Reference Range Interpretation Comments Bili Total (test code = Bili Total) 0.6 0.2-1.2 [place] 396282-08-16 20:09:00 Test Item Value Reference Range Interpretation Comments ASPARTATE TRANSAMINASE (test code = 21 10-35 ASPARTATE TRANSAMINASE) [place] 396282-08-16 20:09:00 Test Item Value Reference Range Interpretation Comments Alk Phos (test code = Alk Phos) 53 31-125 [facility]2022-08-16 20:09:00 Test Item Value Reference Range Interpretation Comments ASPARTATE TRANSAMINASE (test code = 21 10-35 ASPARTATE TRANSAMINASE) [facility]2022-08-16 20:09:00 Test Item Value Reference Range Interpretation Comments A/G Ratio (test code = A/G Ratio) 1.6 1.0-2.5 [place] 396282-08-16 20:09:00 Test Item Value Reference Range Interpretation Comments ALANINE AMINOTRANSFERASE (test code = 34 6-29 ALANINE AMINOTRANSFERASE) [facility]anoNvflknrSGXECFKQOC8408-28-86 20:09:00 Test Item Value Reference Range Interpretation Comments WBC X 10x3 (test code = WBC X 10x3) 8.0 3.8-10.8 [place] 396282-08-16 20:09:00 Test Item Value Reference Range Interpretation Comments ALANINE AMINOTRANSFERASE (test code = 34 6-29 ALANINE AMINOTRANSFERASE) [facility]anoTyutvbsTZFINPBJMA3297-39-97 20:09:00 Test Item Value Reference Range Interpretation Comments RBC X 10x6 (test code = RBC X 10x6) 4.66 3.80-5.10 [place] 761402-08-16 20:09:00 Test Item Value Reference Range Interpretation Comments WBC X 10x3 (test code = WBC X 10x3) 8.0 3.8-10.8 [place] 761402-08-16 20:09:00 Test Item Value Reference Range Interpretation Comments Hgb (test code = Hgb) 14.2 11.7-15.5 [facility]anoKqvnnstIGKOQZDUOX6310-77-17 20:09:00 Test Item Value Reference Range Interpretation Comments Hct (test code = Hct) 42.6 35.0-45.0 [facility] CenterLbqcshuEKVNPDMULQ9316-50-38 20:09:00 Test Item Value Reference Range Interpretation Comments MCV (test code = MCV) 91.4 80.0-100.0 [facility]AoryxheMFFLMDWAWN4361-78-33 20:09:00 Test Item Value Reference Range Interpretation Comments RBC X 10x6 (test code = RBC X 10x6) 4.66 3.80-5.10 [facility] CenterGxsbvgqTDOECAEYBU0175-11-83 20:09:00 Test Item Value Reference Range Interpretation Comments MCH (test code = MCH) 30.5 pg 27.0-33.0 [facility] CenterDjeqiomVUYNOVXSLV5439-42-20 20:09:00 Test Item Value Reference Range Interpretation Comments MCHC (test code = MCHC) 33.3 32.0-36.0 [facility] PlanoVkowinqOYQMMHOTIZ3539-53-67 20:09:00 Test Item Value Reference Range Interpretation Comments RDW (test code = RDW) 13.3 11.0-15.0 [facility] CenterPyroztrVHCPJHUYRT9093-21-85 20:09:00 Test Item Value Reference Range Interpretation Comments Platelet (test code = Platelet) 345 140-400 [facility]awAqqbokmLVZUJCOLWG7131-67-40 20:09:00 Test Item Value Reference Range Interpretation Comments Hgb (test code = Hgb) 14.2 11.7-15.5 [facility]2022-08-16 20:09:00 Test Item Value Reference Range Interpretation Comments Bili Total (test code = Bili Total) 0.6 0.2-1.2 [facility] CenterXhxksuuKMOZMXBUYB8619-61-96 20:09:00 Test Item Value Reference Range Interpretation Comments MPV (test code = MPV) 10.3 7.5-12.5 [facility]awOqxedqnPLOABTJSUR6829-81-71 20:09:00 Test Item Value Reference Range Interpretation Comments Neutrophils # (test code = Neutrophils 5456 8026-9930 #) [facility]anoPnnsqsaSLLDJAKUPI9004-01-96 20:09:00 Test Item Value Reference Range Interpretation Comments Lymphocytes # (test code = Lymphocytes 5508 082-8802 #) [facility] PlanoHmkqkebNFJZCSRGWD7761-00-01 20:09:00 Test Item Value Reference Range Interpretation Comments Hct (test code = Hct) 42.6 35.0-45.0 [facility]ervilleGkvudpjDRQQGLEJXM8949-31-72 20:09:00 Test Item Value Reference Range Interpretation Comments Monocytes # (test code = Monocytes #) 552 200-950 [facility]ervilleQyvfkjoWKTYWPLJSS5274-39-51 20:09:00 Test Item Value Reference Range Interpretation Comments Eosinophils # (test code = Eosinophils 80 15-500 #) [facility]ervilleWdntgesOZFNGLMELR0658-23-98 20:09:00 Test Item Value Reference Range Interpretation Comments Basophils # (test code 64 See_Comment [Aut omated message] The = Basophils #) system which generated this result tra nsmitted reference range : <=200. The reference r salvador was not used to int erpret this result as normal/abnormal . [facility] CenterTbtzatiFNGZHBSKLZ4827-48-97 20:09:00 Test Item Value Reference Range Interpretation Comments Segs (test code = Segs) 68.2 [facility] CenterIzmerpoBUJMXHIMEG0781-89-91 20:09:00 Test Item Value Reference Range Interpretation Comments MCV (test code = MCV) 91.4 80.0-100.0 [facility]ervilleVnyvkuaBYSHZYEAEY3076-54-27 20:09:00 Test Item Value Reference Range Interpretation Comments Lymphocytes (test code = Lymphocytes) 23.1 [facility]ervilleDwzvxuySGYIXOLXAJ7745-77-53 20:09:00 Test Item Value Reference Range Interpretation Comments Monocytes (test code = Monocytes) 6.9 [facility]ervilleNekjuyvAKQYZFFBDH9468-87-15 20:09:00 Test Item Value Reference Range Interpretation Comments Eosinophils (test code = Eosinophils) 1.0 [facility] CenterCHEM ZUNYJ5611-54-70 20:09:00 Test Item Value Reference Range Interpretation Comments Alk Phos (test code = Alk Phos) 53 31-125 [facility]ervillePhkoktmMPWAUAPNSQ1701-25-25 20:09:00 Test Item Value Reference Range Interpretation Comments MCH (test code = MCH) 30.5 pg 27.0-33.0 [facility]ervilleEccnthqTICKPEQDTE4681-10-04 20:09:00 Test Item Value Reference Range Interpretation Comments Basophils (test code = Basophils) 0.8 [facility] CenterSPECIAL DDEFCKMCH9825-18-94 20:09:00 Test Item Value Reference Range Interpretation Comments Hgb A1C (test code = Hgb A1C) 5.0 [place] 396282-08-16 20:09:00 Test Item Value Reference Range Interpretation Comments Glucose Lvl (test code = Glucose Lvl) 82 65-99 [facility]2022-08-16 20:09:00 Test Item Value Reference Range Interpretation Comments BUN (test code = BUN) 9 7-25 [facility] PlanoVxridqqRWUKUIGVFM0172-20-80 20:09:00 Test Item Value Reference Range Interpretation Comments MCHC (test code = MCHC) 33.3 32.0-36.0 [facility]2022-08-16 20:09:00 Test Item Value Reference Range Interpretation Comments Creatinine Lvl (test code = Creatinine 0.62 0.50-0.99 Lvl) [facility]2022-08-16 20:09:00 Test Item Value Reference Range Interpretation Comments eGFR (test code = eGFR) 111 [facility]2022-08-16 20:09:00 Test Item Value Reference Range Interpretation Comments ASPARTATE TRANSAMINASE (test code = 21 10-35 ASPARTATE TRANSAMINASE) [facility] PlanoZravqdwHMWIRWTQHD5263-64-82 20:09:00 Test Item Value Reference Range Interpretation Comments RDW (test code = RDW) 13.3 11.0-15.0 [facility]2022-08-16 20:09:00 Test Item Value Reference Range Interpretation Comments B/C Ratio (test code = B/C NOT APPLICABLE 6-22 Ratio) [place] 396282-08-16 20:09:00 Test Item Value Reference Range Interpretation Comments Sodium Lvl (test code = Sodium Lvl) 139 135-146 [place] 396282-08-16 20:09:00 Test Item Value Reference Range Interpretation Comments Potassium Lvl (test code = Potassium 4.3 3.5-5.3 Lvl) [place] 396282-08-16 20:09:00 Test Item Value Reference Range Interpretation Comments BUN (test code = BUN) 9 7- [place] 396282-08-16 20:09:00 Test Item Value Reference Range Interpretation Comments Chloride Lvl (test code = Chloride Lvl) 104 98-110 [place] 396282-08-16 20:09:00 Test Item Value Reference Range Interpretation Comments CO2 (test code = CO2) 27 20-32 [place] 396282-08-16 20:09:00 Test Item Value Reference Range Interpretation Comments Calcium Lvl (test code = Calcium Lvl) 9.6 8.6-10.2 [place] 761402-08-16 20:09:00 Test Item Value Reference Range Interpretation Comments Platelet (test code = Platelet) 345 140-400 [facility]2022-08-16 20:09:00 Test Item Value Reference Range Interpretation Comments Total Protein (test code = Total 7.4 6.1-8.1 Protein) [facility]2022-08-16 20:09:00 Test Item Value Reference Range Interpretation Comments Albumin Lvl (test code = Albumin Lvl) 4.6 3.6-5.1 [place] 396282-08-16 20:09:00 Test Item Value Reference Range Interpretation Comments Globulin (test code = Globulin) 2.8 1.9-3.7 [place] 761402-08-16 20:09:00 Test Item Value Reference Range Interpretation Comments MPV (test code = MPV) 10.3 7.5-12.5 [place] 396282-08-16 20:09:00 Test Item Value Reference Range Interpretation Comments A/G Ratio (test code = A/G Ratio) 1.6 1.0-2.5 [place] 396282-08-16 20:09:00 Test Item Value Reference Range Interpretation Comments ALANINE AMINOTRANSFERASE (test code = 34 6-29 ALANINE AMINOTRANSFERASE) [place] 396282-08-16 20:09:00 Test Item Value Reference Range Interpretation Comments Bili Total (test code = Bili Total) 0.6 0.2-1.2 [place] 761402-08-16 20:09:00 Test Item Value Reference Range Interpretation Comments Neutrophils # (test code = Neutrophils 5456 1296-0212 #) [facility]2022-08-16 20:09:00 Test Item Value Reference Range Interpretation Comments Alk Phos (test code = Alk Phos) 53 31-125 [place] 396282-08-16 20:09:00 Test Item Value Reference Range Interpretation Comments ASPARTATE TRANSAMINASE (test code = 21 10-35 ASPARTATE TRANSAMINASE) [place] 396282-08-16 20:09:00 Test Item Value Reference Range Interpretation Comments ALANINE AMINOTRANSFERASE (test code = 34 6-29 ALANINE AMINOTRANSFERASE) [facility]anoYmkcleyLOQNUQBQDM7588-82-17 20:09:00 Test Item Value Reference Range Interpretation Comments Lymphocytes # (test code = Lymphocytes 1906 676-1940 #) [facility] PlanoJkovnqgBLOAVPNKOC8270-99-05 20:09:00 Test Item Value Reference Range Interpretation Comments WBC X 10x3 (test code = WBC X 10x3) 8.0 3.8-10.8 [facility] PlanoGoepzomSVYGZGKFDF2110-98-18 20:09:00 Test Item Value Reference Range Interpretation Comments RBC X 10x6 (test code = RBC X 10x6) 4.66 3.80-5.10 [place] 761402-08-16 20:09:00 Test Item Value Reference Range Interpretation Comments Hgb (test code = Hgb) 14.2 11.7-15.5 [facility] PlanoHrjzldnXNEJFMQPDF1737-74-48 20:09:00 Test Item Value Reference Range Interpretation Comments Hct (test code = Hct) 42.6 35.0-45.0 [facility] PlanoHmjigohPLJPWDKPDZ4354-53-65 20:09:00 Test Item Value Reference Range Interpretation Comments Monocytes # (test code = Monocytes #) 552 200-950 [facility] PlanoWxqzvjwBHSDAQYCWL8098-17-99 20:09:00 Test Item Value Reference Range Interpretation Comments MCV (test code = MCV) 91.4 80.0-100.0 [place] 761402-08-16 20:09:00 Test Item Value Reference Range Interpretation Comments MCH (test code = MCH) 30.5 pg 27.0-33.0 [facility] PlanoSemeewrSCTEKKACMX3669-04-20 20:09:00 Test Item Value Reference Range Interpretation Comments WBC X 10x3 (test code = WBC X 10x3) 8.0 3.8-10.8 [place] 761402-08-16 20:09:00 Test Item Value Reference Range Interpretation Comments Eosinophils # (test code = Eosinophils 80 15-500 #) [facility] PlanoDebvsqmNMCHCXKYNB2923-07-24 20:09:00 Test Item Value Reference Range Interpretation Comments MCHC (test code = MCHC) 33.3 32.0-36.0 [facility] PlanoUtosmazDHDDDOIFKW4365-96-54 20:09:00 Test Item Value Reference Range Interpretation Comments RDW (test code = RDW) 13.3 11.0-15.0 [facility] PlanoQtcqsglBOXGWSWLHX4993-51-32 20:09:00 Test Item Value Reference Range Interpretation Comments Platelet (test code = Platelet) 345 140-400 [facility] PlanoIblsdcvNNJZSBLQNX9979-06-18 20:09:00 Test Item Value Reference Range Interpretation Comments MPV (test code = MPV) 10.3 7.5-12.5 [facility] PlanoUpvnkynVBOEYWXGRT9550-82-18 20:09:00 Test Item Value Reference Range Interpretation Comments Basophils # (test code 64 See_Comment [Aut omated message] The = Basophils #) system which generated this result tra nsmitted reference range : <=200. The reference r salvador was not used to int erpret this result as normal/abnormal . [facility] PlanoVxxkvenLJHJDXQGOY8130-19-86 20:09:00 Test Item Value Reference Range Interpretation Comments Neutrophils # (test code = Neutrophils 5456 2929-9212 #) [facility] PlanoZynugrgAXWPXUYTJM8294-87-71 20:09:00 Test Item Value Reference Range Interpretation Comments Lymphocytes # (test code = Lymphocytes 1648 790-0632 #) [facility] PlanoTikinvgDPBJUBVKUH8503-95-22 20:09:00 Test Item Value Reference Range Interpretation Comments Monocytes # (test code = Monocytes #) 552 200-950 [facility] PlanoVimycpzLRFHBUUGHP2926-85-75 20:09:00 Test Item Value Reference Range Interpretation Comments Eosinophils # (test code = Eosinophils 80 15-500 #) [facility] PlanoSjtcsugJJVEBPYFSZ2326-29-68 20:09:00 Test Item Value Reference Range Interpretation Comments Basophils # (test code 64 See_Comment [Aut omated message] The = Basophils #) system which generated this result tra nsmitted reference range : <=200. The reference r salvador was not used to int erpret this result as normal/abnormal . [facility] PlanoHmpbhjwCZTRKFSTWF4143-13-23 20:09:00 Test Item Value Reference Range Interpretation Comments Segs (test code = Segs) 68.2 [facility] PlanoNoebsbaHMRJFNLQZG9658-72-82 20:09:00 Test Item Value Reference Range Interpretation Comments Segs (test code = Segs) 68.2 [facility] PlanoNxugqozAXKRIHCHLN8328-52-99 20:09:00 Test Item Value Reference Range Interpretation Comments RBC X 10x6 (test code = RBC X 10x6) 4.66 3.80-5.10 [facility] CenterGdmtcbbYCLBGRGDLM6833-24-19 20:09:00 Test Item Value Reference Range Interpretation Comments Lymphocytes (test code = Lymphocytes) 23.1 [facility]awBjfqhnxIFDDRXOFBG7748-36-06 20:09:00 Test Item Value Reference Range Interpretation Comments Monocytes (test code = Monocytes) 6.9 [facility]awRxlhcxhRSGYEQZCDZ6007-52-86 20:09:00 Test Item Value Reference Range Interpretation Comments Eosinophils (test code = Eosinophils) 1.0 [facility]awRoeaofpEPUYGMFJJP4251-15-17 20:09:00 Test Item Value Reference Range Interpretation Comments Basophils (test code = Basophils) 0.8 [facility]awKsiaevcXGKMPTFXXW1757-67-97 20:09:00 Test Item Value Reference Range Interpretation Comments Lymphocytes (test code = Lymphocytes) 23.1 [facility] CSWSKIFYH3419-34-86 20:09:00 Test Item Value Reference Range Interpretation Comments Hgb A1C (test code = Hgb A1C) 5.0 [facility] ZCOYG4202-18-56 20:09:00 Test Item Value Reference Range Interpretation Comments Glucose Lvl (test code = Glucose Lvl) 82 65-99 [facility] PlanoKmetdizQZNTVXXWKE3737-95-97 20:09:00 Test Item Value Reference Range Interpretation Comments Hgb (test code = Hgb) 14.2 11.7-15.5 [facility]2022-08-16 20:09:00 Test Item Value Reference Range Interpretation Comments BUN (test code = BUN) 9 7-25 [facility]2022-08-16 20:09:00 Test Item Value Reference Range Interpretation Comments Creatinine Lvl (test code = Creatinine 0.62 0.50-0.99 Lvl) [facility] WPGZF2882-21-49 20:09:00 Test Item Value Reference Range Interpretation Comments eGFR (test code = eGFR) 111 [facility] PlanoYcwugauAMUYCVJROO5752-24-16 20:09:00 Test Item Value Reference Range Interpretation Comments Monocytes (test code = Monocytes) 6.9 [facility] HPTXE7047-95-89 20:09:00 Test Item Value Reference Range Interpretation Comments B/C Ratio (test code = B/C NOT APPLICABLE 6-22 Ratio) [facility]2022-08-16 20:09:00 Test Item Value Reference Range Interpretation Comments Sodium Lvl (test code = Sodium Lvl) 139 135-146 [facility]2022-08-16 20:09:00 Test Item Value Reference Range Interpretation Comments Potassium Lvl (test code = Potassium 4.3 3.5-5.3 Lvl) [place] 396282-08-16 20:09:00 Test Item Value Reference Range Interpretation Comments Chloride Lvl (test code = Chloride Lvl) 104 98-110 [facility]2022-08-16 20:09:00 Test Item Value Reference Range Interpretation Comments CO2 (test code = CO2) 27 20-32 [facility]2022-08-16 20:09:00 Test Item Value Reference Range Interpretation Comments Calcium Lvl (test code = Calcium Lvl) 9.6 8.6-10.2 [facility]2022-08-16 20:09:00 Test Item Value Reference Range Interpretation Comments Creatinine Lvl (test code = Creatinine 0.62 0.50-0.99 Lvl) [facility]2022-08-16 20:09:00 Test Item Value Reference Range Interpretation Comments Total Protein (test code = Total 7.4 6.1-8.1 Protein) [facility]awRrlbffsKJBYEFIWNV8467-58-93 20:09:00 Test Item Value Reference Range Interpretation Comments Hct (test code = Hct) 42.6 35.0-45.0 [place] 396282-08-16 20:09:00 Test Item Value Reference Range Interpretation Comments Albumin Lvl (test code = Albumin Lvl) 4.6 3.6-5.1 [facility]2022-08-16 20:09:00 Test Item Value Reference Range Interpretation Comments Globulin (test code = Globulin) 2.8 1.9-3.7 [place] 396282-08-16 20:09:00 Test Item Value Reference Range Interpretation Comments A/G Ratio (test code = A/G Ratio) 1.6 1.0-2.5 [place] 396282-08-16 20:09:00 Test Item Value Reference Range Interpretation Comments Bili Total (test code = Bili Total) 0.6 0.2-1.2 [place] 396282-08-16 20:09:00 Test Item Value Reference Range Interpretation Comments Alk Phos (test code = Alk Phos) 53 31-125 [facility]ervilleQuscvdsUVSOMUZKIC7729-13-32 20:09:00 Test Item Value Reference Range Interpretation Comments Eosinophils (test code = Eosinophils) 1.0 [facility]CHE[facility] BSFLO8998-42-25 20:09:00 Test Item Value Reference Range Interpretation Comments ASPARTATE TRANSAMINASE (test code = 21 10-35 ASPARTATE TRANSAMINASE) [facility]CHE[facility] EZJKZ6843-01-29 20:09:00 Test Item Value Reference Range Interpretation Comments ALANINE AMINOTRANSFERASE (test code = 34 6-29 ALANINE AMINOTRANSFERASE) [facility]ervilleLcbtkndPLFQHRLGJE5943-15-44 20:09:00 Test Item Value Reference Range Interpretation Comments WBC X 10x3 (test code = WBC X 10x3) 8.0 3.8-10.8 [facility] CenterSmssvdlMTMOVTZNBZ0181-60-98 20:09:00 Test Item Value Reference Range Interpretation Comments RBC X 10x6 (test code = RBC X 10x6) 4.66 3.80-5.10 [facility] CenterWnwiicgJVCNFFMZIC6536-75-21 20:09:00 Test Item Value Reference Range Interpretation Comments Hgb (test code = Hgb) 14.2 11.7-15.5 [facility]ervilleKprfycsLPBHJODNAS4168-54-01 20:09:00 Test Item Value Reference Range Interpretation Comments Basophils (test code = Basophils) 0.8 [facility] CenterGlzcmupOLCZDDGDOI2981-03-06 20:09:00 Test Item Value Reference Range Interpretation Comments MCV (test code = MCV) 91.4 80.0-100.0 [facility]awTnwpzncEWBOUKTOXI5050-12-08 20:09:00 Test Item Value Reference Range Interpretation Comments Hct (test code = Hct) 42.6 35.0-45.0 [facility] CenterWqjfqbjZJWFAIOPBB2161-24-13 20:09:00 Test Item Value Reference Range Interpretation Comments MCV (test code = MCV) 91.4 80.0-100.0 [facility]ervilleFejzgxxXNYAMKHNMI7509-00-34 20:09:00 Test Item Value Reference Range Interpretation Comments MCH (test code = MCH) 30.5 pg 27.0-33.0 [facility] DMUCJUECY8462-24-85 20:09:00 Test Item Value Reference Range Interpretation Comments Hgb A1C (test code = Hgb A1C) 5.0 [facility] CenterFqbvygyXJEGZFDTED5753-84-66 20:09:00 Test Item Value Reference Range Interpretation Comments MCHC (test code = MCHC) 33.3 32.0-36.0 [facility] PlanoDbaywnlSVATRVJQQQ5148-76-23 20:09:00 Test Item Value Reference Range Interpretation Comments RDW (test code = RDW) 13.3 11.0-15.0 [place] 761402-08-16 20:09:00 Test Item Value Reference Range Interpretation Comments Platelet (test code = Platelet) 345 140-400 [facility] PlanoEzwskkuAUGTCQOHDQ8038-27-39 20:09:00 Test Item Value Reference Range Interpretation Comments MPV (test code = MPV) 10.3 7.5-12.5 [facility]2022-08-16 20:09:00 Test Item Value Reference Range Interpretation Comments Glucose Lvl (test code = Glucose Lvl) 82 65-99 [facility]HhxarmjEXHWBRAIQM0471-23-63 20:09:00 Test Item Value Reference Range Interpretation Comments Neutrophils # (test code = Neutrophils 5456 3887-0225 #) [facility]anoTmjaulfAKQLMNSMZE6223-51-34 20:09:00 Test Item Value Reference Range Interpretation Comments Lymphocytes # (test code = Lymphocytes 4255 475-9505 #) [facility]2022-08-16 20:09:00 Test Item Value Reference Range Interpretation Comments BUN (test code = BUN) 9 7-25 [facility]anoIjnhgnvENURGDVFHC5139-32-07 20:09:00 Test Item Value Reference Range Interpretation Comments Monocytes # (test code = Monocytes #) 552 200-950 [facility]anoOrrqtrkMJPNJRYXUC9032-65-67 20:09:00 Test Item Value Reference Range Interpretation Comments MCH (test code = MCH) 30.5 pg 27.0-33.0 [facility]anoAvsfstwJEKFJXBXOS4097-70-59 20:09:00 Test Item Value Reference Range Interpretation Comments Eosinophils # (test code = Eosinophils 80 15-500 #) [facility]anoMknwisiSLXAOEYKWG7464-41-86 20:09:00 Test Item Value Reference Range Interpretation Comments Basophils # (test code 64 See_Comment [Aut omated message] The = Basophils #) system which generated this result tra nsmitted reference range : <=200. The reference r salvador was not used to int erpret this result as normal/abnormal . [facility]2022-08-16 20:09:00 Test Item Value Reference Range Interpretation Comments Creatinine Lvl (test code = Creatinine 0.62 0.50-0.99 Lvl) [facility]RdkuwrkJNRJLNSKRE5151-25-36 20:09:00 Test Item Value Reference Range Interpretation Comments Segs (test code = Segs) 68.2 [facility]ervilleSdjenvoXXLEVZSPWE1271-27-11 20:09:00 Test Item Value Reference Range Interpretation Comments Lymphocytes (test code = Lymphocytes) 23.1 [facility]ervilleJqdgiprYZMZFMJKGR8883-76-41 20:09:00 Test Item Value Reference Range Interpretation Comments Monocytes (test code = Monocytes) 6.9 [facility] BEETS7507-62-62 20:09:00 Test Item Value Reference Range Interpretation Comments eGFR (test code = eGFR) 111 [facility] CenterFquqvfzJGXNKVNHAG4703-46-45 20:09:00 Test Item Value Reference Range Interpretation Comments Eosinophils (test code = Eosinophils) 1.0 [facility]ervilleEmhedibADSZGHSOCT6446-32-61 20:09:00 Test Item Value Reference Range Interpretation Comments Basophils (test code = Basophils) 0.8 [facility] OXUMVGIGH3451-79-31 20:09:00 Test Item Value Reference Range Interpretation Comments Hgb A1C (test code = Hgb A1C) 5.0 [facility] XVNGQ9483-96-54 20:09:00 Test Item Value Reference Range Interpretation Comments eGFR (test code = eGFR) 111 [facility] CenterHosnjfiXOUHZIXNAJ3863-79-69 20:09:00 Test Item Value Reference Range Interpretation Comments MCHC (test code = MCHC) 33.3 32.0-36.0 [facility] CenterTjzzinaRWLAAWTPJH4719-00-74 20:09:00 Test Item Value Reference Range Interpretation Comments RDW (test code = RDW) 13.3 11.0-15.0 [facility] CenterJndtocxQBLSSQNQMS5720-59-97 20:09:00 Test Item Value Reference Range Interpretation Comments Platelet (test code = Platelet) 345 140-400 [facility]CHE[facility] QYLHY2088-75-16 20:09:00 Test Item Value Reference Range Interpretation Comments B/C Ratio (test code = B/C NOT APPLICABLE 622 Ratio) [facility]ervilleEdoqyucNTXCTPDYOL1291-93-92 20:09:00 Test Item Value Reference Range Interpretation Comments MPV (test code = MPV) 10.3 7.5-12.5 [facility] OwtrntbVBTILQDZZQ7978-93-69 20:09:00 Test Item Value Reference Range Interpretation Comments Neutrophils # (test code = Neutrophils 5456 3791-0612 #) [facility]anoViekaawRVAZMXNQRE1666-60-23 20:09:00 Test Item Value Reference Range Interpretation Comments Lymphocytes # (test code = Lymphocytes 0491 154-6487 #) [facility]2022-08-16 20:09:00 Test Item Value Reference Range Interpretation Comments Sodium Lvl (test code = Sodium Lvl) 139 135-146 [facility]anoQsgcvflSEWXEAATTC4896-65-95 20:09:00 Test Item Value Reference Range Interpretation Comments Monocytes # (test code = Monocytes #) 552 200-950 [facility] PlanoJftvioqVHDNXWMKNH8920-88-89 20:09:00 Test Item Value Reference Range Interpretation Comments Eosinophils # (test code = Eosinophils 80 15-500 #) [facility]anoFsmskcmKMDHWZSGGA1607-98-65 20:09:00 Test Item Value Reference Range Interpretation Comments Basophils # (test code 64 See_Comment [Aut omated message] The = Basophils #) system which generated this result tra nsmitted reference range : <=200. The reference r salvador was not used to int erpret this result as normal/abnormal . [facility] RLFKW6805-93-77 20:09:00 Test Item Value Reference Range Interpretation Comments Potassium Lvl (test code = Potassium 4.3 3.5-5.3 Lvl) [facility]anoQmvtmoxQPAKNAPCPK2693-27-40 20:09:00 Test Item Value Reference Range Interpretation Comments Segs (test code = Segs) 68.2 [facility]anoQjnvrdrYHDVOEIYSE8362-80-52 20:09:00 Test Item Value Reference Range Interpretation Comments Lymphocytes (test code = Lymphocytes) 23.1 [place] 761402-08-16 20:09:00 Test Item Value Reference Range Interpretation Comments Monocytes (test code = Monocytes) 6.9 [facility] [id number] 20:09:00 Test Item Value Reference Range Interpretation Comments Chloride Lvl (test code = Chloride Lvl) 104 98-110 [facility]anoOusdaifBGZJIMIFTO4621-10-62 20:09:00 Test Item Value Reference Range Interpretation Comments Eosinophils (test code = Eosinophils) 1.0 [facility]anoOoihxpmWEFRALDCHD1694-04-08 20:09:00 Test Item Value Reference Range Interpretation Comments Basophils (test code = Basophils) 0.8 [facility] TDHRWCTJN9250-59-87 20:09:00 Test Item Value Reference Range Interpretation Comments Hgb A1C (test code = Hgb A1C) 5.0 [facility] ANAFV0289-34-13 20:09:00 Test Item Value Reference Range Interpretation Comments CO2 (test code = CO2) 27 20-32 [facility] IPRTV6209-09-72 20:09:00 Test Item Value Reference Range Interpretation Comments Glucose Lvl (test code = Glucose Lvl) 82 65-99 [facility] RBSYQ6240-30-19 20:09:00 Test Item Value Reference Range Interpretation Comments BUN (test code = BUN) 9 7-25 [facility]2022-08-16 20:09:00 Test Item Value Reference Range Interpretation Comments Creatinine Lvl (test code = Creatinine 0.62 0.50-0.99 Lvl) [facility]2022-08-16 20:09:00 Test Item Value Reference Range Interpretation Comments eGFR (test code = eGFR) 111 [facility]2022-08-16 20:09:00 Test Item Value Reference Range Interpretation Comments Calcium Lvl (test code = Calcium Lvl) 9.6 8.6-10.2 [facility] [id number] 20:09:00 Test Item Value Reference Range Interpretation Comments B/C Ratio (test code = B/C NOT APPLICABLE 22 Ratio) [facility] [id number] 20:09:00 Test Item Value Reference Range Interpretation Comments Sodium Lvl (test code = Sodium Lvl) 139 135-146 [facility] [id number] 20:09:00 Test Item Value Reference Range Interpretation Comments Potassium Lvl (test code = Potassium 4.3 3.5-5.3 Lvl) [facility] HQFSH4741-09-58 20:09:00 Test Item Value Reference Range Interpretation Comments Chloride Lvl (test code = Chloride Lvl) 104 98-110 [facility] [id number] 20:09:00 Test Item Value Reference Range Interpretation Comments CO2 (test code = CO2) 27 20-32 [facility] WCPQC7301-18-20 20:09:00 Test Item Value Reference Range Interpretation Comments Calcium Lvl (test code = Calcium Lvl) 9.6 8.6-10.2 [place] 396282-08-16 20:09:00 Test Item Value Reference Range Interpretation Comments Total Protein (test code = Total 7.4 6.1-8.1 Protein) [place] 396282-08-16 20:09:00 Test Item Value Reference Range Interpretation Comments Total Protein (test code = Total 7.4 6.1-8.1 Protein) [place] 396282-08-16 20:09:00 Test Item Value Reference Range Interpretation Comments Albumin Lvl (test code = Albumin Lvl) 4.6 3.6-5.1 [place] 396282-08-16 20:09:00 Test Item Value Reference Range Interpretation Comments Globulin (test code = Globulin) 2.8 1.9-3.7 [place] 396282-08-16 20:09:00 Test Item Value Reference Range Interpretation Comments A/G Ratio (test code = A/G Ratio) 1.6 1.0-2.5 [place] [address]-08-16 20:09:00 Test Item Value Reference Range Interpretation Comments Bili Total (test code = Bili Total) 0.6 0.2-1.2 [place] 396282-08-16 20:09:00 Test Item Value Reference Range Interpretation Comments Alk Phos (test code = Alk Phos) 53 31-125 [place] 396282-08-16 20:09:00 Test Item Value Reference Range Interpretation Comments ASPARTATE TRANSAMINASE (test code = 21 10-35 ASPARTATE TRANSAMINASE) [place] 396282-08-16 20:09:00 Test Item Value Reference Range Interpretation Comments Albumin Lvl (test code = Albumin Lvl) 4.6 3.6-5.1 [place] 396282-08-16 20:09:00 Test Item Value Reference Range Interpretation Comments ALANINE AMINOTRANSFERASE (test code = 34 6-29 ALANINE AMINOTRANSFERASE) [place] 761402-08-16 20:09:00 Test Item Value Reference Range Interpretation Comments WBC X 10x3 (test code = WBC X 10x3) 8.0 3.8-10.8 [place] 761402-08-16 20:09:00 Test Item Value Reference Range Interpretation Comments RBC X 10x6 (test code = RBC X 10x6) 4.66 3.80-5.10 [facility]TdpkkjwELDWKXNACT8759-91-01 20:09:00 Test Item Value Reference Range Interpretation Comments Hgb (test code = Hgb) 14.2 11.7-15.5 [facility]awMkcrbnnMZEULXGAPC1146-57-56 20:09:00 Test Item Value Reference Range Interpretation Comments Hct (test code = Hct) 42.6 35.0-45.0 [facility] PGMDI8415-02-61 20:09:00 Test Item Value Reference Range Interpretation Comments Globulin (test code = Globulin) 2.8 1.9-3.7 [facility]awPhldajxVTCRCHXBBT1468-19-44 20:09:00 Test Item Value Reference Range Interpretation Comments MCV (test code = MCV) 91.4 80.0-100.0 [facility]anoTrrmxqzDQCUDKCNNU9685-24-80 20:09:00 Test Item Value Reference Range Interpretation Comments MCH (test code = MCH) 30.5 pg 27.0-33.0 [facility] [id number] 20:09:00 Test Item Value Reference Range Interpretation Comments B/C Ratio (test code = B/C NOT APPLICABLE 6-22 Ratio) [facility]anoOywlumoFGCYYEQYZB5601-58-90 20:09:00 Test Item Value Reference Range Interpretation Comments MCHC (test code = MCHC) 33.3 32.0-36.0 [facility]awYrzkemjUDARIBLXWM1973-20-25 20:09:00 Test Item Value Reference Range Interpretation Comments RDW (test code = RDW) 13.3 11.0-15.0 [facility]anoVxrvswcNRKGECZZUA6251-64-81 20:09:00 Test Item Value Reference Range Interpretation Comments Platelet (test code = Platelet) 345 140-400 [facility]anoKwfvnszGOOCKZKVYK8235-83-57 20:09:00 Test Item Value Reference Range Interpretation Comments MPV (test code = MPV) 10.3 7.5-12.5 [facility]awTzsdbeeQBTVUQRDLJ2331-04-59 20:09:00 Test Item Value Reference Range Interpretation Comments Neutrophils # (test code = Neutrophils 0097 5168-9364 #) [facility]awZjqiqxrCZOBDTUTLN4721-63-19 20:09:00 Test Item Value Reference Range Interpretation Comments Lymphocytes # (test code = Lymphocytes 5622 047-4155 #) [facility] JDRML3473-86-08 20:09:00 Test Item Value Reference Range Interpretation Comments A/G Ratio (test code = A/G Ratio) 1.6 1.0-2.5 [facility]EdebhvcAPXZHNUTBS9333-19-04 20:09:00 Test Item Value Reference Range Interpretation Comments Monocytes # (test code = Monocytes #) 552 200-950 [facility]ervilleKhokielRUOZMQKEQP5585-79-70 20:09:00 Test Item Value Reference Range Interpretation Comments Eosinophils # (test code = Eosinophils 80 15-500 #) [facility] CenterJktldbmMYMQTCMKSS2848-79-19 20:09:00 Test Item Value Reference Range Interpretation Comments Basophils # (test code 64 See_Comment [Aut omated message] The = Basophils #) system which generated this result tra nsmitted reference range : <=200. The reference r salvador was not used to int erpret this result as normal/abnormal . [facility] CenterKfomivrXIBGWGGUBT8280-87-67 20:09:00 Test Item Value Reference Range Interpretation Comments Segs (test code = Segs) 68.2 [facility]awOmnuylbXKSDWWHPAN0722-06-14 20:09:00 Test Item Value Reference Range Interpretation Comments Lymphocytes (test code = Lymphocytes) 23.1 [facility]awBrwvslcFUHFYMIWCV8982-40-07 20:09:00 Test Item Value Reference Range Interpretation Comments Monocytes (test code = Monocytes) 6.9 [facility]aginawLsienseMVULTKWCIJ2351-74-85 20:09:00 Test Item Value Reference Range Interpretation Comments Eosinophils (test code = Eosinophils) 1.0 [facility]awDdkkihsJRQBJNHZVU9058-62-19 20:09:00 Test Item Value Reference Range Interpretation Comments Basophils (test code = Basophils) 0.8 [facility] BITNWIWRY1514-75-34 20:09:00 Test Item Value Reference Range Interpretation Comments Hgb A1C (test code = Hgb A1C) 5.0 [facility] [id number] 20:09:00 Test Item Value Reference Range Interpretation Comments Bili Total (test code = Bili Total) 0.6 0.2-1.2 [facility] [id number] 20:09:00 Test Item Value Reference Range Interpretation Comments Alk Phos (test code = Alk Phos) 53 31-125 [facility] [id number] 20:09:00 Test Item Value Reference Range Interpretation Comments ASPARTATE TRANSAMINASE (test code = 21 10-35 ASPARTATE TRANSAMINASE) [facility]2022-08-16 20:09:00 Test Item Value Reference Range Interpretation Comments ALANINE AMINOTRANSFERASE (test code = 34 6-29 ALANINE AMINOTRANSFERASE) [facility]anoOoiwkgnVSSSQEESRQ9590-84-70 20:09:00 Test Item Value Reference Range Interpretation Comments WBC X 10x3 (test code = WBC X 10x3) 8.0 3.8-10.8 [facility]2022-08-16 20:09:00 Test Item Value Reference Range Interpretation Comments Glucose Lvl (test code = Glucose Lvl) 82 65-99 [facility] PlanoZljoeloDOFXWNVEYA1250-96-27 20:09:00 Test Item Value Reference Range Interpretation Comments RBC X 10x6 (test code = RBC X 10x6) 4.66 3.80-5.10 [place] 761402-08-16 20:09:00 Test Item Value Reference Range Interpretation Comments Hgb (test code = Hgb) 14.2 11.7-15.5 [facility]anoMwhhrwhHVPCMFFCNN9750-08-44 20:09:00 Test Item Value Reference Range Interpretation Comments Hct (test code = Hct) 42.6 35.0-45.0 [place] 761402-08-16 20:09:00 Test Item Value Reference Range Interpretation Comments MCV (test code = MCV) 91.4 80.0-100.0 [facility]2022-08-16 20:09:00 Test Item Value Reference Range Interpretation Comments Sodium Lvl (test code = Sodium Lvl) 139 135-146 [facility]2022-08-16 20:09:00 Test Item Value Reference Range Interpretation Comments BUN (test code = BUN) 9 7-25 [facility] PlanoNdumfzoPDISBPMHOU7583-83-88 20:09:00 Test Item Value Reference Range Interpretation Comments MCH (test code = MCH) 30.5 pg 27.0-33.0 [place] 761402-08-16 20:09:00 Test Item Value Reference Range Interpretation Comments MCHC (test code = MCHC) 33.3 32.0-36.0 [place] 761402-08-16 20:09:00 Test Item Value Reference Range Interpretation Comments RDW (test code = RDW) 13.3 11.0-15.0 [place] [address]-08-16 20:09:00 Test Item Value Reference Range Interpretation Comments Platelet (test code = Platelet) 345 140-400 [facility] PlanoMntewteSSDCOXEKUA9459-76-49 20:09:00 Test Item Value Reference Range Interpretation Comments MPV (test code = MPV) 10.3 7.5-12.5 [facility] iqada1347-09-38 10:09:00 Test Item Value Reference Range Interpretation Comments Glucose (test code 86 mg/dL 65-99 = 2345-7) BUN (test code = 8 mg/dL 6-24 3094-0) Creatinine (test 0.77 mg/dL 0.57-1.00 code = 2160-0) eGFR (test code = 97 mL/min/1.73 >59 8257) BUN/creatinine 9-23 ratio (test code = 3097-3) Sodium (test code = 139 mmol/L 956-036 4558-2) Potassium (test 4.2 mmol/L 3.5-5.2 code = 2823-3) Chloride (test code 101 mmol/L 96-106 = 2075-0) CO2 (test code = 22 mmol/L 20-2027-9) Calcium (test code 9.9 mg/dL 8.7-10.2 = 28573-6) Protein (test code 7.7 g/dL 6.0-8.5 = 2885-2) Albumin, S (test 4.6 g/dL 3.8-4.8 code = 1751-7) Globulin, total 3.1 g/dL 1.5-4.5 (test code = 23366-0) Albumin/globulin 1.2-2.2 ratio (test code = 1759-0) Total bilirubin 0.3 mg/dL 0.0-1.2 (test code = 1975-2) Alkaline See_Comment [Automated phosphatase (test message] T he code = 6768-6) system which generated this result transmit mike reference range : 44 - 121 IU/L. The reference range was not used to interpret this result as normal/abnormal . AST (test code = See_Comment [Automated 1920-06) message] The system which generated this result [...] code = Performed at: [facility]) - [facility] [address] [id number] Director: Rusty Reed MD, Phone: [phone] [facility] [id number] 10:09:00 Test Item Value Reference Range Interpretation Comments Hemoglobin A1C 5.2 % 4.8-5.6 Prediabetes: (test code = 5.7 - 6.4 4548-4) Diabetes: >6.4 Glycemic contro l for adults with diabetes: <7.0 [facility] (test code = Performed at: [facility]) [facility] [address] [id number] Director: Rusty Reed MD, Phone: [phone] [facility] with platelet and svzaspeibylw1885-98-54 10:09:00 Test Item Value Reference Range Interpretation Comments WBC (test code = See_Comment [Automated 6690-2) message] The system which generated this result [...] [Automated absolute (test code message] The = 031-2) system which generated this result transmit mike [...] % Not Estab. granulocytes (test code = 12510-4) Immature grans See_Comment [Automated (abs) (test code = message] The 58808-8) system which generated this result transmit mike reference range : 0.0 - 0.1 x10E3/uL. The reference range was not used to interpret this result as normal/abnormal . [facility] (test code = Performed at: [facility]) - [facility] [address] [id number] Director: Rusty Reed MD, Phone: [phone] [facility] reflex to [id number] 10:09:00 Test Item Value Reference Range Interpretation Comments TSH (test code See_Comment [Automated m essage] = 90275-1) The system [employer] generated this result transmit mike reference range : 0.450 - 4.500 uIU/mL. The reference range was not used to interpret this result as normal/abnormal . [facility] (test code Performed at: 01 - = [facility]) [facility] [id number] Director: Rusty Reed MD, Phone: [phone] [facility] metabolic osute2494-10-51 10:08:00 Test Item Value Reference Range Interpretation Comments Glucose (test 81 mg/dL 65-99 code = 2345-7) BUN (test code = 10 mg/dL -24 4-0) Creatinine (test 0.70 mg/dL 0.57-1.00 code = 2160-0) EGFR Non-Afr. 105 mL/min/1.73 >59 Filipino (test code = 2775) EGFR 121 mL/min/1.73 >59 In accorda nce with Filipino (test recommendatio ns from code = 2774) [...] 2075-0) CO2 (test code = 25 mmol/L -29 2028-07) Calcium (test 9.3 mg/dL 8.7-10.2 code = 79700-4) [facility] (test code = Performed at: [facility]) - [facility] [address] [id number] Director: Rusty Reed MD, Phone: [phone] [facility] AssociationARS-CoV-[facility] (COVID-19) RNA [Presence] in Respiratory specimen by MONICA with probe tzovtzfoz4745-00-19 21:07:33 Test Item Value Reference Range Interpretation Comments SARS-CoV-2 (COVID-19) RNA Not detected Not-Detected [Presence] in Respiratory specimen by MONICA with probe detection (test code = 89859-7) Whether patient is employed in a healthcare setting (test code = 71145-6) Whether the patient has symptoms related to condition of interest (test code = 39017-1) Patient was hospitalized because of this condition (test code = 44101-3) Whether the patient was admitted to intensive care unit (ICU) for condition of interest (test code = 59652-6) Whether patient resides in a congregate care setting (test code = 53622-2) [facility]
[2023-08-06 08:40] LABS: Absolute Lymphocytes (CBC) 1.3 K/uL (0.7-4.9); Hematocrit 37.6 % (36.0-45.0); Lymphocytes % 20.6 % (15.3-44.8); MCV 85.8 fL (80-100); MPV 7.6 fL (7.6-11.3); Platelets 333 thou/uL (152-406); RBC Red Blood Cell Count 4.38 M/uL (3.86-4.86)
[2023-08-06 08:55] LABS: Albumin 3.9 g/dL (3.4-5.0); Bilirubin Total 0.5 mg/dL (0.2-1.0); Potassium 3.1 mEq/L (3.5-5.1); Protein, Total 7.7 g/dL (6.4-8.2)
--- NOTE | 2023-08-06 09:13 | RAD REPORT ---
EXAM DESCRIPTION: USExtrem Venous W Compress Bil08/06/2023 9:04 am CLINICAL HISTORY: Leg swelling COMPARISON: none FINDINGS: The common femoral, superficial femoral, greater saphenous, popliteal and posterior tibial veins bilaterally are compressible and demonstrate augmentation. Doppler demonstrates good flow. Grayscale, color and spectral analysis performed on all vessels IMPRESSION: No evidence of deep venous thrombosis involving either lower extremity.
[2023-08-06] MEDS ORDERED: POTASSIUM 25 MEQ EFFERV TAB ONE (09:25)
--- NOTE | 2023-08-06 09:48 | ER ---
Nurse's Notes [facility] Name: Thuy Garcia Age: 48 yrs Sex: Female : 1975 Arrival Date: 08/06/2023 Time: 07:50 Bed 18 Private MD: Diagnosis: Influenza due to other identified influenza virus with other respiratory manifestations;Hypokalemia Presentation: 08/06 08:08 Chief complaint: Headache, nausea, body aches, dizziness, and malaise x 3 days, hb palpitations yesterday. Coronavirus screen: Client presents with at least one sign or symptom that may indicate coronavirus-19. Standard/surgical mask placed on the client. Provider contacted for isolation considerations. Ebola Screen: No symptoms or risks identified at this time. Initial Sepsis Screen: Does the patient meet any 2 criteria? No. Patient's initial sepsis screen is negative. Does the patient have a suspected source of infection? No. Patient's initial sepsis screen is negative. Risk Assessment: Do you want to hurt yourself or someone else? Patient reports no desire to harm self or others. Onset of symptoms was August 04, 2023. 08:08 Method Of Arrival: Ambulatory hb 08:08 Acuity: RL 3 hb Historical: - Allergies: 08:09 No Known Allergies; hb - PMHx: 08:09 Depression; Hypertension; hb - PSHx: 08:09 Cholecystectomy; hb - Immunization history:: Adult Immunizations up to date. - Social history:: Smoking status: Patient denies any tobacco usage or history of. Screenin:33 [facility] ED Fall Risk Assessment (Adult) History of falling in the last 3 months, ld1 including since admission No falls in past 3 months (0 pts). Abuse screen: Denies threats or abuse. Denies injuries from another. Nutritional screening: No deficits noted. Tuberculosis screening: No symptoms or risk factors identified. Assessment: 08:33 General: Appears in no apparent distress. comfortable, Behavior is calm, cooperative, ld1 appropriate for age. Pain: Denies pain. Neuro: Level of Consciousness is awake, alert, obeys commands, Oriented to person, place, time, situation. Cardiovascular: Capillary refill < 3 seconds Patient's skin is warm and dry. Respiratory: Airway is patent Respiratory effort is even, unlabored, Breath sounds are clear bilaterally. GI: Abdomen is flat, non-distended. : No signs and/or symptoms were reported regarding the genitourinary system. EENT: No signs and/or symptoms were reported regarding the EENT system. Derm: No signs and/or symptoms reported regarding the dermatologic system. Musculoskeletal: No signs and/or symptoms reported regarding the musculoskeletal system. Vital Signs: 08:08 BP 133 / 79; Pulse 65; Resp 18; Temp 99.5(O); Pulse Ox 100% on R/A; Pain 5/10; hb 08:08 Pain Scale: Adult hb ED Course: 07:54 Patient arrived in ED. im 07:56 Christiana Meneses FNP-C is PHCP. snw 07:56 Ender Gill MD is Attending Physician. snw 08:09 Triage completed. hb 08:10 Arm band placed on. hb 08:19 Mona Butcher, RN is Primary Nurse. ld1 08:32 SARS-COV-2 RT PCR Sent. ld1 08:32 Influenza Screen (a \T\ B) Sent. ld1 08:32 CMP Sent. ld1 08:32 Basic Metabolic Panel Sent. ld1 08:32 CBC with Diff Sent. ld1 08:33 Patient has correct armband on for positive identification. Placed in gown. Bed in low ld1 position. Call light in reach. Side rails up X2. satellite project site monitor on. Pulse ox on. NIBP on. Door closed. Noise minimized. Warm blanket given. 08:33 No provider procedures requiring assistance completed. Inserted saline lock: 20 gauge ld1 in right antecubital area, using aseptic technique. Blood collected. 09:06 Extrem Venous W Compression Eb US In Process Unspecified. EDMS 10:07 IV discontinued, intact, bleeding controlled, No redness/swelling at site. ld1 Administered Medications: 08:32 Drug: NS 0.9% IV 1000 ml Route: IV; Rate: 125 ml/hr; Site: right antecubital; ld1 09:22 Drug: Potassium PO Effervescent Tablet 50 mEq Route: PO; ld1 Medication: 08:33 VIS not applicable for this client. ld1 Outcome: 09:47 Discharge ordered by . snw 10:07 Discharged to home ambulatory, with family. ld1 10:07 Condition: stable 10:07 Discharge instructions given to patient, Instructed on discharge instructions, follow up and referral plans. Demonstrated understanding of instructions, follow-up care. 10:07 Patient left the ED. ld1 Signatures: Dispatcher [employer] EDChristiana Allen, DAVID BROKERAGE OFFICE MANAGER-Melisaw Ana Orozco, RN RN Mona Butcher RN RN ld1 Brenda Patterson
--- NOTE | 2023-08-06 09:48 | EDPHYS ---
Physician Documentation [facility] Name: Thuy Garcia Age: 48 yrs Sex: Female : 1975 Arrival Date: 08/06/2023 Time: 07:50 Bed 18 Private MD: ED Physician Ender Gill HPI: 08/06 09:00 This 48 yrs old Female presents to ER via Ambulatory with complaints of Congestion, snw General Weakness, COVID test. 09:00 Onset: The symptoms/episode began/occurred 3 day(s) ago. Associated signs and symptoms: snw Pertinent positives: congestion, headache. The patient has experienced a previous episode, "I haven't felt this bad in a long time". recent travel to [place] and back. Historical: - Allergies: 08:09 No Known Allergies; hb - PMHx: 08:09 Depression; Hypertension; hb - PSHx: 08:09 Cholecystectomy; hb - Immunization history:: Adult Immunizations up to date. - Social history:: Smoking status: Patient denies any tobacco usage or history of. ROS: 09:00 Eyes: Negative for injury, pain, redness, and discharge, ENT: Negative for injury, snw pain, and discharge, Neck: Negative for injury, pain, and swelling, Cardiovascular: Negative for chest pain, palpitations, and edema, Respiratory: Negative for shortness of breath, cough, wheezing, and pleuritic chest pain, Abdomen/GI: Negative for abdominal pain, nausea, vomiting, diarrhea, and constipation, Back: Negative for injury and pain, : Negative for injury, bleeding, discharge, and swelling, MS/Extremity: Negative for injury and deformity, Skin: Negative for injury, rash, and discoloration. 09:00 Constitutional: Positive for body aches, chills, malaise, poor PO intake. 09:00 Neuro: Positive for dizziness, headache. Exam: 09:00 Head/Face: Normocephalic, atraumatic. Eyes: Pupils equal round and reactive to light, snw extra-ocular motions intact. Lids and lashes normal. Conjunctiva and sclera are non-icteric and not injected. Cornea within normal limits. Periorbital areas with no swelling, redness, or edema. ENT: Nares patent. No nasal discharge, no septal abnormalities noted. Tympanic membranes are normal and external auditory canals are clear. Oropharynx with no redness, swelling, or masses, exudates, or evidence of obstruction, uvula midline. Mucous membranes moist. Neck: Trachea midline, no thyromegaly or masses palpated, and no cervical lymphadenopathy. Supple, full range of motion without nuchal rigidity, or vertebral point tenderness. No Meningismus. Chest/axilla: Normal chest wall appearance and motion. Nontender with no deformity. No lesions are appreciated. Cardiovascular: Regular rate and rhythm with a normal S1 and S2. No gallops, murmurs, or rubs. Normal PMI, no JVD. No pulse deficits. mild pedal edema Respiratory: Lungs have equal breath sounds bilaterally, clear to auscultation and percussion. No rales, rhonchi or wheezes noted. No increased work of breathing, no retractions or nasal flaring. Abdomen/GI: Soft, non-tender, with normal bowel sounds. No distension or tympany. No guarding or rebound. No evidence of tenderness throughout. Back: No spinal tenderness. No costovertebral tenderness. Full range of motion. Skin: Warm, dry with normal turgor. Normal color with no rashes, no lesions, and no evidence of cellulitis. MS/ Extremity: Pulses equal, no cyanosis. Neurovascular intact. Full, normal range of motion. Neuro: Awake and alert, GCS 15, oriented to person, place, time, and situation. Cranial nerves II-XII grossly intact. Motor strength 5/5 in all extremities. Sensory grossly intact. Cerebellar exam normal. Normal gait. Psych: Awake, alert, with orientation to person, place and time. Behavior, mood, and affect are within normal limits. 09:00 Constitutional: The patient appears alert, awake, uncomfortable. Vital Signs: 08:08 BP 133 / 79; Pulse 65; Resp 18; Temp 99.5(O); Pulse Ox 100% on R/A; Pain 5/10; hb 08:08 Pain Scale: Adult hb MDM: 07:56 Patient medically screened. snw 09:03 Differential diagnosis: viral Infection, DVT, hypokalemia. Data reviewed: vital signs, snw nurses notes, lab test result(s), radiologic studies. Counseling: I had a detailed discussion with the patient and/or guardian regarding the historical points, exam findings, and any diagnostic results supporting the discharge/admit diagnosis, lab results, radiology results, the need for outpatient follow up. 08/06 08:20 Order name: CBC with Diff; Complete Time: 08:47 bd 08/06 08:20 Order name: Basic Metabolic Panel bd 08/06 08:20 Order name: CMP; Complete Time: 08:55 bd 08/06 08:20 Order name: Influenza Screen (a \\T\\ B); Complete Time: 08:58 bd 08/06 08:20 Order name: SARS-COV-2 RT PCR; Complete Time: 09:19 bd 08/06 08:20 Order name: Extrem Venous W Compression Eb US; Complete Time: 09:19 bd Administered Medications: 08:32 Drug: NS 0.9% IV 1000 ml Route: IV; Rate: 125 ml/hr; Site: right antecubital; ld1 09:22 Drug: Potassium PO Effervescent Tablet 50 mEq Route: PO; ld1 Disposition Summary: 08/06/23 09:47 Discharge Ordered Location: Home snw Condition: Stable snw Diagnosis - Influenza due to other identified influenza virus with other respiratory snw manifestations - Hypokalemia snw Followup: snw - With: Emergency Department - When: As needed - Reason: Worsening of condition Followup: snw - With: Private Physician - When: 2 - 3 days - Reason: Recheck today's complaints, Continuance of care, Re-evaluation by your physician Discharge Instructions: - Discharge Summary Sheet snw - Potassium Content of Foods snw - Influenza, Adult snw - Hypokalemia snw Forms: - Work release form snw - Medication Reconciliation Form snw - Thank You Letter snw - Antibiotic Education snw - Prescription Opioid Use snw - Patient Portal Instructions snw - Leadership Thank You Letter snw Signatures: Dispatcher [employer] EDMS Christiana Meneses, CAMERA REPAIRMAN-C CAMERA REPAIRMAN-Csnw Ana Orozco RN RN Mona Butcher RN RN ld1 Corrections: (The following items were deleted from the chart) 09:03 09:00 Head/Face: Normocephalic, atraumatic. Eyes: Pupils equal round and reactive to snw light, extra-ocular motions intact. Lids and lashes normal. Conjunctiva and sclera are non-icteric and not injected. Cornea within normal limits. Periorbital areas with no swelling, redness, or edema. ENT: Nares patent. No nasal discharge, no septal abnormalities noted. Tympanic membranes are normal and external auditory canals are clear. Oropharynx with no redness, swelling, or masses, exudates, or evidence of obstruction, uvula midline. Mucous membranes moist. Neck: Trachea midline, no thyromegaly or masses palpated, and no cervical lymphadenopathy. Supple, full range of motion without nuchal rigidity, or vertebral point tenderness. No Meningismus. Chest/axilla: Normal chest wall appearance and motion. Nontender with no deformity. No lesions are appreciated. Cardiovascular: Regular rate and rhythm with a normal S1 and S2. No gallops, murmurs, or rubs. Normal PMI, no JVD. No pulse deficits. Respiratory: Lungs have equal breath sounds bilaterally, clear to auscultation and percussion. No rales, rhonchi or wheezes noted. No increased work of breathing, no retractions or nasal flaring. Abdomen/GI: Soft, non-tender, with normal bowel sounds. No distension or tympany. No guarding or rebound. No evidence of tenderness throughout. Back: No spinal tenderness. No costovertebral tenderness. Full range of motion. Skin: Warm, dry with normal turgor. Normal color with no rashes, no lesions, and no evidence of cellulitis. MS/ Extremity: Pulses equal, no cyanosis. Neurovascular intact. Full, normal range of motion. Neuro: Awake and alert, GCS 15, oriented to person, place, time, and situation. Cranial nerves II-XII grossly intact. Motor strength 5/5 in all extremities. Sensory grossly intact. Cerebellar exam normal. Normal gait. Psych: Awake, alert, with orientation to person, place and time. Behavior, mood, and affect are within normal limits. snw
[2023-08-06 10:27] VITALS: BP 133/79; TEMP 99.5; O2SAT 100
== END 2023-08-06 10:07 | disposition home or self-care (01) ==
LOC: ER 07:50
DX: J10.1 Influenza due to other identified influenza virus with other respiratory manifestations (principal); E87.6 Hypokalemia; Z20.822 Contact with and (suspected) exposure to COVID-19
CPT/HCPCS: 36415; 80053; 85025; 87635; 87804; 93970; 99285